=== PATIENT | female | born 1955 | race Caucasian/White ===

== ENCOUNTER → 2016-09-25 | Outpatient (CLI) | payer OTHER ==
[~2016-09-25] MED LIST: ASPI325T39 PO; BISO10TA14 PO; CHOL100010 PO; LPT/40 PO; LRT5 PO; PANT40TA PO
[2016-09-25 16:59] LABS: ALT/SGPT 71 U/L (12-78); AST/SGOT 37 U/L (15-37); BLOOD UREA NITROGEN 9 mg/dl (7-18); BUN/CREATININE RATIO 10.3 (10-20); CALCIUM 8.9 mg/dl (8.5-10.1); CARBON DIOXIDE 32 mmol/L (21-32); CHLORIDE 104 mmol/L (98-107); CHOLESTEROL 202 mg/dl (0-200); CREATININE 0.88 mg/dl (0.60-1.20); GLUCOSE 100 mg/dl (70-99); POTASSIUM 4.2 mmol/L (3.5-5.1); SODIUM 140 mmol/L (136-145); TRIGLYCERIDES 220 mg/dl (0-150); VERY LOW DENSITY LIPOPROT CALC 44 mg/dl
[2016-09-25 17:09] LABS: ALB/GLOB RATIO 1.4 (0.9-2); ALKALINE PHOSPHATASE 99 U/L (45-117); CHOLESTEROL/HDL RATIO 3.7; HDL CHOLESTEROL 55 mg/dl; LDL CHOLESTEROL CALCULATED 103 mg/dl
== END | disposition home or self-care (01) ==
LOC: C.LABPBG 11:44
PROVIDERS: ATTEND Family Medicine
DX: E78.5 Hyperlipidemia, unspecified (principal); J44.9 Chronic obstructive pulmonary disease, unspecified; E55.9 Vitamin D deficiency, unspecified

== ENCOUNTER → 2017-01-04 | Outpatient (CLI) | payer OTHER | END | disposition home or self-care (01) | LOC: C.MAMM 09:14 | PROVIDERS: ATTEND Family Medicine | DX: M85.88 Other specified disorders of bone density and structure, other site (principal); M81.0 Age-related osteoporosis without current pathological fracture ==

== ENCOUNTER → 2017-03-04 | Outpatient (CLI) | payer OTHER | END | disposition home or self-care (01) | LOC: C.LABPBG 11:36 | PROVIDERS: ATTEND Internal Medicine Rheumatology | DX: M80.00XA Age-related osteoporosis with current pathological fracture, unspecified site, initial encounter for fracture (principal); E55.9 Vitamin D deficiency, unspecified; E61.8 Deficiency of other specified nutrient elements; S22.39XA Fracture of one rib, unspecified side, initial encounter for closed fracture; X58.XXXA Exposure to other specified factors, initial encounter; R74.8 Abnormal levels of other serum enzymes ==

== ENCOUNTER → 2017-03-04 | Outpatient (CLI) | payer OTHER | END | disposition home or self-care (01) | LOC: C.LABPBG 10:46 | PROVIDERS: ATTEND Family Medicine | DX: R74.8 Abnormal levels of other serum enzymes (principal) ==

== ENCOUNTER 2017-04-23 09:27 | Inpatient (IN) | payer OTHER ==
[~2017-04-23] VITALS: Ht 160 cm; Wt 58.4 kg
[2017-04-23] MEDS ORDERED: SODIUM CHLORIDE 0.9% 1000ML 1,000 ML IV STA (10:27)
[2017-04-23] MEDS ORDERED: ALBUT/IPRATROP 3MG/0.5MG NEB 3 ML VIAL INH STA ×2 (10:27→13:07)
[2017-04-23] MEDS ORDERED: ONDANSETRON INJ 2 MG/ML 2 ML VIAL IV STA (11:05)
[2017-04-23] MEDS ORDERED: ONDANSETRON INJ 2 MG/ML 2 ML VIAL ONE (11:05)
[2017-04-23] MEDS ORDERED: PANT40TA PO ×2 (11:28)
[2017-04-23] MEDS ORDERED: CALC-393 PO ×2 (11:28)
[2017-04-23] MEDS ORDERED: CETI10TA84 PO ×2 (11:28)
[2017-04-23] MEDS ORDERED: ASPI325T39 PO ×2 (11:28)
[2017-04-23] MEDS ORDERED: CHOL1TAB2 PO ×2 (11:28)
[2017-04-23] MEDS ORDERED: BISO5TAB3 PO ×2 (11:28)
[2017-04-23] MEDS ORDERED: ALPR-412 PO ×2 (11:28)
[2017-04-23] MEDS ORDERED: FLUT1INH INH ×2 (11:28)
[2017-04-23] MEDS ORDERED: MECL1TAB42 PO ×2 (11:28)
[2017-04-23] MEDS ORDERED: ZOLE5INJ3 IV ×2 (11:28)
[2017-04-23] MEDS ORDERED: CYAN10005 PO ×2 (11:28)
[2017-04-23] MEDS ORDERED: HYDR-5688 PO ×2 (11:28)
[2017-04-23 11:31] LABS: CALCIUM 9.1 mg/dl (8.5-10.1); CREATININE 0.59 mg/dl (0.60-1.20); POTASSIUM 3.2 mmol/L (3.5-5.1)
--- NOTE | 2017-04-23 11:36 | DIAGNOSTIC IMAGING REPORT ---
CHEST 2 VIEWS ROUTINE HISTORY: 61 years-old Female hemoptysis fever 103 acute fever COMPARISON: Chest radiographs 11/14/2009 TECHNIQUE: PA and lateral views of the chest FINDINGS: Cardiac silhouette is within normal limits. Atherosclerosis of the aorta. Calcified posterior pleural plaque with associated linear subsegmental scarring/atelectasis redemonstrated causing hazy right perihilar and right midlung opacity which is unchanged. Chronic blunting of the right costophrenic angle. No large pneumothorax, pleural effusion or focal airspace consolidation. Bones of the chest appear grossly intact. Multilevel endplate spurring of the spine. IMPRESSION: 1. No acute process of the chest. 2. Unchanged calcified pleural plaque of the right posterior hemithorax causing a hazy ill-defined right perihilar and right midlung opacity is unchanged with mild adjacent scarring/atelectasis. 3. Chronic right costophrenic angle blunting likely secondary to underlying scarring. The above report was generated using voice recognition software. It may contain grammatical, syntax or spelling errors. Electronically signed by: Nathaniel Pinedo M.D. 04/23/2017 11:34 AM Dictated Date/Time: 04/23/2017 11:31 AM
[2017-04-23 11:44] LABS: INFLUENZA B ANTIGEN Neg for Influ B (NEG)
[2017-04-23 11:48] LABS: BASO % 0.6 %; BASO ABS # 0.03 K/uL (0-0.2); EOS % 2.5 %; EOS ABS # 0.13 K/uL (0-0.5); IG# 0.01 K/uL (0.00-0.02); LYMPH % 26.7 %; MEAN CELL VOLUME 96.4 fL (80-100); MEAN CORPUSCULAR HEMOGLOBIN 33.7 pg (25-34); MEAN PLATELET VOLUME 9.7 fL (7.4-10.4); MONO % 12.2 %; MONO ABS # 0.64 K/uL (0.11-0.59); NEUT % 57.8 %; NEUT ABS # 3.03 K/uL (1.4-6.5); PLATELET COUNT 187 K/uL (130-400); RED CELL DISTRIBUTION WIDTH CV 12.7 % (11.5-14.5); RED CELL DISTRIBUTION WIDTH SD 44.5 fL (36.4-46.3); WHITE BLOOD COUNT 5.24 K/uL (4.8-10.8)
[2017-04-23] MEDS ORDERED: OPTIRAY 320 IV PRN (12:15)
--- NOTE | 2017-04-23 12:43 | DIAGNOSTIC IMAGING REPORT ---
CT ANGIOGRAM OF THE CHEST CLINICAL HISTORY: Fever, hemoptysis, weight loss. COMPARISON STUDY: Chest x-ray dated to 91 TECHNIQUE: Following the IV administration of 90 mL of Optiray-320, CT angiogram of the thorax was performed from the thoracic inlet to the lung bases utilizing the pulmonary embolus protocol. Images are reviewed in the axial, sagittal, and coronal planes. IV contrast was administered without complication. MIP imaging was performed. A dose lowering technique was utilized adhering to the principles of ALARA. CT DOSE: 207.24 mGy.cm FINDINGS: Mediastinal and hilar lymph nodes are the upper limits of normal in size. There is no pathologic axillary lymphadenopathy There was no evidence of thoracic aortic dilatation. There were no pulmonary artery filling defects to indicate acute pulmonary embolism. There are right-sided pleural calcifications. There is moderate respiratory motion artifact. There is bilateral lower lobe bronchial wall thickening and mucous plugging. There is pulmonary emphysema. IMPRESSION: 1. No evidence of acute pulmonary embolism 2. Emphysema 3. Right-sided pleural thickening and pleural calcification 4. Bronchial wall thickening most pronounced within the lower lobes with areas of mucous plugging. This is likely indicative of a bronchitis. Electronically signed by: Corona Rubi M.D. 04/23/2017 12:41 PM Dictated Date/Time: 04/23/2017 12:37 PM
[2017-04-23] MEDS ORDERED: AZITHROMYCIN 250 MG TAB PO ONE (13:15)
[2017-04-23] MEDS ORDERED: POTASSIUM CHLORIDE 10 MEQ TABCR PO STA (13:17)
--- NOTE | 2017-04-23 14:33 | History and Physical ---
History & Physical Date & Time of Service: Apr 23, 2017 at 14:13 Chief Complaint: Coughing Up Blood, Primary Care Physician: Candie Francis DO History of Present Illness Source: patient 61 y/o F Hx PAF, COPD, GERD. Pt states she has had a cough for 5 days and has developed hemoptysis over the past 2 days. This is mostly blood streaking in her sputum. She described a recurrent fever of up to 103'. She denies CP, N/V , diarrhea or dysuria. She does not normally require treatment for her COPD. A CT chest is consistent with COPD and bronchitis. There are no distinct infiltrates. We were considering DC from the ER, however, her oxygen saturation has been variable and as low as 85% on RA. Past Medical/Surgical History 1) Paroxysmal AF 2) COPD 3) GERD Surgical Problems: 1) Hip replacement 2) Hysterectomy Family History Cancer Diabetes mellitus FH: heart disease FHx: gallbladder disease FHx: lung disease Hypertension Social History quit smoking 4 years ago - 40 + pack year history - rare ETOH Smoking Status: Former Smoker Marital Status: in relationship Occupational Status: disabled Immunizations History of Influenza Vaccine: No History of Tetanus Vaccine?: Yes History of Pneumococcal: No History of Hepatitis B Vaccine: No Allergies Coded Allergies: No Known Allergies (Verified , `, 02/17/16) Home Medications Scheduled Aspirin (Aspirin Ec), 325 MG PO DAILY Bisoprolol Fumarate (Zebeta), 2.5 MG PO DAILY Calcium Carbonate (Calcium), 1 TAB PO BID Cetirizine (Zyrtec), 10 MG PO DAILY Cholecalciferol (Vitamin D-3), 1,000 UNITS PO DAILY Cyanocobalamin (Vitamin B-12), 5,000 MCG PO DAILY Fluticasone Furoate-Vilanterol (Breo Ellipta), 1 PUFF INH DAILY Pantoprazole (Protonix), 40 MG PO BID Zoledronic Acid (Zoledronic Acid), 5 MG IV DIRECTED Scheduled PRN Alprazolam (Alprazolam), 0.25 MG PO DAILY PRN for Anxiety Hydrocodone/Acetaminophen 5MG/325MG ([place] 5MG/325MG), 1 TABLET PO Q6H PRN for Pain Meclizine Hcl (Meclizine Hcl), 25 MG PO TID PRN for Dizziness or Vertigo Review of Systems Constitutional: + fever, + chills, No sweats Eyes: No worsening of vision ENT: No hearing loss, No unusual epistaxis, No nasal symptoms Respiratory: + cough, + sputum, + shortness of breath Cardiovascular: No chest pain, No orthopnea, No PND Abdomen: No pain, No nausea, No vomiting Musculoskeletal: + joint pain (chronic ) Genitourinary - Female: No dysuria, No urinary frequency Neurologic: No memory loss, No paralysis, No weakness Psychiatric: No depression symptoms Endocrine: No fatigue Hematologic / Lymphatic: No abnormal bleeding/bruising Integumentary: No rash Allergic / Immunologic: No environmental allergies Physical Exam Vital Signs Date Time Temp Pulse Resp B/P (MAP) Pulse Ox O2 Delivery O2 Flow Rate FiO2 04/23/17 13:21 84 04/23/17 13:00 70 22 137/73 95 Nasal Cannula 3.0 04/23/17 12:14 85 Room Air 04/23/17 12:14 70 20 97 Nasal Cannula 2.0 04/23/17 11:01 63 22 129/70 100 Nebulizer 8.0 04/23/17 10:58 67 04/23/17 09:34 94 Room Air 04/23/17 09:31 36.7 68 17 146/88 94 Room Air General Appearance: WD/WN, no apparent distress Head: normocephalic Eyes: normal inspection ENT: normal ENT inspection, pharynx normal Neck: supple, no JVD Respiratory/Chest: chest non-tender, + pertinent finding (Coarse breath sounds without wheezing) Cardiovascular: regular rate, rhythm, no edema, no gallop Abdomen/GI: normal bowel sounds, non tender, soft Back: normal inspection, no CVA tenderness Extremities/Musculoskelatal: normal inspection, no calf tenderness, normal capillary refill 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, no motor/sensory deficits, alert, oriented x 3 Skin: normal color Diagnostics Laboratory Results Results Past 24 Hours Test 04/23/17 10:35 04/23/17 10:55 04/23/17 13:55 Range/Units Influenza Type A Antigen Neg for Influ A NEG Influenza Type B Antigen Neg for Influ B NEG White Blood Count 5.24 4.8-10.8 K/uL Red Blood Count 4.15 4.2-5.4 M/uL Hemoglobin 14.0 12.0-16.0 g/dL Hematocrit 40.0 37-47 % Mean Corpuscular Volume 96.4 80-100 fL Mean Corpuscular Hemoglobin 33.7 25-34 pg Mean Corpuscular Hemoglobin Concent 35.0 32-36 g/dl Platelet Count 187 130-400 K/uL Mean Platelet Volume 9.7 7.4-10.4 fL Neutrophils (%) (Auto) 57.8 % Lymphocytes (%) (Auto) 26.7 % Monocytes (%) (Auto) 12.2 % Eosinophils (%) (Auto) 2.5 % Basophils (%) (Auto) 0.6 % Neutrophils # (Auto) 3.03 1.4-6.5 K/uL Lymphocytes # (Auto) 1.40 1.2-3.4 K/uL Monocytes # (Auto) 0.64 0.11-0.59 K/uL Eosinophils # (Auto) 0.13 0-0.5 K/uL Basophils # (Auto) 0.03 0-0.2 K/uL RDW Standard Deviation 44.5 36.4-46.3 fL RDW Coefficient of Variation 12.7 11.5-14.5 % Immature Granulocyte % (Auto) 0.2 % Immature Granulocyte # (Auto) 0.01 0.00-0.02 K/uL Sodium Level 138 136-145 mmol/L Potassium Level 3.2 3.5-5.1 mmol/L Chloride Level 100 98-107 mmol/L Carbon Dioxide Level 32 21-32 mmol/L Anion Gap 6.0 3-11 mmol/L Blood Urea Nitrogen 9 7-18 mg/dl Creatinine 0.59 0.60-1.20 mg/dl Est Creatinine Clear Calc Drug Dose 80.7 ml/min Estimated GFR () 113.1 Estimated GFR (Non- 97.5 BUN/Creatinine Ratio 16.0 10-20 Random Glucose 104 70-99 mg/dl Lactic Acid Level 1.2 0.4-2.0 mmol/L Calcium Level 9.1 8.5-10.1 mg/dl Venous Blood pH 7.44 7.36-7.41 Venous Blood Partial Pressure CO2 34 38.0-50.0 mmHg Venous Blood Partial Pressure O2 56 mmHg Venous Blood HCO3 22 mmol/L Venous Blood Oxygen Saturation 88.0 % Venous Blood Base Excess -1.1 mEq/L Diagnostic Radiology IMPRESSION: 1. No evidence of acute pulmonary embolism 2. Emphysema 3. Right-sided pleural thickening and pleural calcification 4. Bronchial wall thickening most pronounced within the lower lobes with areas of mucous plugging. This is likely indicative of a bronchitis. Impression Assessment and Plan 61 y/o F Hx PAF, COPD, GERD. Pt states she has had a cough for 5 days and has developed hemoptysis over the past 2 days. This is mostly blood streaking in her sputum. She described a recurrent fever of up to 103'. She denies CP, N/V , diarrhea or dysuria. She does not normally require treatment for her COPD. A CT chest is consistent with COPD and bronchitis. There are no distinct infiltrates. We were considering DC from the ER, however, her oxygen saturation has been variable and as low as 85% on RA. 1) Cough, fever, hemoptysis - COPD - pt paced on Duonebes, Abx, steroids 02 - If she does not improve over the next 2 days and remains in hospital, would keep her NPO after midnight Wednesday for potential bronch Wednesday 2) PAF - currently Sinus - cont Bisoprolol- low MANJIT score - takes ASA only which is held due to hemoptysis. 3) GERD - cont PPi Full code - SCDs due to hemoptysis Total time for this admit including review of labs, meds, imaging, records - discussion with pt, ER attending, pulmonology - 36 min Level of Care Med/Surg Resuscitation Status FULL RESUSCITATION VTE Prophylaxis Given or contraindicated: SCD's
[2017-04-23] MEDS ORDERED: MAGNESIUM SULFATE 1GM / D5W 1 GM IV STA (14:45)
--- NOTE | 2017-04-23 14:47 | EMERGENCY ROOM VISIT NOTE ---
History Report prepared by Liana: Meche Hart Under the Supervision of: Dr. Nicolas Payan M.D. First contact with patient: 10:20 Chief Complaint: COUGH Stated Complaint: COUGHING UP BLOOD, Nursing Triage Summary: Fever 103 x 3 days. Coughing up blood. Lost 5 lbs this week. History of Present Illness The patient is a 61 year old female who presents to the Emergency Room with complaints of persistent hemoptysis starting 4 days ago. The patient started getting sick with a cough 6 days ago. She first noticed the blood 4 days ago. She brought in a tissue which showed true hemoptysis at home. The patient has had a fever of 103 for the past 3 days. She feels SOB. She denies any chest pain or LOC. She is a former smoker of 47 years. She quit smoking 4 years ago. She has a history of COPD. She does not wear oxygen. She has not needed her inhaler. She denies any hormone use, steroid use, recent travel, or recent surgery. She denies any history of blood clots. Source of History: patient Onset: 4 days ago Position: other (global) Quality: other (hemoptysis) Timing: other (persistent) Associated Symptoms: + cough, + SOB, No LOC, No chest pain Review of Systems See HPI for pertinent positives and negatives. A total of ten systems were reviewed and were otherwise negative. Past Medical & Surgical Medical Problems: (1) Hemoptysis Surgical Problems: (1) History of hip replacement (2) History of hysterectomy Family History Cancer Diabetes mellitus FH: heart disease FHx: gallbladder disease FHx: lung disease Hypertension Social History Smoking Status: Former Smoker Alcohol Use: none Marital Status: in relationship Housing Status: lives with significant other Occupation Status: disabled Current/Historical Medications Scheduled Aspirin (Aspirin Ec), 325 MG PO DAILY Bisoprolol Fumarate (Zebeta), 2.5 MG PO DAILY Calcium Carbonate (Calcium), 1 TAB PO BID Cetirizine (Zyrtec), 10 MG PO DAILY Cholecalciferol (Vitamin D-3), 1,000 UNITS PO DAILY Cyanocobalamin (Vitamin B-12), 5,000 MCG PO DAILY Fluticasone Furoate-Vilanterol (Breo Ellipta), 1 PUFF INH DAILY Pantoprazole (Protonix), 40 MG PO BID Zoledronic Acid (Zoledronic Acid), 5 MG IV DIRECTED Scheduled PRN Alprazolam (Alprazolam), 0.25 MG PO DAILY PRN for Anxiety Hydrocodone/Acetaminophen 5MG/325MG ([place] 5MG/325MG), 1 TABLET PO Q6H PRN for Pain Meclizine Hcl (Meclizine Hcl), 25 MG PO TID PRN for Dizziness or Vertigo Allergies Coded Allergies: No Known Allergies (Verified , `, 02/17/16) Physical Exam Vital Signs Date Time Temp Pulse Resp B/P (MAP) Pulse Ox O2 Delivery O2 Flow Rate FiO2 04/23/17 16:19 78 25 128/67 92 Room Air 04/23/17 15:00 85 18 119/87 95 Nasal Cannula 3.0 04/23/17 13:21 84 04/23/17 13:00 70 22 137/73 95 Nasal Cannula 3.0 04/23/17 12:14 85 Room Air 04/23/17 12:14 70 20 97 Nasal Cannula 2.0 04/23/17 11:01 63 22 129/70 100 Nebulizer 8.0 04/23/17 10:58 67 04/23/17 09:34 94 Room Air 04/23/17 09:31 36.7 68 17 146/88 94 Room Air Physical Exam Physical Exam GENERAL: She is oriented to person, place, and time. She appears well- developed and well-nourished. She does not appear distressed. ____ HENT: Exam performed. Head: Normocephalic and atraumatic. Right Ear: External ear normal. No mastoid tenderness. Left Ear: External ear normal. No mastoid tenderness. Mouth/Throat: The oropharynx is clear and moist. No trismus in the jaw. No dental abscesses or uvula swelling. No oropharyngeal exudate or tonsillar abscesses. ____ EYES: Conjunctivae and EOM are normal. Pupils are equal, round, and reactive to light. Right eye exhibits no discharge. Left eye exhibits no discharge. No scleral icterus. ____ NECK: Normal range of motion. Neck supple. No JVD present. No spinous process tenderness present. No carotid bruit present. No rigidity. No tracheal deviation and normal range of motion present. No Brudzinski's sign and no Kernig 's sign noted. ____ CV: Normal rate, regular rhythm, normal heart sounds and intact distal pulses. There is no peripheral edema. Palpable radial pulses bue. ____ PULM/CHEST: No respiratory distress. No stridor. She has diffuse expiratory wheezes on exam. She has no rales. Chest Wall: She exhibits no tenderness. ____ ABD: The abdomen is soft. Bowel sounds are normal. She has no distension. No mass is present. There is no tenderness. There is no rebound, no guarding, no Quiroz's sign and no tenderness at McBurney's point. Rovsig negative MUSC/SKEL: Normal range of motion. There is no peripheral edema, tenderness or deformity. LYMPH: No cervical adenopathy. ____ NEURO: She is alert and oriented to person, place, and time. She has normal strength. No cranial nerve deficit or sensory deficit. Coordination and gait normal. GCS eye subscore is 4. GCS verbal subscore is 5. GCS motor subscore is 6. cerbellar tests wnl. ____ SKIN: Skin is warm and dry. She is not diaphoretic. ____ PSYCH: She has a normal mood and affect. Her behavior is normal. Judgment and thought content normal. ____ Medical Decision & Procedures ER Provider Diagnostic Interpretation: Xray results as stated below per my and radiologist interpretation. Radiology results as stated below per my review and radiologist interpretation: CHEST 2 VIEWS ROUTINE HISTORY: 61 years-old Female hemoptysis fever 103 acute fever COMPARISON: Chest radiographs 11/14/2009 TECHNIQUE: PA and lateral views of the chest FINDINGS: Cardiac silhouette is within normal limits. Atherosclerosis of the aorta. Calcified posterior pleural plaque with associated linear subsegmental scarring/atelectasis redemonstrated causing hazy right perihilar and right midlung opacity which is unchanged. Chronic blunting of the right costophrenic angle. No large pneumothorax, pleural effusion or focal airspace consolidation. Bones of the chest appear grossly intact. Multilevel endplate spurring of the spine. IMPRESSION: 1. No acute process of the chest. 2. Unchanged calcified pleural plaque of the right posterior hemithorax causing a hazy ill-defined right perihilar and right midlung opacity is unchanged with mild adjacent scarring/atelectasis. 3. Chronic right costophrenic angle blunting likely secondary to underlying scarring. The above report was generated using voice recognition software. It may contain grammatical, syntax or spelling errors. Electronically signed by: Nathaniel Pinedo M.D. 04/23/2017 11:34 AM Dictated Date/Time: 04/23/2017 11:[address] ANGIOGRAM OF THE CHEST CLINICAL HISTORY: Fever, hemoptysis, weight loss. COMPARISON STUDY: Chest x-ray dated to TECHNIQUE: Following the IV administration of 90 mL of Optiray-320, CT angiogram of the thorax was performed from the thoracic inlet to the lung bases utilizing the pulmonary embolus protocol. Images are reviewed in the axial, sagittal, and coronal planes. IV contrast was administered without complication. MIP imaging was performed. A dose lowering technique was utilized adhering to the principles of ALARA. CT DOSE: 207.24 mGy.cm FINDINGS: Mediastinal and hilar lymph nodes are the upper limits of normal in size. There is no pathologic axillary lymphadenopathy There was no evidence of thoracic aortic dilatation. There were no pulmonary artery filling defects to indicate acute pulmonary embolism. There are right-sided pleural calcifications. There is moderate respiratory motion artifact. There is bilateral lower lobe bronchial wall thickening and mucous plugging. There is pulmonary emphysema. IMPRESSION: 1. No evidence of acute pulmonary embolism 2. Emphysema 3. Right-sided pleural thickening and pleural calcification 4. Bronchial wall thickening most pronounced within the lower lobes with areas of mucous plugging. This is likely indicative of a bronchitis. Electronically signed by: Corona Rubi M.D. 04/23/2017 12:41 PM Dictated Date/Time: 04/23/2017 12:37 PM Laboratory Results 04/23/17 10:55 Red Blood Count 4.15, Mean Corpuscular Volume 96.4, Mean Corpuscular Hemoglobin 33.7, Mean Corpuscular Hemoglobin Concent 35.0, Mean Platelet Volume 9.7, Neutrophils (%) (Auto) 57.8, Lymphocytes (%) (Auto) 26.7, Monocytes (%) (Auto) 12.2, Eosinophils (%) (Auto) 2.5, Basophils (%) (Auto) 0.6, Neutrophils # (Auto ) 3.03, Lymphocytes # (Auto) 1.40, Monocytes # (Auto) 0.64, Eosinophils # (Auto ) 0.13, Basophils # (Auto) 0.03 04/23/17 10:55 Test 04/23/17 10:35 04/23/17 10:55 04/23/17 13:55 Influenza Type A Antigen Neg for Influ A (NEG) Influenza Type B Antigen Neg for Influ B (NEG) White Blood Count 5.24 K/uL (4.8-10.8) Red Blood Count 4.15 M/uL (4.2-5.4) Hemoglobin 14.0 g/dL (12.0-16.0) Hematocrit 40.0 % (37-47) Mean Corpuscular Volume 96.4 fL (80-100) Mean Corpuscular Hemoglobin 33.7 pg (25-34) Mean Corpuscular Hemoglobin Concent 35.0 g/dl (32-36) Platelet Count 187 K/uL (130-400) Mean Platelet Volume 9.7 fL (7.4-10.4) Neutrophils (%) (Auto) 57.8 % Lymphocytes (%) (Auto) 26.7 % Monocytes (%) (Auto) 12.2 % Eosinophils (%) (Auto) 2.5 % Basophils (%) (Auto) 0.6 % Neutrophils # (Auto) 3.03 K/uL (1.4-6.5) Lymphocytes # (Auto) 1.40 K/uL (1.2-3.4) Monocytes # (Auto) 0.64 K/uL (0.11-0.59) Eosinophils # (Auto) 0.13 K/uL (0-0.5) Basophils # (Auto) 0.03 K/uL (0-0.2) RDW Standard Deviation 44.5 fL (36.4-46.3) RDW Coefficient of Variation 12.7 % (11.5-14.5) Immature Granulocyte % (Auto) 0.2 % Immature Granulocyte # (Auto) 0.01 K/uL (0.00-0.02) Anion Gap 6.0 mmol/L (3-11) Est Creatinine Clear Calc Drug Dose 80.7 ml/min Estimated GFR () 113.1 Estimated GFR (Non- 97.5 BUN/Creatinine Ratio 16.0 (10-20) Lactic Acid Level 1.2 mmol/L (0.4-2.0) Calcium Level 9.1 mg/dl (8.5-10.1) Venous Blood pH 7.44 (7.36-7.41) Venous Blood Partial Pressure CO2 34 mmHg (38.0-50.0) Venous Blood Partial Pressure O2 56 mmHg Venous Blood HCO3 22 mmol/L Venous Blood Oxygen Saturation 88.0 % Venous Blood Base Excess -1.1 mEq/L Laboratory results reviewed by me Medications Administered Medications (Trade) Dose Ordered Sig/Izabela Route Start Time Stop Time Status Last Admin Dose Admin Albuterol/ Ipratropium (Duoneb) 3 ml NOW STAT INH 04/23/17 10:27 04/23/17 10:31 DC 04/23/17 10:59 3 ML Prednisone (PredniSONE TAB) 60 mg NOW STAT PO 04/23/17 10:27 04/23/17 10:30 DC 04/23/17 10:47 60 MG Sodium Chloride 1,000 ml @ 125 mls/hr Q8H STAT IV 04/23/17 10:27 04/23/17 17:17 DC 04/23/17 10:27 125 MLS/HR Ondansetron HCl (Zofran Inj) 4 mg STK-MED ONCE .ROUTE 04/23/17 11:05 04/23/17 11:06 DC 04/23/17 11:08 4 MG Albuterol/ Ipratropium (Duoneb) 3 ml NOW STAT INH 04/23/17 13:07 04/23/17 13:10 DC 04/23/17 13:13 3 ML Azithromycin (Zithromax Tab) 500 mg NOW ONCE PO 04/23/17 13:15 04/23/17 13:16 DC 04/23/17 13:13 500 MG Potassium Chloride (Klor-Con M10) 40 meq NOW STAT PO 04/23/17 13:17 04/23/17 13:19 DC 04/23/17 13:23 40 MEQ Magnesium Sulfate 100 ml @ 100 mls/hr NOW STAT IV 04/23/17 14:45 04/23/17 15:44 DC 04/23/17 15:27 100 MLS/HR Albuterol/ Ipratropium (Duoneb) 3 ml Q6R INH 04/23/17 15:45 05/23/17 15:44 04/23/17 15:45 3 ML ED Course 1022: The patient was evaluated in room C3. A complete history and physical exam was performed. 1027: NSS 1000 ml @ 125 mls/hr IV, Prednisone 60 mg PO, Duoneb 3 ml INH. 1105: Zofran Inj 4 mg IV. 1305: I reevaluated the patient. Her oxygen saturation dipped down to 85 on room air. She was immediately placed on supplemental oxygen which improved her oxygen saturation. She is continuing to wheeze. She will have a repeat breathing treatment. She will be evaluated for further management. 1307: Duoneb 3 ml INH. 1315: Azithromycin 500 mg PO. 1316: I discussed the patient's case with OPAL Garcia hospitalist. I presented the patient for admission. He states that he would like to evaluate the patient before admission. 1317: Potassium Chloride 40 meq PO. Medical Decision Pt's oxygen saturation decreased on RA requiring supplemental oxygen. Pt received repeat breathing treatments but continues to wheeze. CTA negative for PE. CTA shows bronchitis. Pt was treated with azithromycin and admitted to the hospitalist service. Labs wnl with the exception of a potassium of 3.2 which was replaced orally in the ED. Medication Reconcilliation Current Medication List: was personally reviewed by me Blood Pressure Screening Patient's blood pressure: Elevated blood pressure Referred to hospitalist. Consults Time Called: 1310 Consulting Physician: OPAL Garcia hospitalist Returned Call: 1316 I discussed the patient's case with him. I presented the patient for admission. He states that he would like to evaluate the patient before admission. Impression Primary Impression: Hypoxia Additional Impressions: COPD exacerbation Bronchitis Critical Care I have personally spent greater than 35 minutes of critical care time in the direct management of this patient. This includes bedside care, interpretation of diagnostic studies, and testing, discussion with consultants, patient, and family members, and other required patient management activities. This 35 minutes is in excess of all separately billable procedures. Scribe Attestation The scribe's documentation has been prepared under my direction and personally reviewed by me in its entirety. I confirm that the note above accurately reflects all work, treatment, procedures, and medical decision making performed by me. The chart was completed utilizing [employer] voice recognition software. Grammatical errors, random word insertions, pronoun errors, and incomplete sentences are an occasional consequence of this system due to software limitations, ambient noise, and hardware issues. Any formal questions or concerns about the content, text, or information contained within the body of this dictation should be directly addressed to the physician for clarification. Departure Information Dispostion Being Evaluated By Hospitalist Referrals No Doctor, Assigned (PCP) Patient Instructions My [facility] Problem Qualifiers
[2017-04-23] MEDS ORDERED: LEVOFLOXACIN / D5W 750 MG in PREMIXED IN D5W 150 ML IV SCH (15:45)
[2017-04-23] MEDS ORDERED: ONDANSETRON INJ 2 MG/ML 2 ML VIAL IV PRN (15:45)
[2017-04-23] MEDS: ALBUT/IPRATROP 3MG/0.5MG NEB 3 ML VIAL INH SCH ×2 (15:45→19:03)
[2017-04-23] MEDS ORDERED: ALUMINUM/MAGNESIUM/SIMETH (MAALOX MAX) 30 ML UDC PO PRN (15:45)
[2017-04-23] MEDS ORDERED: POLYETHYLENE (MIRALAX) 17 GM PACK PO PRN (15:45)
[2017-04-23] MEDS ORDERED: ACETAMINOPHEN 325 MG TAB PO PRN (15:45)
[2017-04-23] MEDS ORDERED: MAGNESIUM HYDROXIDE SUSP 30 ML UDC PO PRN (15:45)
[2017-04-23] MEDS ORDERED: ALBUTEROL 0.083% NEBU SOLN 3 ML VIAL INH PRN (15:45)
--- NOTE | 2017-04-23 15:56 | Consultant Recommendations ---
Installer Recommendations Date of Service Apr 23, 2017. Installer Recommendations Follow up with Dr. Salinas from pulmonary Friday, April 28, 2017 at [address] [facility] [place]
[2017-04-23] MEDS ORDERED: GUAIFENESIN/CODEINE 100MG/10MG 5ML UDC PO PRN (16:00)
[2017-04-23 17:47] VITALS: BP 153/88; PULSE 89; TEMP 36.7; O2SAT 93
[2017-04-23 18:28] VITALS: BP 153/88; PULSE 89; TEMP 36.7; O2SAT 93; Ht 160 cm; Wt 58.4 kg
[2017-04-23] MEDS: LEVOFLOXACIN / D5W 750 MG in PREMIXED IN D5W 150 ML IV SCH (18:50)
[2017-04-23] MEDS ORDERED: HYDROCODONE/ACETAMIN 5/325MG TAB PO PRN (19:00)
[2017-04-23] MEDS ORDERED: MECLIZINE HCL 12.5 MG TAB PO PRN (19:00)
[2017-04-23] MEDS ORDERED: ALPRAZOLAM 0.25 MG TAB PO PRN (19:00)
[2017-04-23 19:05] VITALS: PULSE 67; O2SAT 99
--- NOTE | 2017-04-23 20:29 | Pulmonary Consultation ---
History General Date of Service: Apr 23, 2017. Stated Complaint: Hemoptysis, Hypoxia HPI The patient is a 61 year old female with h/o paroxysmal a-fib, COPD, presents to ED with worsening hemoptysis for the past 5 days. Her symptoms started one day earlier, with a productive cough (yellow phlegm) and fever. Initially the sputum became pink, later becoming bloody. She is not bleeding much by amount, mostly in the morning and then it clears. She has generalized rib cage pain, denies nausea or vomiting, denies palpitations, denies loss of consciousness. She is not on anticoagulation, only takes ASA 81 mg. She feels ok now, but it was noted that her O2 sat drops to 86-88% on room air at rest. She stopped smoking 4 years ago, after a severe case of pneumonia. She is not consistent with her Breo regimen Review of Systems Per HPI, all other systems reviewed and negative Past Medical History Past Medical History: A Fib, COPD, other (asbestosis with pleural plaques) Family History Cancer Diabetes mellitus FH: heart disease FHx: gallbladder disease FHx: lung disease Hypertension Social History Hx Tobacco Use In Past Year?: No Smoking Status: Former Smoker Marital status: in relationship Occupational Status: disabled Immunizations History of Influenza Vaccine: No History of Tetanus Vaccine?: Yes History of Pneumococcal: No History of Hepatitis B Vaccine: No Allergies Coded Allergies: No Known Allergies (Verified , `, 02/17/16) Current Medications Reported Home Medications Medications Dose Route/Sig Max Daily Dose Days Date Category Dose Instructions Zoledronic Acid 5 Mg/100 Ml Inj 5 Mg IV DIRECTED 04/23/17 Reported Vitamin D-3 (Cholecalciferol) 1,000 Unit Tab 1,000 Units PO DAILY 04/23/17 Reported Vitamin B-12 (Cyanocobalamin) 1,000 Mcg Tab 5,000 Mcg PO DAILY 04/23/17 Reported Protonix (Pantoprazole Sodium) 40 Mg Tab 40 Mg PO BID 04/23/17 Reported Meclizine Hcl 25 Mg Tab 25 Mg PO TID PRN 04/23/17 Reported [place] 5MG/325MG (Acetaminophen/Hydrocodone Bitart) Tab 1 Tablet PO Q6H PRN 04/23/17 Reported Zyrtec (Cetirizine HCl) 10 Mg Tab 10 Mg PO DAILY 04/23/17 Reported Calcium (Calcium Carbonate) 600 Mg Tab 1 Tab PO BID 04/23/17 Reported Breo Ellipta (Fluticasone Furoate-Vilanterol) 1 Inh Inh 1 Puff INH DAILY 04/23/17 Reported Zebeta (Bisoprolol Fumarate) 5 Mg Tab 2.5 Mg PO DAILY 04/23/17 Reported *1/2 TABLET DOSING* Aspirin Ec (Aspirin) 325 Mg Tab 325 Mg PO DAILY 04/23/17 Reported Alprazolam 0.25 Mg Tab 0.25 Mg PO DAILY PRN 30 04/23/17 Reported Physical Physical Exam Vital Signs: Date Time Temp Pulse Resp B/P (MAP) Pulse Ox O2 Delivery O2 Flow Rate FiO2 04/23/17 19:05 67 18 99 Nasal Cannula 2.0 04/23/17 18:28 36.7 89 18 153/88 93 Nasal Cannula 2.0 04/23/17 17:47 36.7 89 18 153/88 (109) 93 04/23/17 16:19 78 25 128/67 92 Room Air 04/23/17 15:00 85 18 119/87 95 Nasal Cannula 3.0 04/23/17 13:21 84 04/23/17 13:00 70 22 137/73 95 Nasal Cannula 3.0 04/23/17 12:14 85 Room Air 04/23/17 12:14 70 20 97 Nasal Cannula 2.0 04/23/17 11:01 63 22 129/70 100 Nebulizer 8.0 04/23/17 10:58 67 04/23/17 09:34 94 Room Air 04/23/17 09:31 36.7 68 17 146/88 94 Room Air General: No acute distress Heent: NC/AT CVS: S1S2 regular, no murmurs Lungs: No wheezing, bilateral coarse rhonchi Abd: Soft, non-tender Ext: No edema 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, no deficit Diagnostics Labs Results Past 24 Hours Test 04/23/17 10:35 04/23/17 10:55 04/23/17 13:55 Range/Units Influenza Type A Antigen Neg for Influ A NEG Influenza Type B Antigen Neg for Influ B NEG White Blood Count 5.24 4.8-10.8 K/uL Red Blood Count 4.15 4.2-5.4 M/uL Hemoglobin 14.0 12.0-16.0 g/dL Hematocrit 40.0 37-47 % Mean Corpuscular Volume 96.4 80-100 fL Mean Corpuscular Hemoglobin 33.7 25-34 pg Mean Corpuscular Hemoglobin Concent 35.0 32-36 g/dl Platelet Count 187 130-400 K/uL Mean Platelet Volume 9.7 7.4-10.4 fL Neutrophils (%) (Auto) 57.8 % Lymphocytes (%) (Auto) 26.7 % Monocytes (%) (Auto) 12.2 % Eosinophils (%) (Auto) 2.5 % Basophils (%) (Auto) 0.6 % Neutrophils # (Auto) 3.03 1.4-6.5 K/uL Lymphocytes # (Auto) 1.40 1.2-3.4 K/uL Monocytes # (Auto) 0.64 0.11-0.59 K/uL Eosinophils # (Auto) 0.13 0-0.5 K/uL Basophils # (Auto) 0.03 0-0.2 K/uL RDW Standard Deviation 44.5 36.4-46.3 fL RDW Coefficient of Variation 12.7 11.5-14.5 % Immature Granulocyte % (Auto) 0.2 % Immature Granulocyte # (Auto) 0.01 0.00-0.02 K/uL Sodium Level 138 136-145 mmol/L Potassium Level 3.2 3.5-5.1 mmol/L Chloride Level 100 98-107 mmol/L Carbon Dioxide Level 32 21-32 mmol/L Anion Gap 6.0 3-11 mmol/L Blood Urea Nitrogen 9 7-18 mg/dl Creatinine 0.59 0.60-1.20 mg/dl Est Creatinine Clear Calc Drug Dose 80.7 ml/min Estimated GFR () 113.1 Estimated GFR (Non- 97.5 BUN/Creatinine Ratio 16.0 10-20 Random Glucose 104 70-99 mg/dl Lactic Acid Level 1.2 0.4-2.0 mmol/L Calcium Level 9.1 8.5-10.1 mg/dl Venous Blood pH 7.44 7.36-7.41 Venous Blood Partial Pressure CO2 34 38.0-50.0 mmHg Venous Blood Partial Pressure O2 56 mmHg Venous Blood HCO3 22 mmol/L Venous Blood Oxygen Saturation 88.0 % Venous Blood Base Excess -1.1 mEq/L Diagnostic Radiology IMPRESSION: 1. No evidence of acute pulmonary embolism 2. Emphysema 3. Right-sided pleural thickening and pleural calcification 4. Bronchial wall thickening most pronounced within the lower lobes with areas of mucous plugging. This is likely indicative of a bronchitis. Impression Assessment and Plan 61 year old female with COPD, asbestos related pleural plaques, presents with hemoptysis likely secondary to bronchopneumonia Plan: No need for immediate bronchoscopy Start course of antibiotics, Levaquin. Repeat EKG tomorrow to monitor QTc interval May need follow up imaging as outpatient to document clearance of the pneumonia. Hold ASA for few days. Supplement oxygen. Will need PFTs as outpatient Start low dose iv steroids for now, bronchodilators Will follow the patient over the weekend Note Total Time (mins): 30
[2017-04-23] MEDS: PANTOprazole SOD 40 MG TAB PO SCH (21:02)
[2017-04-23] MEDS: METHYLPREDNISOLONE IV 20 MG in SYRINGE 0 ML IV SCH (21:05)
[2017-04-23 23:42] VITALS: BP 172/83; PULSE 59; TEMP 36.5; O2SAT 99
[2017-04-24 01:00] VITALS: BP 158/90; PULSE 74
[2017-04-24] MEDS: ALBUT/IPRATROP 3MG/0.5MG NEB 3 ML VIAL INH SCH ×4 (01:45→20:10)
[2017-04-24 05:52] LABS: HEMATOCRIT 36.8 % (37-47); HEMOGLOBIN 12.6 g/dL (12.0-16.0); MEAN CELL VOLUME 96.1 fL (80-100); MEAN CORPUSCULAR HEMOGLOBIN 32.9 pg (25-34); MEAN CORPUSCULAR HGB CONC 34.2 g/dl (32-36); MEAN PLATELET VOLUME 9.3 fL (7.4-10.4); PLATELET COUNT 190 K/uL (130-400); RED CELL DISTRIBUTION WIDTH CV 12.9 % (11.5-14.5); RED CELL DISTRIBUTION WIDTH SD 44.8 fL (36.4-46.3); WHITE BLOOD COUNT 2.95 K/uL (4.8-10.8)
[2017-04-24 06:32] LABS: CALCIUM 8.2 mg/dl (8.5-10.1); CREATININE 0.52 mg/dl (0.60-1.20); POTASSIUM 3.8 mmol/L (3.5-5.1)
[2017-04-24] MEDS: METHYLPREDNISOLONE IV 20 MG in SYRINGE 0 ML IV SCH ×3 (06:36→21:28)
[2017-04-24 07:40] VITALS: BP 128/74; PULSE 58; TEMP 36.7; O2SAT 97
[2017-04-24 08:30] VITALS: O2SAT 97
[2017-04-24] MEDS: CYANOCOBALAMIN 2,500 MCG SUBL TAB PO SCH (08:30)
[2017-04-24] MEDS: CETIRIZINE HCL 10 MG TAB PO SCH (08:30)
[2017-04-24] MEDS: BISOPROLOL FUMARATE 5 MG TAB PO SCH (08:31)
[2017-04-24] MEDS: ASPIRIN 325 MG ECTAB PO SCH (08:31)
[2017-04-24] MEDS: PANTOprazole SOD 40 MG TAB PO SCH ×2 (08:31→19:50)
[2017-04-24] MEDS: GUAIFENESIN 600 MG TABCR PO SCH ×2 (12:03→21:27)
[2017-04-24 15:14] VITALS: BP 128/73; PULSE 59; TEMP 36.5; O2SAT 91
--- NOTE | 2017-04-24 15:44 | Progress Note ---
Subjective Date of Service: Apr 24, 2017. Problem List Medical Problems: (1) Bronchitis Status: Acute (2) COPD exacerbation Status: Acute (3) Hypoxia Status: Acute Objective Vital Signs Date Time Temp Pulse Resp B/P (MAP) Pulse Ox O2 Delivery O2 Flow Rate FiO2 04/24/17 15:14 36.5 59 17 128/73 (91) 91 Room Air 04/24/17 08:30 97 Room Air 04/24/17 07:40 36.7 58 19 128/74 (92) 97 Room Air 04/24/17 01:12 Room Air 04/24/17 01:00 74 158/90 (112) 04/23/17 23:42 36.5 59 20 172/83 (112) 99 Room Air 04/23/17 19:05 67 18 99 Nasal Cannula 2.0 04/23/17 18:28 36.7 89 18 153/88 93 Nasal Cannula 2.0 04/23/17 17:47 36.7 89 18 153/88 (109) 93 04/23/17 16:19 78 25 128/67 92 Room Air Laboratory Results Last 24 Hours Test 04/24/17 05:35 White Blood Count 2.95 K/uL Red Blood Count 3.83 M/uL Hemoglobin 12.6 g/dL Hematocrit 36.8 % Mean Corpuscular Volume 96.1 fL Mean Corpuscular Hemoglobin 32.9 pg Mean Corpuscular Hemoglobin Concent 34.2 g/dl RDW Standard Deviation 44.8 fL RDW Coefficient of Variation 12.9 % Platelet Count 190 K/uL Mean Platelet Volume 9.3 fL Sodium Level 139 mmol/L Potassium Level 3.8 mmol/L Chloride Level 106 mmol/L Carbon Dioxide Level 29 mmol/L Anion Gap 4.0 mmol/L Blood Urea Nitrogen 8 mg/dl Creatinine 0.52 mg/dl Est Creatinine Clear Calc Drug Dose 91.6 ml/min Estimated GFR () 117.9 Estimated GFR (Non- 101.7 BUN/Creatinine Ratio 16.5 Random Glucose 141 mg/dl Calcium Level 8.2 mg/dl Assessment and Plan 61 y/o F presents with bronchitis, hemoptysis and has significant mucus plugging on CTA, history of Chronic respiratory farilure, did have some hypoxia in the ER Bronchitis, Cough, fever, hemoptysis - hypoxia has resolved, COPD - Duo nebs, Levaquin, steroids 02 - slight improvement added flutter valve and mucinex to mobilize secretions PAF - currently Sinus - cont Bisoprolol- low MANJIT score - takes ASA only which is held due to hemoptysis. GERD - cont PPi Full code - SCDs due to hemoptysis, encourage ambulation
--- NOTE | 2017-04-24 15:56 | PULMONARY PROGRESS NOTE ---
DATE: 04/24/2017 COMPLAINT: Hemoptysis/hypoxia. HISTORY OF PRESENT ILLNESS: A 61-year-old white female with history of paroxysmal atrial fibrillation, COPD, longstanding smoking history, having quit in the remote past and worsening hemoptysis over the past 5 days. The patient was seen by Dr. Gaye Mcdowell in consultation yesterday when her sats were between 86% and 88% on room air. She has had a small amount of hemoptysis since the evaluation. The patient has been placed on IV Levaquin, aerosolized bronchodilator and her aspirin has been held. The CAT scan was reviewed and showed no evidence of pulmonary thromboembolic disease but emphysematous changes was seen and pleural thickening with pleural calcification were noted and bronchial wall thickening with areas of mucoid impaction and infiltrate involving the right lower lobe as well. White count on admission was 5200, H&H 14 and 40; H&H now 12 and 36.8, but she is receiving IV hydration. ABGs on room air - pH 7.44, pCO2 of 34, pO2 of 56. PHYSICAL EXAMINATION: VITAL SIGNS: 36.7 temperature, pulse 58 and regular, respiratory rate 19, blood pressure 128/74, O2 sat 97% on room air. SKIN: Warm and dry. HEENT: Atraumatic, normocephalic. PERRLA. LUNGS: Coarse rhonchi; wheezing, right base. CARDIAC: Regular rhythm. No murmurs or gallops. PMI nondisplaced. ABDOMEN: Soft, protuberant. EXTREMITIES: No significant pedal edema, clubbing or cyanosis. NEUROLOGIC: Intact. No lateralizing signs. OVERALL ASSESSMENT AND PLAN: A 61-year-old with a longstanding smoking history/chronic obstructive pulmonary disease with a significant hemoptysis, most probably secondary to a lower respiratory tract infection involving the right lower lobe, but certainly a neoplastic process cannot be ruled out. We will schedule patient for bronchoscopy on Wednesday and will continue current treatment pending endoscopic review and evaluation.
[2017-04-24] MEDS: LEVOFLOXACIN / D5W 750 MG in PREMIXED IN D5W 150 ML IV SCH (18:14)
[2017-04-24 22:10] VITALS: BP 154/77; PULSE 56; TEMP 36.5; O2SAT 96
[2017-04-25] MEDS: ALBUT/IPRATROP 3MG/0.5MG NEB 3 ML VIAL INH SCH ×4 (02:27→19:04)
[2017-04-25] MEDS: METHYLPREDNISOLONE IV 20 MG in SYRINGE 0 ML IV SCH ×3 (05:52→21:16)
[2017-04-25 07:33] VITALS: BP 161/79; PULSE 54; TEMP 36.6; O2SAT 96
[2017-04-25] MEDS: GUAIFENESIN 600 MG TABCR PO SCH ×2 (08:11→20:33)
[2017-04-25] MEDS: ASPIRIN 325 MG ECTAB PO SCH (08:12)
[2017-04-25] MEDS: PANTOprazole SOD 40 MG TAB PO SCH ×2 (08:12→20:33)
[2017-04-25] MEDS: BISOPROLOL FUMARATE 5 MG TAB PO SCH (08:12)
[2017-04-25] MEDS: CETIRIZINE HCL 10 MG TAB PO SCH (08:13)
[2017-04-25] MEDS: CYANOCOBALAMIN 2,500 MCG SUBL TAB PO SCH (08:13)
[2017-04-25 08:30] VITALS: O2SAT 96
--- NOTE | 2017-04-25 08:50 | PULMONARY PROGRESS NOTE ---
DATE: 04/25/2017 CHIEF COMPLAINT: Hemoptysis/hypoxia. SUBJECTIVE: The patient has had persistent hemoptysis to a small degree over the past several days, but I believe it merits further examination including a bronchoscopy. She is scheduled tomorrow at 10:00 a.m. for her to undergo a fiberoptic bronchoscopy with BAL with or without biopsy. We would continue current therapy and will make additional suggestions post-procedure.
[2017-04-25 15:14] VITALS: BP 124/79; PULSE 51; TEMP 36.8; O2SAT 95
[2017-04-25 16:00] VITALS: O2SAT 95
--- NOTE | 2017-04-25 16:29 | Progress Note ---
Subjective Date of Service: Apr 25, 2017. Subjective this pt is about the same, little sputum production overnight, scheduled for bronchoscopy 04/26 am Problem List Medical Problems: (1) Bronchitis Status: Acute (2) COPD exacerbation Status: Acute (3) Hypoxia Status: Acute Review of Systems Constitutional: + weakness, No fever, No chills, No fatigue Respiratory: + cough, + shortness of breath, + dyspnea on exertion, + dyspnea at rest, No sputum Cardiac: No chest pain, No edema Abdomen: No pain, No nausea, No vomiting, No diarrhea Musculoskeletal: No joint pain, No muscle pain Female : No dysuria, No urinary frequency, No hematuria Neurologic: No memory loss, No weakness Psychiatric: No depression symptoms, No anxiety Objective Vital Signs Date Time Temp Pulse Resp B/P (MAP) Pulse Ox O2 Delivery O2 Flow Rate FiO2 04/25/17 15:14 36.8 51 18 124/79 (94) 95 Room Air 04/25/17 08:30 96 Room Air 04/25/17 07:33 36.6 54 18 161/79 (106) 96 04/25/17 00:10 Room Air 04/24/17 22:10 36.5 56 18 154/77 (102) 96 Physical Exam General Appearance: WD/WN, + mild distress Eyes: normal inspection, sclerae normal Neck: supple, no JVD Respiratory/Chest: + respiratory distress, + decreased breath sounds, + rhonchi Cardiovascular: regular rate, rhythm, no murmur Abdomen: normal bowel sounds, non tender, soft Extremities: no pedal edema, no calf tenderness Neurologic/Psychiatric: alert, oriented x 3 Skin: normal color, warm/dry, no rash Assessment and Plan 61 y/o F presents with bronchitis, hemoptysis and has significant mucus plugging on CTA, history of Chronic respiratory farilure, did have some hypoxia in the ER, has a history of tobacco exposure Bronchitis, Cough, fever, hemoptysis - hypoxia has resolved, COPD - Duo nebs, Levaquin, steroids 02 - slight improvement added flutter valve and mucinex to mobilize secretions without significant improvement for bronchoscopy in am 04/[address] Olivares PAF - currently Sinus - cont Bisoprolol- low MANJIT score - takes ASA only which is held due to hemoptysis. GERD - cont PPi Full code - SCDs due to hemoptysis, encourage ambulation
[2017-04-25] MEDS: LEVOFLOXACIN / D5W 750 MG in PREMIXED IN D5W 150 ML IV SCH (17:46)
[2017-04-25 22:39] VITALS: BP 128/78; PULSE 56; TEMP 36.6; O2SAT 91
[2017-04-26] VITALS (10 sets, daily range): BP systolic 124–193; BP diastolic 78–109; PULSE 48–54; TEMP 36.2–36.7; O2SAT 93–98
[2017-04-26] MEDS: ALBUT/IPRATROP 3MG/0.5MG NEB 3 ML VIAL INH SCH ×4 (01:26→20:06)
[2017-04-26] MEDS: METHYLPREDNISOLONE IV 20 MG in SYRINGE 0 ML IV SCH ×3 (05:40→21:57)
[2017-04-26 06:11] LABS: HEMATOCRIT 39.1 % (37-47); HEMOGLOBIN 13.3 g/dL (12.0-16.0); MEAN PLATELET VOLUME 9.4 fL (7.4-10.4); PLATELET COUNT 297 K/uL (130-400); RED CELL DISTRIBUTION WIDTH CV 12.8 % (11.5-14.5); RED CELL DISTRIBUTION WIDTH SD 45.4 fL (36.4-46.3)
[2017-04-26 06:48] LABS: CALCIUM 8.4 mg/dl (8.5-10.1); CREATININE 0.63 mg/dl (0.60-1.20); POTASSIUM 4.4 mmol/L (3.5-5.1)
--- NOTE | 2017-04-26 08:59 | Medical Student: [facility] ---
Med Student Progress Note Date of Service Apr 26, 2017. Subjective Pt evaluation today including: conversation w/ patient PO Intake: NPO for bronchoscopy this AM Voiding: no voiding problems This is a 61-year-old female with a history of COPD, afib, 40-pack year smoking hx, and GERD who presented to the ED four days ago with hemoptysis and recurrent fever. She states she had a cough and fever reaching 103F for five days before coming to the ED, and on day 3 she started coughing up blood - first a few pinkish streaks and then several clots at a time. This prompted her to come to the ED. She was hypoxic there with an O2 sat of 85% on room air, which is why she was admitted. She is not on any O2 at baseline but was started on 2L nasal cannula. Has been weaned from O2 during her stay and today is breathing comfortably on room air and maintaining sats. Sates she is still coughing but it is not productive anymore. Has felt fevered intermittently with some sweats but no chills. Denies chest pain, headache, nausea, vomiting, abd pain. Will proceed with bronchoscopy this morning. Review of Systems Constitutional: + fever (subjective), No chills, No sweats Eyes: No worsening of vision, No eye pain ENT: No hearing loss, No unusual epistaxis Respiratory: + cough, + sputum (minimal at present), No wheezing, No shortness of breath Cardiac: No chest pain, No orthopnea Abdomen: No pain, No nausea Musculoskeletal: No joint pain, No swelling Female : No dysuria Neurologic: No weakness, No numbness/tingling Heme: No abnormal bleeding/bruising Skin: No rash All Other Systems: Reviewed and Negative Objective Vital Signs Date Time Temp Pulse Resp B/P (MAP) Pulse Ox O2 Delivery O2 Flow Rate FiO2 04/26/17 08:08 96 Room Air 04/26/17 07:55 36.5 54 15 124/78 (93) 96 Room Air 04/26/17 00:08 Room Air 04/25/17 22:39 36.6 56 18 128/78 (95) 91 Room Air 04/25/17 16:00 95 Room Air 04/25/17 15:14 36.8 51 18 124/79 (94) 95 Room Air Physical Exam General Appearance: WD/WN, no apparent distress Eyes: bilateral eyes normal inspection Neck: supple, no adenopathy Respiratory/Chest: chest non-tender, + decreased breath sounds, + crackles, + wheezing Cardiovascular: regular rate, rhythm, no edema, no murmur Abdomen: normal bowel sounds, non tender, soft Extremities: normal range of motion, non-tender, no pedal edema Neurologic/Psychiatric: alert, normal mood/affect, oriented x 3 Skin: normal color, warm/dry Laboratory Results Last 24 Hours Test 04/26/17 05:35 White Blood Count 6.10 K/uL Red Blood Count 4.03 M/uL Hemoglobin 13.3 g/dL Hematocrit 39.1 % Mean Corpuscular Volume 97.0 fL Mean Corpuscular Hemoglobin 33.0 pg Mean Corpuscular Hemoglobin Concent 34.0 g/dl RDW Standard Deviation 45.4 fL RDW Coefficient of Variation 12.8 % Platelet Count 297 K/uL Mean Platelet Volume 9.4 fL Sodium Level 138 mmol/L Potassium Level 4.4 mmol/L Chloride Level 104 mmol/L Carbon Dioxide Level 28 mmol/L Anion Gap 6.0 mmol/L Blood Urea Nitrogen 15 mg/dl Creatinine 0.63 mg/dl Est Creatinine Clear Calc Drug Dose 75.6 ml/min Estimated GFR () 110.6 Estimated GFR (Non- 95.5 BUN/Creatinine Ratio 23.8 Random Glucose 130 mg/dl Calcium Level 8.4 mg/dl Magnesium Level 2.8 mg/dl Assessment and Plan Assessment and Plan: Assessment: This is a 61-year-old female with a history of COPD, GERD, afib, and 40-pack year smoking who presented to the ED 04/22 with hemoptysis and fever. DD includes pneumonia, malignancy, bronchitis, influenza-like illness, COPD exacerbation, RAD. Plan: Hemoptysis/cough/fever - Continue Levaquin IV - DuoNeb q4 PRN - Mucous plugging on CT - will proceed with bronchoscopy this AM Per bronchoscopy report - mucoid impaction lavaged and aspirated; no obvious endobronchial lesion; no active bleeding; will send lavage cultures for AFB, fungal cultures and Gram stain - Will need PFTs as outpatient - O2 - currently on room air and maintaining sats PAF - EKG showed sinus rhythm; repeat if HR increases or with symptoms - Continue bisoprolol - ASA held - hemoptysis; restart once resolved GERD - Continue PPI VTE prophylaxis - SCDs - Encourage ambulation FULL CODE
--- NOTE | 2017-04-26 10:53 | History & Physical Bridge Note ---
H&P Re-Evaluation Bridge Note: I have examined the patient, reviewed the History & Physical and in the interval since the performance of the History & Physical I have noted the following changes of clinical significance: No changes noted
--- NOTE | 2017-04-26 10:54 | Pre Sedation Assessment ---
Pre Sedation Assessment General Date of Sedation: Apr 26, 2017. Vital Signs Past 12 Hours Date Time Temp Pulse Resp B/P (MAP) Pulse Ox O2 Delivery O2 Flow Rate FiO2 04/26/17 10:22 Room Air 04/26/17 08:08 96 Room Air 04/26/17 07:55 36.5 54 15 124/78 (93) 96 Room Air 04/26/17 00:08 Room Air Pre-Sedation Airway Assessment Smoking Status: Former Smoker Hx of Sleep Apnea: No Short Thick Neck: No Oral Cavity: Dentures Mallampati Classification: Class II ASA Classification: Class II NPO Status Date of Last Intake of Fluids: Apr 25, 2017 Time of Last Intake of Fluids: 2358 Date of Last Intake of Solids: Apr 25, 2017 Procedure Planning Contraindications for Sedation: None Current Medications Reviewed: Yes Notes The planned sedation has been discussed with the patient. Informed Consent was obtained. I have identified the patient, determined the appropriateness of sedation and have assessed the patient immediately prior to the procedure. All medicine(s) and interventions are by my order.
--- NOTE | 2017-04-26 13:33 | Post Sedation Assessment ---
Post Sedation Assessment General Date of Sedation Apr 26, 2017. Vital Signs: Vital Signs Past 12 Hours Date Time Temp Pulse Resp B/P (MAP) Pulse Ox O2 Delivery O2 Flow Rate FiO2 04/26/17 13:15 52 17 159/85 98 8 04/26/17 13:10 52 17 157/77 98 8 04/26/17 13:00 52 17 152/105 98 8 04/26/17 10:22 Room Air 04/26/17 08:08 96 Room Air 04/26/17 07:55 36.5 54 15 124/78 (93) 96 Room Air Post Procedure Recovery Score Activity: (2) Moves 4 extremities * Respiration: (2) Deep breath/cough Circulation: (2) +/-20% PreAnes Value Consciousness: (1) Arouseable (by name) Oxygen Saturation: (1) O2 needed for >90% Discharge Sedation Level of Care: Fast Track Phase II Post Sedation Plan On clinical assessment, the patient appears to have tolerated the sedation without complications. Patient is recovering as anticipated. Patient will continue to be monitored by nursing and may be discharged when sedation discharge criteria are met per below protocol. Upon Completions of procedure and additional 15 minutes continue every 5 minute vital signs and the P.A.R. score; then discharge to a Phase I or Fast Track to Phase II per the following guidelines: * Discharge Patient to appropriate Phase II area if PAR is 8 or greater or return to pre- procedure baseline. The post - procedure orders will be as directed. * If PAR score is less than 8 or not return to pre-procedure baseline then patient will follow Phase I monitoring till PAR is reached for Phase II. The Phase I may be done in procedure room or may call to secure a Phase I area. * If naloxone or flumazenil are used for reversal, hold in Phase I for an additional 60 -120 minutes before discharge to Phase II. Please call the Sedation Physician to re-evaluate and complete post-note for discharge to Phase II area. Do NOT discharge from procedure sedation or Phase 1 until post- sedation evaluation note is complete by procedure /sedation MD Sedation Discharge Instructions to be given to the patient at discharge to home.
[2017-04-26] MEDS: GUAIFENESIN 600 MG TABCR PO SCH ×2 (13:42→21:57)
[2017-04-26] MEDS: PANTOprazole SOD 40 MG TAB PO SCH ×2 (13:42→21:57)
[2017-04-26] MEDS ORDERED: OXYMETAZOLINE HCL 0.05% NA SPR 15 ML BTL ONE (13:50)
[2017-04-26] MEDS ORDERED: LIDOCAINE VISCOUS 2% 100ML TOP ONE (13:50)
[2017-04-26] MEDS ORDERED: LIDOCAINE 4% INH SOLN 4 ML BTL TOP ONE (13:50)
[2017-04-26] MEDS ORDERED: LIDOCAINE HCL 2% LOCAL 50ML VIAL INSTIL ONE (13:50)
[2017-04-26] MEDS ORDERED: MIDAZOLAM HCL 5 MG/ML 1 ML VIAL IV ONE (13:50)
[2017-04-26] MEDS ORDERED: LEVALBUTEROL 1.25MG/3ML NEB INH ONE (13:50)
[2017-04-26] MEDS ORDERED: FENTANYL CITRATE INJ 50 MCG/1 ML 2 ML VIAL IV ONE (13:50)
--- NOTE | 2017-04-26 14:15 | OPERATIVE REPORT ---
DATE OF OPERATION: 04/26/2017 PROCEDURE: Fiberoptic bronchoscopy. INDICATIONS: Right lower lobe infiltrate/pneumonia/hemoptysis. ANESTHESIA PREOPERATIVELY: None. ANESTHESIA DURING PROCEDURE: 7 mg IV Versed, 50 mcg IV fentanyl, 20 mL 2% Xylocaine spray above and below the cords, 4% viscous Xylocaine intranasally. DESCRIPTION OF PROCEDURE: Fiberoptic bronchoscope was inserted into the left naris with minimal difficulty and passed to the level of the true vocal cords. The cords appeared to approximate normally with phonation without evidence of lesions or paralysis. The scope was then introduced in the trachea and right and left tracheobronchial tree. The lexie was sharp. The right mainstem bronchus showed evidence of tracheomalacia and EDAC from the level of the lexie to the end of the bronchus intermedius. The scope was inserted into the right mainstem bronchus and no obvious endobronchial lesions were seen, no obvious or visible bleeding encountered. The right upper lobe, the apical posterior, anterior segments were free of endobronchial lesions. The bronchus intermedius, right middle lobe and the medial and lateral segments were free of endobronchial lesions. The right lower lobe showed evidence for volume loss and fish mouthing and was totally occluded with thick mucoviscous and mucopurulent secretion. This area was copiously lavaged with normosol and the aspirate sent for appropriate studies. All basilar segments were identified and no bleeding or endobronchial lesions were seen, but severe degree of inflammatory mucosal change was seen with mucus pitting and bronchial crypts/clefts seen throughout the right tracheobronchial tree. Left mainstem bronchus was then explored and no obvious bleeding or endobronchial lesions were seen. Left upper lobe, the apical-posterior and anterior segments, lingular subdivision with the superior and inferior segments and all basilar segments of left lower lobe were free of endobronchial lesions. A copious amount of mucopurulent secretion was lavaged from left lower lobe until clear once again with mucoid impaction of mucus plugging. Eventually, I was able to lavage and aspirate significant amount of contents of left lower lobe bronchial orifice and all basilar segments were then found to be free of endobronchial lesions with same degree of inflammatory mucosal change. The procedure was terminated and no brushings or biopsies were deemed necessary. The right lower lobe aspirate was sent for appropriate studies. The patient was then given a nebulizer treatment with Xopenex 1.25 mg and transferred to the medical floor, hemodynamically stable with no signs of respiratory compromise. OVERALL ASSESSMENT: 1. No evidence for active bleeding. 2. No obvious endobronchial lesions. 3. Mucoid impaction, right lower lobe greater than left lower lobe, lavaged and aspirated until clear. Will await microbiological and cytologic examination of the bronchial washings. I attest to the content of the Intraoperative Record and any orders documented therein. Any exception s are noted below.
[2017-04-26] MEDS: BISOPROLOL FUMARATE 5 MG TAB PO SCH (17:57)
[2017-04-26] MEDS: CYANOCOBALAMIN 2,500 MCG SUBL TAB PO SCH (17:58)
[2017-04-26] MEDS: ASPIRIN 325 MG ECTAB PO SCH (17:58)
[2017-04-26] MEDS: CETIRIZINE HCL 10 MG TAB PO SCH (17:58)
[2017-04-26] MEDS: LEVOFLOXACIN / D5W 750 MG in PREMIXED IN D5W 150 ML IV SCH (17:59)
--- NOTE | 2017-04-26 20:31 | Progress Note ---
Subjective Date of Service: Apr 26, 2017. Subjective pt had a good bronchoscopy today without suspicious areas, if recovers well may consider discharge in one day or so Problem List Medical Problems: (1) Bronchitis Status: Acute (2) COPD exacerbation Status: Acute (3) Hypoxia Status: Acute Review of Systems Constitutional: + weakness, No fever, No chills Respiratory: + cough, + sputum, + shortness of breath, + dyspnea on exertion Cardiac: No chest pain, No edema Abdomen: No pain, No nausea, No vomiting, No diarrhea Neurologic: No memory loss, No weakness Psychiatric: No depression symptoms, No anhedonism Objective Vital Signs Date Time Temp Pulse Resp B/P (MAP) Pulse Ox O2 Delivery O2 Flow Rate FiO2 04/26/17 17:29 49 159/89 (112) 04/26/17 15:50 177/98 (124) 04/26/17 15:47 Nasal Cannula 04/26/17 15:45 36.7 51 20 193/109 (137) 98 Nasal Cannula 3.0 04/26/17 15:39 48 177/81 (113) 98 Nasal Cannula 3.0 04/26/17 14:43 36.3 48 16 176/87 (116) 96 Nasal Cannula 3.0 04/26/17 14:15 36.2 50 16 170/92 (118) 93 Nasal Cannula 4.0 04/26/17 13:50 36.2 54 152/84 (106) 93 Nasal Cannula 4.0 04/26/17 13:40 54 20 151/81 100 8 04/26/17 13:35 57 18 149/94 100 8 04/26/17 13:30 57 13 169/91 100 8 04/26/17 13:25 63 13 164/78 100 8 04/26/17 13:20 49 21 140/78 100 8 04/26/17 13:15 52 17 159/85 98 8 04/26/17 13:10 52 17 157/77 98 8 04/26/17 13:00 52 17 152/105 98 8 04/26/17 10:22 Room Air 04/26/17 08:08 96 Room Air 04/26/17 07:55 36.5 54 15 124/78 (93) 96 Room Air 04/26/17 00:08 Room Air 04/25/17 22:39 36.6 56 18 128/78 (95) 91 Room Air Physical Exam General Appearance: WD/WN, + mild distress, + thin Respiratory/Chest: chest non-tender, + decreased breath sounds (bases) Cardiovascular: regular rate, rhythm, no murmur Abdomen: normal bowel sounds, non tender, soft Extremities: no pedal edema, no calf tenderness Neurologic/Psychiatric: alert, normal mood/affect, oriented x 3 Laboratory Results Last 24 Hours Test 04/26/17 05:35 04/26/17 13:30 White Blood Count 6.10 K/uL Red Blood Count 4.03 M/uL Hemoglobin 13.3 g/dL Hematocrit 39.1 % Mean Corpuscular Volume 97.0 fL Mean Corpuscular Hemoglobin 33.0 pg Mean Corpuscular Hemoglobin Concent 34.0 g/dl RDW Standard Deviation 45.4 fL RDW Coefficient of Variation 12.8 % Platelet Count 297 K/uL Mean Platelet Volume 9.4 fL Sodium Level 138 mmol/L Potassium Level 4.4 mmol/L Chloride Level 104 mmol/L Carbon Dioxide Level 28 mmol/L Anion Gap 6.0 mmol/L Blood Urea Nitrogen 15 mg/dl Creatinine 0.63 mg/dl Est Creatinine Clear Calc Drug Dose 75.6 ml/min Estimated GFR () 110.6 Estimated GFR (Non- 95.5 BUN/Creatinine Ratio 23.8 Random Glucose 130 mg/dl Calcium Level 8.4 mg/dl Magnesium Level 2.8 mg/dl Assessment and Plan 61 y/o F presents with bronchitis, hemoptysis and has significant mucus plugging on CTA, history of Chronic respiratory farilure, did have some hypoxia in the ER, has a history of tobacco exposure Bronchitis, Cough, fever, hemoptysis - hypoxia has resolved, COPD - Duo nebs, Levaquin, steroids 02 - slight improvement added flutter valve and mucinex to mobilize secretions bronchoscopy in am [address] Olivares without suspicion of endobronchial lesions PAF - continues with Sinus - cont Bisoprolol- low MANJIT score - takes ASA only which is held due to hemoptysis. GERD - cont PPi continues with smoking cessation counselling Full code - SCDs due to hemoptysis, encourage ambulation
[2017-04-27 01:23] VITALS: BP 155/80; PULSE 55; TEMP 36.6; O2SAT 95
[2017-04-27] MEDS: METHYLPREDNISOLONE IV 20 MG in SYRINGE 0 ML IV SCH (06:20)
[2017-04-27] MEDS: ALBUT/IPRATROP 3MG/0.5MG NEB 3 ML VIAL INH SCH ×2 (07:11→07:16)
[2017-04-27] MEDS ORDERED: GUAISYP4 PO ×2 (08:30)
[2017-04-27] MEDS ORDERED: LEVO-459 PO ×2 (08:30)
[2017-04-27] MEDS ORDERED: PRED10TA PO ×2 (08:30)
[2017-04-27] MEDS ORDERED: GFNSR600 PO ×2 (08:30)
[2017-04-27] MEDS: GUAIFENESIN 600 MG TABCR PO SCH (08:33)
[2017-04-27] MEDS: PANTOprazole SOD 40 MG TAB PO SCH (08:33)
--- NOTE | 2017-04-27 08:34 | Discharge Instructions ---
Discharge Instructions Date of Service Apr 27, 2017. Admission Reason for Admission: Hemoptysis, Hypoxia Discharge Discharge Diagnosis / Problem: hemoptysis and bronchitis Discharge Goals Goal(s): Diagnostic testing, Therapeutic intervention Activity Recommendations Activity Limitations: as noted below Lifting Limitations: gradually increase as tolerated Bronchitis, please finish your Levaquin, steroid taper and mucinex as needed, keep hydrated bronchoscopy in am 2/[address] Olivares without suspicion of endobronchial lesions Atrial fibrillation, Sinus Rhythm on Bisoprolol-also resume ASA continues to stop smoking Current Hospital Diet Patient's current hospital diet: Regular Diet Discharge Diet Recommended Diet: Regular Diet Procedures Procedures Performed: BRONCHOSCOPY Pending Studies Studies pending at discharge: no Medical Emergencies . Who to Call and When: Medical Emergencies: If at any time you feel your situation is an emergency, please call 911 immediately. . Non-Emergent Contact Non-Emergency issues call your: Primary Care Provider, Delivery Supervisor . . "Provider Documentation" section prepared by Dionicio Patel. . Porter Baggage Recommendations Porter [facility]gage Recommendations: Follow up with Dr. Salinas from pulmonary Friday, April 28, 2017 at [address] [facility], [place] VTE Core Measure Inpt VTE Proph given/why not?: SCD's
[2017-04-27] MEDS ORDERED: IPRA1AER2 INH ×2 (08:36)
[2017-04-27] MEDS: ASPIRIN 325 MG ECTAB PO SCH (08:58)
[2017-04-27] MEDS: CYANOCOBALAMIN 2,500 MCG SUBL TAB PO SCH (08:58)
[2017-04-27] MEDS: CETIRIZINE HCL 10 MG TAB PO SCH (08:58)
[2017-04-27] MEDS: BISOPROLOL FUMARATE 5 MG TAB PO SCH (08:59)
[2017-04-27] MEDS ORDERED: IPRATROPIUM BROMIDE/ALBUTEROL respimat INH INH SCH (09:30)
[2017-04-27 10:16] VITALS: BP 155/80; PULSE 55; TEMP 36.6; O2SAT 95
--- NOTE | 2017-04-27 19:20 | Discharge Summary ---
Discharge Summary Date of Service Apr 27, 2017. Discharge Summary Admission Date: Apr 23, 2017 at 17:12 Discharge Date: Apr 27, 2017 Discharge Disposition: Home Principal Diagnosis: bronchitis, chronic respiratory failure Immunizations: Have You Had Influenza Vaccine: No History of Tetanus Vaccine?: Yes History of Pneumococcal: No History of Hepatitis B Vaccine: No Medication Reconciliation New Medications: Levofloxacin (Levaquin) 500 Mg Tab 500 MG PO DAILY, #6 DOSE Prednisone Tab (Prednisone) 10 Mg Tab 10 MG PO UD, #42 TAB 4 a day for 4 days then 3 a day for 4 days then 2 a day for 4 days then 1 a day Guaifenesin Ext Rel (Mucinex Ext Rel) 600 Mg Tabcr 1200 MG PO Q12, #20 DOSE Guaifenesin/Codeine (Robitussin-Ac Syrup) Syrp 5 ML PO Q6H PRN for Cough, #100 ML Ipratropium-Albuterol (Combivent Respimat) 1 Aer Aer 1 PUFFS INH QID, #1 INHALER Continued Medications: Alprazolam (Alprazolam) 0.25 Mg Tab 0.25 MG PO DAILY PRN for Anxiety for 30 Days, #30 TAB Aspirin (Aspirin Ec) 325 Mg Tab 325 MG PO DAILY Bisoprolol Fumarate (Zebeta) 5 Mg Tab 2.5 MG PO DAILY, TAB *1/2 TABLET DOSING* Calcium Carbonate (Calcium) 600 Mg Tab 1 TAB PO BID Cetirizine (Zyrtec) 10 Mg Tab 10 MG PO DAILY, TAB Cholecalciferol (Vitamin D-3) 1,000 Unit Tab 1000 UNITS PO DAILY Cyanocobalamin (Vitamin B-12) 1,000 Mcg Tab 5000 MCG PO DAILY, TAB Fluticasone Furoate-Vilanterol (Breo Ellipta) 1 Inh Inh 1 PUFF INH DAILY Hydrocodone/Acetaminophen 5MG/325MG ([place] 5MG/325MG) Tab 1 TABLET PO Q6H PRN for Pain, TAB Meclizine Hcl (Meclizine Hcl) 25 Mg Tab 25 MG PO TID PRN for Dizziness or Vertigo, TAB Pantoprazole (Protonix) 40 Mg Tab 40 MG PO BID, #30 TAB Zoledronic Acid (Zoledronic Acid) 5 Mg/100 Ml Inj 5 MG IV DIRECTED Discharge Exam Review of Systems: Constitutional: No fever, No chills, No weakness Respiratory: + cough, + dyspnea on exertion, No shortness of breath, No dyspnea at rest Cardiovascular: No chest pain, No orthopnea, No edema Physical Exam: General Appearance: WD/WN, + mild distress Eyes: normal inspection, sclerae normal ENT: normal ENT inspection, hearing grossly normal Neck: supple, no JVD Respiratory/Chest: chest non-tender, + decreased breath sounds Cardiovascular: regular rate, rhythm, no murmur Extremities: no pedal edema, normal range of motion Hospital Course 61 y/o F presents with bronchitis, hemoptysis and has significant mucus plugging on CTA, history of Chronic respiratory failure, did have some hypoxia in the ER, has a history of tobacco exposure, her hypoxia resolved Bronchitis, Cough, fever, hemoptysis - hypoxia has resolved, COPD - Duo nebs, Levaquin, tapering steroids home with flutter valve and mucinex bronchoscopy in am 2/[address] Simon without suspicion of endobronchial lesions , will follow up with Dr simon PAF - continues with Sinus - cont Bisoprolol- low MANJIT score - takes ASA only which is held due to hemoptysis. GERD - PPi continues with smoking cessation counselling Total Time Spent: Greater than 30 minutes This includes examination of the patient, discharge planning, medication reconciliation, and communication with other providers. Discharge Instructions Please refer to the electronic Patient Visit Report (Discharge Instructions) for additional information.
[2017-04-29 12:57] LABS: HERPES SIMPLEX VIRUS CULT NOT ISOLATED (NOT ISOLATED)
== END 2017-04-27 11:24 | disposition home or self-care (01) | DRG 167 ==
LOC: C.EDB 09:30 → ENRESERV 16:08 → C.4E 17:12
PROVIDERS: ADMIT Internal Medicine; ATTEND Internal Medicine
PROC: 0B9F8ZX Drainage of Right Lower Lung Lobe, Via Natural or Artificial Opening Endoscopic, Diagnostic (ICD-10-PCS; principal; 2017-04-26 11:00)
PROC: 0B9J8ZX Drainage of Left Lower Lung Lobe, Via Natural or Artificial Opening Endoscopic, Diagnostic (ICD-10-PCS; principal; 2017-04-26 11:00)
DX: J44.0 Chronic obstructive pulmonary disease with (acute) lower respiratory infection (principal); R04.2 Hemoptysis; J96.10 Chronic respiratory failure, unspecified whether with hypoxia or hypercapnia; T17.800A Unspecified foreign body in other parts of respiratory tract causing asphyxiation, initial encounter; J44.1 Chronic obstructive pulmonary disease with (acute) exacerbation; J20.9 Acute bronchitis, unspecified; Z87.891 Personal history of nicotine dependence; J92.0 Pleural plaque with presence of asbestos; Z96.649 Presence of unspecified artificial hip joint; Z79.82 Long term (current) use of aspirin; Z88.8 Allergy status to other drugs, medicaments and biological substances; I48.0 Paroxysmal atrial fibrillation; Z82.49 Family history of ischemic heart disease and other diseases of the circulatory system; K21.9 Gastro-esophageal reflux disease without esophagitis; Y92.019 Unspecified place in single-family (private) house as the place of occurrence of the external cause

== ENCOUNTER → 2017-05-10 | Outpatient (CLI) | payer OTHER ==
[~2017-05-10] MED LIST changes: +ALPR-412 PO; -BISO10TA14 PO; +BISO5TAB3 PO; +CALC-393 PO; +CETI10TA84 PO; -CHOL100010 PO; +CHOL1TAB2 PO; +CYAN10005 PO; +FLUT1INH INH; +GFNSR600 PO; +GUAISYP4 PO; +HYDR-5688 PO; +IPRA1AER2 INH; +LEVO-459 PO; -LPT/40 PO; -LRT5 PO; +MECL1TAB42 PO; +PRED10TA PO; +ZOLE5INJ3 IV
[2017-05-10 17:33] LABS: BASO % 0.2 %; BASO ABS # 0.02 K/uL (0-0.2); EOS ABS # 0.18 K/uL (0-0.5); HEMATOCRIT 37.4 % (37-47); HEMOGLOBIN 12.7 g/dL (12.0-16.0); IG# 0.03 K/uL (0.00-0.02); LYMPH % 19.2 %; LYMPH ABS # 1.71 K/uL (1.2-3.4); MEAN CELL VOLUME 97.9 fL (80-100); MEAN CORPUSCULAR HEMOGLOBIN 33.2 pg (25-34); MEAN PLATELET VOLUME 9.5 fL (7.4-10.4); MONO ABS # 0.71 K/uL (0.11-0.59); NEUT % 70.3 %; NEUT ABS # 6.27 K/uL (1.4-6.5); PLATELET COUNT 243 K/uL (130-400); RED CELL DISTRIBUTION WIDTH CV 13.6 % (11.5-14.5); RED CELL DISTRIBUTION WIDTH SD 48.4 fL (36.4-46.3); WHITE BLOOD COUNT 8.92 K/uL (4.8-10.8)
[2017-05-10 17:41] LABS: INR 0.9 (0.9-1.1); PTT PATIENT 23.8 SECONDS (21.0-31.0)
[2017-05-10 18:45] LABS: ALBUMIN 3.9 gm/dl (3.4-5.0); ALT/SGPT 26 U/L (12-78); BLOOD UREA NITROGEN 12 mg/dl (7-18); CALCIUM 8.5 mg/dl (8.5-10.1); CARBON DIOXIDE 32 mmol/L (21-32); CREATININE 0.65 mg/dl (0.60-1.20); GLUCOSE 95 mg/dl (70-99); POTASSIUM 3.7 mmol/L (3.5-5.1); SODIUM 137 mmol/L (136-145)
[2017-05-10 18:48] LABS: ALKALINE PHOSPHATASE 50 U/L (45-117); AST/SGOT 13 U/L (15-37); TOTAL PROTEIN 6.6 gm/dl (6.4-8.2)
== END | disposition home or self-care (01) ==
LOC: C.LABPBG 14:14
PROVIDERS: ATTEND Family Medicine
DX: R23.3 Spontaneous ecchymoses (principal)

== ENCOUNTER → 2017-05-20 | Outpatient (CLI) | payer OTHER ==
[~2017-05-20] MED LIST changes: +BISO10TA14 PO; +CHOL100010 PO; +LPT/40 PO; +LRT5 PO; +OPTIRAY 320 IV PRN
--- NOTE | 2017-05-20 10:38 | DIAGNOSTIC IMAGING REPORT ---
CT ANGIOGRAM OF THE CHEST CLINICAL HISTORY: Atypical chest pain. Elevated d-dimer. COMPARISON STUDY: April 23, 2017 TECHNIQUE: Following the IV administration of 82 mL of Optiray-320, CT angiogram of the thorax was performed from the thoracic inlet to the lung bases utilizing the pulmonary embolus protocol. Images are reviewed in the axial, sagittal, and coronal planes. IV contrast was administered without complication. MIP imaging was performed. A dose lowering technique was utilized adhering to the principles of ALARA. CT DOSE: 194.58 mGy.cm FINDINGS: Mediastinal lymph nodes remain at the upper limits of normal in size. There was no evidence of thoracic aortic dilatation. There were no pulmonary artery filling defects to indicate acute pulmonary embolism. Right sided pleural thickening and calcifications remain stable. There is pulmonary emphysema. There are dependent atelectatic changes. There are no areas of focal pulmonary consolidation suspicious for pneumonia. IMPRESSION: 1. No evidence of acute pulmonary embolism 2. Emphysema 3. Stable right-sided pleural thickening and pleural calcification 4. Dependent atelectatic changes Electronically signed by: Corona Rubi M.D. 05/20/2017 10:37 AM Dictated Date/Time: 05/20/2017 10:32 AM
== END | disposition home or self-care (01) ==
LOC: C.CTS 10:01
PROVIDERS: ATTEND Family Medicine
DX: R07.89 Other chest pain (principal); R79.89 Other specified abnormal findings of blood chemistry; J43.9 Emphysema, unspecified; J94.8 Other specified pleural conditions

== ENCOUNTER → 2017-07-15 | Day surgery (SDC) | payer OTHER ==
[~2017-07-15] VITALS: Ht 162.6 cm; Wt 61.7 kg
[~2017-07-15] MED LIST changes: -BISO10TA14 PO; -CHOL100010 PO; +LIDOCAINE HCL 1% 20 ML VIAL ONE; -LPT/40 PO; -LRT5 PO; -OPTIRAY 320 IV PRN
[2017-07-15 07:50] VITALS: BP 128/70; PULSE 76; TEMP 37; O2SAT 96; Ht 162.6 cm; Wt 61.7 kg
--- NOTE | 2017-07-15 09:11 | Discharge Instructions ---
Discharge Instructions Procedure Procedure Date: July 15, 2017. Reason for Visit: Syncope. Discharge Discharge Date: July 15, 2017. Discharge Diagnosis: atrial fibrillation Last Recorded Wt (Kilograms): 61.69 Anesthesia Post Anesthesia Instructions: If you have had General Anesthesia or IV Sedation: * Do not drive today. * Resume driving when surgeon permits. * Do not make important decisions or sign legal documents today. * Call surgeon for: 1. Temperature elevations greater than 101 degrees F. 2. Uncontrollable pain. 3. Excessive bleeding. 4. Persistent nausea and vomiting. 5. Medication intolerance (nausea, vomiting or rash). * For nausea and vomiting use only clear liquids such as: tea, soda, bouillon until nausea subsides, then gradually increase diet as tolerated. * If you have any concerns or questions, call your surgeon's office. If physician is unavailable and it is an emergency, call 911 or go to the nearest emergency room. Instructions Activity Recommendations: limitations as noted below Return to School/Work: with the following limitations Recommended Home Diet: resume previous diet Allergies: Coded Allergies: No Known Allergies (Verified , `, 07/15/17) Provider Instructions Keep wound dry and steri-strip intact until f/u next week. May remove outer bulky dressing in AM Follow Up Follow-up with: Nurse visit for wound check at [facility] 07/21/2017 at [address] [facility] Recommendations: Call your doctor if: * Temperature above 101 degrees * Pain not relieved by pain medicine ordered * There is increased drainage or redness from any incision * You have any unanswered questions or concerns. Your Doctors Instructions noted above were prepared by provider Hunter Valencia. Patient Signature Section: Patient Instructions Signature Page Gypsy An Patient (or Guardian) Signature/Date: I have read and understand the instructions given to me by my caregivers. Caregiver/RN/Doctor Signature/Date: The above-named patient and/or guardian has received patient instructions on this date. + Original Patient Signature Page (only) stays with chart. Please make copy for patient.
[2017-07-15 09:15] VITALS: BP 130/66; PULSE 73; TEMP 37; O2SAT 97
--- NOTE | 2017-07-15 09:23 | [facility] Operative Report ---
Operative Report Date of Service July 15, 2017. Operative Report The procedure performed: Implantation of patient activated loop recorder Staff auto design checker: Live Valencia MD Indication: The patient is a 61-year-old woman with a history of paroxysmal atrial fibrillation. In order to aid in termination of her need for anticoagulation the patient was felt to be a good candidate for loop recorder to record episodes in duration of atrial fibrillation. Procedure in detail: The patient was informed of the risks benefits and alternatives to the intended procedure. They understood such and wished to proceed. The patient was taken to the electrophysiology suite where the upper chest area was prepped and draped in the usual sterile fashion. An area left lateral to the sternum in the 4th intercostal space was subsequently anesthetized using subcutaneous administration of lidocaine solution. A small incision was made at this site and implantation of the loop recorder was accomplished using a proprietary implantation tool. The small incision was subsequently closed using a single 4 0 Vicryl suture. Steri-Strips and a sterile dressing were then applied. The patient tolerated the procedure well. There were no immediate complications. The device was tested noninvasively prior to conclusion of the procedure. Equipment used: Patient activated loop recorder: Web Content [employer]. Model number [id number]. Serial number [id number] Impression: Successful implantation of patient activated loop recorder I attest to the content of the Intraoperative Record and any orders documented therein. Any exceptions are noted below.
== END | disposition home or self-care (01) ==
LOC: C.ACU 07:07
PROVIDERS: ATTEND Internal Medicine Clinical Cardiac Electrophysiology
DX: R55 Syncope and collapse (principal); I48.0 Paroxysmal atrial fibrillation; E78.5 Hyperlipidemia, unspecified; I10 Essential (primary) hypertension; E78.00 Pure hypercholesterolemia, unspecified; J44.9 Chronic obstructive pulmonary disease, unspecified; F32.9 Major depressive disorder, single episode, unspecified; M19.90 Unspecified osteoarthritis, unspecified site; M81.0 Age-related osteoporosis without current pathological fracture; J30.9 Allergic rhinitis, unspecified; H04.129 Dry eye syndrome of unspecified lacrimal gland; M48.061 Spinal stenosis, lumbar region without neurogenic claudication; G62.9 Polyneuropathy, unspecified; G56.20 Lesion of ulnar nerve, unspecified upper limb; E55.9 Vitamin D deficiency, unspecified; Z87.440 Personal history of urinary (tract) infections; Z87.01 Personal history of pneumonia (recurrent); Z90.710 Acquired absence of both cervix and uterus; Z90.722 Acquired absence of ovaries, bilateral; Z96.649 Presence of unspecified artificial hip joint; Z87.891 Personal history of nicotine dependence; Z83.3 Family history of diabetes mellitus; Z82.49 Family history of ischemic heart disease and other diseases of the circulatory system; Z82.5 Family history of asthma and other chronic lower respiratory diseases

== ENCOUNTER → 2017-07-20 | Outpatient (CLI) | payer OTHER ==
[~2017-07-20] MED LIST changes: -ASPI325T39 PO; -BISO5TAB3 PO; -GFNSR600 PO; -GUAISYP4 PO; -LEVO-459 PO; -LIDOCAINE HCL 1% 20 ML VIAL ONE; +OPTIRAY 320 IV PRN; -PANT40TA PO; -PRED10TA PO
--- NOTE | 2017-07-20 11:02 | DIAGNOSTIC IMAGING REPORT ---
CHEST CT WITH CONTRAST CT DOSE: 179.67 mGy.cm HISTORY: Follow-up study in a patient with emphysema and chronic shortness of breath . Right-sided pleural thickening and pleural calcification noted on comparison. COPD TECHNIQUE: Multiaxial CT images of the chest were performed following the intravenous administration of contrast. A dose lowering technique was utilized adhering to the principles of ALARA. COMPARISON: CTA of the chest 05/20/2017 FINDINGS: Thyroid is homogeneous. Scattered nonenlarged lymph nodes about the mediastinum are likely physiologic. No pathologically enlarged lymph nodes by CT size criteria. The heart appears to be within the upper limits of normal in size. No pericardial effusion. Coronary arterial calcifications are noted. The thoracic aorta is normal in both course and caliber without aneurysm or dissection. The imaged great vessels appear to be patent. Mild to moderate mixed plaquing of the aorta. The opacified pulmonary arterial tree is unremarkable. The IVC also appears to be within normal limits. Pleural calcifications of the right hemithorax adjacent to the posterior basal right lower lobe are again noted with associated pleural thickening and adjacent linear subsegmental pleural-parenchymal scarring, unchanged from comparison. Punctate radiodensities are seen within the adjacent soft tissues adjacent to the pleural calcifications. Moderate upper lobe predominant centrilobular emphysema. Mild biapical pleural-parenchymal scarring. There are no suspicious pulmonary nodules or masses. Minimal dependent subsegmental atelectasis of the left lung base. Mild bilateral bronchial wall thickening suggests bronchitis. No pneumothorax, pleural effusion or lobar airspace consolidation. Calcifications of the tracheobronchial tree. No acute processes of the imaged upper abdomen. Implantable recorder device about the medial left chest. Calcifications of the left breast parenchyma. The bones appear mildly demineralized with multilevel degenerative changes about the spine. Bones appear grossly intact. IMPRESSION: 1. No acute intrathoracic abnormality identified. 2. Moderate upper lobe predominant centrilobular emphysema with mild bronchitis. 3. Pleural calcifications with associated pleural thickening is again noted involving the posterior basal right hemithorax with adjacent subsegmental pleural parenchymal scarring, unchanged. 4. Coronary arterial disease. 5. Additional findings as above. Electronically signed by: Nathaniel Pinedo M.D. 07/20/2017 11:01 AM Dictated Date/Time: 07/20/2017 10:54 AM
== END | disposition home or self-care (01) ==
LOC: C.CTS 10:36
PROVIDERS: ATTEND Internal Medicine Pulmonary Disease
DX: J44.9 Chronic obstructive pulmonary disease, unspecified (principal); R91.8 Other nonspecific abnormal finding of lung field; I25.10 Atherosclerotic heart disease of native coronary artery without angina pectoris

== ENCOUNTER → 2017-07-26 | Outpatient (CLI) | payer OTHER ==
[~2017-07-26] MED LIST changes: -OPTIRAY 320 IV PRN
[2017-07-26 13:50] LABS: ALBUMIN 3.6 gm/dl (3.4-5.0); ALT/SGPT 28 U/L (12-78); AST/SGOT 31 U/L (15-37); BLOOD UREA NITROGEN 9 mg/dl (7-18); CALCIUM 8.8 mg/dl (8.5-10.1); CARBON DIOXIDE 30 mmol/L (21-32); CHOLESTEROL 178 mg/dl (0-200); CREATININE 0.56 mg/dl (0.60-1.20); GLUCOSE 98 mg/dl (70-99); SODIUM 139 mmol/L (136-145)
[2017-07-26 13:55] LABS: ALKALINE PHOSPHATASE 81 U/L (45-117); LDL CHOLESTEROL CALCULATED 82 mg/dl
== END | disposition home or self-care (01) ==
LOC: C.LABPBG 10:02
PROVIDERS: ATTEND Family Medicine
DX: E78.5 Hyperlipidemia, unspecified (principal); J44.9 Chronic obstructive pulmonary disease, unspecified; M80.00XA Age-related osteoporosis with current pathological fracture, unspecified site, initial encounter for fracture; M48.061 Spinal stenosis, lumbar region without neurogenic claudication; I48.0 Paroxysmal atrial fibrillation; R74.8 Abnormal levels of other serum enzymes

== ENCOUNTER → 2017-11-03 | Day surgery (SDC) | payer OTHER ==
[2017-11-01 09:26] VITALS: Ht 162.6 cm; Wt 56.8 kg
[~2017-11-03] VITALS: Ht 162.6 cm; Wt 56.8 kg
[~2017-11-03] MED LIST changes: +ALBUAER INH; -ALPR-412 PO; +ASPI81TA28 PO; +DOCU-94 PO; +LEVA1.258 INH; +LIDOCAINE HCL 2% 2 ML VIAL (20MG/ML) ONE; +MAGN400T6 PO; -MECL1TAB42 PO; +MIDAZOLAM HCL 1 MG/ML 2ML VIAL ONE; +MULT-506 PO; +ONDANSETRON INJ 2 MG/ML 2 ML VIAL ONE; +PANT40TA PO; +POLY335019 PO; +POTA99TA PO; +PROPOFOL IV EMULSION 10 MG/ML 20 ML VIAL ONE; +SODIUM CHLORIDE 0.9% 500ML 500 ML IV ONE; +ZOLE5INJ IV; -ZOLE5INJ3 IV
--- NOTE | 2017-11-03 11:02 | Endo History and Physical ---
History & Physical Date of Service: Nov 03, 2017. Chief Complaint: Change in bowel habits Referring Physician: Dr. Francis History of Present Illness 62 yo CF who presents for colonoscopy secondary to change in bowel habits. Past Medical History Reflux Past Surgical History Hx Cardiac Surgery: Yes (07/2017 LOOP RECORDER IMPLANTED) Hx Internal Defibrillator: No Hx Pacemaker: No Hx Abdominal Surgery: Yes (HERNIA, KARMA BSO) Hx of Implantable Prosthesis: No Hx Post-Op Nausea and Vomiting: No Hx Cancer Surgery: No Hx Thoracic Surgery: No Hx Orthopedic: Yes (R THR) Hx Urinary Tract Surgery: No Family History IBD Social History Smoking Status: Former Smoker Hx Substance Use: No Hx Alcohol Use: Yes (occasionally) Allergies Coded Allergies: No Known Allergies (Verified , `, 11/01/17) Current Medications Reported Home Medications Medications Dose Route/Sig Max Daily Dose Days Date Category Dose Instructions [place] 5MG/325MG (Acetaminophen/Hydrocodone Bitart) Tab 1 Tablet PO Q6 PRN 11/01/17 Reported PRN PAIN Reclast (Zoledronic Acid) 5 Mg/100 Ml Inj 100 Ml IV YEARLY 11/01/17 Reported Proventil Hfa (Albuterol Sulfate) 108 Mcg/Act Aer 2 Puffs INH Q4 PRN 11/01/17 Reported Potassium 99 Mg Tab 1 Tab PO Q2D 11/01/17 Reported Protonix (Pantoprazole Sodium) 40 Mg Tab 40 Mg PO DAILY PRN 11/01/17 Reported Multivitamin (Multivitamins) Tab 1 Tab PO DAILY 11/01/17 Reported Miralax (Polyethylene Glycol 3350) 1 Pow Pow 17 Gm PO DAILY 11/01/17 Reported Mag-Ox (Magnesium Oxide) 400 Mg Tab 400 Mg PO Q2D 11/01/17 Reported Levalbuterol Hcl 1.25 Mg/3 Ml Neb 1 Dose INH Q4 PRN 11/01/17 Reported Combivent Respimat (Ipratropium-Albuterol) 1 Aer Aer 1 Puffs INH QID PRN 11/01/17 Reported Colace (Docusate Sodium) 100 Mg Cap 1 Cap PO BID 11/01/17 Reported Aspirin Ec (Aspirin) 81 Mg Tab 81 Mg PO 3XWK 11/01/17 Reported Vitamin D-3 (Cholecalciferol) 1,000 Unit Tab 1,000 Units PO DAILY 04/23/17 Reported Vitamin B-12 (Cyanocobalamin) 1,000 Mcg Tab 5,000 Mcg PO DAILY 04/23/17 Reported Zyrtec (Cetirizine HCl) 10 Mg Tab 10 Mg PO DAILY 04/23/17 Reported Calcium (Calcium Carbonate) 600 Mg Tab 600 Mg PO BID 04/23/17 Reported Breo Ellipta (Fluticasone Furoate-Vilanterol) 1 Inh Inh 1 Puff INH DAILY PRN 04/23/17 Reported Vital Signs Weight (Kilograms): 56.82 Height (Feet): 5 Height (Inches): 4 Date Time Temp Pulse Resp B/P (MAP) Pulse Ox O2 Delivery O2 Flow Rate FiO2 11/03/17 10:54 36.5 61 16 119/78 (92) 97 Room Air Physical Exam General Appearance: WD/WN, no apparent distress Respiratory/Chest: Auscultation: breath sounds normal Cardiovascular: Heart Auscultation: RRR Abdomen: Bowel Sounds: normal Inspection & Palpation: soft, non-distended, no tenderness, guarding & rebound Assessment and Plan Assessment: 62 yo CF who presents for colonoscopy secondary to change in bowel habits. Plan: Proceed with colonoscopy.
--- NOTE | 2017-11-03 11:56 | Discharge Instructions ---
Endoscopy Patient Instructions Date / Procedure(s) Performed Nov 03, 2017. Colonoscopy Allergy Information Coded Allergies: No Known Allergies (Verified , `, 11/01/17) Discharge Date / Findings Nov 03, 2017. Diverticulosis Internal hemorrhoids Medication Instructions Stopped Medication(s): Patient held everything. Reported Home Medications Medications Dose Route/Sig Max Daily Dose Days Date Category Dose Instructions [place] 5MG/325MG (Acetaminophen/Hydrocodone Bitart) Tab 1 Tablet PO Q6 PRN 11/01/17 Reported PRN PAIN Reclast (Zoledronic Acid) 5 Mg/100 Ml Inj 100 Ml IV YEARLY 11/01/17 Reported Proventil Hfa (Albuterol Sulfate) 108 Mcg/Act Aer 2 Puffs INH Q4 PRN 11/01/17 Reported Potassium 99 Mg Tab 1 Tab PO Q2D 11/01/17 Reported Protonix (Pantoprazole Sodium) 40 Mg Tab 40 Mg PO DAILY PRN 11/01/17 Reported Multivitamin (Multivitamins) Tab 1 Tab PO DAILY 11/01/17 Reported Miralax (Polyethylene Glycol 3350) 1 Pow Pow 17 Gm PO DAILY 11/01/17 Reported Mag-Ox (Magnesium Oxide) 400 Mg Tab 400 Mg PO Q2D 11/01/17 Reported Levalbuterol Hcl 1.25 Mg/3 Ml Neb 1 Dose INH Q4 PRN 11/01/17 Reported Combivent Respimat (Ipratropium-Albuterol) 1 Aer Aer 1 Puffs INH QID PRN 11/01/17 Reported Colace (Docusate Sodium) 100 Mg Cap 1 Cap PO BID 11/01/17 Reported Aspirin Ec (Aspirin) 81 Mg Tab 81 Mg PO 3XWK 11/01/17 Reported Vitamin D-3 (Cholecalciferol) 1,000 Unit Tab 1,000 Units PO DAILY 04/23/17 Reported Vitamin B-12 (Cyanocobalamin) 1,000 Mcg Tab 5,000 Mcg PO DAILY 04/23/17 Reported Zyrtec (Cetirizine HCl) 10 Mg Tab 10 Mg PO DAILY 04/23/17 Reported Calcium (Calcium Carbonate) 600 Mg Tab 600 Mg PO BID 04/23/17 Reported Breo Ellipta (Fluticasone Furoate-Vilanterol) 1 Inh Inh 1 Puff INH DAILY PRN 04/23/17 Reported OK to resume all medications today as prescribed Provider Instructions Activity Restrictions - No exercising or heavy lifting for 24 hours. - Do not drink alcohol the day of the procedure. - Do not drive a car or operate machinery until the day after the procedure. - Do not make any important decisions or sign important papers in 24 hours after the procedure. Following Day: - Return to full activity which may include returning to work/school. Diet Start your diet with liquids and light foods (jello, soup, juice, toast). Then eat your usual diet if not nauseated. Treatment For Common After Affects For mild abdominal pain, bloating, or excessive gas: - Rest - Eat lightly - Lie on right side Follow-Up Information Follow-up with Dr. Candie Francis as scheduled Anesthesia Information What You Should Know You have had a procedure that required some medicine to reduce anxiety and discomfort. This treatment is called moderate sedation. After receiving the treatment, you may be sleepy, but you will be able to breathe on your own. The effects of the treatment may last for several hours. Follow these instructions along with Activity/Diet recommendations noted above: * Do NOT do anything where dizziness or clumsiness would be dangerous. * Rest quietly at home today, then you can be up and about tomorrow. * Have a responsible person stay with you the rest of today. * You may have had an I.V. today. If so, you may take the dressing off later today. Recommendations Call your doctor if: * Trouble breathing * Continuous vomiting for more than 24 hours * Temperature above 101 degrees * Severe abdominal pain or bloating * Pain not relieved by pain medicine ordered * There is increased drainage or redness from any incision * A large amount of rectal bleeding greater than 2-3 tablespoons. (If you had a polyp/s removed or have hemorrhoids, a small amount of blood - from the rectum is to be expected.) * You have any unanswered questions or concerns. IN THE EVENT OF A SERIOUS EMERGENCY, GO TO THE NEAREST EMERGENCY ROOM Your discharge instructions were prepared by provider Eulogio Odom. Patient Instructions Signature Page Gypsy An Patient (or Guardian) Signature/Date: I have read and understand the instructions given to me by my caregivers. Caregiver/RN/Doctor Signature/Date: The above-named patient and/or guardian has received patient instructions on this date. + Original Patient Signature Page (only) stays with chart. Please make copy for patient.
--- NOTE | 2017-11-03 11:58 | GI REPORT ---
Patient Name: Gypsy An Procedure Date: 11/03/2017 11:06 AM Date of : 1955 Admit Type: Outpatient Age: 62 Gender: Female Attending MD: Eulogio Odom DO Procedure: Colonoscopy Providers: Eulogio Odom DO Referring MD: Candie Hawkins Indications: Change in bowel habits Medicines: Monitored Anesthesia Care Complications: No immediate complications. Estimated Blood Loss: Estimated blood loss: none. Procedure: Pre-Anesthesia Assessment: - Prior to the procedure, a History and Physical was performed, and patient medications and allergies were reviewed. The patient's tolerance of previous anesthesia was also reviewed. The risks and benefits of the procedure and the sedation options and risks were discussed with the patient. All questions were answered, and informed consent was obtained. Prior Anticoagulants: The patient has taken aspirin, last dose was 2 days prior to procedure. ASA Grade Assessment: II - A patient with mild systemic disease. After reviewing the risks and benefits, the patient was deemed in satisfactory condition to undergo the procedure. After I obtained informed consent, the scope was passed under direct vision. Throughout the procedure, the patient's blood pressure, pulse, and oxygen saturations were monitored continuously. The Scope was introduced through the anus and advanced to the terminal ileum. The colonoscopy was performed without difficulty. The patient tolerated the procedure well. The quality of the bowel preparation was good. The terminal ileum, ileocecal valve, appendiceal orifice, and rectum were photographed. Findings: The perianal and digital rectal examinations were normal. Multiple small-mouthed diverticula were found in the sigmoid colon. Non-bleeding internal hemorrhoids were found during retroflexion. The hemorrhoids were small. Impression: - Diverticulosis in the sigmoid colon. - Non-bleeding internal hemorrhoids. - No specimens collected. Recommendation: - Resume previous diet. - Continue present medications. - Repeat colonoscopy in 10 years for surveillance. - Return to primary care physician as previously scheduled. Eulogio Odom DO 11/03/2017 11:58:25 AM This report has been signed electronically. Note Initiated On: 11/03/2017 11:06 AM Number of Addenda: 0 I attest to the content of the Intraoperative Record and orders documented therein, exceptions below {[id number]}
--- NOTE | 2017-11-03 12:20 | Anesthesiology Progress Note ---
Anesthesia Post Op Note Date & Time Nov 03, 2017 at 12:19 Vital Signs Pain Intensity: 0 Vital Signs Past 12 Hours Date Time Temp Pulse Resp B/P (MAP) Pulse Ox O2 Delivery O2 Flow Rate FiO2 11/03/17 12:07 69 18 138/71 (93) 97 Room Air 11/03/17 11:56 36.5 68 16 131/71 (91) 97 Room Air 11/03/17 10:54 36.5 61 16 119/78 (92) 97 Room Air Notes Mental Status: alert / awake / arousable, participated in evaluation Pt Amnestic to Procedure: Yes Nausea / Vomiting: adequately controlled Pain: adequately controlled Airway Patency, RR, SpO2: stable & adequate BP & HR: stable & adequate Hydration State: stable & adequate Anesthetic Complications: no major complications apparent
[2017-11-03 12:22] VITALS: BP 106/87; PULSE 64; O2SAT 95
== END | disposition home or self-care (01) ==
LOC: C.GI 10:19
PROVIDERS: ATTEND Internal Medicine
DX: R19.4 Change in bowel habit (principal); K57.30 Diverticulosis of large intestine without perforation or abscess without bleeding; K64.8 Other hemorrhoids; J44.9 Chronic obstructive pulmonary disease, unspecified; Z87.891 Personal history of nicotine dependence; Z79.82 Long term (current) use of aspirin; Z79.899 Other long term (current) drug therapy; K21.9 Gastro-esophageal reflux disease without esophagitis; M19.90 Unspecified osteoarthritis, unspecified site

== ENCOUNTER 2022-04-21 02:04 | Inpatient (IN) ==
[2022-04-21] MEDS ORDERED: MoRPHine SULFATE 4 MG/ML 1 ML CARP\\VIAL ONE (02:45)
[2022-04-21] MEDS ORDERED: ACETAMINOPHEN 1000 MG/100 ML IV IV ONE (02:45)
[2022-04-21] MEDS: SODIUM CHLORIDE 0.9% 1000ML 1,000 ML IV SCH ×3 (02:58→18:32)
[2022-04-21 03:34] LABS: Calcium 9.2 mg/dl (8.5-10.1); Carbon Dioxide 26 mmol/L (21-32); Chloride 97 mmol/L (98-107); Glucose 84 mg/dl (70-99(Fasting)); Potassium 3.6 mmol/L (3.5-5.1); Sodium 134 mmol/L (136-145)
[2022-04-21 03:35] LABS: Alanine Aminotransferase 21 U/L (7-52); Albumin Globulin Ratio 1.6 (0.9-2); Albumin Level 4.7 gm/dl (3.4-5.0); Alkaline Phosphatase 65 U/L (34-104); Anion Gap 11 (3-11); Aspartate Aminotransferase 24 U/L (13-39); BUN Creatinine Ratio 12.7 (10-20); Bilirubin,Total 0.6 mg/dl (0.2-1.0); Blood Urea Nitrogen 7 mg/dl (6-23); Est GFR (African American) 111.7 ml/min; Est GFR (Non-African American) 96.4 ml/min; Globulin 2.9 gm/dl (2.5-4.0); Total Protein 7.6 gm/dl (6.0-8.3)
[2022-04-21 03:48] LABS: Basophils # (auto) 0.06 K/uL (0-0.2); Basophils % (auto) 1.5 %; Eosinophils # (auto) 0.16 K/uL (0-0.50); Hematocrit (blood only) 43.6 % (37.0-47.0); Hemoglobin 15.9 g/dl (12.0-16.0); Immature Granulocytes # (auto) 0.01 K/uL (0.01-0.20); Immature Granulocytes % (auto) 0.2 %; Lymphocytes # (auto) 1.09 K/uL (1.2-3.4); Mean Corpuscular Hemoglobin 35.4 pg (25.0-34.0); Mean Corpuscular Hgb Conc 36.5 g/dL (32.0-36.0); Mean Corpuscular Volume 97.1 fL (80.0-100.0); Mean Platelet Volume 9.2 fL (9.4-12.4); Monocytes # (auto) 0.44 K/uL (0.11-0.59); Monocytes % (auto) 10.9 %; Neutrophils # (auto) 2.27 K/uL (1.40-6.50); Neutrophils % (auto) 56.4 %; Platelet Count 155 K/uL (130-400); RDW Standard Deviation 46.8 fL (36.4-46.3); Red Blood Count 4.49 M/uL (4.20-5.40); White Blood Count 4.03 K/ul (4.8-10.8)
--- NOTE | 2022-04-21 03:48 | Emergency Department Note ---
Impression & Plan Acute pain of right lower extremity ED Provider Note ED Provider Note NAME: SALOMÓN ARIAS AGE:66 SEX: Female : 1955 ARRIVES VIA: Private vehicle INFORMANT: Patient ED PROVIDER(s): Catherine Zhu DO CHIEF COMPLAINT: Right leg pain HPI: This is a 66-year-old male who presents emergency department complaining of right lower extremity pain. Patient states she began having pain 5 days ago, it has been constant, no change with position or exertion. She states she was taking pain medication at home including her usual Vicodin which she has due to history of severe osteoporosis and multiple fractures. Patient denies any trauma or change in activity. Patient states she has had a prior right hip replacement. She states pain is in her right thigh and radiates down through her right lower leg. She denies swelling, denies numbness and tingling, denies redness, discoloration, rash or sores. She denies any prior similar episodes. She denies any low back pain, change in urine or stools. She denies fevers or chills. PAST MEDICAL HISTORY:See Below PAST SURGICAL HISTORY:See Below FAMILY HISTORY:See Below SOCIAL HISTORY:See Below HOME MEDICATIONS:See Below ALLERGIES:See Below VITALS:See Below PHYSICAL EXAMINATION: GENERAL: alert, well uncomfortable appearing, well nourished, no distress, non- toxic EYE EXAM: normal conjunctiva, PERRL and EOM's grossly intact OROPHARYNX: no exudate, no erythema, lips, buccal mucosa, and tongue normal and mucous membranes are moist NECK: supple, no nuchal rigidity, no adenopathy, non-tender LUNGS: Clear to auscultation. Normal chest wall mechanics, no w/r/r HEART: no murmurs, S1 normal and S2 normal ABDOMEN: abdomen soft, non-tender, normo-active bowel sounds, no masses, no rebound or guarding. BACK: Back is symmetrical on inspection and there is no deformity, no midline tenderness, no CVA tenderness. SKIN: no rashes, petechiae, orbruising UPPER EXTREMITIES: upper extremities are grossly normal. FROM, nml pulses b/l. LOWER EXTREMITIES: No pitting edema. FROM, nml pulses b/l. Normal DP and PT pulses bilaterally. Warm to touch. Nml cap refill. Sensation intact bilaterally. Compartments soft, no joint effusions, no obvious deformities, no areas of ecchymosis. NEURO EXAM: Normal sensorium, cranial nerves II-XII grossly intact, normal speech, no facial droop,nogross weakness of arms, no gross weakness of legs. Gross sensation intact. No ataxia. Vital Signs: reviewed and remarkable Differential Diagnosis: Occult fracture, dislocation, DVT, peripheral artery disease, Bender's cyst, musculoskeletal strain, as well as others were considered MEDICAL DECISION MAKING: Cristian is a 66 yo female with worsening RLE pain in the last 5 days. No trauma, no recent surgery or procedure. Xray and dopplers reassuring. Labs reassuring. CT lumbar spine with degenerative changes and mild disc bulge. No paresthesias or signs of arterial occlusion on exam. Patient received multiple doses of pain medication including morphine, tylenol, toradol, gabapentin, and valium with some transient pain relief. Case signed out pending repeat evaluation after additional medication. Consultation(s): [] ER Treatment Provided: See below 0540: Patient updated on results thus far. Patient was placed on 1 L via nasal cannula after her second dose of morphine as she was more somnolent and satura tions began to drop. Patient states she does have a history of COPD and her oxygen saturations are typically in the upper 80s. 0815: Patient updated on additional results. States pain is starting to return. 0900: Case signed out to Dr. Chacko pending re-evaluation after additional medication. If pain improved and patient comfortable, she could be discharged home to close outpt follow-up. If pain persistent or unable to ambulate, may need inpatient evaluation. Diagnostics Interpreted By Me: -ECG: [] -Cardiac Monitoring: An order was placed for continuous cardiac monitoring. The monitor shows a rate of 70 with normal sinus rhythm. -Laboratory studies: As stated above and show below. -Imaging studies: xray right hip/pelvis: Hardware intact, no obvious fracture dislocation Triage Nursing Note Reviewed Prior/Outside Records Reviewed - The [place] Prescription Drug Monitoring Program was reviewed regarding this patient. Procedures: [] Critical Care: [] Past Med/Surg History Medical History Acid reflux Allergic rhinitis Anxiety and depression Asbestos exposure COPD (chronic obstructive pulmonary disease) DJD (degenerative joint disease) HTN (hypertension) Per records- pt denies - "diet controlled" per PCP Invasive lobular carcinoma of breast in female (12/21/19) Left- dx'ed Jan 2020. S/p bilateral mastectomy with reconstruction - XRT completed 07/2020 Lumbar spinal stenosis MRSA (methicillin resistant staph aureus) culture positive 09/18/20 Left Breast Osteoporosis with fracture Paroxysmal atrial fibrillation Solitary event in May 2012- loop recorder placed in 2018- no recurrence of a fib noted. Pt currently on ASA . Loop recorder has since been removed in Feb 2020 Polyneuropathy Sleep apnea occasionally wears CPAP Surgical History H/O hernia repair (2002) umbilical History of breast surgery (~03/25/20) excision/closure of bilateral masectomy scar revision History of breast surgery (09/25/20) Left Breast Tissue Delivery Rn Removal with Capsulectomy (Dr. Cronin) History of cataract surgery (~01/2020) bilateral History of colonoscopy (2019) History of esophagogastroduodenoscopy (EGD) (~2004) History of total hip replacement (2009) Right S/P breast reconstruction, bilateral (02/26/20) tissue expanders S/P decompression of ulnar nerve (2005) RUE s/p surgery x2 S/P epidural steroid injection (1997) lumbar S/P mastectomy, bilateral (02/26/20) Bilateral Breast Mastectomy with Left [place] Lymph Node Biopsies(Bilateral) - Иван Herzog DO s Removal of Loop Recorder(Left) - DO Dr. Иван Grant 02/26/2020 S/P total hysterectomy and bilateral salpingo-oophorectomy (1994) Status post placement of implantable loop recorder (2017) Removed during bilat mastectomies 02/26/2020 Family History Mother , Passed age 77 of kidney failure/liver cancer Liver cancer Diabetes Heart disease Hypertension Stroke Father , Passed in 50's of COPD / Black Lung Emphysema lung Uncle Prostate cancer Aunt , Passed in 50's of brain cancer No problems noted. Aunt Lung cancer Sister No problems noted. Sister No problems noted. Sister No problems noted. Son No problems noted. Son No problems noted. Other No family history of adverse response to anesthesia Denies family history of Ovarian cancer Myocardial infarction Breast cancer Colorectal cancer Social History Smoking Status: Current some day smoker Tobacco Type: Cigarettes packs per day: 2; Second Hand Exposure: Yes; Hx Alcohol Use: Yes Alcohol type: beer and hard liquor Alcohol Intake Frequency: Monthly or Less Hx Substance Use: No Preferred Language: [place] Communication Ability: Effective Visual Impairment: Limited Hearing Ability: Normal Forensic Sergeant Required: No Beliefs That Will Affect Care: None marital status: Life Partner Current Living Situation: Significant Other Current Living Situation Comment: Boyfriend lives with patient 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 Feels Safe at Home: Yes Safety Concerns: Feels Safe At This Time Childhood Exposure to Second-Hand Smoke: Yes Diet Comment: regular caffeine: Yes (2 cups of coffee/day ) during the past year weight has: remained stable Dental Care, Regularly: Yes Physical Activity Frequency: Daily Physical Activity Frequency Comment: walking Seatbelt Use: always Sunscreen Use: No Assistive Devices: CPAP, Denture - Upper, Denture - Lower and Glasses Allergies Allergies Allergy/AdvReac Type Severity Reaction Status Date / Time ether Allergy Severe Anaphylaxis Verified 12/15/21 08:39 Home Meds Home Medications Medication Instructions Recorded Confirmed calcium carbonate 600 mg calcium 600 mg PO BID 11/01/18 04/21/22 (1,500 mg) tablet tamoxifen 20 mg tablet 20 mg PO QAM 10/31/20 04/21/22 zoledronic acid 5 mg/100 mL in 1 ea IV YEARLY 11/14/20 04/21/22 mannitol 5 %-water intravenous piggybck (Reclast) buspirone 5 mg tablet 5 mg PO QAM PRN Anxiety 02/24/21 04/21/22 Previous Rx's Medication Instructions Recorded albuterol sulfate 90 mcg/actuation 2 puffs inhalation Q4H PRN COPD #1 12/05/18 aerosol inhaler g benzonatate 100 mg capsule 100 mg PO TID PRN cough #30 caps 05/16/21 escitalopram oxalate 10 mg tablet 10 mg PO DAILY #30 tabs 06/25/21 (Lexapro) hydrocodone 5 mg-acetaminophen 325 1 tab PO Q6H PRN pain #120 tabs 12/15/21 mg tablet valacyclovir 1 gram tablet 1,000 mg PO TID 7 days #21 tabs 12/15/21 (Valtrex) atorvastatin 20 mg tablet 20 mg PO QAM #90 tabs 04/14/22 diazepam 2 mg tablet (Valium) 2 mg PO TID PRN muscle spasm #10 04/21/22 tabs gabapentin 100 mg capsule 100 mg PO Q8H PRN pain #20 caps 04/21/22 Results & Data (ED) Vital Signs Vital Signs - 24 hr 04/21/22 09:30 04/21/22 09:31 04/21/22 09:31 Pulse Rate 77 71 Respiratory Rate 20 15 Blood Pressure 157/77 H Blood Pressure Mean 103 04/21/22 10:00 Pulse Rate 87 Respiratory Rate 24 Blood Pressure Blood Pressure Mean Laboratory Data 04/21/22 02:40 04/21/22 02:40 Lab Results 04/21/22 04/21/22 04/21/22 Range/Units 02:40 02:40 10:21 WBC 4.03 L (4.8-10.8) K/ul RBC 4.49 (4.20-5.40) M/uL Hgb 15.9 (12.0-16.0) g/dl Hct 43.6 (37.0-47.0) % MCV 97.1 (80.0-100.0) fL MCH 35.4 H (25.0-34.0) pg MCHC 36.5 H (32.0-36.0) g/dL RDW Std Deviation 46.8 H (36.4-46.3) fL RDW Coeff of Gita 13.0 (11.5-14.5) % Plt Count 155 (130-400) K/uL MPV 9.2 L (9.4-12.4) fL Immature Gran % (Auto) 0.2 % Neut % (Auto) 56.4 % Lymph % (Auto) 27.0 % [place] % (Auto) 10.9 % Eos % (Auto) 4.0 % Baso % (Auto) 1.5 % Neut # (Auto) 2.27 (1.40-6.50) K/uL Lymph # (Auto) 1.09 L (1.2-3.4) K/uL [place] # (Auto) 0.44 (0.11-0.59) K/uL Eos # (Auto) 0.16 (0-0.50) K/uL Baso # (Auto) 0.06 (0-0.2) K/uL Immature Gran # (Auto) 0.01 (0.01-0.20) K/uL Sodium 134 L (136-145) mmol/L Potassium 3.6 (3.5-5.1) mmol/L Chloride 97 L (98-107) mmol/L Carbon Dioxide 26 (21-32) mmol/L Anion Gap 11 (3-11) BUN 7 (6-23) mg/dl Creatinine 0.55 L (0.6-1.2) mg/dl Est Cr Clr Drug Dosing Not Reportable Est GFR ( Amer) 111.7 ml/min Est GFR (Non-Af Amer) 96.4 ml/min BUN/Creatinine Ratio 12.7 (10-20) Glucose 84 (70-99(Fasting)) mg/dl Calcium 9.2 (8.5-10.1) mg/dl Magnesium 2.0 (1.7-2.4) mg/dl Total Bilirubin 0.6 (0.2-1.0) mg/dl AST 24 (13-39) U/L ALT 21 (7-52) U/L Alkaline Phosphatase 65 (34-104) U/L Total Protein 7.6 (6.0-8.3) gm/dl Albumin 4.7 (3.4-5.0) gm/dl Globulin 2.9 (2.5-4.0) gm/dl Albumin/Globulin Ratio 1.6 (0.9-2) SARS-CoV-2, RNA, NAAT NEGATIVE (NEGATIVE) Administered Medications Enoxaparin Sodium (Enoxaparin Inj 40 Mg/0.4 Ml Syr) 40 mg SQ DAILY [facility] Stop: 05/21/22 13:59 Last Admin: 04/21/22 14:30 Dose: 40 mg Documented By: LISA Gabapentin (Gabapentin 100 Mg Cap) 100 mg PO TID JOSIAS Stop: 05/21/22 10:54 Last Admin: 04/21/22 20:26 Dose: 100 mg Documented By: Admin: 04/21/22 14:30 Dose: 100 mg Documented By: Admin: 04/21/22 11:41 Dose: 100 mg Documented By: LISA Sodium Chloride (Nss 1000ml) 1,000 mls @ 125 mls/hr IV .Q8H JOSIAS Stop: 05/21/22 04:29 Last Admin: 04/22/22 02:45 Dose: 125 mls/hr Documented By: Infusion: 04/22/22 02:32 Dose: 125 mls/hr Documented By: Admin: 04/21/22 18:32 Dose: 125 mls/hr Documented By: Infusion: 04/21/22 18:32 Dose: 125 mls/hr Documented By: Admin: 04/21/22 13:41 Dose: 125 mls/hr Documented By: Infusion: 04/21/22 12:59 Dose: 0 mls/hr Documented By: Admin: 04/21/22 02:58 Dose: 125 mls/hr Documented By: MARGARITO Acetaminophen (Ofirmev) 1,000 mg in 100 mls @ 400 mls/hr IV Q8H JOSIAS Stop: 04/24/22 10:59 Last Infusion: 04/22/22 04:16 Dose: 0 mls/hr Documented By: Admin: 04/22/22 03:55 Dose: 400 mls/hr Documented By: Infusion: 04/21/22 18:50 Dose: 0 mls/hr Documented By: Admin: 04/21/22 18:37 Dose: 400 mls/hr Documented By: Infusion: 04/21/22 13:39 Dose: 0 mls/hr Documented By: Admin: 04/21/22 12:59 Dose: 400 mls/hr Documented By: LISA Lidocaine (Lidocaine 5% 1 Patch) 1 patch TD QAM JOSIAS Stop: 05/21/22 10:59 Last Admin: 04/21/22 11:41 Dose: Not Given Documented By: LISA Miscellaneous (Remove Lidoderm Patch) 1 each N/A DAILY@2100 [facility] Stop: 05/21/22 20:59 Last Admin: 04/21/22 20:25 Dose: 1 each Documented By: UYEN Morphine Sulfate (Morphine Sulfate 2 Mg/Ml Carp) 2 mg IV Q4H PRN PRN Reason: Pain (Breakthrough pain) Stop: 05/05/22 10:54 Last Admin: 04/22/22 06:39 Dose: 2 mg Documented By: Admin: 04/22/22 01:57 Dose: 2 mg Documented By: Admin: 04/21/22 18:29 Dose: 2 mg Documented By: SUNITHA Nicotine (Nicotine 7 Mg/24 Hr Tdsy) 7 mg TD QAM [facility] Stop: 05/21/22 10:59 Last Admin: 04/21/22 11:48 Dose: Not Given Documented By: LISA Oxycodone HCl (Oxycodone Hcl Ir 5 Mg Tab (Immediate Release)) 5 mg PO Q4H PRN PRN Reason: Pain (4,5,6) Stop: 05/05/22 10:54 Last Admin: 04/22/22 02:51 Dose: 5 mg Documented By: Admin: 04/21/22 20:25 Dose: 5 mg Documented By: UYEN Discontinued Medications Acetaminophen (Acetaminophen 1000 Mg/100 Ml Iv) Confirm Administered Dose 1,000 mg IV .STK-MED ONE Stop: 04/21/22 02:46 Last Admin: 04/21/22 18:01 Dose: Not Given Documented By: SUNITHA Hydrocodone Bitart/Acetaminophen (Hydrocodone/Acetamophen 5/325mg Tab) 1 tab PO NOW STA Stop: 04/21/22 08:12 Last Admin: 04/21/22 08:34 Dose: 1 tab Documented By: PATTIE Diazepam (Diazepam 5 Mg/Ml Inj 10ml Vial) 1 mg IV NOW STA Stop: 04/21/22 08:11 Last Admin: 04/21/22 08:35 Dose: 1 mg Documented By: PATTIE Fentanyl Citrate (Fentanyl Citrate 100 Mcg/2 Ml Vial) 50 mcg IV NOW STA Stop: 04/21/22 10:23 Last Admin: 04/21/22 10:28 Dose: 50 mcg Documented By: PATTIE Gabapentin (Gabapentin 100 Mg Cap) 100 mg PO NOW STA Stop: 04/21/22 05:42 Last Admin: 04/21/22 05:54 Dose: 100 mg Documented By: MARGARITO Acetaminophen (Ofirmev) 1,000 mg in 100 mls @ 400 mls/hr IV NOW STA Stop: 04/21/22 04:41 Last Infusion: 04/21/22 03:18 Dose: 0 mls/hr Documented By: Admin: 04/21/22 03:03 Dose: 400 mls/hr Documented By: MARGARITO Magnesium Sulfate/Dextrose (Magnesium Sulfate / D5w) 1 gm in 100 mls @ 100 mls/hr IV NOW STA Stop: 04/21/22 06:40 Last Infusion: 04/21/22 07:00 Dose: 0 mls/hr Documented By: Admin: 04/21/22 05:54 Dose: 100 mls/hr Documented By: MARGARITO Ketorolac Tromethamine (Ketorolac Tromethamine 15 Mg/Ml Vial) 10 mg IV NOW ONE Stop: 04/21/22 04:01 Last Admin: 04/21/22 04:11 Dose: 10 mg Documented By: MARGARITO Miscellaneous (Patient's Height &/Or Weight Needed) 1 each N/A Q2H JOSIAS Stop: 05/21/22 10:59 Last Admin: 04/21/22 11:41 Dose: 1 each Documented By: LISA Morphine Sulfate (Morphine Sulfate 4 Mg/Ml 1 Ml Carp\\Vial) 4 mg IV NOW STA Stop: 04/21/22 04:01 Last Admin: 04/21/22 04:12 Dose: 4 mg Documented By: MARGARITO Morphine Sulfate (Morphine Sulfate 4 Mg/Ml 1 Ml Carp\\Vial) 4 mg IV NOW STA Stop: 04/21/22 04:26 Last Admin: 04/21/22 02:58 Dose: 4 mg Documented By: MARGARITO Morphine Sulfate (Morphine Sulfate 4 Mg/Ml 1 Ml Carp\\Vial) Confirm Administered Dose 4 mg .ROUTE .STK-MED ONE Stop: 04/21/22 02:46 Last Admin: 04/21/22 18:01 Dose: Not Given Documented By: SUNITHA Imaging Data Radiologist's Impression: Hip/Pelvis X-Ray 04/21/22 00:00 SINGLE VIEW PELVIS; 2 VIEWS RIGHT HIP CLINICAL HISTORY: Right leg pain. FINDINGS: AP view of the pelvis with AP and frog leg views of the right hip are compared to study dated 08/15/2014. The skeletal structures are osteopenic. There is no radiographic evidence of acute fracture involving the hips or bony pelvis. A right hip arthroplasty is in near anatomic alignment. No periprosthetic lucency is seen. Mild arthritic change and joint space narrowing is seen in the left hip. The sacroiliac joints are normal. Lumbosacral spondylosis is partially imaged. The overlying soft tissues are within normal limits. No bowel obstruction is seen. IMPRESSION: 1. No acute bony abnormality is identified. 2. A right hip arthroplasty is in near anatomic alignment. Electronically signed by: Yaw David M.D. 04/21/2022 7:39 AM Venous Doppler Study 04/21/22 03:48 ULTRASOUND RIGHT LOWER EXTREMITY VENOUS CLINICAL HISTORY: Right leg pain. COMPARISON STUDY: No priors. TECHNIQUE: Real-time, grayscale, and color Doppler sonography of the deep veins of the right lower extremity was performed from the inguinal crease to the calf. Compression and augmentation were utilized. FINDINGS: There is no sonographic evidence of deep venous thrombosis identified in the right lower extremity. The common femoral, superficial femoral, and popliteal veins are patent and normally compressible. The greater saphenous vein and the profunda femoris vein at the junction with the common femoral vein are clear. The visualized calf veins are patent. IMPRESSION: There is no sonographic evidence of deep venous thrombosis identified in the right lower extremity. ACT 112: Negative or not required by law. Electronically signed by: Yaw David M.D. 04/21/2022 7:[address] 04/21/22 05:[address] DOSE: 474.55 mGy.cm HISTORY: lumbar radiculopathy TECHNIQUE: Multiaxial CT images of the lumbar spine were performed and reformatted in the sagittal and coronal plane without the use of contrast. A dose lowering technique was utilized adhering to the principles of ALARA. COMPARISON: None. FINDINGS: No fracture or subluxation within the lumbar spine. The visualized sacrum appears intact. There is severe disc space narrowing at L4-5 and mild disc space narrowing at L5-S1. There are mild facet degenerative changes throughout the lumbar spine. Mild bilateral neural foraminal narrowing at L3-L4, L4-5, and L5-S1. There are small broad-based posterior disc bulges throughout the lumbar spine without significant central canal narrowing. Paravertebral soft tissues are unremarkable. Calcified but normal caliber abdominal aorta. IMPRESSION: 1. No fracture or subluxation within the lumbar spine. 2. Degenerative changes as described above ACT 112: Negative or not required by law. Electronically signed by: Caden Robertson M.D. 04/21/2022 7:52 AM Ultrasound venous right lower extremity: No evidence of deep venous thrombosis in the right lower extremity. Radiologist: Erik Mera MD Discharge Plan Visit Data Chief Complaint: Leg Injury/Pain Stated Complaint: R LEG PAIN ED Provider: Catherine Zhu Discharge Problem: Acute pain of right lower extremity Patient Disposition: Still a Patient Condition: Good Discharge Instructions Interventions: ED Discharge Assessment Last Done: 04/21/22 13:48
[2022-04-21] MEDS ORDERED: MoRPHine SULFATE 4 MG/ML 1 ML CARP\\VIAL IV STA ×2 (04:00→04:25)
[2022-04-21] MEDS ORDERED: KETOROLAC TROMETHAMINE 15 MG/ML VIAL IV ONE (04:00)
[2022-04-21] MEDS ORDERED: ACETAMINOPHEN 1,000 MG/100 ML VIAL IV STA (04:27)
[2022-04-21] MEDS ORDERED: MAGNESIUM SULFATE / D5W 1 GM/100 ML BAG IV STA (05:41)
[2022-04-21] MEDS ORDERED: GABAPENTIN 100 MG CAP PO STA (05:41)
--- NOTE | 2022-04-21 07:04 | Ultrasound Report ---
ULTRASOUND RIGHT LOWER EXTREMITY VENOUS CLINICAL HISTORY: Right leg pain. COMPARISON STUDY: No priors. TECHNIQUE: Real-time, grayscale, and color Doppler sonography of the deep veins of the right lower ex tremity was performed from the inguinal crease to the calf. Compression and augmentation were utilize d. FINDINGS: There is no sonographic evidence of deep venous thrombosis identified in the right lower ex tremity. The common femoral, superficial femoral, and popliteal veins are patent and normally gideon sible. The greater saphenous vein and the profunda femoris vein at the junction with the common femor al vein are clear. The visualized calf veins are patent. IMPRESSION: There is no sonographic evidence of deep venous thrombosis identified in the right lower extremity. ACT 112: Negative or not required by law. Electronically signed by: Yaw David M.D. 04/21/2022 7:02 AM
--- NOTE | 2022-04-21 07:40 | XRay Report ---
SINGLE VIEW PELVIS; 2 VIEWS RIGHT HIP CLINICAL HISTORY: Right leg pain. FINDINGS: AP view of the pelvis with AP and frog leg views of the right hip are compared to study thanh ed 08/15/2014. The skeletal structures are osteopenic. There is no radiographic evidence of acute fract ure involving the hips or bony pelvis. A right hip arthroplasty is in near anatomic alignment. No per iprosthetic lucency is seen. Mild arthritic change and joint space narrowing is seen in the left hip. The sacroiliac joints are normal. Lumbosacral spondylosis is partially imaged. The overlying soft ti ssues are within normal limits. No bowel obstruction is seen. IMPRESSION: 1. No acute bony abnormality is identified. 2. A right hip arthroplasty is in near anatomic alignment. Electronically signed by: Yaw David M.D. 04/21/2022 7:39 AM
--- NOTE | 2022-04-21 07:53 | CT Scan Report ---
LUMBAR SPINE CT CT DOSE: 474.55 mGy.cm HISTORY: lumbar radiculopathy TECHNIQUE: Multiaxial CT images of the lumbar spine were performed and reformatted in the sagittal an d coronal plane without the use of contrast. A dose lowering technique was utilized adhering to the principles of ALARA. COMPARISON: None. FINDINGS: No fracture or subluxation within the lumbar spine. The visualized sacrum appears intact. T here is severe disc space narrowing at L4-5 and mild disc space narrowing at L5-S1. There are mild fa cet degenerative changes throughout the lumbar spine. Mild bilateral neural foraminal narrowing at L3 -L4, L4-5, and L5-S1. There are small broad-based posterior disc bulges throughout the lumbar spine w ithout significant central canal narrowing. Paravertebral soft tissues are unremarkable. Calcified bu t normal caliber abdominal aorta. IMPRESSION: 1. No fracture or subluxation within the lumbar spine. 2. Degenerative changes as described above ACT 112: Negative or not required by law. Electronically signed by: Caden Robertson M.D. 04/21/2022 7:52 AM
[2022-04-21] MEDS ORDERED: HYDROCODONE/ACETAMOPHEN 5/325MG TAB PO STA (08:11)
[2022-04-21] MEDS ORDERED: fentaNYL citrate 100 MCG/2 ML VIAL IV STA (10:22)
--- NOTE | 2022-04-21 10:26 | Emergency Department Note ---
ED Visit Note Diagnosis: Intractable right lower extremity pain Disposition: Admission Patient was signed out to me by Dr. Zhu pending reevaluation disposition. The patient had presented with some right leg pain that seem to be intractable and did have unremarkable blood work degenerative changes seen on CT lumbar spine negative venous Doppler and negative hip and pelvis x-rays. I did evaluate the patient the patient has good pedal pulse the right lower extremity no obvious deformities and the patient has no weakness. The patient reportedly had been up and ambulatory but had significant pain and discomfort where she did not think that she can tolerate going home. Per review of the patient's medications received while in the emergency departm ent, the patient has received [place] Valium gabapentin 2 doses of morphine and Toradol but without significant improvement in symptoms. Given this concern I did speak with the on-call hospitalist Dharmesh Bañuelos PA-C and the patient was admitted by Dr. Daron Williamson. Physical Exam: GENERAL: Well appearing, well nourished, NAD, non-toxic. EYE EXAM: Normal conjunctiva. PERRL, no anisocoria and EOM's grossly intact w/o pain. [OROPHARYNX: Dry mucous membranes. NECK: Supple, no nuchal rigidity, no adenopathy, non-tender. No signs of meningismus. FROM of the neck with good chin to chest and neck extension. No stridor. LUNGS: Scant inspiratory and expiratory wheezes normal chest wall mechanics. HEART: NSR, no MRG. ABDOMEN: Abdomen soft, non-tender, normo-active bowel sounds, no masses, no rebound or guarding. BACK: No CVA TTP. SKIN: No rashes and no bruising. UPPER EXTREMITIES: Upper extremities are grossly normal. LOWER EXTREMITIES: Grossly normal, no edema. No obvious deformity, good range of motion, pain in the distal lower extremity, well-perfused good pedal pulse NEURO EXAM: A&O x3, cranial nerves II-XII grossly intact, normal speech, moves all 4 extremities on command w/o issue. No sensory deficits. OBS NOTE The patient was placed in observation status at 0345 for right lower extremity pain. During the time in observation, the patient was frequently reassessed and received blood work CT lumbar spine, venous Doppler and hip and pelvis x-ray. On Final reassessment the patient did receive numerous rounds of pain medications but was unable to tolerate the pain with ambulation and the patient will be admitted at this time. A total observation time of 6 Hours 40 Minutes. .
--- NOTE | 2022-04-21 10:32 | History & Physical Report ---
Date of Service April 21, 2022 Assessment & Plan (1) Acute pain of right lower extremity: Plan: -Admit to med/surge -The pain is currently afebrile, hemodynamically stable, and stable on RA -The patient has been experiencing progressive right leg pain which started in the right lateral hip and has progressed down her right leg -Xray of the right hip and venous doppler of the RLE were negative -CT of the lumbar spine shows "severe disc space narrowing at L4-5 and mild disc space narrowing at L5-S1". -Patient is without red flag symptoms at this time -Will start IV tylenol 1000 mg q8h, lidocaine patches for her right hip and right knee, gabapentin 100 mg PO TID for her neuropathic pain, will also start Oxy IR 5 mg PO q4h prn pain (4,5,6), and IV morphine 2mg IV q4h prn breakthrough pain -Will consult pain management as she has hd previous injections in her back which has improved her symptoms -Will consult PT/OT -BL SCDs and Sub-Q lovenox for DVT PPX -AM CBC and BMP (2) Lumbar spinal stenosis: Plan: -See acute pain of the RLE (3) HTN (hypertension): Plan: -Stable -Not coherently on medication -Continue to monitor (4) COPD (chronic obstructive pulmonary disease): Plan: -Stable on RA -Patient is currently off outpatient medications -For now will start with prn DuoNebs -Nicotine patch ordered, continue to encourage smoking cessation (5) Anxiety and depression: Plan: -Not currently on medication Plan The patient was discussed with Dr. Williamson at the time of the admission History of Present Illness Chief Complaint: Right leg pain Primary Care Provider: DO Soledad Epsteinette is a 66 year old female with a PMH significant for COPD, HTN, Anxiety/depression, hyperlipidemia, paroxysmal afib (not on anticoagulation), GERD, breast cancer S/P BL mastectomy, radiation, on Tamoxifen, and Lumbar spinal stenosis who presented to the [facility] ED on 04/21/22 with a chief complaint of right leg pain. In the ED the patient was found to be afebrile, hemodynamically stable, and stable on RA. Labs were remarkable for a CBC with WBC WNL, stable Hgb and platelets, stable cr of 0.55 with a sodium of 134 otherwise stable electrolytes, and LFT's WNL. Xrays of the right hip were read as "1. No acute bony abnormality is identified. 2. A right hip arthroplasty is in near anatomic alignment.". Venous doppler of the RLE was read as "There is no sonographic evidence of deep venous thrombosis identified in the right lower extremity.". CT of the lumbar spine was read as "1. No fracture or subluxation within the lumbar spine. 2. Degenerative changes as described above.". In the ED the patient was given 1gm IV Tylenol, 100 mg PO Gabapentin, 10 mg IV toradol, 8 mg IV morphine, 50 mcg of fentanyl, a dose of Hydrocodon/Acetaminophen, and 1 mg IV valium. At the time of the exam the patient was standing at the side of the bed with the help of her , after coming back from the bathroom. The patient appeared to be in pain and states that she has been experiencing progressive right leg pain. She states that she had a previous right hip replacement approximately 10 years ago, she denies previous complications from that procedure. Approximately 5 days ago she began to experience a dull/achy pain which started on the lateral right hip. As the days progressed the pain has progressed with radiation to the knee and right de la garza. She states that it is currently a 10/10 and has been a 10/10 for the past 49 hours. Because of her pain she has been unable to complete her ADLs and has been unable to sleep. She was taking Valium at home without relief. Denies back pain at this time and also denies saddle anesthesia, loss of bowel/bladder function, severe weakness in the RLE, and recent falls. When asked about her previously known lumbar spinal stenosis she states that she previously had injections for her bulging discs which did improve her symptoms. I explained that her current pain appears to be radicular and explained that we will start her on Gabapentin for these symptoms. I explained that we want to try and avoid narcotics as they are not beneficial for this type of pain. She would be interested in trying PT/OT while admitted, I also explained that we will have the pain management group evaluate her while she is here. When asked, she is only taking Vitamin A/E/D, atorvastatin, and Valium at this time. She is not currently seeing a Operating Systems Programmer for her COPD and is not taking medications for her COPD at this time. She is still smoking "a few" cigarettes daily. I strongly encouraged her to fully quit smoking and follow up with a Operating Systems Programmer to avoid worsening COPD and exacerbations. We discussed code status, she is a Full code and would want her to make medical decisions for her if she could not make them herself. Please refer to Dr. Williamson's attestation for any changes to the treatment plan Allergies Allergy/AdvReac Type Severity Reaction Status Date / Time ether Allergy Severe Anaphylaxis Verified 12/15/21 08:39 Home Medications Medication Instructions Recorded Confirmed Type calcium carbonate 600 mg calcium 600 mg PO BID 11/01/18 04/21/22 History (1,500 mg) tablet albuterol sulfate 90 mcg/actuation 2 puffs inhalation Q4H PRN COPD #1 12/05/18 04/21/22 Rx aerosol inhaler g tamoxifen 20 mg tablet 20 mg PO QAM 10/31/20 04/21/22 History zoledronic acid 5 mg/100 mL in 1 ea IV YEARLY 11/14/20 04/21/22 History mannitol 5 %-water intravenous piggybck (Reclast) buspirone 5 mg tablet 5 mg PO QAM PRN Anxiety 02/24/21 04/21/22 History benzonatate 100 mg capsule 100 mg PO TID PRN cough #30 caps 05/16/21 04/21/22 Rx escitalopram oxalate 10 mg tablet 10 mg PO DAILY #30 tabs 06/25/21 04/21/22 Rx (Lexapro) hydrocodone 5 mg-acetaminophen 325 1 tab PO Q6H PRN pain #120 tabs 12/15/21 04/21/22 Rx mg tablet valacyclovir 1 gram tablet 1,000 mg PO TID 7 days #21 tabs 12/15/21 04/21/22 Rx (Valtrex) atorvastatin 20 mg tablet 20 mg PO QAM #90 tabs 04/14/22 04/21/22 Rx diazepam 2 mg tablet (Valium) 2 mg PO TID PRN muscle spasm #10 04/21/22 04/21/22 Rx tabs gabapentin 100 mg capsule 100 mg PO Q8H PRN pain #20 caps 04/21/22 04/21/22 Rx Past Med/Surg History Medical History Acid reflux Allergic rhinitis Anxiety and depression Asbestos exposure COPD (chronic obstructive pulmonary disease) DJD (degenerative joint disease) HTN (hypertension) Per records- pt denies - "diet controlled" per PCP Invasive lobular carcinoma of breast in female (12/21/19) Left- dx'ed Jan 2020. S/p bilateral mastectomy with reconstruction - XRT completed 07/2020 Lumbar spinal stenosis MRSA (methicillin resistant staph aureus) culture positive 09/18/20 Left Breast Osteoporosis with fracture Paroxysmal atrial fibrillation Solitary event in May 2012- loop recorder placed in 2017- no recurrence of a fib noted. Pt currently on ASA . Loop recorder has since been removed in 2019 Polyneuropathy Sleep apnea occasionally wears CPAP Surgical History H/O hernia repair (2002) umbilical History of breast surgery (~03/25/20) excision/closure of bilateral masectomy scar revision History of breast surgery (09/25/20) Left Breast Tissue Administrative Support Coordinator Removal with Capsulectomy (Dr. Cronin) History of cataract surgery (~01/2020) bilateral History of colonoscopy (2019) History of esophagogastroduodenoscopy (EGD) (~2004) History of total hip replacement (2009) Right S/P breast reconstruction, bilateral (02/26/20) tissue expanders S/P decompression of ulnar nerve (2005) RUE s/p surgery x2 S/P epidural steroid injection (1997) lumbar S/P mastectomy, bilateral (02/26/20) Bilateral Breast Mastectomy with Left [place] Lymph Node Biopsies(Bilateral) - Иван Herzog DO s Removal of Loop Recorder(Left) - DO Dr. Иван Grant 02/26/2020 S/P total hysterectomy and bilateral salpingo-oophorectomy (1994) Status post placement of implantable loop recorder (2017) Removed during bilat mastectomies 02/26/2020 Family History Mother , Passed age 77 of kidney failure/liver cancer Liver cancer Diabetes Heart disease Hypertension Stroke Father , Passed in 50's of COPD / Black Lung Emphysema lung Uncle Prostate cancer Aunt , Passed in 50's of brain cancer No problems noted. Aunt Lung cancer Sister No problems noted. Sister No problems noted. Sister No problems noted. Son No problems noted. Son No problems noted. Other No family history of adverse response to anesthesia Denies family history of Ovarian cancer Myocardial infarction Breast cancer Colorectal cancer Social History Smoking Status: Former smoker Tobacco Type: Cigarettes packs per day: 2; Second Hand Exposure: Yes; Hx Alcohol Use: Yes Alcohol type: beer and hard liquor Alcohol Intake Frequency: Monthly or Less Hx Substance Use: No Preferred Language: Yakut Communication Ability: Effective Visual Impairment: Limited Hearing Ability: Normal Chicken Tender Required: No Beliefs That Will Affect Care: None marital status: Life Partner Current Living Situation: Significant Other Current Living Situation Comment: Boyfriend lives with patient 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 Feels Safe at Home: Yes Childhood Exposure to Second-Hand Smoke: Yes Diet Comment: regular caffeine: Yes (2 cups of coffee/day ) during the past year weight has: remained stable Dental Care, Regularly: Yes Physical Activity Frequency: Daily Physical Activity Frequency Comment: walking Seatbelt Use: always Sunscreen Use: No Assistive Devices: CPAP, Denture - Upper, Denture - Lower and Glasses Review of Systems Review of Systems: Denies current fever, chills, headache, changes in vision, hearing, taste, and smell, chest pain, SOB, cough, abdominal pain, nausea, vomiting, diarrhea, hematemesis, melena, dysuria, hematuria, and recent falls. All systems have been reviewed and are otherwise negative. Physical Exam Physical Exam: Physical Exam: General: In moderate distress due to pain, older stated age, chronically ill appearing, non-toxic appearing HEENT: Normocephalic, atraumatic, no scleral icterus, pupils around round, symmetrical, and reactive to light, moist mucus membranes, trachea midline, no thyromegaly Chest/Pulm: No respiratory distress, symmetrical chest expansion, expiratory wheezing noted throughout Cardiac: RRR, no murmurs noted Abdomen: Negative for ascites and bruising, normoactive bowel sounds, soft, non-tender to palpation throughout Musculoskeletal: patient is without tenderness to palpation and without acute trauma on palpation of the entire spine, patient as full ROM of the right hip, knee, and foot, no acute trauma, swelling, or erythema noted on the BL LEs Extremities: Radial, dorsalis pedis, and posterior tibial pulses are intact and symmetrical, no edema noted in the BL LE's Skin: Warm, dry, no rashes , lesions, or scars noted Neuro: Alert and oriented to person, place, month, year, and president, no focal defects, CN II-XII tested and intact, patient with slightly reduced strength in the RLE compared to the LLE, patient with 2+ distal reflexes in the BL LE's Psych: In mod distress due to pain, cooperative during the exam Results & Data Results & Data ([facility]) Vital Signs (Past 12 Hours) Vital Signs Pulse Pulse Resp BP BP Pulse Ox O2 Del Method 04/21/22 10:00 87 24 04/21/22 09:31 71 15 04/21/22 09:31 157/77 H 04/21/22 09:30 77 20 04/21/22 09:01 76 16 04/21/22 09:01 169/73 H 04/21/22 09:00 69 15 04/21/22 08:30 67 25 H 04/21/22 08:30 112/91 04/21/22 08:01 71 15 04/21/22 08:01 145/120 H 04/21/22 08:00 72 20 04/21/22 07:31 76 24 04/21/22 07:31 151/71 H 04/21/22 07:30 74 13 04/21/22 07:00 70 15 96 04/21/22 07:00 180/86 H 04/21/22 08:51 69 18 112/91 97 Room Air 04/21/22 07:22 67 18 180/86 H 96 04/21/22 06:30 65 13 159/83 H 93 Nasal Cannula 04/21/22 06:08 95 H 20 92 Nasal Cannula 04/21/22 05:30 69 13 140/77 97 Nasal Cannula 04/21/22 05:00 73 17 149/86 H 96 Nasal Cannula 04/21/22 04:31 169/75 H 04/21/22 04:31 78 21 92 Nasal Cannula 04/21/22 04:30 91 H 20 93 Nasal Cannula 04/21/22 04:00 90 19 161/86 H 87 L Room Air 04/21/22 03:48 83 16 136/90 88 L Room Air O2 Flow Rate 04/21/22 10:00 04/21/22 09:31 04/21/22 09:31 04/21/22 09:30 04/21/22 09:01 04/21/22 09:01 04/21/22 09:00 04/21/22 08:30 04/21/22 08:30 04/21/22 08:01 04/21/22 08:01 04/21/22 08:00 04/21/22 07:31 04/21/22 07:31 04/21/22 07:30 04/21/22 07:00 04/21/22 07:00 04/21/22 08:51 04/21/22 07:22 04/21/22 06:30 1 04/21/22 06:08 1 04/21/22 05:30 1 04/21/22 05:00 2 04/21/22 04:31 04/21/22 04:31 2 04/21/22 04:30 2 04/21/22 04:00 04/21/22 03:48 Laboratory Results Abnormal lab results 04/21/22 04/21/22 Range/Units 02:40 02:40 WBC 4.03 L (4.8-10.8) K/ul MCH 35.4 H (25.0-34.0) pg MCHC 36.5 H (32.0-36.0) g/dL RDW Std Deviation 46.8 H (36.4-46.3) fL MPV 9.2 L (9.4-12.4) fL Lymph # (Auto) 1.09 L (1.2-3.4) K/uL Sodium 134 L (136-145) mmol/L Chloride 97 L (98-107) mmol/L Creatinine 0.55 L (0.6-1.2) mg/dl Diagnostic Findings Hip/Pelvis X-Ray 04/21/22 00:00 SINGLE VIEW PELVIS; 2 VIEWS RIGHT HIP CLINICAL HISTORY: Right leg pain. FINDINGS: AP view of the pelvis with AP and frog leg views of the right hip are compared to study dated 08/15/2014. The skeletal structures are osteopenic. There is no radiographic evidence of acute fracture involving the hips or bony pelvis. A right hip arthroplasty is in near anatomic alignment. No periprosthetic lucency is seen. Mild arthritic change and joint space narrowing is seen in the left hip. The sacroiliac joints are normal. Lumbosacral spondylosis is partially imaged. The overlying soft tissues are within normal limits. No bowel obstruction is seen. IMPRESSION: 1. No acute bony abnormality is identified. 2. A right hip arthroplasty is in near anatomic alignment. Electronically signed by: Yaw David M.D. 04/21/2022 7:39 AM Venous Doppler Study 04/21/22 03:48 ULTRASOUND RIGHT LOWER EXTREMITY VENOUS CLINICAL HISTORY: Right leg pain. COMPARISON STUDY: No priors. TECHNIQUE: Real-time, grayscale, and color Doppler sonography of the deep veins of the right lower extremity was performed from the inguinal crease to the calf. Compression and augmentation were utilized. FINDINGS: There is no sonographic evidence of deep venous thrombosis identified in the right lower extremity. The common femoral, superficial femoral, and popliteal veins are patent and normally compressible. The greater saphenous vein and the profunda femoris vein at the junction with the common femoral vein are clear. The visualized calf veins are patent. IMPRESSION: There is no sonographic evidence of deep venous thrombosis identified in the right lower extremity. ACT 112: Negative or not required by law. Electronically signed by: Yaw David M.D. 04/21/2022 7:[address] 04/21/22 05:[address] DOSE: 474.55 mGy.cm HISTORY: lumbar radiculopathy TECHNIQUE: Multiaxial CT images of the lumbar spine were performed and reformatted in the sagittal and coronal plane without the use of contrast. A dose lowering technique was utilized adhering to the principles of ALARA. COMPARISON: None. FINDINGS: No fracture or subluxation within the lumbar spine. The visualized sacrum appears intact. There is severe disc space narrowing at L4-5 and mild disc space narrowing at L5-S1. There are mild facet degenerative changes throughout the lumbar spine. Mild bilateral neural foraminal narrowing at L3-L4, L4-5, and L5-S1. There are small broad-based posterior disc bulges throughout the lumbar spine without significant central canal narrowing. Paravertebral soft tissues are unremarkable. Calcified but normal caliber abdominal aorta. IMPRESSION: 1. No fracture or subluxation within the lumbar spine. 2. Degenerative changes as described above ACT 112: Negative or not required by law. Electronically signed by: Caden Robertson M.D. 04/21/2022 7:52 AM ECG Additional Comments: No ECG available at the time of the admission, will obtain one now Code Status & VTE Plan Code Status Full code Supervising Physician Co-Signing Physician Notes . Patient seen and examined, chart reviewed, case discussed with Dharmesh Bañuelos PA-C and I agree with the assessment and plan as above except as otherwise noted Labs and images reviewed 66-year-old female with history of lumbar spinal stenosis who presents with intractable right lower leg pain. Was treated with conservative management in ER without adequate pain control, following morning signout and patient remaining with inadequate pain control was recommended for inpatient admission and pain management consultation. Patient received Tylenol, gabapentin, Toradol, morphine, fentanyl, oral hydrocodone/acetaminophen, and Valium while in the ER in attempt to control pain. Patient has had progressive right leg pain without back pain 10/10 in the last 2 days, Has gradually progressed over the last 4 to 5 days. She is unable to ambulate sleep at home. Reports the pain is in her hip skips her thigh and jumps to her knee and then her ankle on the right side. has not had any distal extremity weakness or loss of sensation. No saddle anesthesia. No bowel or bladder dysfunction. Sensation to soft touch is intact in feet bilaterally, ankle dorsiflexion/plantarflexion 5/5, chest rise symmetrical, no hypoxia. Is able to flex at the R hip laying in bed but this exacerbates her pain. Agree with assessment and recommendations above. Lumbar CT with no fracture or subluxation, degenerative changes, severe to space narrowing L4-L5 and L5-S1 with degenerative changes. Small broad-based posterior disc bulges without significant central canal narrowing. Continue symptomatic management as noted above. PG Care Time/CCT Total # of Minutes Spent Total Time Spent with Patient: Total time spent is greater than 50% in coordination of care (as documented) at patient's floor/unit and/or counseling patient: [place] [address] INT INP/OBS CARE 3/75MIN Patient Type Established Medical Decision Making High Complexity Diagnoses Acute pain of right lower extremity M79.604 Lumbar spinal stenosis M48.061 HTN (hypertension) I10 COPD (chronic obstructive pulmonary disease) J44.9 Anxiety and depression F41.9; F32.9
[2022-04-21] MEDS ORDERED: Patient's HEIGHT &/or WEIGHT Needed SCH (11:00)
[2022-04-21] MEDS: GABAPENTIN 100 MG CAP PO SCH ×3 (11:41→20:26)
[2022-04-21] MEDS: LIDOCAINE 5% 1 PATCH TD SCH (11:41)
[2022-04-21] MEDS: NICOTINE 7 MG/24 HR TDSY TD SCH (11:48)
[2022-04-21] MEDS: ACETAMINOPHEN 1,000 MG/100 ML VIAL IV SCH ×2 (12:59→18:37)
[2022-04-21] MEDS ORDERED: ALBUTEROL HFA 8 GM INHALER INH PRN (13:46)
[2022-04-21] MEDS: ENOXAPARIN INJ 40 MG/0.4 ML SYR SQ SCH (14:30)
[2022-04-21] MEDS: MoRPHine SULFATE 2 MG/ML CARP IV PRN (18:29)
[2022-04-21] MEDS: oxyCODONE HCL IR 5 MG TAB (IMMEDIATE RELEASE) PO PRN (20:25)
[2022-04-22] MEDS: MoRPHine SULFATE 2 MG/ML CARP IV PRN ×3 (01:57→11:57)
[2022-04-22] MEDS: SODIUM CHLORIDE 0.9% 1000ML 1,000 ML IV SCH ×3 (02:45→20:42)
[2022-04-22] MEDS: oxyCODONE HCL IR 5 MG TAB (IMMEDIATE RELEASE) PO PRN ×2 (02:51→09:21)
[2022-04-22] MEDS: ACETAMINOPHEN 1,000 MG/100 ML VIAL IV SCH ×3 (03:55→18:28)
[2022-04-22 07:03] LABS: Hematocrit (blood only) 40.2 % (37.0-47.0); Hemoglobin 14.2 g/dl (12.0-16.0); Mean Corpuscular Hemoglobin 34.3 pg (25.0-34.0); Mean Corpuscular Hgb Conc 35.3 g/dL (32.0-36.0); Mean Corpuscular Volume 97.1 fL (80.0-100.0); Mean Platelet Volume 8.9 fL (9.4-12.4); Platelet Count 123 K/uL (130-400); RDW Coefficient of Variation 12.9 % (11.5-14.5); Red Blood Count 4.14 M/uL (4.20-5.40); White Blood Count 3.18 K/ul (4.8-10.8)
[2022-04-22 07:19] LABS: BUN Creatinine Ratio 12.3 (10-20); Calcium 8.9 mg/dl (8.5-10.1); Creatinine Clr Calc Pharmacy 81.3 ml/min; Est GFR (African American) 110.4 ml/min; Est GFR (Non-African American) 95.3 ml/min; Potassium 3.8 mmol/L (3.5-5.1)
[2022-04-22] MEDS: GABAPENTIN 100 MG CAP PO SCH (09:20)
[2022-04-22] MEDS: ENOXAPARIN INJ 40 MG/0.4 ML SYR SQ SCH (09:21)
[2022-04-22] MEDS: ATORVASTATIN 20 MG TAB PO SCH (09:21)
[2022-04-22] MEDS: NICOTINE 7 MG/24 HR TDSY TD SCH (09:21)
--- NOTE | 2022-04-22 09:26 | Pain Management Consultation ---
Date of Consultation April 22, 2022 Assessment & Plan (1) Acute pain of right lower extremity: Plan 1. I have ordered a lumbar MRI for further evaluation. 2. I have increased the Gabapentin from 100mg TID to 300mg TID. She has been on this medication prior without any side effects or relief of symptoms. 3. I have initiated her on Prednisone 60mg daily x 5 days for antiinflammatory purposes. 4. Continue Oxycodone 5mg PO PRN pain and Morphine IV if needed for breakthrough pain. 5. She can follow up with our office on an outpatient basis for a lumbar epidural injection. Thank you for the consultation History of Present Illness Reason for Consultation: Right leg pain Attending Physician: Magnolia Niño MD History of Present Illness This is a 66-year-old female that has been admitted to the [facility] for right leg pain that began 5 days ago without any known injury. She states that she woke up with pain radiating down the right leg in an L5 distribution to the ankle. She describes a deep tooth ache sensation. She was trying ice, heat, ibuprofen, Tylenol at home without any relief. There was significant difficulty sleeping due to the pain so she came into the emergency department for evaluation. She does have known degenerative disc disease at L4- L5 and in the 90s she did receive back injections. She denies any current back pain. Inpatient she has been receiving oxycodone 5 mg every 4 hours, gabapentin 100 mg 3 times daily, and as needed morphine 2 mg IV. She states that the current pain regimen is providing about 25% pain relief. She does continue to experience difficulty sleeping due to the pain. She denies any bowel/bladder incontinence, saddle anesthesia, foot drop, leg weakness, falls. Case discussed with Dr. Kanwal Salazar Allergies Allergy/AdvReac Type Severity Reaction Status Date / Time ether Allergy Severe Anaphylaxis Verified 12/15/21 08:39 Home Medications Medication Instructions Recorded Confirmed Type calcium carbonate 600 mg calcium 600 mg PO BID 11/01/18 04/21/22 History (1,500 mg) tablet albuterol sulfate 90 mcg/actuation 2 puffs inhalation Q4H PRN COPD #1 12/05/18 04/21/22 Rx aerosol inhaler g tamoxifen 20 mg tablet 20 mg PO QAM 10/31/20 04/21/22 History zoledronic acid 5 mg/100 mL in 1 ea IV YEARLY 11/14/20 04/21/22 History mannitol 5 %-water intravenous piggybck (Reclast) buspirone 5 mg tablet 5 mg PO QAM PRN Anxiety 02/24/21 04/21/22 History benzonatate 100 mg capsule 100 mg PO TID PRN cough #30 caps 05/16/21 04/21/22 Rx escitalopram oxalate 10 mg tablet 10 mg PO DAILY #30 tabs 06/25/21 04/21/22 Rx (Lexapro) hydrocodone 5 mg-acetaminophen 325 1 tab PO Q6H PRN pain #120 tabs 12/15/21 04/21/22 Rx mg tablet valacyclovir 1 gram tablet 1,000 mg PO TID 7 days #21 tabs 12/15/21 04/21/22 Rx (Valtrex) atorvastatin 20 mg tablet 20 mg PO QAM #90 tabs 04/14/22 04/21/22 Rx diazepam 2 mg tablet (Valium) 2 mg PO TID PRN muscle spasm #10 04/21/22 04/21/22 Rx tabs gabapentin 100 mg capsule 100 mg PO Q8H PRN pain #20 caps 04/21/22 04/21/22 Rx Patient History Medical History Acid reflux Allergic rhinitis Anxiety and depression Asbestos exposure COPD (chronic obstructive pulmonary disease) DJD (degenerative joint disease) HTN (hypertension) Per records- pt denies - "diet controlled" per PCP Invasive lobular carcinoma of breast in female (12/21/19) Left- dx'ed Jan 2020. S/p bilateral mastectomy with reconstruction - XRT completed 07/2020 Lumbar spinal stenosis MRSA (methicillin resistant staph aureus) culture positive 09/18/20 Left Breast Osteoporosis with fracture Paroxysmal atrial fibrillation Solitary event in May 2012- loop recorder placed in 2017- no recurrence of a fib noted. Pt currently on ASA . Loop recorder has since been removed in Feb 2020 Polyneuropathy Sleep apnea occasionally wears CPAP Surgical History H/O hernia repair (2002) umbilical History of breast surgery (~03/25/20) excision/closure of bilateral masectomy scar revision History of breast surgery (09/25/20) Left Breast Tissue Cableman Removal with Capsulectomy (Dr. Cronin) History of cataract surgery (~01/2020) bilateral History of colonoscopy (2019) History of esophagogastroduodenoscopy (EGD) (~2004) History of total hip replacement (2009) Right S/P breast reconstruction, bilateral (02/26/20) tissue expanders S/P decompression of ulnar nerve (2005) RUE s/p surgery x2 S/P epidural steroid injection (1997) lumbar S/P mastectomy, bilateral (02/26/20) Bilateral Breast Mastectomy with Left [place] Lymph Node Biopsies(Bilateral) - Иван Herzog DO s Removal of Loop Recorder(Left) - DO Dr. Иван Grant 02/26/2020 S/P total hysterectomy and bilateral salpingo-oophorectomy (1994) Status post placement of implantable loop recorder (2017) Removed during bilat mastectomies 02/26/2020 Family History Mother , Passed age 77 of kidney failure/liver cancer Liver cancer Diabetes Heart disease Hypertension Stroke Father , Passed in 50's of COPD / Black Lung Emphysema lung Uncle Prostate cancer Aunt , Passed in 50's of brain cancer No problems noted. Aunt Lung cancer Sister No problems noted. Sister No problems noted. Sister No problems noted. Son No problems noted. Son No problems noted. Other No family history of adverse response to anesthesia Denies family history of Ovarian cancer Myocardial infarction Breast cancer Colorectal cancer Social History Smoking Status: Current some day smoker Tobacco Type: Cigarettes packs per day: 2; Second Hand Exposure: Yes; Hx Alcohol Use: Yes Alcohol type: beer and hard liquor Alcohol Intake Frequ ency: Monthly or Less Hx Substance Use: No Preferred Language: Azeri Communication Ability: Effective Visual Impairment: Limited Hearing Ability: Normal Car Coupler Required: No Beliefs That Will Affect Care: None marital status: Life Partner Current Living Situation: Significant Other Current Living Situation Comment: Boyfriend lives with patient 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 She is walking around the room without difficulty. HEAD/FACE: Normocephalic and atraumatic. EYES: No drainage or conjunctival injection. ENT: Nose without bleeding or discharge. Oral mucosa moist. RESPIRATORY: Patient with unlabored breathing. No signs of respiratory distress. CHEST/AXILLA: Chest movement symmetrical. No deformities noted. BACK: Moves without difficulty. Full ROM. No tenderness of the lumbar midline, facet joint, or SI joints. No myofascial spasm or trigger points noted. SKIN: [place], warm and dry. No rash noted. MS/EXTREMITY: No swelling, no deformities. Negative straight leg raise. 5/5 strength of the lower extremities. No tenderness of the greater trochanteric bursa. No tenderness of the right lower extremity. Negative Homans' sign. NEURO: Alert and appears oriented. Speech is fluent. Cranial Nerves are grossly intact. PSYCH: Alert, pleasant, affect is calm Results (Pain Clinic) Diagnostic Review CT Findings: LUMBAR SPINE CT CT DOSE: 474.55 mGy.cm HISTORY: lumbar radiculopathy TECHNIQUE: Multiaxial CT images of the lumbar spine were performed and reformatted in the sagittal and coronal plane without the use of contrast. A dose lowering technique was utilized adhering to the principles of ALARA. COMPARISON: None. FINDINGS: No fracture or subluxation within the lumbar spine. The visualized sacrum appears intact. There is severe disc space narrowing at L4-5 and mild disc space narrowing at L5-S1. There are mild facet degenerative changes throughout the lumbar spine. Mild bilateral neural foraminal narrowing at L3-L4, L4-5, and L5-S1. There are small broad-based posterior disc bulges throughout the lumbar spine without significant central canal narrowing. Paravertebral soft tissues are unremarkable. Calcified but normal caliber abdominal aorta. IMPRESSION: 1. No fracture or subluxation within the lumbar spine. 2. Degenerative changes as described above ACT 112: Negative or not required by law. Electronically signed by: Caden Robertson M.D. 04/21/2022 7:52 AM Radiology Findings: SINGLE VIEW PELVIS; 2 VIEWS RIGHT HIP CLINICAL HISTORY: Right leg pain. FINDINGS: AP view of the pelvis with AP and frog leg views of the right hip are compared to study dated 08/15/2014. The skeletal structures are osteopenic. There is no radiographic evidence of acute fracture involving the hips or bony pelvis. A right hip arthroplasty is in near anatomic alignment. No periprosthetic lucency is seen. Mild arthritic change and joint space narrowing is seen in the left hip. The sacroiliac joints are normal. Lumbosacral spondylosis is partially imaged. The overlying soft tissues are within normal limits. No bowel obstruction is seen. IMPRESSION: 1. No acute bony abnormality is identified. 2. A right hip arthroplasty is in near anatomic alignment. Electronically signed by: Yaw David M.D. 04/21/2022 7:39 AM
[2022-04-22] MEDS: GABAPENTIN 300 MG CAP PO SCH ×3 (09:54→20:56)
[2022-04-22] MEDS: LIDOCAINE 5% 1 PATCH TD SCH (09:54)
[2022-04-22] MEDS: predniSONE 20 MG TAB PO SCH (11:57)
--- NOTE | 2022-04-22 13:42 | Hospitalist Progress Note ---
Date of Service April 22, 2022 Assessment & Plan (1) Acute pain of right lower extremity: Plan: -The patient has been experiencing progressive right leg pain which started in the right lateral hip and has progressed down her right leg -Etiology is uncertain, she denies numbness -Xray of the right hip and venous doppler of the RLE were negative -CT of the lumbar spine shows "severe disc space narrowing at L4-5 and mild disc space narrowing at L5-S1". -Patient is without red flag symptoms at this time -MRI lumbar has been done , official read pending -Pain management on consult, patient now on gabapentin 300mg TID, Oxycodone, Morphine, Prednisone, Lidocaine patch -Will consult PT/OT (2) Lumbar spinal stenosis: Plan: -See acute pain of the RLE -Was getting outpatieent injections from pain mgt (3) HTN (hypertension): Plan: -Stable -Not coherently on medication -Continue to monitor (4) COPD (chronic obstructive pulmonary disease): Plan: -Stable on RA -Patient is currently off outpatient medications -For now will start with prn DuoNebs -Nicotine patch ordered, continue to encourage smoking cessation (5) Anxiety and depression: Plan: -Not currently on medication Plan monitor Admission and Anticipated Discharge Date Admission Date: April 21, 2022 Subjective patient seen and examined, still complains of right lower extremity pain, no numbness Review of Systems Review of Systems: All systems reviewed are negative, apart from the ones contained in the history. Physical Exam Physical Exam: The patient is awake, alert and oriented 3, well developed and well nourished, normocephalic and atraumatic, lying in bed and in no acute distress. HEENT--PERRL, EOMI, mucous membranes and oropharynx mildly dry Neck--supple. No JVD. No bruits. Thyroid normal, trachea midline, no adenopathy. Heart--normal S1 and S2. No murmurs, rubs or gallops. Lungs--clear bilaterally, no respiratory distress, no accessory muscle use. Abdomen--normal bowel sounds and soft. Mild epigastric and left sided abdominal pain Extremities--no cyanosis or clubbing. No edema. Dermatologic--normal skin turgor, normal color, no abnormal lymph nodes, no rash. Neurologic--cranial nerves II through XII grossly intact. Rheumatologic--normal range of motion. Psychiatric--normal affect. Results & Data Results & Data ([facility]) Vital Signs (Past 12 Hours) Vital Signs Temp Pulse Pulse Resp BP Pulse Ox O2 Del Method 04/22/22 07:14 97.7 F 69 18 173/87 H 92 Nasal Cannula 04/22/22 04:23 69 176/71 H O2 Flow Rate 04/22/22 07:14 1.5 04/22/22 04:23 PG Care Time/CCT Total # of Minutes Spent Total Time Spent with Patient: Total time spent is greater than 50% in coordination of care (as documented) at patient's floor/unit and/or counseling patient: Coding Level of Care Code 05555 SUB INP/OBS CARE 2/35MIN Diagnoses Acute pain of right lower extremity M79.604 Lumbar spinal stenosis M48.061 HTN (hypertension) I10 COPD (chronic obstructive pulmonary disease) J44.9 Anxiety and depression F41.9; F32.9 Time Spent (min) 35
--- NOTE | 2022-04-22 13:55 | Magnetic Resonance Report ---
MRI OF THE LUMBAR SPINE WITHOUT CONTRAST CLINICAL HISTORY: Right-sided radiculopathy. COMPARISON STUDY: Lumbar spine CT April 21, 2022. TECHNIQUE: Utilizing a 1.5 Tasha magnet and dedicated coil, multiplanar, multiecho imaging of the [facility] spine was performed without IV contrast. FINDINGS: For purposes of numbering on this exam, the L5-S1 disc space is assigned to axial image 29 of 32. The re is minimal rightward curvature of the lumbar spine. Vertebral body heights are maintained. No susp icious marrow replacement is present. The conus terminates at the L1-L2 level. Paravertebral soft tis sues are unremarkable. There is no lumbar spine fracture. L1-2: The central canal and neural foramen are patent. L2-3: The central canal and neural foramen are patent. L3-4: There is mild facet arthrosis. The central canal and neural foramen are patent. There is minima l disc bulge. L4-5: Moderate disc space narrowing is noted with mild disc bulge. There is facet arthrosis. There is mild during of the central canal and lateral recesses. The neural foramen are patent. L5-S1: There is mild disc space narrowing with disc bulge and facet arthrosis. The central canal is p atent. There is mild narrowing of the lateral recesses and the right neural foramen. The left neural foramen is patent. IMPRESSION: 1. Mild multilevel degenerative changes within the lumbar spine. No significant central canal stenosi s. Mild multilevel neural foraminal narrowing. 2. No large disc herniations. ACT 112: Negative or not required by law. Electronically signed by: Ramirez Jang M.D. 04/22/2022 1:53 PM
[2022-04-23] MEDS: ACETAMINOPHEN 1,000 MG/100 ML VIAL IV SCH ×3 (03:37→19:39)
[2022-04-23] MEDS: SODIUM CHLORIDE 0.9% 1000ML 1,000 ML IV SCH ×2 (03:46→14:15)
[2022-04-23] MEDS: ATORVASTATIN 20 MG TAB PO SCH (07:47)
[2022-04-23] MEDS: ENOXAPARIN INJ 40 MG/0.4 ML SYR SQ SCH (07:47)
[2022-04-23] MEDS: LIDOCAINE 5% 1 PATCH TD SCH (07:48)
[2022-04-23] MEDS: GABAPENTIN 300 MG CAP PO SCH ×3 (07:48→21:00)
[2022-04-23] MEDS: NICOTINE 7 MG/24 HR TDSY TD SCH (07:48)
[2022-04-23] MEDS: predniSONE 20 MG TAB PO SCH (07:49)
--- NOTE | 2022-04-23 12:41 | Hospitalist Progress Note ---
Date of Service April 23, 2022 Assessment & Plan (1) Acute pain of right lower extremity: Plan: -The patient has been experiencing progressive right leg pain which started in the right lateral hip and has progressed down her right leg -Etiology is uncertain, she denies numbness -Xray of the right hip and venous doppler of the RLE were negative -CT of the lumbar spine shows "severe disc space narrowing at L4-5 and mild disc space narrowing at L5-S1". -Patient is without red flag symptoms at this time -MRI lumbar shows Mild multilevel degenerative changes within the lumbar spine. No significant central canal stenosis. Mild multilevel neural foraminal narrowing -Pain management on consult, patient now on gabapentin 300mg TID, Oxycodone, Morphine, Prednisone, Lidocaine patch -Participating in PT/OT -Pain is under better control (2) Lumbar spinal stenosis: Plan: -See acute pain of the RLE -Was getting outpatieent injections from pain mgt (3) HTN (hypertension): Plan: -Stable -Not coherently on medication -Continue to monitor (4) COPD (chronic obstructive pulmonary disease): Plan: -Stable on RA -Patient is currently off outpatient medications -For now will start with prn DuoNebs -Nicotine patch ordered, continue to encourage smoking cessation (5) Anxiety and depression: Plan: -Not currently on medication Plan monitor Admission and Anticipated Discharge Date Admission Date: April 21, 2022 Subjective patient seen and examined, says pain is under better control Review of Systems Review of Systems: All systems reviewed are negative, apart from the ones contained in the history. Physical Exam Physical Exam: The patient is awake, alert and oriented 3, well developed and well nourished, normocephalic and atraumatic, lying in bed and in no acute distress. HEENT--PERRL, EOMI, mucous membranes and oropharynx mildly dry Neck--supple. No JVD. No bruits. Thyroid normal, trachea midline, no adenopathy. Heart--normal S1 and S2. No murmurs, rubs or gallops. Lungs--clear bilaterally, no respiratory distress, no accessory muscle use. Abdomen--normal bowel sounds and soft. Mild epigastric and left sided abdominal pain Extremities--no cyanosis or clubbing. No edema. Dermatologic--normal skin turgor, normal color, no abnormal lymph nodes, no rash. Neurologic--cranial nerves II through XII grossly intact. Rheumatologic--normal range of motion. Psychiatric--normal affect. Results & Data Results & Data ([facility]) Vital Signs (Past 12 Hours) Vital Signs Temp Pulse Resp BP Pulse Ox O2 Del Method 04/23/22 08:16 97.9 F 76 18 170/92 H 92 Room Air PG Care Time/CCT Total # of Minutes Spent Total Time Spent with Patient: Total time spent is greater than 50% in coordination of care (as documented) at patient's floor/unit and/or counseling patient: Coding Level of Care Code 41480 SUB INP/OBS CARE 2/35MIN Diagnoses Acute pain of right lower extremity M79.604 Lumbar spinal stenosis M48.061 HTN (hypertension) I10 COPD (chronic obstructive pulmonary disease) J44.9 Anxiety and depression F41.9; F32.9 Time Spent (min) 35
[2022-04-24] MEDS ORDERED: hydrALAZINE HCL 20 MG/ML VIAL IV STA (01:26)
[2022-04-24] MEDS ORDERED: COUGH DROP (SUGAR FREE) LOZ 24 LOZ/1 BOX BUCCAL PRN (02:27)
[2022-04-24] MEDS ORDERED: COUGH DROP (SUGAR FREE) LOZ 24 LOZ/1 BOX BUCCAL ONE (02:31)
[2022-04-24] MEDS: predniSONE 20 MG TAB PO SCH (06:40)
[2022-04-24] MEDS: oxyCODONE HCL IR 5 MG TAB (IMMEDIATE RELEASE) PO PRN ×3 (07:56→23:13)
[2022-04-24] MEDS: LIDOCAINE 5% 1 PATCH TD SCH (07:59)
[2022-04-24] MEDS: NICOTINE 7 MG/24 HR TDSY TD SCH (08:00)
[2022-04-24] MEDS: ENOXAPARIN INJ 40 MG/0.4 ML SYR SQ SCH (08:02)
[2022-04-24] MEDS: GABAPENTIN 300 MG CAP PO SCH ×3 (08:55→20:43)
[2022-04-24] MEDS: ATORVASTATIN 20 MG TAB PO SCH (08:55)
[2022-04-24] MEDS: MoRPHine SULFATE 2 MG/ML CARP IV PRN (09:39)
--- NOTE | 2022-04-24 12:41 | Hospitalist Progress Note ---
Date of Service April 24, 2022 Assessment & Plan (1) Acute pain of right lower extremity: Plan: -The patient has been experiencing progressive right leg pain which started in the right lateral hip and has progressed down her right leg -Etiology is uncertain, she denies numbness -Xray of the right hip and venous doppler of the RLE were negative -CT of the lumbar spine shows "severe disc space narrowing at L4-5 and mild disc space narrowing at L5-S1". -Patient is without red flag symptoms at this time -MRI lumbar shows Mild multilevel degenerative changes within the lumbar spine. No significant central canal stenosis. Mild multilevel neural foraminal narrowing -Pain management on consult, patient now on gabapentin 300mg TID, Oxycodone, Morphine, Prednisone, Lidocaine patch -Participating in PT/OT -Pain is under better control overall, but she experienced a slight worsening this morning -Pain mgt on board, appreciate recs (2) Lumbar spinal stenosis: Plan: -See acute pain of the RLE -Was getting outpatieent injections from pain mgt (3) HTN (hypertension): Plan: -Stable -Not coherently on medication -Continue to monitor (4) COPD (chronic obstructive pulmonary disease): Plan: -Stable on RA -Patient is currently off outpatient medications -For now will start with prn DuoNebs -Nicotine patch ordered, continue to encourage smoking cessation (5) Anxiety and depression: Plan: -Not currently on medication Plan monitor Admission and Anticipated Discharge Date Admission Date: April 21, 2022 Subjective patient seen and examined, says pain was under better control, until this morn ing, when she experienced a worsening Review of Systems Review of Systems: All systems reviewed are negative, apart from the ones contained in the history. Physical Exam Physical Exam: The patient is awake, alert and oriented 3, well developed and well nourished, normocephalic and atraumatic, lying in bed and in no acute distress. HEENT--PERRL, EOMI, mucous membranes and oropharynx mildly dry Neck--supple. No JVD. No bruits. Thyroid normal, trachea midline, no adenopathy. Heart--normal S1 and S2. No murmurs, rubs or gallops. Lungs--clear bilaterally, no respiratory distress, no accessory muscle use. Abdomen--normal bowel sounds and soft. Mild epigastric and left sided abdominal pain Extremities--no cyanosis or clubbing. No edema. Dermatologic--normal skin turgor, normal color, no abnormal lymph nodes, no rash. Neurologic--cranial nerves II through XII grossly intact. Rheumatologic--normal range of motion. Psychiatric--normal affect. Results & Data Results & Data ([facility]) Vital Signs (Past 12 Hours) Vital Signs Temp Pulse Pulse Resp BP Pulse Ox O2 Del Method 04/24/22 08:57 85 158/77 H 04/24/22 07:49 97.5 F L 80 18 182/90 H 95 Room Air 04/24/22 03:39 178/85 H 04/24/22 02:26 190/91 H 04/24/22 01:22 202/94 H PG Care Time/CCT Total # of Minutes Spent Total Time Spent with Patient: Total time spent is greater than 50% in coordination of care (as documented) at patient's floor/unit and/or counseling patient: Coding Level of Care Code 00813 SUB INP/OBS CARE 2/35MIN Diagnoses Acute pain of right lower extremity M79.604 Lumbar spinal stenosis M48.061 HTN (hypertension) I10 COPD (chronic obstructive pulmonary disease) J44.9 Anxiety and depression F41.9; F32.9 Time Spent (min) 35
[2022-04-25] MEDS: MoRPHine SULFATE 2 MG/ML CARP IV PRN ×2 (03:01→07:32)
[2022-04-25] MEDS ORDERED: KETOROLAC TROMETHAMINE 15 MG/ML VIAL IV ONE (03:51)
[2022-04-25] MEDS ORDERED: HYDROmorphone INJ 1 MG/ML SYRINGE IV STA (07:47)
[2022-04-25] MEDS: predniSONE 20 MG TAB PO SCH (08:01)
[2022-04-25] MEDS: LIDOCAINE 5% 1 PATCH TD SCH (08:03)
[2022-04-25] MEDS: NICOTINE 7 MG/24 HR TDSY TD SCH (08:03)
[2022-04-25] MEDS: ENOXAPARIN INJ 40 MG/0.4 ML SYR SQ SCH (08:05)
[2022-04-25] MEDS: GABAPENTIN 300 MG CAP PO SCH ×3 (10:03→21:34)
[2022-04-25] MEDS: ATORVASTATIN 20 MG TAB PO SCH (10:03)
[2022-04-25] MEDS: oxyCODONE HCL IR 5 MG TAB (IMMEDIATE RELEASE) PO PRN ×3 (12:34→21:38)
--- NOTE | 2022-04-25 13:03 | Hospitalist Progress Note ---
Date of Service April 25, 2022 Assessment & Plan (1) Acute pain of right lower extremity: Plan: -The patient has been experiencing progressive right leg pain which started in the right lateral hip and has progressed down her right leg -Etiology is uncertain, she denies numbness -Xray of the right hip and venous doppler of the RLE were negative -CT of the lumbar spine shows "severe disc space narrowing at L4-5 and mild disc space narrowing at L5-S1". -Patient is without red flag symptoms at this time -MRI lumbar shows Mild multilevel degenerative changes within the lumbar spine. No significant central canal stenosis. Mild multilevel neural foraminal narrowing -Pain management on consult, patient now on gabapentin 300mg TID, Oxycodone, Morphine, Prednisone, Lidocaine patch -Participating in PT/OT -Pain is under better control overall, but she experienced a slight worsening this morning, same as yesterday morning -Pain mgt on board, appreciate recs (2) Lumbar spinal stenosis: Plan: -See acute pain of the RLE -Was getting outpatieent injections from pain mgt (3) HTN (hypertension): Plan: -Stable -Not coherently on medication -Continue to monitor (4) COPD (chronic obstructive pulmonary disease): Plan: -Stable on RA -Patient is currently off outpatient medications -For now will start with prn DuoNebs -Nicotine patch ordered, continue to encourage smoking cessation (5) Anxiety and depression: Plan: -Not currently on medication Plan monitor, hopefully d/c in the next 24 hrs Admission and Anticipated Discharge Date Admission Date: April 24, 2022 Subjective patient seen and examined, says pain was under better control, until this morning, when she experienced a worsening Review of Systems Review of Systems: All systems reviewed are negative, apart from the ones contained in the history. Physical Exam Physical Exam: The patient is awake, alert and oriented 3, well developed and well nourished, normocephalic and atraumatic, lying in bed and in no acute distress. HEENT--PERRL, EOMI, mucous membranes and oropharynx mildly dry Neck--supple. No JVD. No bruits. Thyroid normal, trachea midline, no adenopathy. Heart--normal S1 and S2. No murmurs, rubs or gallops. Lungs--clear bilaterally, no respiratory distress, no accessory muscle use. Abdomen--normal bowel sounds and soft. Mild epigastric and left sided abdominal pain Extremities--no cyanosis or clubbing. No edema. Dermatologic--normal skin turgor, normal color, no abnormal lymph nodes, no rash. Neurologic--cranial nerves II through XII grossly intact. Rheumatologic--normal range of motion. Psychiatric--normal affect. Results & Data Results & Data ([facility]) Vital Signs (Past 12 Hours) Vital Signs Temp Pulse Resp BP Pulse Ox O2 Del Method 04/25/22 10:50 161/79 H 04/25/22 07:48 97.7 F 71 16 190/83 H 94 Room Air PG Care Time/CCT Total # of Minutes Spent Total Time Spent with Patient: Total time spent is greater than 50% in coordination of care (as documented) at patient's floor/unit and/or counseling patient: Coding Level of Care Code 72187 SUB INP/OBS CARE 2/35MIN Diagnoses Acute pain of right lower extremity M79.604 Lumbar spinal stenosis M48.061 HTN (hypertension) I10 COPD (chronic obstructive pulmonary disease) J44.9 Anxiety and depression F41.9; F32.9 Time Spent (min) 35
[2022-04-26] MEDS: oxyCODONE HCL IR 5 MG TAB (IMMEDIATE RELEASE) PO PRN ×5 (03:44→23:15)
[2022-04-26] MEDS: ATORVASTATIN 20 MG TAB PO SCH (07:37)
[2022-04-26] MEDS: predniSONE 20 MG TAB PO SCH (07:37)
[2022-04-26] MEDS: GABAPENTIN 300 MG CAP PO SCH ×3 (07:37→21:23)
[2022-04-26] MEDS: LIDOCAINE 5% 1 PATCH TD SCH (07:38)
[2022-04-26] MEDS: NICOTINE 7 MG/24 HR TDSY TD SCH (07:38)
[2022-04-26] MEDS: MoRPHine SULFATE 2 MG/ML CARP IV PRN ×3 (08:19→19:38)
--- NOTE | 2022-04-26 12:13 | Hospitalist Progress Note ---
Date of Service April 26, 2022 Assessment & Plan (1) Acute pain of right lower extremity: Plan: -The patient has been experiencing progressive right leg pain which started in the right lateral hip and has progressed down her right leg -Etiology is uncertain, she denies numbness -Xray of the right hip and venous doppler of the RLE were negative -CT of the lumbar spine shows "severe disc space narrowing at L4-5 and mild disc space narrowing at L5-S1". -Patient is without red flag symptoms at this time -MRI lumbar shows Mild multilevel degenerative changes within the lumbar spine. No significant central canal stenosis. Mild multilevel neural foraminal narrowing -Pain management on consult, patient now on gabapentin 300mg TID, Oxycodone, Morphine, Prednisone, Lidocaine patch -Participating in PT/OT -Pain is under better control overall, but she experienced a slight worsening this morning, same as yesterday morning -Pain mgt on board, appreciate recs (2) Lumbar spinal stenosis: Plan: -See acute pain of the RLE -Was getting outpatieent injections from pain mgt (3) HTN (hypertension): Plan: -Stable -Not coherently on medication -Continue to monitor (4) COPD (chronic obstructive pulmonary disease): Plan: -Stable on RA -Patient is currently off outpatient medications -For now will start with prn DuoNebs -Nicotine patch ordered, continue to encourage smoking cessation (5) Anxiety and depression: Plan: -Not currently on medication (6) Shingles: Plan: patient noticed an eruption on her lower back, has had previous eruptions will start her on Valcyclovir 1gm TID for 7 days Plan monitor, hopefully d/c in the next 24 hrs Admission and Anticipated Discharge Date Admission Date: April 24, 2022 Subjective patient seen and examined, says pain is under good control, but complains of some shingles erruption Review of Systems Review of Systems: All systems reviewed are negative, apart from the ones contained in the history. Physical Exam Physical Exam: The patient is awake, alert and oriented 3, well developed and well nourished, normocephalic and atraumatic, lying in bed and in no acute distress. HEENT--PERRL, EOMI, mucous membranes and oropharynx mildly dry Neck--supple. No JVD. No bruits. Thyroid normal, trachea midline, no adenopathy. Heart--normal S1 and S2. No murmurs, rubs or gallops. Lungs--clear bilaterally, no respiratory distress, no accessory muscle use. Abdomen--normal bowel sounds and soft. Mild epigastric and left sided abdominal pain Extremities--no cyanosis or clubbing. No edema. Dermatologic--normal skin turgor, normal color, no abnormal lymph nodes, no rash. Neurologic--cranial nerves II through XII grossly intact. Rheumatologic--normal range of motion. Psychiatric--normal affect. Results & Data Results & Data ([facility]) Vital Signs (Past 12 Hours) Vital Signs Temp Pulse Resp BP Pulse Ox O2 Del Method O2 Flow Rate 04/26/22 11:04 92 Nasal Cannula 1.5 04/26/22 11:04 97.7 F 72 16 170/76 H 88 L Room Air 04/26/22 08:30 Room Air 04/26/22 07:43 97.3 F L 73 18 155/84 H 91 Room Air PG Care Time/CCT Total # of Minutes Spent Total Time Spent with Patient: Total time spent is greater than 50% in coordination of care (as documented) at patient's floor/unit and/or counseling patient: Coding Level of Care Code 84593 SUB INP/OBS CARE 2/35MIN Diagnoses Acute pain of right lower extremity M79.604 Lumbar spinal stenosis M48.061 HTN (hypertension) I10 COPD (chronic obstructive pulmonary disease) J44.9 Anxiety and depression F41.9; F32.9 Shingles B02.9 Time Spent (min) 35
[2022-04-26] MEDS: valACYclovir HCL 500 MG TABLET PO SCH ×2 (13:22→21:24)
[2022-04-27] MEDS: MoRPHine SULFATE 2 MG/ML CARP IV PRN ×3 (02:04→12:04)
[2022-04-27] MEDS: oxyCODONE HCL IR 5 MG TAB (IMMEDIATE RELEASE) PO PRN ×2 (04:57→11:12)
[2022-04-27 06:04] LABS: Hematocrit (blood only) 41.5 % (37.0-47.0); Hemoglobin 14.6 g/dl (12.0-16.0); Mean Corpuscular Hemoglobin 34.4 pg (25.0-34.0); Mean Corpuscular Hgb Conc 35.2 g/dL (32.0-36.0); Mean Corpuscular Volume 97.6 fL (80.0-100.0); Mean Platelet Volume 9.5 fL (9.4-12.4); Platelet Count 155 K/uL (130-400); RDW Coefficient of Variation 12.7 % (11.5-14.5); RDW Standard Deviation 45.3 fL (36.4-46.3); Red Blood Count 4.25 M/uL (4.20-5.40); White Blood Count 5.08 K/ul (4.8-10.8)
[2022-04-27 06:18] LABS: Calcium 9.1 mg/dl (8.5-10.1); Creatinine Clr Calc Pharmacy 72.4 ml/min; Est GFR (African American) 106.3 ml/min; Est GFR (Non-African American) 91.7 ml/min; Potassium 3.8 mmol/L (3.5-5.1)
[2022-04-27] MEDS ORDERED: HYDROmorphone INJ 0.5 MG/0.5 ML SYR IV STA (06:39)
[2022-04-27] MEDS: GABAPENTIN 300 MG CAP PO SCH (08:15)
[2022-04-27] MEDS: ATORVASTATIN 20 MG TAB PO SCH (08:15)
[2022-04-27] MEDS: valACYclovir HCL 500 MG TABLET PO SCH ×3 (08:15→21:37)
[2022-04-27] MEDS: NICOTINE 7 MG/24 HR TDSY TD SCH (08:15)
[2022-04-27] MEDS: LIDOCAINE 5% 1 PATCH TD SCH (08:16)
[2022-04-27] MEDS: predniSONE 20 MG TAB PO SCH (08:16)
--- NOTE | 2022-04-27 13:32 | Hospitalist Progress Note ---
Date of Service April 27, 2022 Assessment & Plan (1) Acute pain of right lower extremity: Plan: -The patient has been experiencing progressive right leg pain which started in the right lateral hip and has progressed down her right leg -Etiology is uncertain, she denies numbness -Xray of the right hip and venous doppler of the RLE were negative -CT of the lumbar spine shows "severe disc space narrowing at L4-5 and mild disc space narrowing at L5-S1". -Patient is without red flag symptoms at this time -MRI lumbar shows Mild multilevel degenerative changes within the lumbar spine. No significant central canal stenosis. Mild multilevel neural foraminal narrowing -Pain management on consult, patient now on gabapentin 300mg TID, Oxycodone, Morphine, Prednisone, Lidocaine patch -Participating in PT/OT -Patient said she initially experienced improved pain control, but it has gotten worse -Pain mgt on board, appreciate recs (2) Lumbar spinal stenosis: Plan: -See acute pain of the RLE -Was getting outpatieent injections from pain mgt (3) HTN (hypertension): Plan: -Stable -Not coherently on medication -Continue to monitor (4) COPD (chronic obstructive pulmonary disease): Plan: -Stable on RA -Patient is currently off outpatient medications -For now will start with prn DuoNebs -Nicotine patch ordered, continue to encourage smoking cessation (5) Anxiety and depression: Plan: -Not currently on medication (6) Shingles: Plan: patient noticed an eruption on her lower back, has had previous eruptions will start her on Valcyclovir 1gm TID for 7 days Plan monitor, hopefully d/c in the next 24 hrs Admission and Anticipated Discharge Date Admission Date: April 24, 2022 Subjective patient seen and examined, says pain is not under good control, and now complains of some shingles eruption Review of Systems Review of Systems: All systems reviewed are negative, apart from the ones contained in the history. Physical Exam Physical Exam: The patient is awake, alert and oriented 3, well developed and well nourished, normocephalic and atraumatic, lying in bed and in no acute distress. HEENT--PERRL, EOMI, mucous membranes and oropharynx mildly dry Neck--supple. No JVD. No bruits. Thyroid normal, trachea midline, no adenopathy. Heart--normal S1 and S2. No murmurs, rubs or gallops. Lungs--clear bilaterally, no respiratory distress, no accessory muscle use. Abdomen--normal bowel sounds and soft. Mild epigastric and left sided abdominal pain Extremities--no cyanosis or clubbing. No edema. Dermatologic--normal skin turgor, normal color, no abnormal lymph nodes, no rash. Neurologic--cranial nerves II through XII grossly intact. Rheumatologic--normal range of motion. Psychiatric--normal affect. Results & Data Results & Data ([facility]) Vital Signs (Past 12 Hours) Vital Signs Temp Pulse Resp BP Pulse Ox O2 Del Method O2 Flow Rate 04/27/22 08:41 Nasal Cannula 3 04/27/22 08:10 72 93 Nasal Cannula 3 04/27/22 07:10 97.7 F 74 18 162/73 H 91 Nasal Cannula 2 PG Care Time/CCT Total # of Minutes Spent Total Time Spent with Patient: Total time spent is greater than 50% in coordination of care (as documented) at patient's floor/unit and/or counseling patient: Coding Level of Care Code 42957 SUB INP/OBS CARE 2/35MIN Diagnoses Acute pain of right lower extremity M79.604 Lumbar spinal stenosis M48.061 HTN (hypertension) I10 COPD (chronic obstructive pulmonary disease) J44.9 Anxiety and depression F41.9; F32.9 Shingles B02.9 Time Spent (min) 35
--- NOTE | 2022-04-27 13:57 | Pain Management Progress Note ---
Date of Service April 27, 2022 Assessment & Plan (1) Shingles: (2) Acute pain of right lower extremity: Plan 1. Suspect pain currently is due to herpes zoster. Recommend continuation of Valtrex and increasing gabapentin to 600 mg p.o. 3 times daily. 2. No role for interventional pain management at the current time. 3. Recommend changing oral pain medication regimen to Percocet 7.5/325 mg 1 p.o. every 4 as needed. Discussed less reliance on IV agents for pain control in preparation for discharge. 4. If pain persists after zoster lesions have healed, can potentially be a candidate for epidural steroid injection at that time but not until lesions have completely healed. 5. Thank you for this consultation. Please call with additional questions. Admission and Anticipated Discharge Date Admission Date: April 24, 2022 Subjective 66yoF with admitted 04/21/22 with RLE pain in the L4 dermatome to the level of the ankle without any known injury. She describes a deep tooth ache sensation ranging between 2-10/10 currently 8/10. Previous h/o zoster multiple times. Yesterday, zoster lesions R L4-5 region erupted. Pain has continued despite valtrex, oxycodone 5mg PO q4h, IV morphine, and gabapentin 300mg po TID. Ice provides some relief. She reports sleep quantity/quality interference secondary to pain. No ambulation difficulty. She denies any bowel/bladder incontinence, saddle anesthesia, foot drop, leg weakness, falls. H/o previous lumbar disc herniation with [employer]SCAR and good relief many years ago. Pain Assessment Pain Assessment Full Body Front + Back: 1. R L4 dermatome 2. [facility] Combined Pain Scale: 8-Debilitating - Impairs activity. Can't maintain a conversation. Pain scale - at its best (0-10): 2 Pain scale - at its worst (0-10): 10 Physical Exam Physical Exam: Constitutional: Well-developed, well-nourished, healthy- appearing, normal weight Psych: Awake, alert, and oriented 3 with normal affect and mood. Recent memory appears grossly intact Eyes: Pupils are equally round and reactive to light with normal size pupils, eyelids appear normal Ear, nose, mouth, and throat: Moist nasal and oral membranes, lips and tongues appear normal, no external ear abnormalities are noted Neck: The trachea is midline without deviation and no thyromegaly is noted Respiratory: Normal respiratory effort without distress, no audible wheezes or rhonchi CV: Normal S1 and S2 warm distal extremities Musculoskeletal: Head is normocephalic and atraumatic, gait is within normal limits Thoracic: Kyphotic curve: Normal No zoster lesions noted Lumbar: Lordotic curve: Normal Range of motion is normal with extension, flexion, side-bending, rotation Tenderness: Moderately tender over the axial midline right L4-S1 Facet provocation: Negative bilaterally Straight leg raise: Negative bilaterally Step-off injuries: None Strength: Strength is equal bilaterally with 5 out of 5 strength in all planes Sensation of lower extremities: Intact bilaterally Deep tendon reflexes: Rated at 2+ in bilateral L4 and S1 Myofascial spasm: No appreciable spasm. No discrete trigger points noted Greater trochanters: Nontender bilaterally Sacroiliac joints: Nontender bilaterally Pathologic reflexes noted: None Skin: Zoster lesions noted over right L4-5 axial lumbar spine with radiation towards the hip Neuro: No nystagmus noted, the tongue is midline, the patient is able to rotate their head bilaterally : Deferred Results ([facility]) Diagnostic Review MRI: non enhanced, reports reviewed, images reviewed and findings discussed with patient MRI Findings: 04/22/22 MRI OF THE LUMBAR SPINE WITHOUT CONTRAST CLINICAL HISTORY: Right-sided radiculopathy. COMPARISON STUDY: Lumbar spine CT April 21, 2022. TECHNIQUE: Utilizing a 1.5 Tasha magnet and dedicated coil, multiplanar, multiecho imaging of the lumbar spine was performed without IV contrast. FINDINGS: For purposes of numbering on this exam, the L5-S1 disc space is assigned to axial image 29 of 32. There is minimal rightward curvature of the lumbar spine. Vertebral body heights are maintained. No suspicious marrow replacement is present. The conus terminates at the L1-L2 level. Paravertebral soft tissues are unremarkable. There is no lumbar spine fracture. L1-2: The central canal and neural foramen are patent. L2-3: The central canal and neural foramen are patent. L3-4: There is mild facet arthrosis. The central canal and neural foramen are patent. There is minimal disc bulge. L4-5: Moderate disc space narrowing is noted with mild disc bulge. There is facet arthrosis. There is mild during of the central canal and lateral recesses. The neural foramen are patent. L5-S1: There is mild disc space narrowing with disc bulge and facet arthrosis. The central canal is patent. There is mild narrowing of the lateral recesses and the right neural foramen. The left neural foramen is patent. IMPRESSION: 1. Mild multilevel degenerative changes within the lumbar spine. No significant central canal stenosis. Mild multilevel neural foraminal narrowing. 2. No large disc herniations.
[2022-04-27] MEDS: GABAPENTIN 600 MG TAB PO SCH ×2 (14:40→21:38)
[2022-04-27] MEDS: oxyCODONE/APAP 7.5/325MG TAB PO PRN ×2 (18:22→22:50)
[2022-04-28] MEDS: oxyCODONE/APAP 7.5/325MG TAB PO PRN ×4 (07:54→22:24)
[2022-04-28] MEDS: NICOTINE 7 MG/24 HR TDSY TD SCH (07:57)
[2022-04-28] MEDS: LIDOCAINE 5% 1 PATCH TD SCH ×2 (07:57→15:33)
[2022-04-28] MEDS: GABAPENTIN 600 MG TAB PO SCH ×3 (07:58→20:01)
[2022-04-28] MEDS: valACYclovir HCL 500 MG TABLET PO SCH ×3 (07:58→20:01)
[2022-04-28] MEDS: ATORVASTATIN 20 MG TAB PO SCH (07:59)
[2022-04-28] MEDS: MoRPHine SULFATE 2 MG/ML CARP IV PRN ×3 (10:07→22:18)
--- NOTE | 2022-04-28 13:55 | Hospitalist Progress Note ---
Date of Service April 28, 2022 Assessment & Plan (1) Acute pain of right lower extremity: Plan: -The patient has been experiencing progressive right leg pain which started in the right lateral hip and has progressed down her right leg -Etiology is Herpes Zoster -Xray of the right hip and venous doppler of the RLE were negative -CT of the lumbar spine shows "severe disc space narrowing at L4-5 and mild disc space narrowing at L5-S1". -Patient is without red flag symptoms at this time -MRI lumbar shows Mild multilevel degenerative changes within the lumbar spine. No significant central canal stenosis. Mild multilevel neural foraminal narrowing -Pain management on consult, patient now on gabapentin 300mg TID, Oxycodone, Morphine, Prednisone, Lidocaine patch -Added another Lidoderm patch to lower leg (patient was getting relief from this on upper leg) -Continue PT/OT (2) Lumbar spinal stenosis: Plan: -See acute pain of the RLE -Was getting outpatient injections from pain mgt (3) HTN (hypertension): Plan: -Stable -BP today 118/67 -Not coherently on medication -Continue to monitor (4) COPD (chronic obstructive pulmonary disease): Plan: -On 1L nasal cannula -Patient is currently off outpatient medications -For now will start with prn DuoNebs -Nicotine patch ordered, continue to encourage smoking cessation (5) Anxiety and depression: Plan: -Not currently on medication (6) Shingles: Plan: - Continue Valcyclovir 1gm TID for 7 days - Patient has clustered herpetic zoster rash right buttocks Plan monitor and hope to discharge in next 24 hours Encourage up and OOB SCDs Admission and Anticipated Discharge Date Admission Date: April 24, 2022 Subjective Pateint is awake sitting up in bed in mild distress due to right leg pain. She denies any chest pain, SOB or dyspnea. She states she actually had some rest last evening. She states the Lidoderm patch seems to be helping her upper leg. Review of Systems Review of Systems: All systems reviewed are negative, apart from the ones contained in the history. Physical Exam Constitutional: WD/WN, vitals as above appears uncomfortable secondary t right leg pain Neck: trachea midline, no thyromegaly Respiratory: normal respiratory effort, lungs clear to auscultation Cardiovascular: RRR, no murmur, no edema Gastrointestinal (Abdomen): normal bowel sounds, soft, nontender, no hepatosplenomegaly Musculoskeletal: DP and PT pulses + 2 symmetric Skin: clustered vesicular herpes zoster rash right buttocks Neurologic: PERRL, EOMI, accommodation nl, no face palsy, no dysarthria Psychiatric: A+Ox3, euthymic affect Results & Data Results & Data ([facility]) Vital Signs (Past 12 Hours) Vital Signs Temp Pulse Resp BP Pulse Ox O2 Del Method 04/28/22 07:55 Room Air 04/28/22 08:04 36.5 C 65 18 171/76 H 92 Room Air PG Care Time/CCT Total # of Minutes Spent Total Time Spent with Patient: Total time spent is greater than 50% in coordination of care (as documented) at patient's floor/unit and/or counseling patient: Coding Level of Care Code 25282 SUB INP/OBS CARE 2/35MIN Diagnoses Acute pain of right lower extremity M79.604 Lumbar spinal stenosis M48.061 HTN (hypertension) I10 COPD (chronic obstructive pulmonary disease) J44.9 Anxiety and depression F41.9; F32.9 Shingles B02.9
[2022-04-28] MEDS: ACETAMINOPHEN 325 MG TAB PO PRN (20:01)
[2022-04-28] MEDS: diphenhydrAMINE Capsule 25 MG CAP PO PRN (20:28)
[2022-04-28] MEDS ORDERED: KETOROLAC TROMETHAMINE 15 MG/ML VIAL IV ONE (20:30)
[2022-04-29] MEDS: MoRPHine SULFATE 2 MG/ML CARP IV PRN ×3 (04:08→18:07)
[2022-04-29 06:56] LABS: Hematocrit (blood only) 39.6 % (37.0-47.0); Hemoglobin 13.6 g/dl (12.0-16.0); Mean Corpuscular Hemoglobin 34.2 pg (25.0-34.0); Mean Corpuscular Hgb Conc 34.3 g/dL (32.0-36.0); Mean Corpuscular Volume 99.5 fL (80.0-100.0); Mean Platelet Volume 9.8 fL (9.4-12.4); Platelet Count 173 K/uL (130-400); RDW Coefficient of Variation 12.6 % (11.5-14.5); RDW Standard Deviation 46.5 fL (36.4-46.3); Red Blood Count 3.98 M/uL (4.20-5.40)
[2022-04-29] MEDS: ACETAMINOPHEN 325 MG TAB PO PRN (07:54)
[2022-04-29] MEDS: ATORVASTATIN 20 MG TAB PO SCH (07:55)
[2022-04-29] MEDS: valACYclovir HCL 500 MG TABLET PO SCH ×3 (07:55→20:24)
[2022-04-29] MEDS: GABAPENTIN 600 MG TAB PO SCH ×4 (07:55→20:23)
[2022-04-29] MEDS: NICOTINE 7 MG/24 HR TDSY TD SCH (07:56)
[2022-04-29] MEDS: LIDOCAINE 5% 1 PATCH TD SCH ×2 (07:58)
[2022-04-29] MEDS: oxyCODONE/APAP 7.5/325MG TAB PO PRN ×3 (08:23→22:26)
[2022-04-29 08:37] LABS: Albumin Globulin Ratio 1.9 (0.9-2); Albumin Level 3.9 gm/dl (3.4-5.0); BUN Creatinine Ratio 23.7 (10-20); Bilirubin,Total 0.4 mg/dl (0.2-1.0); Calcium 8.4 mg/dl (8.5-10.1); Creatinine Clr Calc Pharmacy 78.5 ml/min; Est GFR (African American) 109.2 ml/min; Est GFR (Non-African American) 94.2 ml/min; Globulin 2.1 gm/dl (2.5-4.0)
--- NOTE | 2022-04-29 09:12 | Communication Note ---
Date of Service: April 29, 2022 Patient continues to complain of pain in the right thigh. Will increase Gabapentin dosage to 900mg TID. Oxycodone will remain at 7.5/325mg Q4H. Morph ine if necessary for breakthrough pain.
[2022-04-29] MEDS: diphenhydrAMINE Capsule 25 MG CAP PO PRN ×2 (09:47→22:26)
--- NOTE | 2022-04-29 13:33 | Hospitalist Progress Note ---
Date of Service April 29, 2022 Assessment & Plan (1) Acute pain of right lower extremity: Plan: -The patient has been experiencing progressive right leg pain which started in the right lateral hip and has progressed down her right leg -Etiology is Herpes Zoster -Xray of the right hip and venous doppler of the RLE were negative -CT of the lumbar spine shows "severe disc space narrowing at L4-5 and mild disc space narrowing at L5-S1". -Patient is without red flag symptoms at this time -MRI lumbar shows Mild multilevel degenerative changes within the lumbar spine. No significant central canal stenosis. Mild multilevel neural foraminal narrowing -Pain management on consult, patient now on gabapentin 600mg TID, Oxycodone, Morphine, Prednisone, Lidocaine patch x2 Pain management just increased the Gabapentin today to 900 mg TID -Continue PT/OT (2) Lumbar spinal stenosis: Plan: -See acute pain of the RLE -Was getting outpatient injections from pain mgt (3) HTN (hypertension): Plan: -Stable -BP today 118/67 -Not coherently on medication -Continue to monitor (4) COPD (chronic obstructive pulmonary disease): Plan: -Stable on RA saturating in mid 90s -Patient is currently off outpatient medications -For now will start with prn DuoNebs -Nicotine patch ordered, continue to encourage smoking cessation (5) Anxiety and depression: Plan: -Not currently on medication (6) Shingles: Plan: - Continue Valcyclovir 1gm TID for 7 days - Patient has clustered herpetic zoster rash right buttocks - Pain management following and increased Gabapentin today to 900mg TID - Continue contact precautions - Keep dressing over cluster on left buttock to keep from oozing. Plan monitor and hope to discharge in next 24 hours Encourage up and OOB SCDs Admission and Anticipated Discharge Date Admission Date: April 24, 2022 Subjective Pateint is awake sitting up in bed in mild distress due to right leg pain. She denies any chest pain, SOB or dyspnea. She tells me that she did not sleep well again last evening due to the discomfort in her right leg. Review of Systems Review of Systems: All systems reviewed are negative, apart from the ones contained in the history. Physical Exam Constitutional: WD/WN, vitals as above Neck: trachea midline, no thyromegaly Respiratory: normal respiratory effort, lungs clear to auscultation Cardiovascular: RRR, no murmur, no edema Gastrointestinal (Abdomen): normal bowel sounds, soft, nontender, no hepatosplenomegaly Musculoskeletal: DP and PT pulses +2 symmetric Skin: clustered herpes zoster rash right buttock dry and crusted, one cluster is still vesicular on the left buttock, but no drainage or oozing Neurologic: PERRL, EOMI, accommodation nl, no face palsy, no dysarthria Psychiatric: A+Ox3, euthymic affect Results & Data Results & Data ([facility]) Vital Signs (Past 12 Hours) Vital Signs Temp Pulse Resp BP Pulse Ox O2 Del Method 04/29/22 08:00 Room Air 04/29/22 07:49 36.6 C 74 16 151/72 H 94 Room Air Laboratory Results Abnormal lab results 04/29/22 04/29/22 Range/Units 06:10 06:10 RBC 3.98 L (4.20-5.40) M/uL MCH 34.2 H (25.0-34.0) pg RDW Std Deviation 46.5 H (36.4-46.3) fL Carbon Dioxide 33 H (21-32) mmol/L Creatinine 0.59 L (0.6-1.2) mg/dl BUN/Creatinine Ratio 23.7 H (10-20) Calcium 8.4 L (8.5-10.1) mg/dl Globulin 2.1 L (2.5-4.0) gm/dl PG Care Time/CCT Total # of Minutes Spent Total Time Spent with Patient: Total time spent is greater than 50% in coordination of care (as documented) at patient's floor/unit and/or counseling patient: Coding Level of Care Code 17974 SUB INP/OBS CARE 2/35MIN Diagnoses Acute pain of right lower extremity M79.604 Lumbar spinal stenosis M48.061 HTN (hypertension) I10 COPD (chronic obstructive pulmonary disease) J44.9 Anxiety and depression F41.9; F32.9 Shingles B02.9
[2022-04-30] MEDS: oxyCODONE/APAP 7.5/325MG TAB PO PRN (07:06)
[2022-04-30] MEDS: diphenhydrAMINE Capsule 25 MG CAP PO PRN (07:06)
[2022-04-30 07:16] VITALS: TEMP 97.9
[2022-04-30] MEDS: NICOTINE 7 MG/24 HR TDSY TD SCH (08:22)
[2022-04-30] MEDS: GABAPENTIN 600 MG TAB PO SCH ×2 (08:23→12:58)
[2022-04-30] MEDS: valACYclovir HCL 500 MG TABLET PO SCH ×2 (08:24→12:59)
[2022-04-30] MEDS: ATORVASTATIN 20 MG TAB PO SCH (08:24)
--- NOTE | 2022-04-30 08:55 | Pain Management Progress Note ---
Date of Service April 30, 2022 Assessment & Plan (1) Shingles: (2) Acute pain of right lower extremity: Plan 1. Continue Gabapentin at 900mg three times daily. 2. No role for interventional pain management currently. 3. Continue Percocet 7.5/325 mg every 4 hours as needed. 4. Limit use of IV Morphine in preparation for discharge to home. Admission and Anticipated Discharge Date Admission Date: April 24, 2022 Subjective 66 year old female with herpes zoster on the right low back causing burning along the lateral thigh. Gabapentin was increased yesterday to 900mg three times daily without any side effects. The increased dose has provided additional pain relief. She is taking Percocet 7.5/325mg x 4 hours with adequate pain relief. Has used IV Morphine intermittently for breakthrough pain. Quality of sleep has improved. No constipation, drowsiness, dizziness. Case discussed with Dr. Kanwal Salazar Physical Exam Physical Exam: GENERAL: This is a 66 year old female in no acute distress. HEAD/FACE: Normocephalic and atraumatic. EYES: Pinpoint pupils. RESPIRATORY: Patient with unlabored breathing. No signs of respiratory distress. BACK: Moves without difficulty SKIN: + shingles rash along the right low back, scabbing. MS/EXTREMITY: No swelling, no deformities. Moving extremities appropriately. NEURO: Alert and appears oriented. Speech is fluent. Cranial Nerves are grossly intact. PSYCH: Alert, pleasant, affect is calm
[2022-04-30] MEDS: LIDOCAINE 5% 1 PATCH TD SCH ×2 (09:17)
--- NOTE | 2022-04-30 12:43 | Discharge Summary ---
Date of Service April 30, 2022 Admission HPI Per Admitting Provider Gypsy is a 66 year old female with a PMH significant for COPD, HTN, Anxiety/depression, hyperlipidemia, paroxysmal afib (not on anticoagulation), GERD, breast cancer S/P BL mastectomy, radiation, on Tamoxifen, and Lumbar spinal stenosis who presented to the [facility] ED on 04/21/22 with a chief complaint of right leg pain. In the ED the patient was found to be afebrile, hemodynamically stable, and stable on RA. Labs were remarkable for a CBC with WBC WNL, stable Hgb and platelets, stable cr of 0.55 with a sodium of 134 otherwise stable electrolytes, and LFT's WNL. Xrays of the right hip were read as "1. No acute bony abnormality is identified. 2. A right hip arthroplasty is in near anatomic alignment.". Venous doppler of the RLE was read as "There is no sonographic evidence of deep venous thrombosis identified in the right lower extremity.". CT of the lumbar spine was read as "1. No fracture or subluxation within the lumbar spine. 2. Degenerative changes as described above.". In the ED the patient was given 1gm IV Tylenol, 100 mg PO Gabapentin, 10 mg IV toradol, 8 mg IV morphine, 50 mcg of fentanyl, a dose of Hydrocodon/Acetaminophen, and 1 mg IV valium. At the time of the exam the patient was standing at the side of the bed with the help of her , after coming back from the bathroom. The patient appeared to be in pain and states that she has been experiencing progressive right leg pain. She states that she had a previous right hip replacement approximately 10 years ago, she denies previous complications from that procedure. Approximately 5 days ago she began to experience a dull/achy pain which started on the lateral right hip. As the days progressed the pain has progressed with radiation to the knee and right de la garza. She states that it is currently a 10/10 and has been a 10/10 for the past 49 hours. Because of her pain she has been unable to complete her ADLs and has been unable to sleep. She was taking Valium at home without relief. Denies back pain at this time and also denies saddle anesthesia, loss of bowel/bladder function, severe weakness in the RLE, and recent falls. When asked about her previously known lumbar spinal stenosis she states that she previously had injections for her bulging discs which did improve her symptoms. I explained that her current pain appears to be radicular and explained that we will start her on Gabapentin for these symptoms. I explained that we want to try and avoid narcotics as they are not beneficial for this type of pain. She would be interested in trying PT/OT while admitted, I also explained that we will have the pain management group evaluate her while she is here. When asked, she is only taking Vitamin A/E/D, atorvastatin, and Valium at this time. She is not currently seeing a Camera Repairman for her COPD and is not taking medications for her COPD at this time. She is still smoking "a few" cigarettes daily. I strongly encouraged her to fully quit smoking and follow up with a Camera Repairman to avoid worsening COPD and exacerbations. We discussed code status, she is a Full code and would want her to make medical decisions for her if she could not make them herself. Principal Diagnosis 1. Right leg pain 2. Herpes Zoster Discharge Exam GENERAL: 66 yo Well-developed, well-nourished [place]. NAD. LUNGS: Clear to auscultation bilaterally. CARDIOVASCULAR: Regular rate and rhythm. SKIN: vesicular rash noted on right buttocks with surrounding erythema Discharge Data Allergies Allergy/AdvReac Type Severity Reaction Status Date / Time ether Allergy Severe Anaphylaxis Verified 12/15/21 08:39 Consultations 04/21/22 10:22 ED Decision to Admit Stat 04/21/22 10:56 Consult Pain Management Routine Ordered Studies Hip/Pelvis X-Ray 04/21/22 00:00 SINGLE VIEW PELVIS; 2 VIEWS RIGHT HIP CLINICAL HISTORY: Right leg pain. FINDINGS: AP view of the pelvis with AP and frog leg views of the right hip are compared to study dated 08/15/2014. The skeletal structures are osteopenic. There is no radiographic evidence of acute fracture involving the hips or bony pelvis. A right hip arthroplasty is in near anatomic alignment. No periprosthetic lucency is seen. Mild arthritic change and joint space narrowing is seen in the left hip. The sacroiliac joints are normal. Lumbosacral spondylosis is partially imaged. The overlying soft tissues are within normal limits. No bowel obstruction is seen. IMPRESSION: 1. No acute bony abnormality is identified. 2. A right hip arthroplasty is in near anatomic alignment. Electronically signed by: Yaw David M.D. 04/21/2022 7:39 AM Venous Doppler Study 04/21/22 03:48 ULTRASOUND RIGHT LOWER EXTREMITY VENOUS CLINICAL HISTORY: Right leg pain. COMPARISON STUDY: No priors. TECHNIQUE: Real-time, grayscale, and color Doppler sonography of the deep veins of the right lower extremity was performed from the inguinal crease to the calf. Compression and augmentation were utilized. FINDINGS: There is no sonographic evidence of deep venous thrombosis identified in the right lower extremity. The common femoral, superficial femoral, and popliteal veins are patent and normally compressible. The greater saphenous vein and the profunda femoris vein at the junction with the common femoral vein are clear. The visualized calf veins are patent. IMPRESSION: There is no sonographic evidence of deep venous thrombosis identified in the right lower extremity. ACT 112: Negative or not required by law. Electronically signed by: Yaw David M.D. 04/21/2022 7:[address] 04/21/22 05:[address] DOSE: 474.55 mGy.cm HISTORY: lumbar radiculopathy TECHNIQUE: Multiaxial CT images of the lumbar spine were performed and reformatted in the sagittal and coronal plane without the use of contrast. A dose lowering technique was utilized adhering to the principles of ALARA. COMPARISON: None. FINDINGS: No fracture or subluxation within the lumbar spine. The visualized sacrum appears intact. There is severe disc space narrowing at L4-5 and mild disc space narrowing at L5-S1. There are mild facet degenerative changes throughout the lumbar spine. Mild bilateral neural foraminal narrowing at L3-L4, L4-5, and L5-S1. There are small broad-based posterior disc bulges throughout the lumbar spine without significant central canal narrowing. Paravertebral soft tissues are unremarkable. Calcified but normal caliber abdominal aorta. IMPRESSION: 1. No fracture or subluxation within the lumbar spine. 2. Degenerative changes as described above ACT 112: Negative or not required by law. Electronically signed by: Caden Robertson M.D. 04/21/2022 7:52 AM Lumbar Spine MRI 04/22/22 09:29 MRI OF THE LUMBAR SPINE WITHOUT CONTRAST CLINICAL HISTORY: Right-sided radiculopathy. COMPARISON STUDY: Lumbar spine CT April 21, 2022. TECHNIQUE: Utilizing a 1.5 Tasha magnet and dedicated coil, multiplanar, multiecho imaging of the lumbar spine was performed without IV contrast. FINDINGS: For purposes of numbering on this exam, the L5-S1 disc space is assigned to axial image 29 of 32. There is minimal rightward curvature of the lumbar spine. Vertebral body heights are maintained. No suspicious marrow replacement is present. The conus terminates at the L1-L2 level. Paravertebral soft tissues are unremarkable. There is no lumbar spine fracture. L1-2: The central canal and neural foramen are patent. L2-3: The central canal and neural foramen are patent. L3-4: There is mild facet arthrosis. The central canal and neural foramen are patent. There is minimal disc bulge. L4-5: Moderate disc space narrowing is noted with mild disc bulge. There is facet arthrosis. There is mild during of the central canal and lateral recesses. The neural foramen are patent. L5-S1: There is mild disc space narrowing with disc bulge and facet arthrosis. The central canal is patent. There is mild narrowing of the lateral recesses and the right neural foramen. The left neural foramen is patent. IMPRESSION: 1. Mild multilevel degenerative changes within the lumbar spine. No significant central canal stenosis. Mild multilevel neural foraminal narrowing. 2. No large disc herniations. ACT 112: Negative or not required by law. Electronically signed by: Ramirez Jang M.D. 04/22/2022 1:53 PM Hospital Course (1) Acute pain of right lower extremity: -The patient has been experiencing progressive right leg pain which started in the right lateral hip and has progressed down her right leg -Etiology is Herpes Zoster -Xray of the right hip and venous doppler of the RLE were negative -CT of the lumbar spine shows "severe disc space narrowing at L4-5 and mild disc space narrowing at L5-S1". -Patient is without red flag symptoms at this time -MRI lumbar shows Mild multilevel degenerative changes within the lumbar spine. No significant central canal stenosis. Mild multilevel neural foraminal narrowing -Pain management on consult, patient now on gabapentin 600mg TID, Oxycodone, Morphine, Lidocaine patch x2 Pain management just increased the Gabapentin today to 900 mg TID -Continue PT/OT -No therapy needs at home, will plan for dc home today on 3 more days of Valtrex + 2 weeks of Gabapentin (2) Lumbar spinal stenosis: -See acute pain of the RLE -Was getting outpatient injections from pain mgt (3) HTN (hypertension): -Stable -BP today 118/67 -Not coherently on medication -Continue to monitor (4) COPD (chronic obstructive pulmonary disease): -Stable on RA saturating in mid 90s -Patient is currently off outpatient medications -For now will start with prn DuoNebs -Nicotine patch ordered, continue to encourage smoking cessation (5) Anxiety and depression: -Not currently on medication (6) Shingles: - Continue Valcyclovir 1gm TID for 7 days - Patient has clustered herpetic zoster rash right buttocks - Pain management following and increased Gabapentin today to 900mg TID - Continue contact precautions until rash is dried up and scabbed over - Avoid contact with kids <12 months and women Plan Patient is medically and hemodynamically stable for discharge home today with outpatient follow up with her PCP. Plan as outlined above. Plan has been d/w Dr. Singer who has also seen and evaluated this patient prior to discharge and agrees with aforementioned. Total Time Total Time Spent Total Time Spent (In Minutes): >30 minutes Discharge Plan Discharge Items Patient Disposition: Home - Self-Care Reason For Visit: R LEG PAIN Discharge Diagnosis: shingles leg pain Condition on Discharge: Good Activity: Resume your previous activity Non-emergency contact: Primary Care Provider Call non-emergency contact if: you have any medication questions Follow-up/Referrals: Candie Francis DO [Primary Care Provider] - 05/05/22 9:40 am Diet: Regular Addtl Attending Provider Instructions: You were hospitalized due to leg pain. You were noted to have shingles on your right buttocks which is likely causing the pain down your right leg. You have been treated with Valcyclovir (an antiviral) to help shorten the duration of the blistering rash from the shingles. You are also being sent home with Gabapentin to assist in controlling the nerve pain. You may take 900mg three times a day. A prescription has been sent to your pharmacy for the Valcyclovir and Gabapentin. Please take as directed. You may also use over the counter Lidocaine patches that you can apply to your leg as directed. Usually these can be placed in the morning and changed the next morning. During the phase while your rash is still draining or moist, keep loosely covered and avoid contact with children under 1 year of age and women. The liquid inside the rash is contagious and will cause chicken pox in an individual who has not otherwise had it or is who is not vaccinated against it. You will need to follow up with your family doctor within 1 week of discharge. If you have any questions or concerns after you leave the hospital, you may contact the nonemergency number listed on your discharge paperwork. In the event of a medical emergency, please call 911. Pending Studies at Discharge: No Stand-Alone Forms: My [facility], Smoking Cessation Medications and DC Order Prescriptions: New diazepam [Valium] 2 mg tablet 2 mg PO TID PRN (Reason: muscle spasm) Qty: 10 0RF gabapentin 600 mg tablet 900 mg PO DAILY Qty: 77 0RF Rx Instructions: Take 900mg TID x 14 days, after that taper to 900mg BID x 3 days then 900mg daily x 3 days then stop Continued tamoxifen 20 mg tablet 20 mg PO QAM benzonatate 100 mg capsule 100 mg PO TID PRN (Reason: cough) Qty: 30 0RF atorvastatin 20 mg tablet 20 mg PO QAM Qty: 90 1RF calcium carbonate 600 mg calcium (1,500 mg) tablet 600 mg PO BID zoledronic [id number] [Reclast] 5 mg/100 mL piggyback 1 ea IV YEARLY hydrocodone-acetaminophen 5-325 mg tablet 1 tab PO Q6H PRN (Reason: pain) Qty: 120 0RF Rx Instructions: Continued therapy. escitalopram oxalate [Lexapro] 10 mg tablet 10 mg PO DAILY Qty: 30 2RF albuterol sulfate 90 mcg/actuation HFA aerosol inhaler 2 puffs inhalation Q4H PRN (Reason: COPD) Qty: 1 0RF buspirone 5 mg tablet 5 mg PO QAM PRN (Reason: Anxiety) valacyclovir [Valtrex] 1 gram tablet 1,000 mg PO TID 7 Days Qty: 7 0RF Discharge Orders: Discharge Order (Routine); Ordered 04/30/22 Ordered By: Mary Kate Amaral Admission Data Admit Date/Time: 04/24/22 13:31 Attending Provider: Josh Singer Admit Provider: Devon Williamson Primary Care Provider: Ricotta,Candie M. Other Providers: Devon Williamson ; Robert Eaton ; Kanwal Salazar ; Srinivas Terrell ; Cecily Chu ; Sherwin Torre. Coding Level of Care Code HOSP INP/OBS DISCH >30 MIN Diagnoses Acute pain of right lower extremity M79.604 Lumbar spinal stenosis M48.061 HTN (hypertension) I10 COPD (chronic obstructive pulmonary disease) J44.9 Anxiety and depression F41.9; F32.9 Shingles B02.9
[2022-04-30 14:02] VITALS: BP 112/62; O2SAT 94
[2022-04-30 14:27] VITALS: PULSE 80
== END 2022-04-30 15:19 | disposition home or self-care (01) | DRG 596 ==
LOC: ED 02:04 → EDINP 02:04 → SUATTDRO 10:50 → 3E 13:48 → SUATTDRO 04-24 13:31

== ENCOUNTER 2022-06-18 10:23 | Inpatient (IN) ==
[2022-06-18] MEDS ORDERED: ONDANSETRON INJ 2 MG/ML 2 ML VIAL IV STA (10:46)
[2022-06-18] MEDS ORDERED: SODIUM CHLORIDE 0.9% 1000ML 1,000 ML IV STA (10:46)
[2022-06-18] MEDS ORDERED: MoRPHine SULFATE 4 MG/ML 1 ML CARP\\VIAL IV STA (10:46)
--- NOTE | 2022-06-18 10:51 | Emergency Department Note ---
Impression & Plan Ambulatory dysfunction ADMIT ED Provider Note HPI: The patient is a 66-year-old female who presents the emergency department with a chief complaint of patient states the pain has been ongoing for slightly over 2 months now. She did previously require inpatient admission for this in April, etiology of the pain was thought to be multifactorial including lumbar spinal stenosis with radiculopathy in addition to herpes zoster infection. Patient states that over the past several days she had some right lower extremity weakness. Patient was seen today by her PCP, Dr. Francis, ultimately sent to the emergency department for further evaluation given right lower ex tremity weakness which is new, pain has been chronic for the past 2 months. On arrival here to the ED the patient is hemodynamically stable, she is in no acute distress on my initial assessment. Patient states at times she feels the pain is coming from her right hip, at other times she feels it is located more in the knee and radiating downward. ROS: - Per HPI *Outpatient medications and allergy history reviewed. *Pertinent external medical records reviewed. PE: General: Alert HEENT: Normocephalic, trachea midline Eyes: Extraocular eye movement is intact, no scleral erythema Pulmonary: Clear to auscultation bilaterally, no wheezing Cardio: Regular rate and rhythm GI: Abdomen is soft to palpation : No suprapubic tenderness MSK: No evidence of trauma or malformation of the extremities, no edema, slight weakness in dorsiflexion and plantarflexion of the right lower extremity in comparison to the left, range of motion is intact with flexion of the right hip and left Skin: No evidence of rash Neuro: Alert, no focal deficits Psychiatric: Cooperative residential monitor: (As interpreted by myself): - An order was placed for continuous cardiac monitoring - Patient was noted to be in sinus rhythm with a rate of 95 Interventions provided in ED: -IV morphine, IV Zofran, IV Solu-Medrol Differential Diagnosis: Lumbar radiculopathy with lower extremity weakness, spinal stenosis, hip fracture/dislocation, knee fracture/dislocation, osteoarthritis, ischemic stroke, amongst other potential pathologies. Medical Decision Making: Patient presented to the emergency department with a chief complaint of chronic right lower extremity pain for the past several months. Patient states over the past 3 days she is also developed some weakness in the right lower extremity. Patient states that she has seen pain management for this already, states they have done "nothing" to help her with her pain and she is very frustrated. On arrival here to the ED the patient is hemodynamically stable, she is in no acute distress on my initial assessment. X-ray imaging of the right hip and right knee were performed, no acute changes from previous, there is note of osteoarthritis. Upon review of patient's previous imaging she just had an MRI done of the lumbar spine in April, this did not show any emergent pathology, does show some degenerative changes in the lumbar spine. CT imaging of the head was obtained that does not show any evidence of ischemic stroke. Given the chronicity of the patient's symptoms in addition to their association with pain, I have low suspicion for stroke as a source of her right lower extremity weakness. I did speak with the patient's PCP, Dr. Francis, she states that she does not feel that she can manage the patient's symptoms on an outpatient basis given her complaints this morning, her main concern was the new right lower extremity weakness which was appreciated on exam, patient shares this concern. She states that she is having some difficulty ambulating and would like to be admitted to the hospital for pain control and further management. I did discuss PT/OT options with the patient, she is in agreement for PT/OT on an inpatient basis and would be in agreement to possible placement in a rehabilitation facility if determined appropriate. Case was then discussed with the on-call hospitalist service for [facility], case was discussed with midlevel provider Dharmesh, patient was placed for admission to the [facility] hospitalist service in stable condition for further care. Consultants: -Hospitalist Service, Dr. Lake -PCP, Dr. Francis Disposition discussion held by myself with: Patient Diagnosis: 1. Right lower extremity pain, acute on chronic, intractable 2. Right lower extremity weakness, acute 3. Ambulatory dysfunction Disposition: Admission Gregorio Navarro DO Emergency Medicine Past Med/Surg History Medical History Acid reflux Allergic rhinitis Anxiety and depression Asbestos exposure COPD (chronic obstructive pulmonary disease) DJD (degenerative joint disease) HTN (hypertension) Invasive lobular carcinoma of breast in female (12/21/19) Lumbar spinal stenosis MRSA (methicillin resistant staph aureus) culture positive Osteoporosis with fracture Paroxysmal atrial fibrillation Polyneuropathy Sleep apnea Surgical History H/O hernia repair (2002) History of breast surgery (~03/25/20) History of breast surgery (09/25/20) History of cataract surgery (~01/2020) History of colonoscopy (2019) History of esophagogastroduodenoscopy (EGD) (~2004) History of total hip replacement (2009) S/P breast reconstruction, bilateral (02/26/20) S/P decompression of ulnar nerve (2005) S/P epidural steroid injection (1997) S/P mastectomy, bilateral (02/26/20) S/P total hysterectomy and bilateral salpingo-oophorectomy (1994) Status post placement of implantable loop recorder (2017) Family History Mother Liver cancer Diabetes Heart disease Hypertension Stroke Father Emphysema lung Uncle Prostate cancer Aunt No problems noted. Aunt Lung cancer Sister No problems noted. Sister No problems noted. Sister No problems noted. Son No problems noted. Son No problems noted. 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 Required: No Beliefs That Will Affect Care: None marital status: Life Partner Current Living Situation: Significant Other Current Living Situation Comment: Boyfriend lives with patient 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 Feels Safe at Home: Yes Childhood Exposure to Second-Hand Smoke: Yes Diet Comment: regular caffeine: Yes (2 cups of coffee/day ) during the past year weight has: remained stable Dental Care, Regularly: Yes Physical Activity Frequency: Daily Physical Activity Frequency Comment: walking Seatbelt Use: always Sunscreen Use: No Assistive Devices: None Allergies Allergies Allergy/AdvReac Type Severity Reaction Status Date / Time ether Allergy Severe Anaphylaxis Verified 06/02/22 15:28 Home Meds Home Medications Medication Instructions Recorded Confirmed calcium carbonate 600 mg calcium 600 mg PO BID 11/01/18 06/18/22 (1,500 mg) tablet zoledronic acid 5 mg/100 mL in 1 ea IV YEARLY 11/14/20 06/18/22 mannitol 5 %-water intravenous piggybck (Reclast) buspirone 5 mg tablet 5 mg PO QAM PRN Anxiety 02/24/21 06/18/22 Previous Rx's Medication Instructions Recorded albuterol sulfate 90 mcg/actuation 2 puffs inhalation Q4H PRN COPD #1 12/05/18 aerosol inhaler g atorvastatin 20 mg tablet 20 mg PO QAM #90 tabs 04/14/22 lidocaine 5 % topical patch 2 patch topical DAILY PRN pain 05/19/22 (scale score 7-10) #30 ea amitriptyline 25 mg tablet 25 mg PO HS #30 tabs 06/03/22 gabapentin 800 mg tablet 800 mg PO TID #90 tabs 06/18/22 hydrocodone 10 mg-acetaminophen 1 tab PO Q6H PRN pain #90 tabs 06/18/22 325 mg tablet valacyclovir 500 mg tablet 500 mg PO DAILY #30 tabs 06/18/22 Results & Data (ED) Vital Signs Vital Signs - 24 hr 06/18/22 10:31 06/18/22 12:25 06/18/22 13:58 Temperature 36.8 C Temperature Source Temporal Artery Scan Pulse Rate 98 H 98 H Pulse Rate [Apical] 100 H Pulse Strength [Apical] Normal Respiratory Rate 18 16 Respiratory Effort / Characteristics Non-Labored Spontaneous Non-Labored Spontaneous Respiratory Depth Normal Respiratory Pattern Regular Blood Pressure 137/71 Blood Pressure [Right Arm] 144/87 H Blood Pressure Mean 93 Blood Pressure Mean [Right Arm] 106 Blood Pressure Position [Right Arm] Semi-fowlers Pulse Oximetry 93 88 L Oxygen Delivery Method Room Air Room Air Sepsis Recent Fever Within 48 Hours No Sepsis New/Unexplained Change in Mental Status No Sepsis Action Taken by Nursing No Action Required Laboratory Data 06/18/22 10:49 06/18/22 10:49 Lab Results 06/18/22 06/18/22 06/18/22 Range/Units 10:49 10:49 13:52 WBC 6.86 (4.8-10.8) K/ul RBC 4.51 (4.20-5.40) M/uL Hgb 15.9 (12.0-16.0) g/dl Hct 44.1 (37.0-47.0) % MCV 97.8 (80.0-100.0) fL MCH 35.3 H (25.0-34.0) pg MCHC 36.1 H (32.0-36.0) g/dL RDW Std Deviation 51.3 H (36.4-46.3) fL RDW Coeff of Gita 14.1 (11.5-14.5) % Plt Count 220 (130-400) K/uL MPV 9.1 L (9.4-12.4) fL Immature Gran % (Auto) 0.4 % Neut % (Auto) 90.8 % Lymph % (Auto) 5.7 % [place] % (Auto) 2.5 % Eos % (Auto) 0.3 % Baso % (Auto) 0.3 % Neut # (Auto) 6.23 (1.40-6.50) K/uL Lymph # (Auto) 0.39 L (1.2-3.4) K/uL [place] # (Auto) 0.17 (0.11-0.59) K/uL Eos # (Auto) 0.02 (0-0.50) K/uL Baso # (Auto) 0.02 (0-0.2) K/uL Immature Gran # (Auto) 0.03 (0.01-0.20) K/uL Sodium 134 L (136-145) mmol/L Potassium 4.1 (3.5-5.1) mmol/L Chloride 99 (98-107) mmol/L Carbon Dioxide 26 (21-32) mmol/L Anion Gap 9 (3-11) BUN 8 (6-23) mg/dl Creatinine 0.51 L (0.6-1.2) mg/dl Est Cr Clr Drug Dosing 87.3 ml/min Est GFR ( Amer) 114.5 ml/min Est GFR (Non-Af Amer) 98.8 ml/min BUN/Creatinine Ratio 15.7 (10-20) Glucose 113 H (70-99(Fasting)) mg/dl Calcium 9.2 (8.6-10.3) mg/dl Total Bilirubin 0.6 (0.2-1.0) mg/dl AST 16 (13-39) U/L ALT 8 (7-52) U/L Alkaline Phosphatase 73 (34-104) U/L Total Protein 7.0 (6.0-8.3) gm/dl Albumin 4.4 (3.4-5.0) gm/dl Globulin 2.6 (2.5-4.0) gm/dl Albumin/Globulin Ratio 1.7 (0.9-2) SARS-CoV-2, RNA, NAAT NEGATIVE (NEGATIVE) Administered Medications Discontinued Medications Sodium Chloride (Nss 1000ml) 1,000 mls @ 999 mls/hr IV .Q1H1M STA Stop: 06/18/22 11:46 Last Infusion: 06/18/22 12:33 Dose: 0 mls/hr Documented By: Admin: 06/18/22 11:02 Dose: 999 mls/hr Documented By: BRAYDEN Methylprednisolone (Methylprednisolone 125 Mg/2 Ml Vial) 125 mg IV NOW STA Stop: 06/18/22 13:31 Last Admin: 06/18/22 13:55 Dose: 125 mg Documented By: Morphine Sulfate (Morphine Sulfate 4 Mg/Ml 1 Ml Carp\\Vial) 4 mg IV NOW STA Stop: 06/18/22 10:47 Last Admin: 06/18/22 11:02 Dose: 4 mg Documented By: BRAYDEN Ondansetron HCl (Ondansetron Inj 2 Mg/Ml 2 Ml Vial) 4 mg IV NOW STA Stop: 06/18/22 10:47 Last Admin: 06/18/22 11:02 Dose: 4 mg Documented By: BRAYDEN Imaging Data Radiologist's Impression: Hip/Pelvis X-Ray 06/18/22 10:46 XR hip RT 2V w pelvis CLINICAL HISTORY: Atraumatic pain. COMPARISON: Head CT January 17, 2020. Pelvis and right radiographs May 01, 2022. FINDINGS: Sacroiliac joints and symphysis pubis are intact. No acute fracture within the pelvis or hips. Right hip arthroplasty is intact with no periprosthetic fracture or lucency. IMPRESSION: 1. No acute fracture within the pelvis or hips. 2. Intact total right hip arthroplasty. No periprosthetic fracture or lucency. ACT 112: Negative or not required by law. Electronically signed by: Ramirez Jang M.D. 06/18/2022 12:12 PM Knee X-Ray 06/18/22 10:46 XR knee RT 1 or 2V routine CLINICAL HISTORY: acute on chronic right knee pain COMPARISON STUDY: Right knee 05/01/2022. FINDINGS: Mild tricompartmental osteoarthritis again noted within the right knee. The bones are slightly osteopenic. No significant knee effusion. No soft tissue swelling. No acute fracture or dislocation. No radiopaque foreign bodies. IMPRESSION: Mild osteoarthritis within the right knee again noted. No acute fractures. ACT 112: Negative or not required by law. Electronically signed by: Caden Robertson M.D. 06/18/2022 12:01 PM Venous Doppler Study 06/18/22 10:47 US venous doppler LE RT CLINICAL HISTORY: pain eval for dvt TECHNIQUE: Right lower extremity real-time compression venous ultrasound with Color Doppler imaging. Utilizing real-time ultrasonic imaging multiple real time high-resolution ultrasonic images with compression and noncompression maneuvers of the deep venous system in addition to color doppler imaging were performed from the common femoral vein through the proximal calf veins. COMPARISON: None available at the time of this dictation. FINDINGS/IMPRESSION: Currently there is normal compressibility of the deep venous system from the common femoral vein through the proximal calf veins. No superficial venous thrombosis is identified. ACT 112: Negative or not required by law. Electronically signed by: Kb Krueger M.D. 06/18/2022 11:[address] 06/18/22 13:29 CT head/brain wo con CLINICAL HISTORY: R LE weakness x 3 days Technique: Contiguous axial CT images of the head were acquired from the base of the skull to the vertex without intravenous contrast administration. Images were viewed in brain, subdural and bone windows. Automated dose lowering techniques and/or adjustment according to patient size were utilized for this exam. Comparison: Comparison is made to CT head 08/21/2017 Findings: Areas of decreased attenuation are present in the periventricular and subcortical white matter bilaterally consistent with small vessel ischemic disease. Generalized cerebral atrophy with commensurate enlargement of the ventricles, sulci, and cisterns is also present. There is no acute intracranial hemorrhage or evidence of acute territorial infarction. No shift of the midline structures, mass effect, or extra-axial abnormalities are shown. Atheroscler otic calcifications are present in the intracranial segments of the internal carotid arteries. Imaged portions of the paranasal sinuses and mastoid air cells are clear. The orbits appear normal. There are no acute fractures of the calvaria or scalp swelling. Impression: No acute intracranial hemorrhage, no evidence of acute territorial infarction or other acute intracranial disease process. ACT 112: Negative or not required by law. Electronically signed by: Kb Krueger M.D. 06/18/2022 1:55 PM Discharge Plan Visit Data Chief Complaint: Leg Injury/Pain Stated Complaint: RIGHT SIDE LEG PAIN ED Provider: Gregorio Navarro Discharge Problem: Ambulatory dysfunction Forms Stand Alone Forms: My [facility] [employer] Prescriptions Prescriptions: No Action atorvastatin 20 mg tablet 20 mg PO QAM Qty: 90 1RF calcium carbonate 600 mg calcium (1,500 mg) tablet 600 mg PO BID zoledronic [id number] [Reclast] 5 mg/100 mL piggyback 1 ea IV YEARLY methylprednisolone acetate 40 mg/mL suspension 40 mg IM ONCE Qty: 1 0RF valacyclovir 500 mg tablet 500 mg PO DAILY Qty: 30 2RF gabapentin 800 mg tablet 800 mg PO TID Qty: 90 1RF hydrocodone-acetaminophen 10-325 mg tablet 1 tab PO Q6H PRN (Reason: pain) Qty: 90 0RF lidocaine 5 % adhesive patch,medicated 2 patch topical DAILY PRN (Reason: pain (scale score 7-10)) Qty: 30 5RF Rx Instructions: leave on most painful area for up to 12 hrs albuterol sulfate 90 mcg/actuation HFA aerosol inhaler 2 puffs inhalation Q4H PRN (Reason: COPD) Qty: 1 0RF amitriptyline 25 mg tablet 25 mg PO HS Qty: 30 2RF buspirone 5 mg tablet 5 mg PO QAM PRN (Reason: Anxiety) Referrals Referrals: Candie Francis DO [Primary Care Provider] -
[2022-06-18 11:07] LABS: Hematocrit (blood only) 44.1 % (37.0-47.0); Hemoglobin 15.9 g/dl (12.0-16.0); Mean Corpuscular Hemoglobin 35.3 pg (25.0-34.0); Mean Corpuscular Hgb Conc 36.1 g/dL (32.0-36.0); Mean Corpuscular Volume 97.8 fL (80.0-100.0); Mean Platelet Volume 9.1 fL (9.4-12.4); Platelet Count 220 K/uL (130-400); RDW Coefficient of Variation 14.1 % (11.5-14.5); RDW Standard Deviation 51.3 fL (36.4-46.3); Red Blood Count 4.51 M/uL (4.20-5.40); White Blood Count 6.86 K/ul (4.8-10.8)
[2022-06-18 11:23] LABS: Albumin Globulin Ratio 1.7 (0.9-2); Albumin Level 4.4 gm/dl (3.4-5.0); BUN Creatinine Ratio 15.7 (10-20); Bilirubin,Total 0.6 mg/dl (0.2-1.0); Calcium 9.2 mg/dl (8.6-10.3); Creatinine Clr Calc Pharmacy 87.3 ml/min; Est GFR (African American) 114.5 ml/min; Est GFR (Non-African American) 98.8 ml/min; Globulin 2.6 gm/dl (2.5-4.0); Potassium 4.1 mmol/L (3.5-5.1)
[2022-06-18 11:24] LABS: Basophils # (auto) 0.02 K/uL (0-0.2); Basophils % (auto) 0.3 %; Eosinophils # (auto) 0.02 K/uL (0-0.50); Eosinophils % (auto) 0.3 %; Immature Granulocytes # (auto) 0.03 K/uL (0.01-0.20); Immature Granulocytes % (auto) 0.4 %; Lymphocytes # (auto) 0.39 K/uL (1.2-3.4); Lymphocytes % (auto) 5.7 %; Monocytes # (auto) 0.17 K/uL (0.11-0.59); Monocytes % (auto) 2.5 %; Neutrophils # (auto) 6.23 K/uL (1.40-6.50); Neutrophils % (auto) 90.8 %
--- NOTE | 2022-06-18 11:53 | Ultrasound Report ---
US venous doppler LE RT CLINICAL HISTORY: pain eval for dvt TECHNIQUE: Right lower extremity real-time compression venous ultrasound with Color Doppler imaging. Utilizing real-time ultrasonic imaging multiple real time high-resolution ultrasonic images with comp ression and noncompression maneuvers of the deep venous system in addition to color doppler imaging w ere performed from the common femoral vein through the proximal calf veins. COMPARISON: None available at the time of this dictation. FINDINGS/IMPRESSION: Currently there is normal compressibility of the deep venous system from the common femoral vein thro ugh the proximal calf veins. No superficial venous thrombosis is identified. ACT 112: Negative or not required by law. Electronically signed by: Kb Krueger M.D. 06/18/2022 11:51 AM
--- NOTE | 2022-06-18 12:03 | XRay Report ---
XR knee RT 1 or 2V routine CLINICAL HISTORY: acute on chronic right knee pain COMPARISON STUDY: Right knee 05/01/2022. FINDINGS: Mild tricompartmental osteoarthritis again noted within the right knee. The bones are sligh tly osteopenic. No significant knee effusion. No soft tissue swelling. No acute fracture or dislocati on. No radiopaque foreign bodies. IMPRESSION: Mild osteoarthritis within the right knee again noted. No acute fractures. ACT 112: Negative or not required by law. Electronically signed by: Caden Robertson M.D. 06/18/2022 12:01 PM
--- NOTE | 2022-06-18 12:13 | XRay Report ---
XR hip RT 2V w pelvis CLINICAL HISTORY: Atraumatic pain. COMPARISON: Head CT January 17, 2020. Pelvis and right radiographs May 01, 2022. FINDINGS: Sacroiliac joints and symphysis pubis are intact. No acute fracture within the pelvis or h ips. Right hip arthroplasty is intact with no periprosthetic fracture or lucency. IMPRESSION: 1. No acute fracture within the pelvis or hips. 2. Intact total right hip arthroplasty. No periprosthetic fracture or lucency. ACT 112: Negative or not required by law. Electronically signed by: Ramirez Jang M.D. 06/18/2022 12:12 PM
[2022-06-18] MEDS ORDERED: methylPREDNISolone 125 MG/2 ML VIAL IV STA (13:30)
--- NOTE | 2022-06-18 13:58 | CT Scan Report ---
CT head/brain wo con CLINICAL HISTORY: R LE weakness x 3 days Technique: Contiguous axial CT images of the head were acquired from the base of the skull to the elmer cade without intravenous contrast administration. Images were viewed in brain, subdural and [facility]. Automated dose lowering techniques and/or adjustment according to patient size were utilized for this exam. Comparison: Comparison is made to CT head 08/21/2017 Findings: Areas of decreased attenuation are present in the periventricular and subcortical white matter bilate rally consistent with small vessel ischemic disease. Generalized cerebral atrophy with commensurate e nlargement of the ventricles, sulci, and cisterns is also present. There is no acute intracranial hem orrhage or evidence of acute territorial infarction. No shift of the midline structures, mass effect, or extra-axial abnormalities are shown. Atherosclerotic calcifications are present in the intracran ial segments of the internal carotid arteries. Imaged portions of the paranasal sinuses and mastoid air cells are clear. The orbits appear normal. There are no acute fractures of the calvaria or scalp swelling. Impression: No acute intracranial hemorrhage, no evidence of acute territorial infarction or other acute intracra nial disease process. ACT 112: Negative or not required by law. Electronically signed by: Kb Krueger M.D. 06/18/2022 1:55 PM
--- NOTE | 2022-06-18 14:20 | History & Physical Report ---
Date of Service June 18, 2022 Assessment & Plan (1) Ambulatory dysfunction: Plan: -Admit to med/surge -The patient is currently afebrile, hemodynamically stable, and stable on RA -She has experienced progressive weakness of the RLE with continued burning/sharp pain of the RLE in the same distribution as her last admission in April when she was diagnosed with shingles -Completed her course of Valtrex and has completed multiple courses of oral steroids. -At this time her ongoing pain and weakness appear to be neurologic in nature as she is without acute trauma and previous MRI of the lumbar spine in April was without significant stenosis, she is also without back pain -Could be related to her recent shingles infection in combination with deconditioning -Will continue her Gabapentin and Amitriptyline doses, hold Hydrocodone/tylenol for now and will add 1 mg IV morphine q4h prn severe pain, q6h tylenol -Will consult pain management, PT/OT -Fall precautions ordered -BL SCD's and Sub-Lovenox for DVT PPX -AM CBC and BMP (2) Malignant neoplasm of upper-outer quadrant of left breast in female, estrogen receptor positive: Plan: -Follows with Oncology -Currently on Tamoxifen therapy (3) Sleep apnea: Plan: -HS CPAP ordered (4) HTN (hypertension): Plan: -Stable -Not currently on medical therapy, continue to monitor (5) COPD (chronic obstructive pulmonary disease): Plan: -Stable on RA -Incentive spirometry, flutter therapy, prn DuoNebs (6) Anxiety and depression: Plan: -Continue Duloxetine and Prn Buspirone (7) Acid reflux: Plan: -Will add daily famotidine while admitted Plan The patient was discussed with Dr. Lake at the time of the admission History of Present Illness Chief Complaint: Right leg pain/weakness with ambulatory dysfunction Primary Care Provider: DO Gypsy Epstein is a 66 year old female with a PMH significant for COPD, HTN, Anxiety/depression, hyperlipidemia, paroxysmal afib (not on anticoagulation), GERD, breast cancer S/P BL mastectomy, radiation, on Tamoxifen, and Lumbar spinal stenosiswho presented to the [facility] ED at the recommendation of her PCP for ongoing right leg pain/weakness. In the ED today the patient was found to be afebrile, hemodynamically stable and stable on RA. Labs were remarkable for a CBC WNL, stable cr at 0.51, sodium of 134, and covid 19 negative. Xray of the right hip was read as "1. No acute fracture within the pelvis or hips. 2. Intact total right hip arthroplasty. No periprosthetic fracture or lucency.". Xray of the right knee was read as "Mild osteoarthritis within the right knee again noted. No acute fractures.". Venous doppler of the RLE was read as "Currently there is normal compressibility of the deep venous system from the common femoral vein through the proximal calf veins. No superficial venous thrombosis is identified.". CT of the head WO con was read as "No acute intracranial hemorrhage, no evidence of acute territorial infarction or other acute intracranial disease process.". Prior to admission the patient was given 125 mg IV methylprednisolone, 4 mg IV morphine, 1L NSS, and 4 mg IV zofran. We were asked to admit the patient for further pain control and evaluation by PT/OT for likely rehab placement. Per chart review, the patient was recently admitted to [facility] from 04/21/22- 04/30/22 for the same symptoms including RLE pain and ambulatory dysfunction. During that admission she underwent a large workup including CT of the lumbar spine which was read as "No fracture or subluxation within the lumbar spine. The visualized sacrum appears intact. There is severe disc space narrowing at L4-5 and mild disc space narrowing at L5-S1. There are mild facet degenerative changes throughout the lumbar spine. Mild bilateral neural foraminal narrowing at L3-L4, L4-5, and L5-S1. There are small broad-based posterior disc bulges t hroughout the lumbar spine without significant central canal narrowing. Paravertebral soft tissues are unremarkable. Calcified but normal caliber abdominal aorta.". She was evaluated by pain management who obtained an MRI of the lumbar spine which was read as "1. Mild multilevel degenerative changes within the lumbar spine. No significant central canal stenosis. Mild multilevel neural foraminal narrowing. 2. No large disc herniations.". She was initially treated with Oral and IV pain medications and Gabapentin. During her admission the patient developed herpetic lesions along the site of her right leg pain and was diagnosed with shingles. She was started on Valtrex and was discharged with Percocet and gabapentin. At that time pain management did not recommend any interventions for her pain due to her active infection but stated she could be a candidate for epidural steroid injections when her lesions completely healed. At the time of the exam the patient was lying in bed in no acute distress. She states that she has continued to have progressive RLE pain in the same distribution since her last admission. She states that she is still taking 800 mg Gabapentin TID, 25 mg HS amitriptyline, and prn hydrocodone-acetaminophen without relief. She feels as though her RLE has been getting weaker as well. She has been having to use a cane for ambulation but denies recent falls. She denies back pain, saddle anesthesia, and loss of bowel or bladder function. We discussed options such as being seen again by pain management, PT/OT, and likely rehab stay, she is in agreement with all. Please refer to Dr. Lake's attestation for any changes to the treatment plan Allergies Allergy/AdvReac Type Severity Reaction Status Date / Time ether Allergy Severe Anaphylaxis Verified 06/18/22 15:09 Home Medications Medication Instructions Recorded Confirmed Type calcium carbonate 600 mg calcium 600 mg PO BID 11/01/18 06/18/22 History (1,500 mg) tablet albuterol sulfate 90 mcg/actuation 2 puffs inhalation Q4H PRN COPD #1 12/05/18 06/18/22 Rx aerosol inhaler g zoledronic acid 5 mg/100 mL in 1 ea IV YEARLY 11/14/20 06/18/22 History mannitol 5 %-water intravenous piggybck (Reclast) buspirone 5 mg tablet 5 mg PO QAM PRN Anxiety 02/24/21 06/18/22 History atorvastatin 20 mg tablet 20 mg PO QAM #90 tabs 04/14/22 06/18/22 Rx lidocaine 5 % topical patch 2 patch topical DAILY PRN pain 05/19/22 06/18/22 Rx (scale score 7-10) #30 ea amitriptyline 25 mg tablet 25 mg PO HS #30 tabs 06/03/22 06/18/22 Rx duloxetine 30 mg capsule,delayed 30 mg PO DAILY 06/18/22 06/18/22 History release gabapentin 800 mg tablet 800 mg PO TID #90 tabs 06/18/22 06/18/22 Rx hydrocodone 10 mg-acetaminophen 1 tab PO Q6H PRN pain #90 tabs 06/18/22 06/18/22 Rx 325 mg tablet valacyclovir 500 mg tablet 500 mg PO DAILY #30 tabs 06/18/22 06/18/22 Rx Past Med/Surg History Medical History Acid reflux Allergic rhinitis Anxiety and depression Asbestos exposure COPD (chronic obstructive pulmonary disease) DJD (degenerative joint disease) HTN (hypertension) Per records- pt denies - "diet controlled" per PCP Invasive lobular carcinoma of breast in female (12/21/19) Left- dx'ed Jan 2020. S/p bilateral mastectomy with reconstruction - XRT completed 07/2020 Lumbar spinal stenosis MRSA (methicillin resistant staph aureus) culture positive 09/18/20 Left Breast Osteoporosis with fracture Paroxysmal atrial fibrillation Solitary event in May 2012- loop recorder placed in 2017- no recurrence of a fib noted. Pt currently on ASA . 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 Cronin) History of cataract surgery (~01/2020) bilateral History of colonoscopy (2019) History of esophagogastroduodenoscopy (EGD) (~2004) History of total hip replacement (2009) Right S/P breast reconstruction, bilateral (02/26/20) tissue expanders S/P decompression of ulnar nerve (2005) RUE s/p surgery x2 S/P epidural steroid injection (1997) lumbar S/P mastectomy, bilateral (02/26/20) Bilateral Breast Mastectomy with Left [place] Lymph Node Biopsies(Bilateral) - Иван Herzog DO s Removal of Loop Recorder(Left) - DO Dr. Иван Grant 02/26/2020 S/P total hysterectomy and bilateral salpingo-oophorectomy (1994) Status post placement of implantable loop recorder (2017) Removed during bilat mastectomies 02/26/2020 Family History Mother , Passed age 77 of kidney failure/liver cancer Liver cancer Diabetes Heart disease Hypertension Stroke Father , Passed in 50's of COPD / Black Lung Emphysema lung Uncle Prostate cancer Aunt , Passed in 50's of brain cancer No problems noted. Aunt Lung cancer Sister No problems noted. Sister No problems noted. Sister No problems noted. Son No problems noted. Son No problems noted. 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 Required: No Beliefs That Will Affect Care: None marital status: Life Partner Current Living Situation: Significant Other Current Living Situation Comment: Boyfriend lives with patient 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 Other Information That Helps Us Care for You: No Feels Safe at Home: Yes Safety Concerns: Feels Safe At This Time Childhood Exposure to Second-Hand Smoke: Yes Diet Comment: regular caffeine: Yes (2 cups of coffee/day ) during the past year weight has: remained stable Dental Care, Regularly: Yes Physical Activity Frequency: Daily Physical Activity Frequency Comment: walking Seatbelt Use: always Sunscreen Use: No Assistive Devices: Cane, CPAP and Walker Physical Exam Physical Exam: Physical Exam: General: In no acute distress, stated age, chronically ill appearing HEENT: Normocephalic, atraumatic, no scleral icterus, pupils around round, symmetrical, and reactive to light, moist mucus membranes, trachea midline, no thyromegaly Chest/Pulm: No respiratory distress, symmetrical chest expansion, expiratory wheezing throughout Cardiac: RRR, no murmurs noted Abdomen: Negative for ascites and bruising, normoactive bowel sounds, soft, non-tender to palpation throughout Musculoskeletal: Symmetrical and without signs of acute trauma, upper extremities with symmetrical and intact ROM, LLE with intact ROM, RLE without acute trauma, no pain with passive ROM of the Right hip, knee, and ankle Extremities: Radial, dorsalis pedis, and posterior tibial pulses are intact and symmetrical, no edema noted in the BL LE's Skin: Warm, dry, no rashes , lesions, or scars noted, previous herpetic rash has resoled, bandage noted on the right buttocks from injection received at PCP's office this am Neuro: Alert and oriented to person, place, month, year, and president, no focal defects, CN II-XII tested and intact, finger to nose test negative, no tremors noted, decreased strength througout the RLE compared to left with active ROM, 1+ patellar and Achilles reflexes Psych: No acute distress, calm and cooperative during the exam Results & Data Results & Data Vital Signs (Past 12 Hours) Vital Signs Temp Pulse Pulse Resp BP BP Pulse Ox 06/18/22 13:58 100 H 16 144/87 H 88 L 06/18/22 12:25 98 H 06/18/22 10:31 36.8 C 98 H 18 137/71 93 O2 Del Method 06/18/22 13:58 Room Air 06/18/22 12:25 06/18/22 10:31 Room Air Laboratory Results Abnormal lab results 06/18/22 06/18/22 Range/Units 10:49 10:49 MCH 35.3 H (25.0-34.0) pg MCHC 36.1 H (32.0-36.0) g/dL RDW Std Deviation 51.3 H (36.4-46.3) fL MPV 9.1 L (9.4-12.4) fL Lymph # (Auto) 0.39 L (1.2-3.4) K/uL Sodium 134 L (136-145) mmol/L Creatinine 0.51 L (0.6-1.2) mg/dl Glucose 113 H (70-99(Fasting)) mg/dl Diagnostic Findings Hip/Pelvis X-Ray 06/18/22 10:46 XR hip RT 2V w pelvis CLINICAL HISTORY: Atraumatic pain. COMPARISON: Head CT January 17, 2020. Pelvis and right radiographs May 01, 2022. FINDINGS: Sacroiliac joints and symphysis pubis are intact. No acute fracture within the pelvis or hips. Right hip arthroplasty is intact with no periprosthetic fracture or lucency. IMPRESSION: 1. No acute fracture within the pelvis or hips. 2. Intact total right hip arthroplasty. No periprosthetic fracture or lucency. ACT 112: Negative or not required by law. Electronically signed by: Ramirez Jang M.D. 06/18/2022 12:12 PM Knee X-Ray 06/18/22 10:46 XR knee RT 1 or 2V routine CLINICAL HISTORY: acute on chronic right knee pain COMPARISON STUDY: Right knee 05/01/2022. FINDINGS: Mild tricompartmental osteoarthritis again noted within the right knee. The bones are slightly osteopenic. No significant knee effusion. No soft tissue swelling. No acute fracture or dislocation. No radiopaque foreign bodies. IMPRESSION: Mild osteoarthritis within the right knee again noted. No acute fractures. ACT 112: Negative or not required by law. Electronically signed by: Caden Robertson M.D. 06/18/2022 12:01 PM Venous Doppler Study 06/18/22 10:47 US venous doppler LE RT CLINICAL HISTORY: pain eval for dvt TECHNIQUE: Right lower extremity real-time compression venous ultrasound with Color Doppler imaging. Utilizing real-time ultrasonic imaging multiple real time high-resolution ultrasonic images with compression and noncompression maneuvers of the deep venous system in addition to color doppler imaging were performed from the common femoral vein through the proximal calf veins. COMPARISON: None available at the time of this dictation. FINDINGS/IMPRESSION: Currently there is normal compressibility of the deep venous system from the common femoral vein through the proximal calf veins. No superficial venous thrombosis is identified. ACT 112: Negative or not required by law. Electronically signed by: Kb Krueger M.D. 06/18/2022 11:[address] 06/18/22 13:29 CT head/brain wo con CLINICAL HISTORY: R LE weakness x 3 days Technique: Contiguous axial CT images of the head were acquired from the base of the skull to the vertex without intravenous contrast administration. Images were viewed in brain, subdural and bone windows. Automated dose lowering techniques and/or adjustment according to patient size were utilized for this exam. Comparison: Comparison is made to CT head 08/21/2017 Findings: Areas of decreased attenuation are present in the periventricular and subcortical white matter bilaterally consistent with small vessel ischemic disease. Generalized cerebral atrophy with commensurate enlargement of the ventricles, sulci, and cisterns is also present. There is no acute intracranial hemorrhage or evidence of acute territorial infarction. No shift of the midline structures, mass effect, or extra-axial abnormalities are shown. Atherosclerotic calcifications are present in the intracranial segments of the internal carotid arteries. Imaged portions of the paranasal sinuses and mastoid air cells are clear. The orbits appear normal. There are no acute fractures of the calvaria or scalp swelling. Impression: No acute intracranial hemorrhage, no evidence of acute territorial infarction or other acute intracranial disease process. ACT 112: Negative or not required by law. Electronically signed by: Kb Krueger M.D. 06/18/2022 1:55 PM Code Status & VTE Plan Code Status Full code VTE Prophylaxis Plan VTE Prophylaxis will be ordered: Yes Supervising Physician Co-Signing Physician Notes I personally saw and examined the patient. I verified all hernandez points and agree with Dharmesh Bañuelos PA-C with the following exceptions and/or additions: 66 year old female who presents to the ER with right lower extremity pain since prior diagnosis of shingles. O/E HS RRR, no murmurs, Chest CTAB, Abdo SNT, power, RLE 5/5 throughout, left hip flex 3/5 knee flex/ext 4+/5, ankle dorsiflex/plantarflex 4+/5, L5 dermatomal distribution pain A/P Post herpetic neuralgia - gabapentin, acetaminophen, consult pain management. Do not suspect radiculopathy based on prior MRI lumbar spine. Right leg weakness - mainly with hip flexion, ?due to disuse, this would be unusually late onset for a weakness due to shingles, recommend PT/OT assessments PG Care Time/CCT Total # of Minutes Spent Total Time Spent with Patient: Total time spent is greater than 50% in coordination of care (as documented) at patient's floor/unit and/or counseling patient: Coding [place] [address] INT INP/OBS CARE 2/55MIN Patient Type Established Medical Decision Making Moderate Complexity Diagnoses Ambulatory dysfunction R26.2 Malignant neoplasm of upper-outer quadrant of left breast in female, estrogen receptor positive C50.412; Z17.0 Sleep apnea G47.30 HTN (hypertension) I10 COPD (chronic obstructive pulmonary disease) J44.9 Anxiety and depression F41.9; F32.9 Acid reflux K21.9
[2022-06-18] MEDS ORDERED: LIDOCAINE 5% 1 PATCH TD ONE (15:30)
[2022-06-18] MEDS ORDERED: FAMOTIDINE 20 MG TAB PO ONE (15:45)
[2022-06-18] MEDS ORDERED: busPIRone 5 MG TAB PO PRN (16:02)
[2022-06-18] MEDS: ACETAMINOPHEN 325 MG TAB PO SCH ×2 (16:37→20:21)
[2022-06-18] MEDS: ENOXAPARIN INJ 40 MG/0.4 ML SYR SQ SCH (16:38)
[2022-06-18] MEDS ORDERED: ALBUT/IPRATROP 3MG/0.5MG NEB 3 ML VIAL NEB SCH (19:00)
[2022-06-18] MEDS: MoRPHine SULFATE 2 MG/ML CARP IV PRN (19:26)
[2022-06-18] MEDS ORDERED: ALBUT/IPRATROP 3MG/0.5MG NEB 3 ML VIAL NEB PRN (20:12)
[2022-06-18] MEDS: AMITRIPTYLINE HCL 25 MG TAB PO SCH (20:21)
[2022-06-18] MEDS: GABAPENTIN 800 MG TAB PO SCH (20:21)
[2022-06-19] MEDS: MoRPHine SULFATE 2 MG/ML CARP IV PRN ×5 (00:18→22:39)
[2022-06-19] MEDS: ACETAMINOPHEN 325 MG TAB PO SCH ×4 (03:42→20:25)
[2022-06-19 06:48] LABS: Hematocrit (blood only) 40.3 % (37.0-47.0); Hemoglobin 14.3 g/dl (12.0-16.0); Mean Corpuscular Hemoglobin 34.6 pg (25.0-34.0); Mean Corpuscular Hgb Conc 35.5 g/dL (32.0-36.0); Mean Corpuscular Volume 97.6 fL (80.0-100.0); Mean Platelet Volume 9.4 fL (9.4-12.4); Platelet Count 218 K/uL (130-400); RDW Coefficient of Variation 13.9 % (11.5-14.5); RDW Standard Deviation 49.7 fL (36.4-46.3); Red Blood Count 4.13 M/uL (4.20-5.40); White Blood Count 3.87 K/ul (4.8-10.8)
[2022-06-19 07:15] LABS: Calcium 8.5 mg/dl (8.6-10.3); Creatinine Clr Calc Pharmacy 89.1 ml/min; Est GFR (African American) 115.3 ml/min; Est GFR (Non-African American) 99.4 ml/min; Potassium 3.9 mmol/L (3.5-5.1)
--- NOTE | 2022-06-19 08:00 | Hospitalist Progress Note ---
Date of Service June 19, 2022 Assessment & Plan (1) Ambulatory dysfunction: Plan: Venous Doppler negative for DVT Xray Right Knee w/ mild OA, no acute fractures CT head negative ?related to recent shingles/deconditioning Prior lumbar spine w/o significant stenosis, no back pain reported Continued gabapentin, amitripyline IV morphine/tylenol available PT/OT Pain management consulted -- appreciate recs Check B12/folate given MCV borderline, check Lyme testing Has pain reported with internal/external rotation hip, prior repair Dr Spears ~2009 Ortho consulted, rec CT hip -- pending DVT proph: Lovenox SQ while inpatient (2) COPD (chronic obstructive pulmonary disease): Plan: Was stable on room air but did require some supplemental O2 -- on RA this morning CXR w/ increased size R pleural effusion, R basilar densities, R density unchanged ?related to calcified pleural plaques Continue incentive spirometer, flutter valve, duonebs Monitor for any sputum production/COPD exacerbation -- of note, was given IV solumedrol in the ER Supplemental O2 as needed (3) Malignant neoplasm of upper-outer quadrant of left breast in female, estrogen receptor positive: Plan: Follows with Oncology Currently on Tamoxifen therapy No clonus on exam, CT head negative. Could consider MRI but seems isolated -- see above (4) Sleep apnea: Plan: HS CPAP (5) HTN (hypertension): Plan: Stable and not on any meds at home (6) Anxiety and depression: Plan: Continue Duloxetine and Prn Buspirone (7) Acid reflux: Plan: Daily pepcid added while inpatient Plan PT/OT consults pending, pain management/ortho consults and CT of hip for further eval Admission and Anticipated Discharge Date Admission Date: June 18, 2022 Supervising Physician Co-Signing Physician Notes The patient was not seen by me. The chart was reviewed. Case discussed with DIGNA Thurston. Agree with assessment and plan Subjective Eval this morning, pain controlled at present. Reports having some pain for about 62 days, herpes lesions have healed, no obvious lesions on exam. No calf tenderness. States before she came she was barely able to get up/walk around, not sure if meds or not. Discussed checking B12/folate/Lyme testing, but also consideration for imaging of her right hip. She notes this side is the side of her prior replacement, done by Dr Spears, around 2009. She has RIGHT weakness with plantar flexion compared to the right. MRI lumbar spine prior w/o acute abnormality. Had oxygen on initially but not short of breath/hypoxic at present. Discussed checking imaging, but will touch base w/ ortho prior to ordering to see if they would prefer CT vs MRI. Physical Exam Physical Exam: General: WD/WN female sitting in bed, no acute distress HEENT; head normocephalic, atraumatic, mmm, trachea midline Resp: diminished in the bases, fine bibasilar crackles, faint expiratory wheezing, on room air CV: RRR, no significant m/r, no pitting edema/calf tenderness GI: +BS, soft/NT : no perdomo MSK/Neuro: prior herpetic rash resolved, pain with external/internal rotation at the hip, decreased RLEplantar flexion compared to the left, NVI Psych: AOx3, cooperative with exam Results & Data Results & Data Vital Signs (Past 12 Hours) Vital Signs Temp Pulse Resp BP Pulse Ox O2 Del Method O2 Flow Rate 06/19/22 07:11 36.6 C 96 H 18 145/72 H 95 Room Air 06/18/22 20:55 37.3 C 104 H 16 93 Nasal Cannula 2 Laboratory Results 06/19/22 06/19/22 06/18/22 Range/Units 05:22 05:22 13:52 WBC 3.87 L (4.8-10.8) K/ul RBC 4.13 L (4.20-5.40) M/uL Hgb 14.3 (12.0-16.0) g/dl Hct 40.3 (37.0-47.0) % MCV 97.6 (80.0-100.0) fL MCH 34.6 H (25.0-34.0) pg MCHC 35.5 (32.0-36.0) g/dL RDW Std Deviation 49.7 H (36.4-46.3) fL RDW Coeff of Gita 13.9 (11.5-14.5) % Plt Count 218 (130-400) K/uL MPV 9.4 (9.4-12.4) fL Immature Gran % (Auto) % Neut % (Auto) % Lymph % (Auto) % [place] % (Auto) % Eos % (Auto) % Baso % (Auto) % Neut # (Auto) (1.40-6.50) K/uL Lymph # (Auto) (1.2-3.4) K/uL [place] # (Auto) (0.11-0.59) K/uL Eos # (Auto) (0-0.50) K/uL Baso # (Auto) (0-0.2) K/uL Immature Gran # (Auto) (0.01-0.20) K/uL Sodium 136 (136-145) mmol/L Potassium 3.9 (3.5-5.1) mmol/L Chloride 103 (98-107) mmol/L Carbon Dioxide 27 (21-32) mmol/L Anion Gap 6 (3-11) BUN 12 (6-23) mg/dl Creatinine 0.50 L (0.6-1.2) mg/dl Est Cr Clr Drug Dosing 89.1 ml/min Est GFR ( Amer) 115.3 ml/min Est GFR (Non-Af Amer) 99.4 ml/min BUN/Creatinine Ratio 24.0 H (10-20) Glucose 144 H (70-99(Fasting)) mg/dl Calcium 8.5 L (8.6-10.3) mg/dl Total Bilirubin (0.2-1.0) mg/dl AST (13-39) U/L ALT (7-52) U/L Alkaline Phosphatase (34-104) U/L Total Protein (6.0-8.3) gm/dl Albumin (3.4-5.0) gm/dl Globulin (2.5-4.0) gm/dl Albumin/Globulin Ratio (0.9-2) SARS-CoV-2, RNA, NAAT NEGATIVE (NEGATIVE) 06/18/22 06/18/22 Range/Units 10:49 10:49 WBC 6.86 (4.8-10.8) K/ul RBC 4.51 (4.20-5.40) M/uL Hgb 15.9 (12.0-16.0) g/dl Hct 44.1 (37.0-47.0) % MCV 97.8 (80.0-100.0) fL MCH 35.3 H (25.0-34.0) pg MCHC 36.1 H (32.0-36.0) g/dL RDW Std Deviation 51.3 H (36.4-46.3) fL RDW Coeff of Gita 14.1 (11.5-14.5) % Plt Count 220 (130-400) K/uL MPV 9.1 L (9.4-12.4) fL Immature Gran % (Auto) 0.4 % Neut % (Auto) 90.8 % Lymph % (Auto) 5.7 % [place] % (Auto) 2.5 % Eos % (Auto) 0.3 % Baso % (Auto) 0.3 % Neut # (Auto) 6.23 (1.40-6.50) K/uL Lymph # (Auto) 0.39 L (1.2-3.4) K/uL [place] # (Auto) 0.17 (0.11-0.59) K/uL Eos # (Auto) 0.02 (0-0.50) K/uL Baso # (Auto) 0.02 (0-0.2) K/uL Immature Gran # (Auto) 0.03 (0.01-0.20) K/uL Sodium 134 L (136-145) mmol/L Potassium 4.1 (3.5-5.1) mmol/L Chloride 99 (98-107) mmol/L Carbon Dioxide 26 (21-32) mmol/L Anion Gap 9 (3-11) BUN 8 (6-23) mg/dl Creatinine 0.51 L (0.6-1.2) mg/dl Est Cr Clr Drug Dosing 87.3 ml/min Est GFR ( Amer) 114.5 ml/min Est GFR (Non-Af Amer) 98.8 ml/min BUN/Creatinine Ratio 15.7 (10-20) Glucose 113 H (70-99(Fasting)) mg/dl Calcium 9.2 (8.6-10.3) mg/dl Total Bilirubin 0.6 (0.2-1.0) mg/dl AST 16 (13-39) U/L ALT 8 (7-52) U/L Alkaline Phosphatase 73 (34-104) U/L Total Protein 7.0 (6.0-8.3) gm/dl Albumin 4.4 (3.4-5.0) gm/dl Globulin 2.6 (2.5-4.0) gm/dl Albumin/Globulin Ratio 1.7 (0.9-2) SARS-CoV-2, RNA, NAAT (NEGATIVE) Diagnostic Findings Head CT 06/18/22 13:29 CT head/brain wo con CLINICAL HISTORY: R LE weakness x 3 days Technique: Contiguous axial CT images of the head were acquired from the base of the skull to the vertex without intravenous contrast administration. Images were viewed in brain, subdural and bone windows. Automated dose lowering techniques and/or adjustment according to patient size were utilized for this exam. Comparison: Comparison is made to CT head 08/21/2017 Findings: Areas of decreased attenuation are present in the periventricular and subcortic al white matter bilaterally consistent with small vessel ischemic disease. Generalized cerebral atrophy with commensurate enlargement of the ventricles, sulci, and cisterns is also present. There is no acute intracranial hemorrhage or evidence of acute territorial infarction. No shift of the midline structures, mass effect, or extra-axial abnormalities are shown. Atherosclerotic calcifications are present in the intracranial segments of the internal carotid arteries. Imaged portions of the paranasal sinuses and mastoid air cells are clear. The orbits appear normal. There are no acute fractures of the calvaria or scalp swelling. Impression: No acute intracranial hemorrhage, no evidence of acute territorial infarction or other acute intracranial disease process. ACT 112: Negative or not required by law. Electronically signed by: Kb Krueger M.D. 06/18/2022 1:55 PM Chest X-Ray 06/19/22 09:23 XR chest 1V portable HISTORY: hypoxia COMPARISON: Chest 11/14/2009. FINDINGS: No pneumothorax. A small right pleural effusion and right basilar densities have progressed. The left lung is clear. The cardiac silhouette is top normal in size. Right perihilar density remains unchanged and likely corresponds to the calcified pleural plaques. No evidence for pulmonary edema. IMPRESSION: 1. Increase in size in the small right pleural effusion and right basilar densities. 2. Right perihilar density remains unchanged and corresponds to the patient's calcified pleural plaques. ACT 112: Negative or not required by law. Electronically signed by: Caden Robertson M.D. 06/19/2022 11:04 AM PG Care Time/CCT Total # of Minutes Spent Total Time Spent with Patient: Total time spent is greater than 50% in coordination of care (as documented) at patient's floor/unit and/or counseling patient: Coding Level of Care Code 83780 SUB INP/OBS CARE 50MIN Diagnoses Ambulatory dysfunction R26.2 COPD (chronic obstructive pulmonary disease) J44.9 Malignant neoplasm of upper-outer quadrant of left breast in female, estrogen receptor positive C50.412; Z17.0 Sleep apnea G47.30 HTN (hypertension) I10 Anxiety and depression F41.9; F32.9 Acid reflux K21.9
[2022-06-19] MEDS: GABAPENTIN 800 MG TAB PO SCH ×3 (08:40→20:25)
[2022-06-19] MEDS: ATORVASTATIN 20 MG TAB PO SCH (08:41)
[2022-06-19] MEDS: DULoxetine HCL 30 MG CAP PO SCH (08:41)
[2022-06-19] MEDS: FAMOTIDINE 20 MG TAB PO SCH (08:51)
[2022-06-19 10:05] LABS: Lyme Ab IgG w/WB Rflx Negative (Negative); Lyme Ab IgM w/WB Rflx Negative (Negative)
[2022-06-19 10:27] LABS: Appearance Urine Clear (Clear); Bilirubin Urine Negative (Negative); Blood Urine Negative (Negative); Color Urine Yellow; Glucose Urine UA Negative (Negative); Ketones Urine Trace (Negative); Leukocyte Esterase Urine Negative (Negative); Nitrite Urine Negative (Negative); Protein Urine Negative (Negative); Specific Gravity Urine 1.025 (1.000-1.030); Urobilinogen Urine Negative (Negative); pH Urine 6.5 (4.5-7.5)
--- NOTE | 2022-06-19 11:05 | XRay Report ---
XR chest 1V portable HISTORY: hypoxia COMPARISON: Chest 11/14/2009. FINDINGS: No pneumothorax. A small right pleural effusion and right basilar densities have progressed . The left lung is clear. The cardiac silhouette is top normal in size. Right perihilar density remai ns unchanged and likely corresponds to the calcified pleural plaques. No evidence for pulmonary edema . IMPRESSION: 1. Increase in size in the small right pleural effusion and right basilar densities. 2. Right perihilar density remains unchanged and corresponds to the patient's calcified pleural plaqu es. ACT 112: Negative or not required by law. Electronically signed by: Caden Robertson M.D. 06/19/2022 11:04 AM
--- NOTE | 2022-06-19 12:21 | Pain Management Consultation ---
Date of Consultation June 19, 2022 Assessment & Plan (1) Ambulatory dysfunction: (2) Post herpetic neuralgia: Plan 1. Continue Gabapentin 800mg TID and Amitriptyline 25mg HS. 2. Could consider switching from Gabapentin onto Lyrica. 3. Oxycodone 5-10 mg x 6 hours PO ordered for pain. 4. Minimize use of IV Morphine for breakthrough pain only. 5. There is increased pain with right hip ROM and a prior history of hip replacement. Orthopedics to evaluate. Patient does not have any back pain and lumbar MRI has mild changes to where her symptoms would be out of proportion to etiology. 6. PT/OT for right leg strengthening. 7. Could consider lumbar epidural injection for post herpetic neuralgia pain but symptoms do also appear out of proportion to etiology as well. Thank you for the consultation. History of Present Illness Attending Physician: Rudy Arita MD History of Present Illness Mrs. Vinson is a 66 year old female that has been admitted to the [facility] for right leg pain and weakness. She was previously admitted on 04/20-05/01/22 for right leg pain due to shingles eruption. The rash has since resolved but she continues to describe a constant shooting and burning pain along the right buttock into the medial thigh and anterior lower leg. The pain will wax and wane. Worst with hip ROM. There is no back pain. Patient states that with the pain she has not been as mobile as she typically is. Outpatient she has been on Gabapentin 800mg TID, Amitriptyline 25mg HS, and Hydrocodone 10/325mg x 6 hours without relief. Since discharge on 05/01/22 she has been seen again in the ED 05/01/22 and received IV Dexamethasone, IV Morphine, Tylenol, and discharged on Prednisone and Hydrocodone. PCP office 05/05/22 oral steroids, continue Gabapentin, lidocaine, and Hydrocodone. PCP Office 05/19/22 IM Methylprednisolone, IM Toradol, Prednisone taper, Amitriptyline. PCP office 05/25/22 Toradol IM. PCP office 06/18/22 increased leg weakness and pain in leg - using nonmotorized wheelchair. Case discussed with Dr. Kanwal Salazar Allergies Allergy/AdvReac Type Severity Reaction Status Date / Time ether Allergy Severe Anaphylaxis Verified 06/18/22 15:09 Home Medications Medication Instructions Recorded Confirmed Type calcium carbonate 600 mg calcium 600 mg PO BID 11/01/18 06/18/22 History (1,500 mg) tablet albuterol sulfate 90 mcg/actuation 2 puffs inhalation Q4H PRN COPD #1 12/05/18 06/18/22 Rx aerosol inhaler g zoledronic acid 5 mg/100 mL in 1 ea IV YEARLY 11/14/20 06/18/22 History mannitol 5 %-water intravenous piggybck (Reclast) buspirone 5 mg tablet 5 mg PO QAM PRN Anxiety 02/24/21 06/18/22 History atorvastatin 20 mg tablet 20 mg PO QAM #90 tabs 04/14/22 06/18/22 Rx lidocaine 5 % topical patch 2 patch topical DAILY PRN pain 05/19/22 06/18/22 Rx (scale score 7-10) #30 ea amitriptyline 25 mg tablet 25 mg PO HS #30 tabs 06/03/22 06/18/22 Rx duloxetine 30 mg capsule,delayed 30 mg PO DAILY 06/18/22 06/18/22 History release gabapentin 800 mg tablet 800 mg PO TID #90 tabs 06/18/22 06/18/22 Rx hydrocodone 10 mg-acetaminophen 1 tab PO Q6H PRN pain #90 tabs 06/18/22 06/18/22 Rx 325 mg tablet valacyclovir 500 mg tablet 500 mg PO DAILY #30 tabs 06/18/22 06/18/22 Rx Patient History Medical History Acid reflux Allergic rhinitis Anxiety and depression Asbestos exposure COPD (chronic obstructive pulmonary disease) DJD (degenerative joint disease) HTN (hypertension) Per records- pt denies - "diet controlled" per PCP Invasive lobular carcinoma of breast in female (12/21/19) Left- dx'ed Jan 2020. S/p bilateral mastectomy with reconstruction - XRT completed 07/2020 Lumbar spinal stenosis MRSA (methicillin resistant staph aureus) culture positive 09/18/20 Left Breast Osteoporosis with fracture Paroxysmal atrial fibrillation Solitary event in May 2012- loop recorder placed in 2017- no recurrence of a fib noted. Pt currently on ASA . Loop recorder has since been removed in Feb 2020 Polyneuropathy Sleep apnea occasionally wears CPAP Surgical History H/O hernia repair (2002) umbilical History of breast surgery (~03/25/20) excision/closure of bilateral masectomy scar revision History of breast surgery (09/25/20) Left Breast Tissue Gauge And Weigh Machine Adjuster Removal with Capsulectomy (Dr. Cronin) History of cataract surgery (~01/2020) bilateral History of colonoscopy (2019) History of esophagogastroduodenoscopy (EGD) (~2004) History of total hip replacement (2009) Right S/P breast reconstruction, bilateral (02/26/20) tissue expanders S/P decompression of ulnar nerve (2005) RUE s/p surgery x2 S/P epidural steroid injection (1997) lumbar S/P mastectomy, bilateral (02/26/20) Bilateral Breast Mastectomy with Left [place] Lymph Node Biopsies(Bilateral) - Иван Herzog DO s Removal of Loop Recorder(Left) - DO Dr. Иван Grant 02/26/2020 S/P total hysterectomy and bilateral salpingo-oophorectomy (1994) Status post placement of implantable loop recorder (2017) Removed during bilat mastectomies 02/26/2020 Family History Mother , Passed age 77 of kidney failure/liver cancer Liver cancer Diabetes Heart disease Hypertension Stroke Father , Passed in 50's of COPD / Black Lung Emphysema lung Uncle Prostate cancer Aunt , Passed in 50's of brain cancer No problems noted. Aunt Lung cancer Sister No problems noted. Sister No problems noted. Sister No problems noted. Son No problems noted. Son No problems noted. Other No family history of adverse response to anesthesia Denies family history of Ovarian cancer Myocardial infarction Breast cancer Colorectal cancer Social History Smoking Status: Current every day smoker Tobacco Type: Cigarettes packs per day: 2; Second Hand Exposure: Yes; Do You Dip or Chew Tobacco: No; Hx Alcohol Use: Yes Alcohol type: hard liquor Alcohol Intake Frequency: Monthly or Less Hx Substance Use: No Preferred Language: Iranian Communication Ability: Effective Visual Impairment: Limited Hearing Ability: Normal Drum Drier Required: No Beliefs That Will Affect Care: None marital status: Life Partner Current Living Situation: Significant Other Current Living Situation Comment: Boyfriend lives with patient 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 Difficult to awaken. When awoken she does not appear in any acute distress. HEAD/FACE: Normocephalic and atraumatic. EYES: No drainage or conjunctival injection. ENT: Nose without bleeding or discharge. Oral mucosa moist. NECK: Full ROM without apparent pain. No swelling or masses noted. RESPIRATORY: Patient with unlabored breathing. No signs of respiratory distress. CHEST/AXILLA: Chest movement symmetrical. No deformities noted. BACK: Moves without difficulty. No midline, facet joint, SI joint tenderness. No myofascial spasm or trigger points noted. SKIN: [place], warm and dry. No rash noted. MS/EXTREMITY: 4/5 strength of the right lower extremity, 5/5 strength of the left. Increased pain with right hip ROM. Negative striaght leg raise. NEURO: Alert and appears oriented. Speech is fluent. Cranial Nerves are grossly intact. PSYCH: Alert, pleasant, affect is calm Results (Pain Clinic) Diagnostic Review MRI Findings: MRI OF THE LUMBAR SPINE WITHOUT CONTRAST CLINICAL HISTORY: Right-sided radiculopathy. COMPARISON STUDY: Lumbar spine CT April 21, 2022. TECHNIQUE: Utilizing a 1.5 Tasha magnet and dedicated coil, multiplanar, multiecho imaging of the lumbar spine was performed without IV contrast. FINDINGS: For purposes of numbering on this exam, the L5-S1 disc space is assigned to ax ial image 29 of 32. There is minimal rightward curvature of the lumbar spine. Vertebral body heights are maintained. No suspicious marrow replacement is present. The conus terminates at the L1-L2 level. Paravertebral soft tissues are unremarkable. There is no lumbar spine fracture. L1-2: The central canal and neural foramen are patent. L2-3: The central canal and neural foramen are patent. L3-4: There is mild facet arthrosis. The central canal and neural foramen are patent. There is minimal disc bulge. L4-5: Moderate disc space narrowing is noted with mild disc bulge. There is facet arthrosis. There is mild during of the central canal and lateral recesses. The neural foramen are patent. L5-S1: There is mild disc space narrowing with disc bulge and facet arthrosis. The central canal is patent. There is mild narrowing of the lateral recesses and the right neural foramen. The left neural foramen is patent. IMPRESSION: 1. Mild multilevel degenerative changes within the lumbar spine. No significant central canal stenosis. Mild multilevel neural foraminal narrowing. 2. No large disc herniations. ACT 112: Negative or not required by law. Electronically signed by: Ramirez Jang M.D. 04/22/2022 1:53 PM
--- NOTE | 2022-06-19 13:41 | CT Scan Report ---
CT hip RT wo con CLINICAL HISTORY: ambulatory dysfunction, prior replace, ?imping TECHNIQUE: Multidetector row helical CT of the right hip was performed without intravenous contrast. Coronal and sagittal reformations were obtained. Automated dose lowering techniques and/or adjustment according to patient size were utilized for this examination. Comparison: Comparison is made to hip radiographs 06/18/2022 FINDINGS: The osseous structures are without fracture or dislocation. Patient is status post total hip arthropl asty. It is accordingly difficult to ascertain acetabular version angle to exclude pincer-type imping ement however no david abnormality is seen. No joint effusion is seen. Fat-containing right inguinal hernia noted. IMPRESSION: Patient is status post total hip arthroplasty without evidence of hardware failure or david evidence of femoroacetabular impingement. ACT 112: Negative or not required by law. Electronically signed by: Kb Krueger M.D. 06/19/2022 1:39 PM
[2022-06-19] MEDS: oxyCODONE HCL IR 5 MG TAB (IMMEDIATE RELEASE) PO PRN ×2 (16:44→23:57)
[2022-06-19] MEDS: ENOXAPARIN INJ 40 MG/0.4 ML SYR SQ SCH (16:45)
[2022-06-19] MEDS: AMITRIPTYLINE HCL 25 MG TAB PO SCH (20:25)
[2022-06-19] MEDS: LIDOCAINE 5% 1 PATCH TD SCH (20:25)
[2022-06-20] MEDS: ACETAMINOPHEN 325 MG TAB PO SCH ×4 (02:41→20:44)
[2022-06-20] MEDS: MoRPHine SULFATE 2 MG/ML CARP IV PRN ×2 (04:42→08:17)
[2022-06-20] MEDS: oxyCODONE HCL IR 5 MG TAB (IMMEDIATE RELEASE) PO PRN (05:57)
[2022-06-20 06:03] LABS: Hematocrit (blood only) 40.1 % (37.0-47.0); Hemoglobin 14.1 g/dl (12.0-16.0); Mean Corpuscular Hemoglobin 34.8 pg (25.0-34.0); Mean Corpuscular Hgb Conc 35.2 g/dL (32.0-36.0); Mean Platelet Volume 9.3 fL (9.4-12.4); Platelet Count 187 K/uL (130-400); RDW Coefficient of Variation 14.2 % (11.5-14.5); RDW Standard Deviation 51.5 fL (36.4-46.3); Red Blood Count 4.05 M/uL (4.20-5.40); White Blood Count 4.16 K/ul (4.8-10.8)
[2022-06-20 06:16] LABS: Calcium 8.5 mg/dl (8.6-10.3); Creatinine Clr Calc Pharmacy 101.2 ml/min; Est GFR (African American) 120.2 ml/min; Est GFR (Non-African American) 103.7 ml/min; Potassium 3.8 mmol/L (3.5-5.1)
[2022-06-20] MEDS ORDERED: KETOROLAC TROMETHAMINE 15 MG/ML VIAL IV ONE (07:50)
--- NOTE | 2022-06-20 07:54 | Hospitalist Progress Note ---
Date of Service June 20, 2022 Assessment & Plan (1) Post herpetic neuralgia: Plan: presented for ongoing pain control/issues with ambulation since Shingles outbreak in April--> suspect related to recent shingles/post herpetic neuralgia Continued gabapentin, amitriptyline Pain management consulted -- placed on PO oxycodone I did add toradol 15mg IV x 1 this morning, messaged pain management for discussion --> discussed w/ Dr Terrell this AM 06/20 given ongoing 12/22 pain reported (she states was better after steroids in ER, however these not continued) Recs to dc gabapentin and start lyrica 50mg BID, d/c all other opiates and start hydromorphone 0.5mg IV q3h pain, added 2mg PO q4h (can have 4mg q4h per MD, but will start w/ ) Can also consider increasing cymbalta, on 30mg daily Will f/u pain management depending patient symptom control in am for further recommendations (2) Ambulatory dysfunction: Plan: 2nd to above, inadequate pain control Venous Doppler negative for DVT Xray Right Knee w/ mild OA, no acute fractures CT head negative Prior lumbar spine w/o significant stenosis, no back pain reported B12 wnl, Lyme negative CT hip obtained given pain reported w/ internal/external rotation, ortho consulted -- negative, signed off PT/OT, CM following DVT proph: Lovenox SQ while inpatient (3) COPD (chronic obstructive pulmonary disease): Plan: Was stable on room air but did require some supplemental O2 -- on RA this morning -- states uses from time to time at home CXR w/ increased size R pleural effusion, R basilar densities, R density unchanged ?related to calcified pleural plaques Continue incentive spirometer, flutter valve, duonebs Monitor for any sputum production/COPD exacerbation -- of note, was given IV solu-medrol in the ER Supplemental O2 as needed Repeat CXR in AM (4) Malignant neoplasm of upper-outer quadrant of left breast in female, estrogen receptor positive: Plan: Follows with Oncology Currently on Tamoxifen therapy No clonus on exam, CT head negative. (5) Sleep apnea: Plan: HS CPAP (6) HTN (hypertension): Plan: Stable and not on any meds at home (7) Anxiety and depression: Plan: Continue Duloxetine and PRN Buspirone (8) Acid reflux: Plan: Daily pepcid added while inpatient Plan continued inpatient stay Admission and Anticipated Discharge Date Admission Date: June 18, 2022 Supervising Physician Co-Signing Physician Notes The patient was not seen by me. The chart was reviewed. Case discussed with DIGNA Thurston. Agree with assessment and plan Subjective eval this morning, didn't sleep well (has o2 at home, intermittent use/to use CPAP at night but hasn't sent back/doesn't use) continues to have pain, now worse today, 12/22. got steroids in ER, not on presently. ortho saw this morning, no issues w/ hips per their eval/discussion with patient. discussed I reached out to pain management given ongoing/throbbing/burning sensation/likely from her recent shingles and med adjustments made/switching from gabapentin to lyrica and can consider increasing her cymbalta for more control if above not effective. Physical Exam Physical Exam: General: WD/WN female sitting in bed, unable to get comfortable due to reported pain and reporting not slept last night HEENT; head normocephalic, atraumatic, mmm, trachea midline Resp: diminished in the bases, fine bibasilar crackles, , on room air CV: RRR, no significant m/r, no pitting edema/calf tenderness GI: +BS, soft/NT : no perdomo MSK/Neuro: lidoderm patch to R thigh, prior herpetic rash resolved, pain with external/internal rotation at the hip not today but having, constant pain reported independent of hip position, Psych: AOx3 Results & Data Results & Data Vital Signs (Past 12 Hours) Vital Signs Temp Pulse Resp BP Pulse Ox O2 Del Method O2 Flow Rate 06/19/22 20:30 Nasal Cannula 2 06/19/22 20:00 36.3 C L 85 18 149/76 H 97 Nasal Cannula 2 Laboratory Results 06/20/22 06/20/22 06/19/22 Range/Units 05:26 05:26 Unknown WBC 4.16 L (4.8-10.8) K/ul RBC 4.05 L (4.20-5.40) M/uL Hgb 14.1 (12.0-16.0) g/dl Hct 40.1 (37.0-47.0) % MCV 99.0 (80.0-100.0) fL MCH 34.8 H (25.0-34.0) pg MCHC 35.2 (32.0-36.0) g/dL RDW Std Deviation 51.5 H (36.4-46.3) fL RDW Coeff of Gita 14.2 (11.5-14.5) % Plt Count 187 (130-400) K/uL MPV 9.3 L (9.4-12.4) fL Sodium 137 (136-145) mmol/L Potassium 3.8 (3.5-5.1) mmol/L Chloride 102 (98-107) mmol/L Carbon Dioxide 30 (21-32) mmol/L Anion Gap 5 (3-11) BUN 11 (6-23) mg/dl Creatinine 0.44 L (0.6-1.2) mg/dl Est Cr Clr Drug Dosing 101.2 ml/min Est GFR ( Amer) 120.2 ml/min Est GFR (Non-Af Amer) 103.7 ml/min BUN/Creatinine Ratio 25.0 H (10-20) Glucose 94 (70-99(Fasting)) mg/dl Calcium 8.5 L (8.6-10.3) mg/dl Magnesium 2.0 (1.7-2.4) mg/dl Vitamin B12 (180-914) pg/ml Folate (>5.38) ng/ml Urine Color Yellow Urine Appearance Clear (Clear) Urine pH 6.5 (4.5-7.5) Ur Specific [place] 1.025 (1.000-1.030) Urine Protein Negative (Negative) Urine Glucose (UA) Negative (Negative) Urine Ketones Trace H (Negative) Urine Blood Negative (Negative) Urine Nitrite Negative (Negative) Urine Bilirubin Negative (Negative) Urine Urobilinogen Negative (Negative) Ur Leukocyte Esterase Negative (Negative) Lyme Disease IgG Ab (Negative) Lyme Disease IgM Ab (Negative) 06/19/22 06/19/22 Range/Units 08:06 08:06 WBC (4.8-10.8) K/ul RBC (4.20-5.40) M/uL Hgb (12.0-16.0) g/dl Hct (37.0-47.0) % MCV (80.0-100.0) fL MCH (25.0-34.0) pg MCHC (32.0-36.0) g/dL RDW Std Deviation (36.4-46.3) fL RDW Coeff of Gita (11.5-14.5) % Plt Count (130-400) K/uL MPV (9.4-12.4) fL Sodium (136-145) mmol/L Potassium (3.5-5.1) mmol/L Chloride (98-107) mmol/L Carbon Dioxide (21-32) mmol/L Anion Gap (3-11) BUN (6-23) mg/dl Creatinine (0.6-1.2) mg/dl Est Cr Clr Drug Dosing ml/min Est GFR ( Amer) ml/min Est GFR (Non-Af Amer) ml/min BUN/Creatinine Ratio (10-20) Glucose (70-99(Fasting)) mg/dl Calcium (8.6-10.3) mg/dl Magnesium (1.7-2.4) mg/dl Vitamin B12 691 (180-914) pg/ml Folate 10.17 (>5.38) ng/ml Urine Color Urine Appearance (Clear) Urine pH (4.5-7.5) Ur Specific [place] (1.000-1.030) Urine Protein (Negative) Urine Glucose (UA) (Negative) Urine Ketones (Negative) Urine Blood (Negative) Urine Nitrite (Negative) Urine Bilirubin (Negative) Urine Urobilinogen (Negative) Ur Leukocyte Esterase (Negative) Lyme Disease IgG Ab Negative (Negative) Lyme Disease IgM Ab Negative (Negative) Diagnostic Findings Chest X-Ray 06/19/22 09:23 XR chest 1V portable HISTORY: hypoxia COMPARISON: Chest 11/14/2009. FINDINGS: No pneumothorax. A small right pleural effusion and right basilar densities have progressed. The left lung is clear. The cardiac silhouette is top normal in size. Right perihilar density remains unchanged and likely corresponds to the calcified pleural plaques. No evidence for pulmonary edema. IMPRESSION: 1. Increase in size in the small right pleural effusion and right basilar densities. 2. Right perihilar density remains unchanged and corresponds to the patient's calcified pleural plaques. ACT 112: Negative or not required by law. Electronically signed by: Caden Robertson M.D. 06/19/2022 11:[address] 06/19/22 09:33 CT hip RT wo con CLINICAL HISTORY: ambulatory dysfunction, prior replace, ?imping TECHNIQUE: Multidetector row helical CT of the right hip was performed without intravenous contrast. Coronal and sagittal reformations were obtained. Automated dose lowering techniques and/or adjustment according to patient size were utilized for this examination. Comparison: Comparison is made to hip radiographs 06/18/2022 FINDINGS: The osseous structures are without fracture or dislocation. Patient is status post total hip arthroplasty. It is accordingly difficult to ascertain acetabular version angle to exclude pincer-type impingement however no david abnormality is seen. No joint effusion is seen. Fat-containing right inguinal hernia noted. IMPRESSION: Patient is status post total hip arthroplasty without evidence of hardware failure or david evidence of femoroacetabular impingement. ACT 112: Negative or not required by law. Electronically signed by: Kb Krueger M.D. 06/19/2022 1:39 PM PG Care Time/CCT Total # of Minutes Spent Total Time Spent with Patient: Total time spent is greater than 50% in coordination of care (as documented) at patient's floor/unit and/or counseling patient: Coding Level of Care Code 93197 SUB INP/OBS CARE 3/50MIN Diagnoses Post herpetic neuralgia B02.29 Ambulatory dysfunction R26.2 COPD (chronic obstructive pulmonary disease) J44.9 Malignant neoplasm of upper-outer quadrant of left breast in female, estrogen receptor positive C50.412; Z17.0 Sleep apnea G47.30 HTN (hypertension) I10 Anxiety and depression F41.9; F32.9 Acid reflux K21.9
[2022-06-20] MEDS: GABAPENTIN 800 MG TAB PO SCH (08:28)
[2022-06-20] MEDS: ATORVASTATIN 20 MG TAB PO SCH (08:28)
[2022-06-20] MEDS: FAMOTIDINE 20 MG TAB PO SCH (08:28)
[2022-06-20] MEDS: DULoxetine HCL 30 MG CAP PO SCH (08:28)
--- NOTE | 2022-06-20 08:49 | Orthopedic Consultation ---
Date of Consultation June 20, 2022 Assessment & Plan (1) Lower extremity pain, right: She has right thigh pain after shingles rash, with no change in the pain since onset of the rash. Her description of the pain is not consistent with hip joint pathology. Her total hip arthroplasty looks good on x-ray, and has good motion on exam. No change on the x-rays in the past 12 years. No orthopedic intervention required. Recommend pain management for her postherpetic neuralgia. Orthopedics will sign off at this point. Follow-up on an as-needed basis in clinic. History of Present Illness Reason for Consultation: Right hip pain, prior total hip replacement Attending Physician: Rudy Arita MD History of Present Illness Ms. An is a 66-year-old female with right thigh and leg pain for the past "64 days" since early April when she developed shingles. She has a history of a previous hip replacement, and we were consulted to evaluate whether her previous hip replacement could be contributing to her pain. Previous records were reviewed. She underwent a right total hip arthroplasty by Dr. Spears on 12/16/09, and was last seen in our office for follow-up of that surgery on 08/27/10. She reports that she was doing very well with that hip, with no pain and no problems until 64 days ago when she developed a painful rash consistent with shingles. She states that her pain has been exactly the same since onset of that shingles rash. The rash has resolved, but the pain has remained. She reports the pain down the anterior aspect of her thigh. It is constant, and not depending on her hip position or motion. Allergies Allergy/AdvReac Type Severity Reaction Status Date / Time ether Allergy Severe Anaphylaxis Verified 06/18/22 15:09 Home Medications Medication Instructions Recorded Confirmed Type calcium carbonate 600 mg calcium 600 mg PO BID 11/01/18 06/18/22 History (1,500 mg) tablet albuterol sulfate 90 mcg/actuation 2 puffs inhalation Q4H PRN COPD #1 12/05/18 0 06/18/22 Rx aerosol inhaler g zoledronic acid 5 mg/100 mL in 1 ea IV YEARLY 11/14/20 06/18/22 History mannitol 5 %-water intravenous piggybck (Reclast) buspirone 5 mg tablet 5 mg PO QAM PRN Anxiety 02/24/21 06/18/22 History atorvastatin 20 mg tablet 20 mg PO QAM #90 tabs 04/14/22 06/18/22 Rx lidocaine 5 % topical patch 2 patch topical DAILY PRN pain 05/19/22 06/18/22 Rx (scale score 7-10) #30 ea amitriptyline 25 mg tablet 25 mg PO HS #30 tabs 06/03/22 06/18/22 Rx duloxetine 30 mg capsule,delayed 30 mg PO DAILY 06/18/22 06/18/22 History release gabapentin 800 mg tablet 800 mg PO TID #90 tabs 06/18/22 06/18/22 Rx hydrocodone 10 mg-acetaminophen 1 tab PO Q6H PRN pain #90 tabs 06/18/22 06/18/22 Rx 325 mg tablet valacyclovir 500 mg tablet 500 mg PO DAILY #30 tabs 06/18/22 06/18/22 Rx Patient History Medical History Acid reflux Allergic rhinitis Anxiety and depression Asbestos exposure COPD (chronic obstructive pulmonary disease) DJD (degenerative joint disease) HTN (hypertension) Per records- pt denies - "diet controlled" per PCP Invasive lobular carcinoma of breast in female (12/21/19) Left- dx'ed Jan 2020. S/p bilateral mastectomy with reconstruction - XRT completed 07/2020 Lumbar spinal stenosis MRSA (methicillin resistant staph aureus) culture positive 09/18/20 Left Breast Osteoporosis with fracture Paroxysmal atrial fibrillation Solitary event in May 2012- loop recorder placed in 2017- no recurrence of a fib noted. Pt currently on ASA . Loop recorder has since been removed in Feb 2020 Polyneuropathy Sleep apnea occasionally wears CPAP Surgical History H/O hernia repair (2002) umbilical History of breast surgery (~03/25/20) excision/closure of bilateral masectomy scar revision History of breast surgery (09/25/20) Left Breast Tissue Grader Meat Removal with Capsulectomy (Dr. Cronin) History of cataract surgery (~01/2020) bilateral History of colonoscopy (2019) History of esophagogastroduodenoscopy (EGD) (~2004) History of total hip replacement (2009) Right S/P breast reconstruction, bilateral (02/26/20) tissue expanders S/P decompression of ulnar nerve (2005) RUE s/p surgery x2 S/P epidural steroid injection (1997) lumbar S/P mastectomy, bilateral (02/26/20) Bilateral Breast Mastectomy with Left [place] Lymph Node Biopsies(Bilateral) - DO elisabet Grant Removal of Loop Recorder(Left) - DO Dr. Иван Grant 02/26/2020 S/P total hysterectomy and bilateral salpingo-oophorectomy (1994) Status post placement of implantable loop recorder (2018) Removed during bilat mastectomies 02/26/2020 Family History Mother , Passed age 77 of kidney failure/liver cancer Liver cancer Diabetes Heart disease Hypertension Stroke Father , Passed in 50's of COPD / Black Lung Emphysema lung Uncle Prostate cancer Aunt , Passed in 50's of brain cancer No problems noted. Aunt Lung cancer Sister No problems noted. Sister No problems noted. Sister No problems noted. Son No problems noted. Son No problems noted. Other No family history of adverse response to anesthesia Denies family history of Ovarian cancer Myocardial infarction Breast cancer Colorectal cancer Social History Smoking Status: Current every day smoker Tobacco Type: Cigarettes packs per day: 2; Second Hand Exposure: Yes; Do You Dip or Chew Tobacco: No; Hx Alcohol Use: Yes Alcohol type: hard liquor Alcohol Intake Frequency: Monthly or Less Hx Substance Use: No Preferred Language: Irish Communication Ability: Effective Visual Impairment: Limited Hearing Ability: Normal Assistant Film Editor Required: No Beliefs That Will Affect Care: None marital status: Life Partner Current Living Situation: Significant Other Current Living Situation Comment: Boyfriend lives with patient 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 No obvious rash. She does have a Lidoderm patch in place on the anterior thigh. Her previous right hip incision looks well-healed without any evidence of infection. She has good range of motion of her hip. No reproduction of her pain with gentle range of motion of her hip. She again states the pain is constant, and not dependent on her hip position. Results & Data Vital Signs (Past 12 Hours) Vital Signs Temp Pulse Resp BP Pulse Ox O2 Del Method 06/20/22 07:53 36.9 C 76 22 175/90 H 92 Room Air Laboratory Results WBC 4.16 Diagnostic Findings Right hip x-rays obtained on 06/18/22 were reviewed and compared with the last set of right hip x-rays obtained in the [facility] PACS system on 08/21/10. It shows a press-fit total hip arthroplasty in good position. No evidence of hardware failure or loosening. No osteolysis at the boneimplant interface to indicate infection, metallosis, or aseptic loosening. No change in alignment in the components. No evidence of eccentric wear of the polyethylene liner. Essentially no change in the previous [address] scan of the right hip from 06/19/22 was reviewed. It is unremarkable. Again, total hip arthroplasty components in place without evidence of surrounding osteolysis. No periprosthetic fracture.
[2022-06-20] MEDS ORDERED: HYDROmorphone INJ 0.5 MG/0.5 ML SYR IV PRN (08:55)
[2022-06-20] MEDS ORDERED: HYDROmorphone HCL 2 MG TAB PO PRN ×2 (13:43→13:51)
[2022-06-20] MEDS: valACYclovir HCL 500 MG TABLET PO SCH (17:48)
[2022-06-20] MEDS: KETOROLAC TROMETHAMINE 15 MG/ML VIAL IV PRN (17:49)
[2022-06-20] MEDS: ENOXAPARIN INJ 40 MG/0.4 ML SYR SQ SCH (17:49)
[2022-06-20] MEDS: LIDOCAINE 5% 1 PATCH TD SCH (20:39)
[2022-06-20] MEDS: HYDROmorphone HCL 2 MG TAB PO PRN (20:39)
[2022-06-20] MEDS: AMITRIPTYLINE HCL 25 MG TAB PO SCH (20:40)
[2022-06-20] MEDS: PREGABALIN 50 MG CAP PO SCH (20:44)
[2022-06-20] MEDS: HYDROmorphone INJ 0.5 MG/0.5 ML SYR IV PRN (23:10)
[2022-06-21] MEDS: HYDROmorphone HCL 2 MG TAB PO PRN ×5 (01:46→20:38)
[2022-06-21] MEDS: ACETAMINOPHEN 325 MG TAB PO SCH ×4 (03:51→20:39)
[2022-06-21 05:55] LABS: Hematocrit (blood only) 43.4 % (37.0-47.0); Hemoglobin 15.3 g/dl (12.0-16.0); Mean Corpuscular Hemoglobin 34.9 pg (25.0-34.0); Mean Corpuscular Hgb Conc 35.3 g/dL (32.0-36.0); Mean Corpuscular Volume 99.1 fL (80.0-100.0); Platelet Count 183 K/uL (130-400); RDW Coefficient of Variation 13.9 % (11.5-14.5); RDW Standard Deviation 51.4 fL (36.4-46.3); Red Blood Count 4.38 M/uL (4.20-5.40); White Blood Count 4.52 K/ul (4.8-10.8)
[2022-06-21 06:10] LABS: BUN Creatinine Ratio 24.3 (10-20); Calcium 8.8 mg/dl (8.6-10.3); Creatinine Clr Calc Pharmacy 120.4 ml/min; Est GFR (African American) 127.3 ml/min; Est GFR (Non-African American) 109.8 ml/min; Potassium 3.9 mmol/L (3.5-5.1)
--- NOTE | 2022-06-21 07:42 | Hospitalist Progress Note ---
Date of Service June 21, 2022 Assessment & Plan (1) Post herpetic neuralgia: Plan: presented for ongoing pain control/issues with ambulation since Shingles outbreak in April--> suspect related to recent shingles/post herpetic neuralgia Added toradol 15mg IV as needed x 3 doses Pain management consulted, discussed w/ Dr Terrell over past 2 days --> Changed Gabapentin to Lyrica 50mg BID, will increase to 75mg BID --> D/c PO oxycodone, added Dilaudid 2mg PO (increased to 4mg per pain management) and IV 0.5mg Q3H prn --> Additional lidocaine patch Continue amitryptyline, cymbalta 30mg (could also increase this) Added back daily proph valtrex 500mg as taking at home Discussed w/ pain management and will touch base in AM about epidural steroid injection in this upcoming week Monitor pain control overnight, possible d/c tomorrow w/ outpt pain management follow up (2) Ambulatory dysfunction: Plan: 2nd to above, inadequate pain control Venous Doppler negative for DVT Xray Right Knee w/ mild OA, no acute fractures CT head negative Prior lumbar spine w/o significant stenosis, no back pain reported B12 wnl, Lyme negative CT hip obtained given pain reported w/ internal/external rotation, ortho consulted -- negative, signed off PT/OT, CM following DVT proph: Lovenox SQ while inpatient (3) Malignant neoplasm of upper-outer quadrant of left breast in female, estrogen receptor positive: Plan: Follows with Oncology Currently on Tamoxifen therapy No clonus on exam, CT head negative. resumed tamoxifen 20mg daily not ordered on admit, has appt w/ Dr Marquez tomorrow (will need rescheduled) (4) Sleep apnea: Plan: HS CPAP -- doesn't sound like she uses much and rather 2L as needed (5) HTN (hypertension): Plan: Stable and not on any meds at home (6) COPD (chronic obstructive pulmonary disease): Plan: Was stable on room air but did require some supplemental O2 at times (states she does this at home) CXR w/ effusion noted and prior wheezing on exam resolved Continue incentive spirometer, flutter valve, duonebs prn No increased sputum production/COPD exac, of note was given IV solumedrol in ER on admit Consider repeat CXR in AM if needed (7) Anxiety and depression: Plan: Continue Duloxetine and PRN Buspirone (8) Acid reflux: Plan: Daily pepcid added while inpatient (9) Shingles: Plan: as cause for current pain, remain on proph valtrex Plan continued inpatient stay monitoring pain control -- if controlled, possible dc tomorrow and outpatient follow up with pain management (touch base w/ provider in AM to arrange, Dr Terrell stated he was also alerting covering provider for tomorrow) Admission and Anticipated Discharge Date Admission Date: June 20, 2022 Supervising Physician Co-Signing Physician Notes The patient was not seen by me. The chart was reviewed. Case discussed with DIGNA Thurston. Agree with assessment and plan Subjective eval this morning, actually got some sleep last night. No lightheadedness/fatigue/headache w/ the Lyrica and will increase to 75mg BID. Discussed possible steroid injection by pain management outpatient, additional lidocaine patch for this evening. She does note being on lyrica in past for nerve pain in her right arm. Increased PO Dilaudid improvement in control, did get dose overnight. No CP/SOB, on room air. Slightly diminished in the bases but on room air, no wheezing. Good appetite and reports moving her bowels. No fever/chills. Has been on daily proph valtrex, resumed last evening. Also on tamoxifen, followed by Dr Lord in past but has appt for Wednesday w/ Dr Marquez, will need rescheduled. Physical Exam Physical Exam: General: WD/WN female sitting in bed, appears more comfortable today, reported did get some sleep HEENT; head normocephalic, atraumatic, mmm, trachea midline Resp: diminished in the bases, improvement in air entry, no further wheezing, fine bibasilar crackles, on room air CV: RRR, no significant m/r, no pitting edema/calf tenderness GI: +BS, soft/NT : no perdomo MSK/Neuro: lidoderm patch to R lower leg, prior herpetic rash resolved, pain with external/internal rotation not reported today, no pain on palpation Psych: AOx3, cooperative with care Results & Data Results & Data Vital Signs (Past 12 Hours) Vital Signs Temp Pulse Resp BP Pulse Ox O2 Del Method O2 Flow Rate 06/20/22 20:30 Nasal Cannula 2 06/20/22 21:38 36.7 C 80 20 168/87 H 93 Nasal Cannula Laboratory Results 06/21/22 06/21/22 Range/Units 05:26 05:26 WBC 4.52 L (4.8-10.8) K/ul RBC 4.38 (4.20-5.40) M/uL Hgb 15.3 (12.0-16.0) g/dl Hct 43.4 (37.0-47.0) % MCV 99.1 (80.0-100.0) fL MCH 34.9 H (25.0-34.0) pg MCHC 35.3 (32.0-36.0) g/dL RDW Std Deviation 51.4 H (36.4-46.3) fL RDW Coeff of Gita 13.9 (11.5-14.5) % Plt Count 183 (130-400) K/uL MPV 9.0 L (9.4-12.4) fL Sodium 138 (136-145) mmol/L Potassium 3.9 (3.5-5.1) mmol/L Chloride 102 (98-107) mmol/L Carbon Dioxide 33 H (21-32) mmol/L Anion Gap 3 (3-11) BUN 9 (6-23) mg/dl Creatinine 0.37 L (0.6-1.2) mg/dl Est Cr Clr Drug Dosing 120.4 ml/min Est GFR ( Amer) 127.3 ml/min Est GFR (Non-Af Amer) 109.8 ml/min BUN/Creatinine Ratio 24.3 H (10-20) Glucose 95 (70-99(Fasting)) mg/dl Calcium 8.8 (8.6-10.3) mg/dl PG Care Time/CCT Total # of Minutes Spent Total Time Spent with Patient: Total time spent is greater than 50% in coordination of care (as documented) at patient's floor/unit and/or counseling patient: Coding Level of Care Code 29536 SUB INP/OBS CARE 3/50MIN Diagnoses Post herpetic neuralgia B02.29 Ambulatory dysfunction R26.2 Malignant neoplasm of upper-outer quadrant of left breast in female, estrogen receptor positive C50.412; Z17.0 Sleep apnea G47.30 HTN (hypertension) I10 COPD (chronic obstructive pulmonary disease) J44.9 Anxiety and depression F41.9; F32.9 Acid reflux K21.9 Shingles B02.9
[2022-06-21] MEDS: FAMOTIDINE 20 MG TAB PO SCH (08:27)
[2022-06-21] MEDS: valACYclovir HCL 500 MG TABLET PO SCH (08:27)
[2022-06-21] MEDS: ATORVASTATIN 20 MG TAB PO SCH (08:27)
[2022-06-21] MEDS: DULoxetine HCL 30 MG CAP PO SCH (08:27)
[2022-06-21] MEDS: PREGABALIN 50 MG CAP PO SCH (08:31)
[2022-06-21] MEDS ORDERED: PREGABALIN 25 MG CAP PO ONE (09:00)
[2022-06-21] MEDS: TAMOXIFEN CITRATE 10 MG TABLET PO SCH (09:11)
[2022-06-21] MEDS: ENOXAPARIN INJ 40 MG/0.4 ML SYR SQ SCH (16:40)
[2022-06-21] MEDS: KETOROLAC TROMETHAMINE 15 MG/ML VIAL IV PRN (19:12)
[2022-06-21] MEDS: AMITRIPTYLINE HCL 25 MG TAB PO SCH (20:38)
[2022-06-21] MEDS: LIDOCAINE 5% 1 PATCH TD SCH (20:38)
[2022-06-21] MEDS: PREGABALIN 75 MG CAP PO SCH (20:38)
[2022-06-21] MEDS ORDERED: LIDOCAINE 5% TD SCH (21:00)
[2022-06-21] MEDS: HYDROmorphone INJ 0.5 MG/0.5 ML SYR IV PRN (22:52)
[2022-06-22] MEDS: HYDROmorphone HCL 2 MG TAB PO PRN ×2 (01:30→05:06)
[2022-06-22] MEDS: KETOROLAC TROMETHAMINE 15 MG/ML VIAL IV PRN (03:08)
[2022-06-22] MEDS: ACETAMINOPHEN 325 MG TAB PO SCH ×3 (03:08→15:38)
[2022-06-22 07:24] VITALS: TEMP 98.1
[2022-06-22 07:24] LABS: Hematocrit (blood only) 41.9 % (37.0-47.0); Mean Corpuscular Hemoglobin 34.7 pg (25.0-34.0); Mean Corpuscular Hgb Conc 35.8 g/dL (32.0-36.0); Mean Platelet Volume 9.3 fL (9.4-12.4); Platelet Count 173 K/uL (130-400); RDW Coefficient of Variation 13.5 % (11.5-14.5); RDW Standard Deviation 48.6 fL (36.4-46.3); Red Blood Count 4.32 M/uL (4.20-5.40); White Blood Count 3.37 K/ul (4.8-10.8)
[2022-06-22 07:30] LABS: Albumin Globulin Ratio 2.2 (0.9-2); Bilirubin,Total 0.7 mg/dl (0.2-1.0); Calcium 8.8 mg/dl (8.6-10.3); Creatinine Clr Calc Pharmacy 92.8 ml/min; Est GFR (African American) 116.8 ml/min; Est GFR (Non-African American) 100.8 ml/min; Globulin 1.8 gm/dl (2.5-4.0); Magnesium 2.1 mg/dl (1.7-2.4); Potassium 3.9 mmol/L (3.5-5.1); Total Protein 5.8 gm/dl (6.0-8.3)
[2022-06-22] MEDS: HYDROmorphone INJ 0.5 MG/0.5 ML SYR IV PRN ×2 (07:56→12:33)
[2022-06-22] MEDS: PREGABALIN 75 MG CAP PO SCH (08:02)
[2022-06-22] MEDS: valACYclovir HCL 500 MG TABLET PO SCH (08:02)
[2022-06-22] MEDS: TAMOXIFEN CITRATE 10 MG TABLET PO SCH (08:02)
[2022-06-22] MEDS: ATORVASTATIN 20 MG TAB PO SCH (08:03)
[2022-06-22] MEDS: FAMOTIDINE 20 MG TAB PO SCH (08:03)
[2022-06-22] MEDS: DULoxetine HCL 30 MG CAP PO SCH (08:03)
[2022-06-22] MEDS ORDERED: AMITRIPTYLINE HCL 25 MG TAB PO SCH (08:30)
--- NOTE | 2022-06-22 08:56 | Pain Management Progress Note ---
Date of Service June 22, 2022 Assessment & Plan (1) Post herpetic neuralgia: (2) Ambulatory dysfunction: Plan 1. Patient has failed a multitude of conservative treatments and has had persistent burning neuropathic pain since April 2022. At this point recommend right L4-5 transforaminal epidural steroid injection to minimize post zoster pain. She was counseled on the risk, benefits, expectations and agrees to proceed. To be scheduled tomorrow morning at 8 AM in my office so that she may be discharged from the hospital today. 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 Preoperative instructions were reviewed. 2. Case discussed with the hospitalist for impending discharge today. 3. Recommend discharge on Lyrica 100 mg p.o. twice daily, Lidoderm patches, amitriptyline 50 mg p.o. every morning, oxycodone 5 to 10 mg p.o. every 4 to 6 as needed pain. Discontinuation of Cymbalta recommended. Orders placed. 4. Thank you for this consultation we will follow-up with the patient in our office. Admission and Anticipated Discharge Date Admission Date: June 20, 2022 Subjective 66 year old female with RLE L4 dermatome post herpetic neuralgia with ongoing pain. Zoster lesions are well healed. No scarring noted. She was previously admitted on 04/20-05/01/22 and re-admitted on 06/18/22. She is reporting constant shooting and burning pain along the right L4 ranging between 8-10/10. She reports inability to work secondary to pain. Pain is worse with hip ROM, was evaluated by orthopedics and no etiology found. She has been utilizing Lyrica 75 mg p.o. twice daily, Cymbalta 30 mg p.o. every morning, Amitriptyline 25mg HS, and hydromorphone 4 mg p.o. every 4 as needed with IV backup with fair coverage of pain. In addition she has failed gabapentin, IV steroids, IV morphine, Tylenol, all prednisone, hydrocodone, Lidoderm patches, Toradol. She reports difficulty sleeping secondary to pain. She denies bowel or bladder incontinence, motor weakness, foot drop, fever, chills, night sweats, saddle anesthesia. Physical Exam Physical Exam: Constitutional: Well-developed, well-nourished, healthy-appearing, normal weight Psych: Awake, alert, and oriented 3 with normal affect and mood. Recent memory appears grossly intact Eyes: Pupils are equally round and reactive to light with normal size pupils, eyelids appear normal Ear, nose, mouth, and throat: Moist nasal and oral membranes, lips and tongues appear normal, no external ear abnormalities are noted Neck: The trachea is midline without deviation and no thyromegaly is noted Respiratory: Normal respiratory effort without distress, no audible wheezes or rhonchi Musculoskeletal: Head is normocephalic and atraumatic, gait not observed patient sitting in bedside chair. Cervical: Lordotic curve: Normal Range of motion is normal with extension, flexion, side-bending, rotation Strength: Strength is slowly equal bilaterally with 5 out of 5 strength in all planes Lumbar: Lordotic curve: Slightly decreased Range of motion is normal with extension, flexion, side-bending, rotation Tenderness: Nontender over the axial midline Strength: Strength is grossly equal bilaterally with 5 out of 5 strength in all planes Sensation of lower extremities: Intact bilaterally Myofascial spasm: No appreciable spasm. No discrete trigger points noted Skin: No rashes, lesions, ulcers, or induration noted. Zoster lesions are well- healed Neuro: No nystagmus noted, the tongue is midline, the patient is able to rotate their head bilaterally : Deferred Results (Pain Clinic) Laboratory Review Laboratory results: personally reviewed by me and no pertinent findings Diagnostic Review MRI: non enhanced, reports reviewed and findings discussed with patient MRI Findings: 04/22/22 MRI OF THE LUMBAR SPINE WITHOUT CONTRAST CLINICAL HISTORY: Right-sided radiculopathy. COMPARISON STUDY: Lumbar spine CT April 21, 2022. TECHNIQUE: Utilizing a 1.5 Tasha magnet and dedicated coil, multiplanar, multiecho imaging of the lumbar spine was performed without IV contrast. FINDINGS: For purposes of numbering on this exam, the L5-S1 disc space is assigned to axial image 29 of 32. There is minimal rightward curvature of the lumbar spine. Vertebral body heights are maintained. No suspicious marrow replacement is present. The conus terminates at the L1-L2 level. Paravertebral soft tissues are unremarkable. There is no lumbar spine fracture. L1-2: The central canal and neural foramen are patent. L2-3: The central canal and neural foramen are patent. L3-4: There is mild facet arthrosis. The central canal and neural foramen are patent. There is minimal disc bulge. L4-5: Moderate disc space narrowing is noted with mild disc bulge. There is facet arthrosis. There is mild during of the central canal and lateral recesses. The neural foramen are patent. L5-S1: There is mild disc space narrowing with disc bulge and facet arthrosis. The central canal is patent. There is mild narrowing of the lateral recesses and the right neural foramen. The left neural foramen is patent. IMPRESSION: 1. Mild multilevel degenerative changes within the lumbar spine. No significant central canal stenosis. Mild multilevel neural foraminal narrowing. 2. No large disc herniations. Previous Records Review Previous Records: personally reviewed by me Opioid Risk Assessment Opioid Risk Assessment: risk assessment performed and no issues identified
[2022-06-22] MEDS ORDERED: REMOVE LIDODERM SCH (09:00)
[2022-06-22] MEDS ORDERED: PREGABALIN 100 MG CAP PO SCH (09:00)
[2022-06-22] MEDS ORDERED: PREGABALIN 25 MG CAP PO ONE (09:30)
[2022-06-22] MEDS ORDERED: oxyCODONE HCL IR 5 MG TAB (IMMEDIATE RELEASE) PO PRN (09:54)
--- NOTE | 2022-06-22 13:48 | Discharge Summary ---
Date of Service June 22, 2022 Admission HPI Per Admitting Provider Gypsy is a 66 year old female with a PMH significant for COPD, HTN, Anxiety/depression, hyperlipidemia, paroxysmal afib (not on anticoagulation), GERD, breast cancer S/P BL mastectomy, radiation, on Tamoxifen, and Lumbar spinal stenosiswho presented to the [facility] ED at the recommendation of her PCP for ongoing right leg pain/weakness. In the ED today the patient was found to be afebrile, hemodynamically stable and stable on RA. Labs were remarkable for a CBC WNL, stable cr at 0.51, sodium of 134, and covid 19 negative. Xray of the right hip was read as "1. No acute fracture within the pelvis or hips. 2. Intact total right hip arthroplasty. No periprosthetic fracture or lucency.". Xray of the right knee was read as "Mild osteoarthritis within the right knee again noted. No acute fractures.". Venous doppler of the RLE was read as "Currently there is normal compressibility of the deep venous system from the common femoral vein through the proximal calf veins. No superficial venous thrombosis is identified.". CT of the head WO con was read as "No acute intracranial hemorrhage, no evidence of acute territorial infarction or other acute intracranial disease process.". Prior to admission the patient was given 125 mg IV methylprednisolone, 4 mg IV morphine, 1L NSS, and 4 mg IV zofran. We were asked to admit the patient for further pain control and evaluation by PT/OT for likely rehab placement. Per chart review, the patient was recently admitted to [facility] from 04/21/22- 04/30/22 for the same symptoms including RLE pain and ambulatory dysfunction. During that admission she underwent a large workup including CT of the lumbar spine which was read as "No fracture or subluxation within the lumbar spine. The visualized sacrum appears intact. There is severe disc space narrowing at L4-5 and mild disc space narrowing at L5-S1. There are mild facet degenerative changes throughout the lumbar spine. Mild bilateral neural foraminal narrowing at L3-L4, L4-5, and L5-S1. There are small broad-based posterior disc bulges throughout the lumbar spine without significant central canal narrowing. Paravertebral soft tissues are unremarkable. Calcified but normal caliber abdominal aorta.". She was evaluated by pain management who obtained an MRI of the lumbar spine which was read as "1. Mild multilevel degenerative changes within the lumbar spine. No significant central canal stenosis. Mild multilevel neural foraminal narrowing. 2. No large disc herniations.". She was initially treated with Oral and IV pain medications and Gabapentin. During her admission the patient developed herpetic lesions along the site of her right leg pain and was diagnosed with shingles. She was started on Valtrex and was discharged with Percocet and gabapentin. At that time pain management did not recommend any interventions for her pain due to her active infection but stated she could be a candidate for epidural steroid injections when her lesions completely healed. At the time of the exam the patient was lying in bed in no acute distress. She states that she has continued to have progressive RLE pain in the same distribution since her last admission. She states that she is still taking 800 mg Gabapentin TID, 25 mg HS amitriptyline, and prn hydrocodone-acetaminophen without relief. She feels as though her RLE has been getting weaker as well. She has been having to use a cane for ambulation but denies recent falls. She denies back pain, saddle anesthesia, and loss of bowel or bladder function. We discussed options such as being seen again by pain management, PT/OT, and likely rehab stay, she is in agreement with all. Please refer to Dr. Lake's attestation for any changes to the treatment plan Admission Exam Per Admitting Provider Physical Exam: General:In no acute distress, stated age, chronically ill appearing HEENT:Normocephalic, atraumatic, no scleral icterus, pupils around round, symmetrical, and reactive to light, moist mucus membranes, trachea midline, no thyromegaly Chest/Pulm:No respiratory distress, symmetrical chest expansion, expiratory wheezing throughout Cardiac:RRR, no murmurs noted Abdomen:Negative for ascites and bruising, normoactive bowel sounds, soft, non-tender to palpation throughout Musculoskeletal:Symmetrical and without signs of acute trauma, upper extremities with symmetrical and intact ROM, LLE with intact ROM, RLE without acute trauma, no pain with passive ROM of the Right hip, knee, and ankle Extremities:Radial, dorsalis pedis, and posterior tibial pulses are intact and symmetrical, no edema noted in the BL LE's Skin:Warm, dry, no rashes , lesions, or scars noted,previous herpetic rash has resoled, bandage noted on the right buttocks from injection received at PCP's office this am Neuro:Alert and oriented to person, place, month, year, and president, no focal defects, CN II-XII tested and intact, finger to nose test negative, no tremors noted, decreased strength througout the RLE compared to left with active ROM, 1+ patellar and Achilles reflexes Psych:No acute distress, calm and cooperative during the exam Principal Diagnosis post herpetic neuralgia Discharge Exam Constitutional WD/WN, vitals as above Neck trachea midline, no thyromegaly Respiratory normal respiratory effort, lungs clear to auscultation Cardiovascular RRR, no murmur, no edema Gastrointestinal (Abdomen) normal bowel sounds, soft, nontender, no hepatosplenomegaly Skin prior herpetic rash resolved no active or open lesions Psychiatric A+Ox3, euthymic affect Discharge Data Allergies Allergy/AdvReac Type Severity Reaction Status Date / Time ether Allergy Severe Anaphylaxis Verified 06/18/22 15:09 Consultations 06/18/22 14:12 ED Decision to Admit Stat 06/18/22 15:02 Consult Pain Management Routine 06/19/22 09:24 Consult Orthopedic Surgery Routine Ordered Studies 06/18/22 10:47 US venous doppler LE RT Stat 06/18/22 13:29 CT head/brain wo con Stat 06/19/22 09:33 CT hip RT wo con Routine Hospital Course (1) Post herpetic neuralgia: presented for ongoing pain control/issues with ambulation since Shingles outbreak in April--> suspect related to recent shingles/post herpetic neuralgia Pain management consulted, discussed with Dr Salazar today - Changed Gabapentin to Lyrica 100mg BID - Continue Lidoderm patches - Oxycodone 5-10mg as needed q 6H for pain - Cymbalta discontinued - Increased Amitryptylline 50mg Pain Management scheduled patient for right L4-5 transforaminal epidural steroid injection to minimize post zoster pain tomorrow 06/23/22 at 8:00 AM Per patient this is her 4th flare up of Shingles and now with PHN Patient has hx of breast CA and is on Tamoxifen Per pain management, suggested for PCP to rule out any other causes of immunosuppression due to the recurrent flares (2) Ambulatory dysfunction: 2nd to above, inadequate pain control Venous Doppler negative for DVT Xray Right Knee w/ mild OA, no acute fractures CT head negative Prior lumbar spine w/o significant stenosis, no back pain reported B12 wnl, Lyme negative CT hip obtained given pain reported w/ internal/external rotation, ortho consulted -- negative, signed off PT/OT, CM followed while in hospital (3) Malignant neoplasm of upper-outer quadrant of left breast in female, estrogen receptor positive: Follows with Oncology Currently on Tamoxifen therapy No clonus on exam, CT head negative. resumed tamoxifen 20mg daily not ordered on admit, had appt w/ Dr Marquez while in the hospital (will need rescheduled) (4) Sleep apnea: HS CPAP -- doesn't sound like she uses much and rather 2L as needed (5) HTN (hypertension): Stable and not on any meds at home (6) COPD (chronic obstructive pulmonary disease): Stable on RA 95% CXR w/ effusion noted and prior wheezing on exam resolved Continue incentive spirometer, flutter valve, duonebs prn No increased sputum production/COPD exac, of note was given IV solumedrol in ER on admit When nurse was goiing to do discharge with patient did another set of vitals, PO2 was 80 and placed patient on 2L O2. Her was here to pick her up and did not have her portable O2. 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 Both the and the patient refused. She is aware of the risk of leaving without Oxygen. She was saturating in mid 90s on 2 L and was 81-85 off the Oxygen. Advised patient we are not advising she be discharged without Oxygen and she is aware and refuses to stay or make accommodations to get a portable tank from [employer]. She states she is going right home and will put her Oxygen on when she arrives there. (7) Anxiety and depression: Continue Amitriptyline (8) Acid reflux: Daily pepcid added while inpatient (9) Shingles: as cause for current pain, remain on proph valtrex Has appt with pain management tomorrow AM for epidural steroid injection Total Time Total Time Spent Total Time Spent (In Minutes): 40 Discharge Plan Discharge Items Patient Disposition: Home - Self-Care Reason For Visit: RIGHT LEG PAIN/WEAKNESS Discharge Diagnosis: post herpetic neuralgia Condition on Discharge: Fair Activity: Resume your previous activity Lifting: Gradually increase as tolerated Non-emergency contact: Primary Care Provider Call non-emergency contact if: you have any medication questions, your symptoms worsen and your pain is not controlled Follow-up/Referrals: Candie Francis DO [Primary Care Provider] - 06/24/22 9:40 am Diet: Heart Healthy Addtl Attending Provider Instructions: You were admitted with post herpetic neuralgia which is pain due to a previous shingles (zoster virus) outbreak. You were treated with antivral medication and should continue this until you follow up with your family doctor. Pain management evaluated you and recommended you be discharged home today and they are planning an epidural steroid injection tomorrow AM at 8:00 in their office to help alleviate your neuralgia. They also recommended that you follow up with your PCP and possibly have work up for anything else that may be contributing to a compromised immune system besides your previous breast CA and Tamoxifen use. You Cymbalta was stopped and added Amitriptyline at 50mg every morning, the gabapentin was changed to Lyrica 100 mg BID. You were also sent home with a rx for oxycontinu 5 -10 mg to use as needed for severe pain. You also were to continue the lidoderm patches. Pending Studies at Discharge: No Stand-Alone Forms: My [facility] [employer], Smoking Cessation Medications and DC Order Prescriptions: New amitriptyline 25 mg Tablet 50 mg PO HS Qty: 60 0RF pregabalin [Lyrica] 100 mg Capsule 100 mg PO BID Qty: 60 0RF tamoxifen 10 mg Tablet 20 mg PO QAM Qty: 1 0RF oxycodone 5 mg Tablet 5 - 10 mg PO Q6H MDD 40mg PRN (Reason: pain) Qty: 14 0RF Rx Instructions: one for pain 3-6 on pain scale and 2 po for pain 7-10 on pain scale Continued atorvastatin 20 mg tablet 20 mg PO QAM Qty: 90 1RF calcium carbonate 600 mg calcium (1,500 mg) tablet 600 mg PO BID zoledronic [id number] [Reclast] 5 mg/100 mL piggyback 1 ea IV YEARLY valacyclovir 500 mg tablet 500 mg PO DAILY Qty: 30 2RF lidocaine 5 % adhesive patch,medicated 2 patch topical DAILY PRN (Reason: pain (scale score 7-10)) Qty: 30 5RF Rx Instructions: leave on most painful area for up to 12 hrs albuterol sulfate 90 mcg/actuation HFA aerosol inhaler 2 puffs inhalation Q4H PRN (Reason: COPD) Qty: 1 0RF buspirone 5 mg tablet 5 mg PO QAM PRN (Reason: Anxiety) Discontinued cephalexin 500 mg capsule 500 mg PO BID 3 Days Qty: 6 0RF gabapentin 800 mg tablet 800 mg PO TID Qty: 90 1RF hydrocodone-acetaminophen 10-325 mg tablet 1 tab PO Q6H PRN (Reason: pain) Qty: 90 0RF amitriptyline 25 mg tablet 25 mg PO HS Qty: 30 2RF duloxetine 30 mg capsule,delayed release(DR/EC) 30 mg PO DAILY Discharge Orders: Discharge Order (Routine); Ordered 06/22/22 Ordered By: Gisele Nelson Admission Data Admit Date/Time: 06/20/22 13:48 Attending Provider: Josh Singer Admit Provider: Jairo Lake Primary Care Provider: Candie Francis Other Providers: Jairo Lake ; Srinivas Terrell ; Robert Rouse Other Interventions: Discharge Summary Assessment (RN) Last Done: 06/22/22 14:30 Coding Level of Care Code 03355 INP/OBS DISCH >30 MIN Diagnoses Post herpetic neuralgia B02.29 Ambulatory dysfunction R26.2 Malignant neoplasm of upper-outer quadrant of left breast in female, estrogen receptor positive C50.412; Z17.0 Sleep apnea G47.30 HTN (hypertension) I10 COPD (chronic obstructive pulmonary disease) J44.9 Anxiety and depression F41.9; F32.9 Acid reflux K21.9 Shingles B02.9 Time Spent (min) 40
[2022-06-22 15:19] VITALS: BP 100/64; PULSE 81; O2SAT 95
== END 2022-06-22 16:00 | disposition home or self-care (01) | DRG 74 ==
LOC: 3E 10:23 → ED 10:23 → SUATTDRO 14:39 → 3E 15:46 → SUATTDRO 06-20 13:48

== ENCOUNTER 2022-07-15 09:26 | Inpatient (IN) ==
[2022-07-15] MEDS ORDERED: MoRPHine SULFATE 10 MG/ML CARP/VIAL IV STA (10:16)
[2022-07-15] MEDS ORDERED: KETOROLAC TROMETHAMINE 15 MG/ML VIAL IV ONE (10:16)
--- NOTE | 2022-07-15 10:20 | Emergency Department Note ---
Impression & Plan Post herpetic neuralgia, Leg weakness ED Provider Note NAME: SALOMÓN ARIAS AGE: 66 SEX: F : 1955 ARRIVES VIA: Walk-In INFORMANT: Patient ED PROVIDER(S): Sherwin Mahoney DO CHIEF COMPLAINT: leg pain HPI: Patient is a 66-year-old female who presents to the ER for right hip pain/leg pain. She notes this has been present since early April. Shortly after this started she was found to have shingles. She notes since then she has been having gradual progression of weakness on the right lower extremity. Patient denies any headache or change in vision. No chest pain or shortness of breath. No nausea, vomiting, or diarrhea. She notes that she can no longer get around secondary to the pain. PAST MEDICAL HISTORY:See Below PAST SURGICAL HISTORY:See Below FAMILY HISTORY:See Below SOCIAL HISTORY:See Below HOME MEDICATIONS:See Below ALLERGIES:See Below VITALS:See Below PHYSICAL EXAMINATION: GENERAL: Sitting up in bed, alert, well appearing, well nourished, no distress, non-toxic EYE EXAM: normal conjunctiva. PERRL and EOM's grossly intact. OROPHARYNX: no exudate, no erythema, lips, buccal mucosa, and tongue normal and mucous membranes are moist NECK: supple, no nuchal rigidity, no adenopathy, non-tender LUNGS: Clear to auscultation. Normal chest wall mechanics HEART: no murmurs, S1 normal and S2 normal ABDOMEN: abdomen soft, non-tender, normo-active bowel sounds, no masses, no rebound or guarding. BACK: Back is symmetrical on inspection and there is no deformity, no midline tenderness, no CVA tenderness. SKIN: no rashes and no bruising UPPER EXTREMITIES: upper extremities are grossly normal. LOWER EXTREMITIES: Flexion-extension left hip knee ankle and EHL 5-5. Flexion extension left right hip and the 4 out of 5. Unable to keep leg off bed. Oxycet to the ankle and EHL on the right 5 out of 5. DP and PT 2 out of 4. Gross station intact. NEURO EXAM: Normal sensorium, cranial nerves II-XII grossly intact, normal speech, no gross weakness of arms. MEDICAL DECISION MAKING: Patient is a 66-year-old female who presents ER for above-stated complaint. IV was established blood work was obtained. External records were reviewed. Labs show no significant leukocytosis or anemia. BMP along with LFTs bilirubin was unremarkable. COVID was negative. CT of the lumbar spine showed no acute pathology. Patient was given IV morphine. She did drop her pulse ox and was placed on nasal cannula secondary to this. She was given IV fluids. She was updated bedside. She was discussed with the hospitalist as she did have some weakness in her right leg although I do favor that this is likely pain related. Did have a previous MRI in April which was unremarkable. Discussed with the hospitalist for further work-up. Triage Nursing notes reviewed. Limited review of prior medical records performed Vital Signs: reviewed and remarkable for HTN and tachy Differential diagnosis: Infection, dehydration, metabolic abnormality, hypo/hyperglycemia, electrolyte disturbance, anemia, hypoxia, cardiac sources, intracerebral event, toxicologic, neurologic, as well as other pathologies. ER treatment provided: See below Diagnostics interpreted by me include EKG and cardiac monitoring as listed below: -Cardiac Monitoring: An order was placed for continuous cardiac monitoring. The monitor shows a rate of 90 with sinus rhythm. -ECG: none -Laboratory studies:Interpreted by me as stated above in MDM and shown below. Imaging studies: Xrays: As interpreted by me:none CTs show: CT of the lumbar spine shows no obvious fracture per my read CT lumbar spine per radiology was unremarkable Consultation(s): As described in MDM Procedures:none Critical Care: None Past Med/Surg History Medical History Acid reflux Allergic rhinitis Ambulatory dysfunction Anxiety and depression Asbestos exposure COPD (chronic obstructive pulmonary disease) DJD (degenerative joint disease) HTN (hypertension) Invasive lobular carcinoma of breast in female (12/21/19) Lumbar spinal stenosis MRSA (methicillin resistant staph aureus) culture positive Osteoporosis with fracture Paroxysmal atrial fibrillation Polyneuropathy Sleep apnea Surgical History H/O hernia repair (2002) History of breast surgery (~03/25/20) History of breast surgery (09/25/20) History of cataract surgery (~01/2020) History of colonoscopy (2019) History of esophagogastroduodenoscopy (EGD) (~2004) History of total hip replacement (2009) S/P breast reconstruction, bilateral (02/26/20) S/P decompression of ulnar nerve (2005) S/P epidural steroid injection (1997) S/P mastectomy, bilateral (02/26/20) S/P total hysterectomy and bilateral salpingo-oophorectomy (1994) Status post placement of implantable loop recorder (2017) Family History Mother Liver cancer Diabetes Heart disease Hypertension Stroke Father Emphysema lung Uncle Prostate cancer Aunt No problems noted. Aunt Lung cancer Sister No problems noted. Sister No problems noted. Sister No problems noted. Son No problems noted. Son No problems noted. Other No family history of adverse response to anesthesia Denies family history of Ovarian cancer Myocardial infarction Breast cancer Colorectal cancer Social History Smoking Status: Current every day smoker Tobacco Type: Cigarettes packs per day: 2; Second Hand Exposure: Yes; Do You Dip or Chew Tobacco: No; Hx Alcohol Use: Yes Alcohol type: hard liquor Alcohol Intake Frequency: Monthly or Less Hx Substance Use: No Preferred Language: [place]araguan Communication Ability: Effective Visual Impairment: Limited Hearing Ability: Normal Steamer Tender Required: No Beliefs That Will Affect Care: None marital status: Life Partner Current Living Situation: Significant Other Current Living Situation Comment: Boyfriend lives with patient 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 Other Information That Helps Us Care for You: No Feels Safe at Home: Yes Childhood Exposure to Second-Hand Smoke: Yes Diet: regular Diet Comment: regular caffeine: Yes (2 cups of coffee/day ) during the past year weight has: remained stable Dental Care, Regularly: Yes Physical Activity Frequency: Daily Physical Activity Frequency Comment: walking Seatbelt Use: always Sunscreen Use: No Assistive Devices: Cane, CPAP and Walker Allergies Allergies Allergy/AdvReac Type Severity Reaction Status Date / Time ether Allergy Severe Anaphylaxis Verified 07/02/22 09:03 Home Meds Home Medications Medication Instructions Recorded Confirmed calcium carbonate 600 mg calcium 600 mg PO BID 11/01/18 07/15/22 (1,500 mg) tablet zoledronic acid 5 mg/100 mL in 1 ea IV YEARLY 11/14/20 07/15/22 mannitol 5 %-water intravenous piggybck (Reclast) buspirone 5 mg tablet 5 mg PO QAM PRN Anxiety 02/24/21 07/15/22 Previous Rx's Medication Instructions Recorded albuterol sulfate 90 mcg/actuation 2 puffs inhalation Q4H PRN COPD #1 12/05/18 aerosol inhaler g atorvastatin 20 mg tablet 20 mg PO QAM #90 tabs 04/14/22 lidocaine 5 % topical patch 2 patch topical DAILY PRN pain 05/19/22 (scale score 7-10) #30 ea valacyclovir 500 mg tablet 500 mg PO DAILY #30 tabs 06/18/22 tamoxifen 10 mg tablet 20 mg PO QAM #1 tab 06/22/22 amitriptyline 50 mg tablet 50 mg PO HS #90 tabs 07/02/22 gabapentin 800 mg tablet 800 mg PO TID #90 tabs 07/02/22 hydrocodone 10 mg-acetaminophen 1 tab PO Q6H PRN pain #90 tabs 07/02/22 325 mg tablet morphine 15 mg tablet,extended 15 mg PO Q12H #60 tabs 07/02/22 release (MS Contin) ondansetron 4 mg disintegrating 4 mg PO Q8H PRN nausea and 07/02/22 tablet vomiting #20 tabs Results & Data (ED) Vital Signs Vital Signs - 24 hr 07/15/22 09:38 07/15/22 10:39 07/15/22 10:12 Pulse Rate 99 H Pulse Rate [Right Finger] Pulse Rhythm [Right Finger] Pulse Strength [Right Finger] Respiratory Rate 18 Respiratory Effort / Characteristics Respiratory Depth Respiratory Pattern Blood Pressure 178/120 H Blood Pressure [Right Arm] Blood Pressure Mean 139 Blood Pressure Mean [Right Arm] Blood Pressure Position [Right Arm] Pulse Oximetry 97 77 L Oxygen Delivery Method Room Air Nasal Cannula Nasal Cannula Oxygen Flow Rate 0 5 Sepsis Recent Fever Within 48 Hours No Sepsis New/Unexplained Change in Mental Status No Sepsis Action Taken by Nursing No Action Required Oxygen Flow Rate - Titration 5 Pulse Oximetry Post Tiitration 94 07/15/22 12:20 07/15/22 12:00 Pulse Rate 87 Pulse Rate [Right Finger] 81 Pulse Rhythm [Right Finger] Regular Pulse Strength [Right Finger] Normal Respiratory Rate 18 Respiratory Effort / Characteristics Non-Labored Respiratory Depth Normal Respiratory Pattern Regular Blood Pressure Blood Pressure [Right Arm] 152/85 H Blood Pressure Mean Blood Pressure Mean [Right Arm] 107 Blood Pressure Position [Right Arm] Lying Pulse Oximetry 94 Oxygen Delivery Method Nasal Cannula Oxygen Flow Rate 4 Sepsis Recent Fever Within 48 Hours Sepsis New/Unexplained Change in Mental Status Sepsis Action Taken by Nursing Oxygen Flow Rate - Titration Pulse Oximetry Post Tiitration Laboratory Data 07/15/22 10:18 07/15/22 10:18 Lab Results 07/15/22 07/15/22 07/15/22 Range/Units 10:18 10:18 10:36 WBC 5.05 (4.8-10.8) K/ul RBC 4.23 (4.20-5.40) M/uL Hgb 14.7 (12.0-16.0) g/dl Hct 41.9 (37.0-47.0) % MCV 99.1 (80.0-100.0) fL MCH 34.8 H (25.0-34.0) pg MCHC 35.1 (32.0-36.0) g/dL RDW Std Deviation 49.4 H (36.4-46.3) fL RDW Coeff of Gita 13.4 (11.5-14.5) % Plt Count 166 (130-400) K/uL MPV 9.4 (9.4-12.4) fL Immature Gran % (Auto) 0.4 % Neut % (Auto) 65.9 % Lymph % (Auto) 19.8 % Gosper % (Auto) 9.5 % Eos % (Auto) 3.4 % Baso % (Auto) 1.0 % Neut # (Auto) 3.33 (1.40-6.50) K/uL Lymph # (Auto) 1.00 L (1.2-3.4) K/uL Gosper # (Auto) 0.48 (0.11-0.59) K/uL Eos # (Auto) 0.17 (0-0.50) K/uL Baso # (Auto) 0.05 (0-0.2) K/uL Immature Gran # (Auto) 0.02 (0.01-0.20) K/uL Sodium 140 (136-145) mmol/L Potassium 3.8 (3.5-5.1) mmol/L Chloride 103 (98-107) mmol/L Carbon Dioxide 32 (21-32) mmol/L Anion Gap 5 (3-11) BUN 5 L (6-23) mg/dl Creatinine 0.48 L (0.6-1.2) mg/dl Est Cr Clr Drug Dosing Not Reportable Est GFR ( Amer) 116.8 ml/min Est GFR (Non-Af Amer) 100.8 ml/min BUN/Creatinine Ratio 10.4 (10-20) Glucose 97 (70-99(Fasting)) mg/dl Calcium 9.1 (8.6-10.3) mg/dl Total Bilirubin 0.5 (0.2-1.0) mg/dl AST 12 L (13-39) U/L ALT 7 (7-52) U/L Alkaline Phosphatase 60 (34-104) U/L Total Protein 6.2 (6.0-8.3) gm/dl Albumin 4.1 (3.4-5.0) gm/dl Globulin 2.1 L (2.5-4.0) gm/dl Albumin/Globulin Ratio 2.0 (0.9-2) SARS-CoV-2, RNA, NAAT NEGATIVE (NEGATIVE) Administered Medications Hydrocodone Bitart/Acetaminophen (Hydrocodone/Acetaminophen 10/325 Tab) 1 tab PO Q6H PRN PRN Reason: pain Stop: 07/29/22 14:23 Last Admin: 07/15/22 15:51 Dose: 1 tab Documented By: CASSY Gabapentin (Gabapentin 800 Mg Tab) 800 mg PO TID [facility] Stop: 08/14/22 14:23 Last Admin: 07/15/22 15:46 Dose: 800 mg Documented By: CASSY Lidocaine (Lidocaine 5% 1 Patch) 1 patch TD QAM [facility] Stop: 08/14/22 14:23 Last Admin: 07/15/22 15:47 Dose: 1 patch Documented By: CASSY Discontinued Medications Ketorolac Tromethamine (Ketorolac Tromethamine 15 Mg/Ml Vial) 10 mg IV NOW ONE Stop: 07/15/22 10:17 Last Admin: 07/15/22 10:28 Dose: 10 mg Documented By: TIP Morphine Sulfate (Morphine Sulfate 10 Mg/Ml Carp/Vial) 6 mg IV NOW STA Stop: 07/15/22 10:17 Last Admin: 07/15/22 10:29 Dose: Not Given Documented By: TIP Morphine Sulfate (Morphine Sulfate 4 Mg/Ml 1 Ml Carp\Vial) Confirm Administered Dose 4 mg .ROUTE .STK-MED ONE Stop: 07/15/22 10:24 Last Admin: 07/15/22 10:28 Dose: 4 mg Documented By: AP Morphine Sulfate (Morphine Sulfate 2 Mg/Ml Carp) Confirm Administered Dose 2 mg .ROUTE .STK-MED ONE Stop: 07/15/22 10:24 Last Admin: 07/15/22 10:29 Dose: 2 mg Documented By: AP Imaging Data Radiologist's Impression: Lumbar Spine CT 07/15/22 10:[address] DOSE: 439.05 mGy.cm HISTORY: Progressive right lower extremity weakness. TECHNIQUE: Multiaxial CT images of the lumbar spine were performed and reformatted in the sagittal and coronal plane without the use of contrast. A dose lowering technique was utilized adhering to the principles of ALARA. COMPARISON: Lumbar spine CT 04/21/2022. FINDINGS: No fracture or subluxation. The visualized sacrum is intact. Paravertebral soft tissues are unremarkable. No significant central canal narrowing by CT technique. Severe disc space narrowing at L4-L5 and mild disc space narrowing at L5-S1. This remains unchanged. There are mild facet degenerative changes within the lumbar spine. Small broad-based posterior disc bulges throughout the majority the bar spine. Calcified but normal caliber abdominal aorta. IMPRESSION: 1. No fracture or subluxation within the lumbar spine. 2. Degenerative changes as described above. This is similar to the prior study. ACT 112: Negative or not required by law. Electronically signed by: Caden Robertson M.D. 07/15/2022 11:26 AM Chest X-Ray 07/15/22 12:56 SINGLE VIEW CHEST CLINICAL HISTORY: Hypoxia. FINDINGS: An AP, portable, upright chest radiograph is compared to study dated 06/19/2022 and correlated with chest CT dated 08/15/2019. The heart is mildly enlarg ed noting atherosclerotic calcification of the thoracic aorta. The pulmonary vasculature is noncongested. Emphysema and chronic interstitial thickening is similar to previous. A large calcified pleural plaque is again seen on the right. There is a small right pleural effusion with right basilar opacities. No pneumothorax is seen. The skeletal structures are osteopenic. There are chronic/old left-sided rib fractures. Arthritic change is noted in the shoulders. IMPRESSION: 1. Cardiomegaly and mild emphysema. There is no radiographic evidence of congestive failure. 2. There is a small right pleural effusion with right basilar opacities. This could represent atelectasis versus pneumonia/aspiration pneumonitis. Clinical correlation required. 3. Additional chronic changes as above including a large right-sided calcified pleural plaque. ACT 112: Negative or not required by law. Electronically signed by: Yaw David M.D. 07/15/2022 2:10 PM Discharge Plan Visit Data Chief Complaint: Leg Injury/Pain Stated Complaint: LEG PAIN (R) ED Provider: Sherwin Mahoney Discharge Problem: Post herpetic neuralgia, Leg weakness Patient Disposition: Admitted As Inpatient Discharge Instructions Interventions: ED Discharge Assessment Last Done: 07/15/22 13:39
[2022-07-15] MEDS ORDERED: MoRPHine SULFATE 2 MG/ML CARP ONE (10:23)
[2022-07-15] MEDS ORDERED: MoRPHine SULFATE 4 MG/ML 1 ML CARP\\VIAL ONE (10:23)
[2022-07-15 10:36] LABS: Basophils # (auto) 0.05 K/uL (0-0.2); Eosinophils # (auto) 0.17 K/uL (0-0.50); Eosinophils % (auto) 3.4 %; Hematocrit (blood only) 41.9 % (37.0-47.0); Hemoglobin 14.7 g/dl (12.0-16.0); Immature Granulocytes # (auto) 0.02 K/uL (0.01-0.20); Immature Granulocytes % (auto) 0.4 %; Lymphocytes % (auto) 19.8 %; Mean Corpuscular Hemoglobin 34.8 pg (25.0-34.0); Mean Corpuscular Hgb Conc 35.1 g/dL (32.0-36.0); Mean Corpuscular Volume 99.1 fL (80.0-100.0); Mean Platelet Volume 9.4 fL (9.4-12.4); Monocytes # (auto) 0.48 K/uL (0.11-0.59); Monocytes % (auto) 9.5 %; Neutrophils # (auto) 3.33 K/uL (1.40-6.50); Neutrophils % (auto) 65.9 %; Platelet Count 166 K/uL (130-400); RDW Coefficient of Variation 13.4 % (11.5-14.5); RDW Standard Deviation 49.4 fL (36.4-46.3); Red Blood Count 4.23 M/uL (4.20-5.40); White Blood Count 5.05 K/ul (4.8-10.8)
[2022-07-15 10:50] LABS: Alanine Aminotransferase 7 U/L (7-52); Albumin Level 4.1 gm/dl (3.4-5.0); Alkaline Phosphatase 60 U/L (34-104); Anion Gap 5 (3-11); Aspartate Aminotransferase 12 U/L (13-39); BUN Creatinine Ratio 10.4 (10-20); Bilirubin,Total 0.5 mg/dl (0.2-1.0); Blood Urea Nitrogen 5 mg/dl (6-23); Calcium 9.1 mg/dl (8.6-10.3); Carbon Dioxide 32 mmol/L (21-32); Chloride 103 mmol/L (98-107); Est GFR (African American) 116.8 ml/min; Est GFR (Non-African American) 100.8 ml/min; Globulin 2.1 gm/dl (2.5-4.0); Glucose 97 mg/dl (70-99(Fasting)); Potassium 3.8 mmol/L (3.5-5.1); Sodium 140 mmol/L (136-145); Total Protein 6.2 gm/dl (6.0-8.3)
--- NOTE | 2022-07-15 11:28 | CT Scan Report ---
LUMBAR SPINE CT CT DOSE: 439.05 mGy.cm HISTORY: Progressive right lower extremity weakness. TECHNIQUE: Multiaxial CT images of the lumbar spine were performed and reformatted in the sagittal an d coronal plane without the use of contrast. A dose lowering technique was utilized adhering to the principles of ALARA. COMPARISON: Lumbar spine CT 04/21/2022. FINDINGS: No fracture or subluxation. The visualized sacrum is intact. Paravertebral soft tissues are unremarkable. No significant central canal narrowing by CT technique. Severe disc space narrowing at L4-L5 and mild disc space narrowing at L5-S1. This remains unchanged. There are mild facet degenerat lyn changes within the lumbar spine. Small broad-based posterior disc bulges throughout the majority the bar spine. Calcified but normal caliber abdominal aorta. IMPRESSION: 1. No fracture or subluxation within the lumbar spine. 2. Degenerative changes as described above. This is similar to the prior study. ACT 112: Negative or not required by law. Electronically signed by: Caden Robertson M.D. 07/15/2022 11:26 AM
--- NOTE | 2022-07-15 12:58 | History & Physical Report ---
Date of Service July 15, 2022 Assessment & Plan (1) Post herpetic neuralgia: Plan: Gabapentin, amitriptyline, Morphine ER 15mg PO BID, [place] PRN for breakthrough, lidocaine patch Consult pain management Given significant weakness that she reports is getting worse we will ask neurology to consult while here - I suspect just like last time this is mainly from disuse but maybe beneficial to set her up with outpatient nerve conduction studies. Continue daily Valtrex for prophylaxis PT/OT. Patient is considering inpatient physical rehabilitation (2) Sleep apnea: Plan: Uses 2LPM O2 overnight rather than CPAP (3) Anxiety and depression: Plan: Duloxetine discontinued last admission. Monitor for worsening anxiety. Continue amitriptyline. (4) COPD (chronic obstructive pulmonary disease): Plan: Aim O2 sats 88-92%. No prior PFTs. Does not take regular maintenance inhalers for this (5) Invasive lobular carcinoma of breast in female: Plan: History of this. Continues on tamoxifen Plan VTE Prophylaxis - Lovenox 30mg SQ daily Diet - regular Disposition - observation status to med/sug Admission and Anticipated Discharge Date Admission Date: July 15, 2022 History of Present Illness Chief Complaint: Right leg pain and weakness Primary Care Provider: DO Jeannie Epsteinfrancheska An is a 66 year old female who presents to the ER with right leg pain and weakness. She was recently admitted for the same symptoms from June 18- 2022 and diagnosed with post herpetic neuralgia. PT and OT assessments at that time suggested possible need for rehabilitation however she elected to be discharged home to follow up the next day with pain management for L4-5 transforaminal epidural steroid injection. She was also switched to Lyrica although this caused her nausea and fatigue therefore she was switched back to gabapentin by her primary care provider. She was also started on MS Contin. She reports she was initially doing better after previous discharge however after about a week her pain and weakness have progressively become much worse to the point she is now unable to function at home. She denies any new symptoms and feels this is a progression of her same symptoms. No change in speech, vision, hearing or other extremity weakness or change in sensation. Allergies Allergy/AdvReac Type Severity Reaction Status Date / Time ether Allergy Severe Anaphylaxis Verified 07/02/22 09:03 Home Medications Medication Instructions Recorded Confirmed Type calcium carbonate 600 mg calcium 600 mg PO BID 11/01/18 07/15/22 History (1,500 mg) tablet albuterol sulfate 90 mcg/actuation 2 puffs inhalation Q4H PRN COPD #1 12/05/18 07/15/22 Rx aerosol inhaler g zoledronic acid 5 mg/100 mL in 1 ea IV YEARLY 11/14/20 07/15/22 History mannitol 5 %-water intravenous piggybck (Reclast) buspirone 5 mg tablet 5 mg PO QAM PRN Anxiety 02/24/21 07/15/22 History atorvastatin 20 mg tablet 20 mg PO QAM #90 tabs 04/14/22 07/15/22 Rx lidocaine 5 % topical patch 2 patch topical DAILY PRN pain 05/19/22 07/15/22 Rx (scale score 7-10) #30 ea valacyclovir 500 mg tablet 500 mg PO DAILY #30 tabs 06/18/22 07/15/22 Rx tamoxifen 10 mg tablet 20 mg PO QAM #1 tab 06/22/22 07/15/22 Rx amitriptyline 50 mg tablet 50 mg PO HS #90 tabs 07/02/22 07/15/22 Rx gabapentin 800 mg tablet 800 mg PO TID #90 tabs 07/02/22 07/15/22 Rx hydrocodone 10 mg-acetaminophen 1 tab PO Q6H PRN pain #90 tabs 07/02/22 07/15/22 Rx 325 mg tablet morphine 15 mg tablet,extended 15 mg PO Q12H #60 tabs 07/02/22 07/15/22 Rx release (MS Contin) ondansetron 4 mg disintegrating 4 mg PO Q8H PRN nausea and 07/02/22 07/15/22 Rx tablet vomiting #20 tabs Past Med/Surg History Medical History Acid reflux Allergic rhinitis Ambulatory dysfunction Anxiety and depression Asbestos exposure COPD (chronic obstructive pulmonary disease) DJD (degenerative joint disease) HTN (hypertension) Per records- pt denies - "diet controlled" per PCP Invasive lobular carcinoma of breast in female (12/21/19) Left- dx'ed Jan 2020. S/p bilateral mastectomy with reconstruction - XRT completed 07/2020 Lumbar spinal stenosis MRSA (methicillin resistant staph aureus) culture positive 09/18/20 Left Breast Osteoporosis with fracture Paroxysmal atrial fibrillation Solitary event in May 2012- loop recorder placed in 2018- no recurrence of a fib noted. Pt currently on ASA . 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 Cronin) History of cataract surgery (~01/2020) bilateral History of colonoscopy (2019) History of esophagogastroduodenoscopy (EGD) (~2004) History of total hip replacement (2009) Right S/P breast reconstruction, bilateral (02/26/20) tissue expanders S/P decompression of ulnar nerve (2005) RUE s/p surgery x2 S/P epidural steroid injection (1997) lumbar S/P mastectomy, bilateral (02/26/20) Bilateral Breast Mastectomy with Left [place] Lymph Node Biopsies(Bilateral) - Иван Herzog DO s Removal of Loop Recorder(Left) - DO Dr. Иван Grant 02/26/2020 S/P total hysterectomy and bilateral salpingo-oophorectomy (1994) Status post placement of implantable loop recorder (2017) Removed during bilat mastectomies 02/26/2020 Family History Mother , Passed age 77 of kidney failure/liver cancer Liver cancer Diabetes Heart disease Hypertension Stroke Father , Passed in 50's of COPD / Black Lung Emphysema lung Uncle Prostate cancer Aunt , Passed in 50's of brain cancer No problems noted. Aunt Lung cancer Sister No problems noted. Sister No problems noted. Sister No problems noted. Son No problems noted. Son No problems noted. Other No family history of adverse response to anesthesia Denies family history of Ovarian cancer Myocardial infarction Breast cancer Colorectal cancer Social History Smoking Status: Current every day smoker Tobacco Type: Cigarettes packs per day: 2; Second Hand Exposure: Yes; Do You Dip or Chew Tobacco: No; Hx Alcohol Use: Yes Alcohol type: hard liquor Alcohol Intake Frequency: Monthly or Less Hx Substance Use: No Preferred Language: Niuean Communication Ability: Effective Visual Impairment: Limited Hearing Ability: Normal Line Repairer Required: No Beliefs That Will Affect Care: None marital status: Life Partner Current Living Situation: Significant Other Current Living Situation Comment: Boyfriend lives with patient 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 Other Information That Helps Us Care for You: No Feels Safe at Home: Yes Childhood Exposure to Second-Hand Smoke: Yes Diet: regular Diet Comment: regular caffeine: Yes (2 cups of coffee/day ) during the past year weight has: remained stable Dental Care, Regularly: Yes Physical Activity Frequency: Daily Physical Activity Frequency Comment: walking Seatbelt Use: always Sunscreen Use: No Assistive Devices: Cane, CPAP and Walker Review of Systems Review of Systems: All systems reviewed & are unremarkable except as noted in HPI & below Physical Exam Constitutional: well developed; + not well nourished and no acute distress Eyes: PERRL, conjunctivae normal, anicteric sclerae ENMT: external ear and nose normal, oropharynx normal Respiratory: normal respiratory effort, lungs clear to auscultation Cardiovascular: RRR, no murmur, no edema Gastrointestinal (Abdomen): normal bowel sounds, soft, nontender, no hepatosplenomegaly Skin: no rashes, warm and dry Neurologic: awake; not confused Left lower extremity strength 5/5 throughout. Right hip flex 2/5, knee flex 2/5, ext 4/5, ankle dorsiflex 4/5, plantarflex 2/5. When distracted she is able to hip and knee flex against gravity Psychiatric: A+Ox3, euthymic affect Results & Data Results & Data Vital Signs (Past 12 Hours) Vital Signs Pulse Pulse Resp BP BP Pulse Ox O2 Del Method 07/15/22 12:00 81 18 152/85 H 94 Nasal Cannula 07/15/22 12:20 87 07/15/22 10:12 Nasal Cannula 07/15/22 10:39 77 L Nasal Cannula 07/15/22 09:38 99 H 18 178/120 H 97 Room Air O2 Flow Rate 07/15/22 12:00 4 07/15/22 12:20 07/15/22 10:12 5 07/15/22 10:39 0 05/03/23 09:38 Laboratory Results Abnormal lab results 07/15/22 07/15/22 Range/Units 10:18 10:18 MCH 34.8 H (25.0-34.0) pg RDW Std Deviation 49.4 H (36.4-46.3) fL Lymph # (Auto) 1.00 L (1.2-3.4) K/uL BUN 5 L (6-23) mg/dl Creatinine 0.48 L (0.6-1.2) mg/dl AST 12 L (13-39) U/L Globulin 2.1 L (2.5-4.0) gm/dl Diagnostic Findings LUMBAR SPINE CT CT DOSE: 439.05 mGy.cm HISTORY: Progressive right lower extremity weakness. TECHNIQUE: Multiaxial CT images of the lumbar spine were performed and reformatted in the sagittal and coronal plane without the use of contrast. A dose lowering technique was utilized adhering to the principles of ALARA. COMPARISON: Lumbar spine CT 04/21/2022. FINDINGS: No fracture or subluxation. The visualized sacrum is intact. Paravertebral soft tissues are unremarkable. No significant central canal narrowing by CT technique. Severe disc space narrowing at L4-L5 and mild disc space narrowing at L5-S1. This remains unchanged. There are mild facet degenerative changes within the lumbar spine. Small broad-based posterior disc bulges throughout the majority the bar spine. Calcified but normal caliber abdominal aorta. IMPRESSION: 1. No fracture or subluxation within the lumbar spine. 2. Degenerative changes as described above. This is similar to the prior study. Medications Administered ER Medications Given: Toradol 10mg IV Morphine 6mg IV Code Status & VTE Plan Code Status Full VTE Prophylaxis Plan VTE Prophylaxis will be ordered: Yes PG Care Time/CCT Total # of Minutes Spent Total Time Spent with Patient: Total time spent is greater than 50% in coordination of care (as documented) at patient's floor/unit and/or counseling patient: Coding Level of Care Code 73063 INT INP/OBS CARE 2MIN Diagnoses Post herpetic neuralgia B02.29 Sleep apnea G47.30 Anxiety and depression F41.9; F32.9 COPD (chronic obstructive pulmonary disease) J44.9 Invasive lobular carcinoma of breast in female C50.919
--- NOTE | 2022-07-15 14:11 | XRay Report ---
SINGLE VIEW CHEST CLINICAL HISTORY: Hypoxia. FINDINGS: An AP, portable, upright chest radiograph is compared to study dated 06/19/2022 and correlate d with chest CT dated 08/15/2019. The heart is mildly enlarged noting atherosclerotic calcification of the thoracic aorta. The pulmonary vasculature is noncongested. Emphysema and chronic interstitial thi ckening is similar to previous. A large calcified pleural plaque is again seen on the right. There is a small right pleural effusion with right basilar opacities. No pneumothorax is seen. The skeletal s tructures are osteopenic. There are chronic/old left-sided rib fractures. Arthritic change is noted i n the shoulders. IMPRESSION: 1. Cardiomegaly and mild emphysema. There is no radiographic evidence of congestive failure. 2. There is a small right pleural effusion with right basilar opacities. This could represent atelect asis versus pneumonia/aspiration pneumonitis. Clinical correlation required. 3. Additional chronic changes as above including a large right-sided calcified pleural plaque. ACT 112: Negative or not required by law. Electronically signed by: Yaw David M.D. 07/15/2022 2:10 PM
[2022-07-15] MEDS: GABAPENTIN 800 MG TAB PO SCH ×2 (15:46→20:07)
[2022-07-15] MEDS: LIDOCAINE 5% 1 PATCH TD SCH (15:47)
[2022-07-15] MEDS: HYDROcodone/ACETAMINOPHEN 10/325 TAB PO PRN (15:51)
[2022-07-15] MEDS ORDERED: MoRPHine SULFATE 4 MG/ML 1 ML CARP\\VIAL IV PRN (18:26)
[2022-07-15] MEDS: MoRPHine SULFATE 2 MG/ML CARP IV PRN (18:42)
[2022-07-15] MEDS: CALCIUM CARBONATE 1250MG TAB PO SCH (20:06)
[2022-07-15] MEDS: AMITRIPTYLINE HCL 50 MG TAB PO SCH (20:07)
[2022-07-15] MEDS: MoRPHine SULFATE CR 15 MG TABCR PO SCH (20:07)
[2022-07-15] MEDS ORDERED: ONDANSETRON INJ 2 MG/ML 2 ML VIAL IV PRN (21:04)
[2022-07-16] MEDS: HYDROcodone/ACETAMINOPHEN 10/325 TAB PO PRN ×2 (04:20→08:40)
[2022-07-16] MEDS: MoRPHine SULFATE 2 MG/ML CARP IV PRN ×4 (06:00→23:04)
[2022-07-16] MEDS: ATORVASTATIN 20 MG TAB PO SCH (08:36)
[2022-07-16] MEDS: GABAPENTIN 800 MG TAB PO SCH ×3 (08:36→20:39)
[2022-07-16] MEDS: CALCIUM CARBONATE 1250MG TAB PO SCH ×2 (08:36→20:38)
[2022-07-16] MEDS: valACYclovir HCL 500 MG TABLET PO SCH (08:37)
[2022-07-16] MEDS: TAMOXIFEN CITRATE 10 MG TABLET PO SCH (08:38)
[2022-07-16] MEDS ORDERED: methylPREDNISolone 4 MG TAB PO SCH (09:30)
--- NOTE | 2022-07-16 09:35 | Pain Management Consultation ---
Date of Consultation July 16, 2022 Assessment & Plan (1) Leg weakness: (2) Post herpetic neuralgia: (3) Lumbar spinal stenosis: (4) Ambulatory dysfunction: Plan 1. Continue current medication regimen. * Added 18-day Medrol taper - 24 mg x 3 days, 20 mg x 3 days, 16 mg x 3 days, 12 mg x 3 days, 8 mg x 3 days, 4 mg x 3 days * Can at least begin as inpatient and continue as outpatient. 2. PT/OT for ambulatory conditioning and right lower extremity strengthening. 3. Ordered updated lumbar spine MRI. * Will consider future lumbar OSCAR pending results and review. Thank you for this consultation. History of Present Illness Reason for Consultation: RLE pain/weakness Attending Physician: Rudy Arita MD History of Present Illness Patient is a 66-year-old female known to the pain clinic for this same ongoing issue of right lower extremity pain and weakness. She was again admitted to the hospital for this recurrent problem. She was admitted on 2 previous occasions, 04/20 - 05/01/2022 and 06/18-06/22/2022. She has been unable to work for greater than 3 months due to the pain. Orthopedics has found no etiology for her current symptoms related to her right total hip arthroplasty. She does have a history of shingles to the right low back and flank region, and she was previously diagnosed with postherpetic neuralgia as causing her pain/symptoms. She eventually underwent an L4-5 right transforaminal epidural steroid injection on 06/23/2022. Unfortunately, she reports no relief at all with that injection, "not even a little bit". Patient now is localizing her pain in the right buttocks and traveling to the lateral hip, then the anterior hip and down the anterior thigh, to the knee, and to the anterior lower leg to the level of the ankle. She is not noting any pain/paresthesias to the right foot/toes. She has been walking at home, but has to use a walker. She denies any back pain. She continues to take outpatient medication regimen of gabapentin 800 mg TID, amitriptyline 25 mg HS, and hydrocodone 10/325 mg q6h as needed for pain,, and she is still without relief. Previous visits to the ED, she has received IV dexamethasone, IV morphine, and Tylenol and without significant relief. She has previously had prednisone. PCP office 05/05/22 oral steroids, continue Gabapentin, lidocaine, and Hydrocodone. PCP Office 05/19/22 IM Methylprednisolone, IM Toradol, Prednisone taper, Amitriptyline. PCP office 05/25/22 Toradol IM. PCP office 06/18/22 increased leg weakness and pain in leg - using nonmotorized wheelchair. Case discussed with Dr. Kanwal Salazar. Pain Assessment Full Body Front + Back: 1. 2. Allergies Allergy/AdvReac Type Severity Reaction Status Date / Time ether Allergy Severe Anaphylaxis Verified 07/02/22 09:03 Home Medications Medication Instructions Recorded Confirmed Type calcium carbonate 600 mg calcium 600 mg PO BID 11/01/18 07/15/22 History (1,500 mg) tablet albuterol sulfate 90 mcg/actuation 2 puffs inhalation Q4H PRN COPD #1 12/05/18 07/15/22 Rx aerosol inhaler g zoledronic acid 5 mg/100 mL in 1 ea IV YEARLY 11/14/20 07/15/22 History mannitol 5 %-water intravenous piggybck (Reclast) buspirone 5 mg tablet 5 mg PO QAM PRN Anxiety 02/24/21 07/15/22 History atorvastatin 20 mg tablet 20 mg PO QAM #90 tabs 04/14/22 07/15/22 Rx lidocaine 5 % topical patch 2 patch topical DAILY PRN pain 05/19/22 07/15/22 Rx (scale score 7-10) #30 ea valacyclovir 500 mg tablet 500 mg PO DAILY #30 tabs 06/18/22 07/15/22 Rx tamoxifen 10 mg tablet 20 mg PO QAM #1 tab 06/22/22 07/15/22 Rx amitriptyline 50 mg tablet 50 mg PO HS #90 tabs 07/02/22 07/15/22 Rx gabapentin 800 mg tablet 800 mg PO TID #90 tabs 07/02/22 07/15/22 Rx hydrocodone 10 mg-acetaminophen 1 tab PO Q6H PRN pain #90 tabs 07/02/22 07/15/22 Rx 325 mg tablet morphine 15 mg tablet,extended 15 mg PO Q12H #60 tabs 07/02/22 07/15/22 Rx release (MS Contin) ondansetron 4 mg disintegrating 4 mg PO Q8H PRN nausea and 07/02/22 07/15/22 Rx tablet vomiting #20 tabs Pain History Chief Complaint Chief Complaint: Right hip and leg pain Right leg weakness Patient History Medical History (Updated 07/16/22 @ 09:57 by Sherwin Torre PA-C) Acid reflux Allergic rhinitis Ambulatory dysfunction Anxiety and depression Asbestos exposure COPD (chronic obstructive pulmonary disease) DJD (degenerative joint disease) HTN (hypertension) Per records- pt denies - "diet controlled" per PCP Invasive lobular carcinoma of breast in female (12/21/19) Left- dx'ed Jan 2020. S/p bilateral mastectomy with reconstruction - XRT completed 07/2020 Lumbar spinal stenosis MRSA (methicillin resistant staph aureus) culture positive 09/18/20 Left Breast Osteoporosis with fracture Paroxysmal atrial fibrillation Solitary event in May 2012- loop recorder placed in 2017- no recurrence of a fib noted. Pt currently on ASA . 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 Cronin) History of cataract surgery (~01/2020) bilateral History of colonoscopy (2019) History of esophagogastroduodenoscopy (EGD) (~2004) History of total hip replacement (2009) Right S/P breast reconstruction, bilateral (02/26/20) tissue expanders S/P decompression of ulnar nerve (2005) RUE s/p surgery x2 S/P epidural steroid injection (1997) lumbar S/P mastectomy, bilateral (02/26/20) Bilateral Breast Mastectomy with Left [place] Lymph Node Biopsies(Bilateral) - Иван Herzog DO s Removal of Loop Recorder(Left) - DO Dr. Иван Grant 02/26/2020 S/P total hysterectomy and bilateral salpingo-oophorectomy (1994) Status post placement of implantable loop recorder (2017) Removed during bilat mastectomies 02/26/2020 Family History Mother , Passed age 77 of kidney failure/liver cancer Liver cancer Diabetes Heart disease Hypertension Stroke Father , Passed in 50's of COPD / Black Lung Emphysema lung Uncle Prostate cancer Aunt , Passed in 50's of brain cancer No problems noted. Aunt Lung cancer Sister No problems noted. Sister No problems noted. Sister No problems noted. Son No problems noted. Son No problems noted. Other No family history of adverse response to anesthesia Denies family history of Ovarian cancer Myocardial infarction Breast cancer Colorectal cancer Social History Smoking Status: Current every day smoker Tobacco Type: Cigarettes packs per day: 2; Second Hand Exposure: Yes; Do You Dip or Chew Tobacco: No; Hx Alcohol Use: Yes Alcohol type: hard liquor Alcohol Intake Frequency: Monthly or Less Hx Substance Use: No Preferred Language: Welsh Communication Ability: Effective Visual Impairment: Limited Hearing Ability: Normal Renewable Energy Division Manager Required: No Beliefs That Will Affect Care: None marital status: Life Partner Current Living Situation: Significant Other Current Living Situation Comment: Boyfriend lives with patient 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 Mood and affect is appropriate. Does not appear in acute distress. HEAD: Normocephalic; atraumatic. NECK: Full ROM; trachea is midline. CHEST: Regular chest respiration and excursion. EXTREMITIES: Reduced ROM. Positive TTP over the anterior thigh. Distal sensation and pulses intact bilaterally. BACK: Diminished ROM.There is no midline, SI joint, or facet joint tenderness. Pain is unchanged with flexion or extension. No lumbosacral tenderness. Significant nontender right side thoracolumbar paraspinal spasm is noted. Inspection/palpation demonstrates some loss of normal lumbar lordotic curvature. NEURO: CN II-XII grossly intact with no focal deficits noted. Normal gait. Awake, alert, and oriented x 3. Distal sensation of lower legs intact and equal bilaterally. Patellar Reflex R 0L 2+ SKIN: No lesions, erythema, or rashes noted. LOWER EXTREMITIES: Unable to raise the right leg off of the bed, unable to extend at the right knee R Hip flexion 2+/5; hip extension 3-/5; knee extension 2+/5; knee flexion 3-/5; ankle dorsiflexion 3-/5; ankle plantar flexion 3-/5; EHL 3-/5 L Hip flexion 5/5; hip extension 5/5; knee extension 5/5; knee flexion 5/5; ankle dorsiflexion 5/5; ankle plantar flexion 5/5; EHL 5/5 Right hip PROM: Flexion 120, ER 60, IR 40, abduction 50, adduction 30 Negative logroll Unable to do Stinchfield test Skin: no rashes, warm and dry No zoster lesions or scarring from the shingles Results (Pain Clinic) Diagnostic Review MRI Findings: MRI OF THE LUMBAR SPINE WITHOUT CONTRAST CLINICAL HISTORY: Right-sided radiculopathy. COMPARISON STUDY: Lumbar spine CT April 21, 2022. TECHNIQUE: Utilizing a 1.5 Tasha magnet and dedicated coil, multiplanar, multiecho imaging of the lumbar spine was performed without IV contrast. FINDINGS: For purposes of numbering on this exam, the L5-S1 disc space is assigned to axial image 29 of 32. There is minimal rightward curvature of the lumbar spine. Vertebral body heights are maintained. No suspicious marrow replacement is prese nt. The conus terminates at the L1-L2 level. Paravertebral soft tissues are unremarkable. There is no lumbar spine fracture. L1-2: The central canal and neural foramen are patent. L2-3: The central canal and neural foramen are patent. L3-4: There is mild facet arthrosis. The central canal and neural foramen are patent. There is minimal disc bulge. L4-5: Moderate disc space narrowing is noted with mild disc bulge. There is facet arthrosis. There is mild during of the central canal and lateral recesses. The neural foramen are patent. L5-S1: There is mild disc space narrowing with disc bulge and facet arthrosis. The central canal is patent. There is mild narrowing of the lateral recesses and the right neural foramen. The left neural foramen is patent. IMPRESSION: 1. Mild multilevel degenerative changes within the lumbar spine. No significant central canal stenosis. Mild multilevel neural foraminal narrowing. 2. No large disc herniations. ACT 112: Negative or not required by law. Electronically signed by: Ramirez Jang M.D. 04/22/2022 1:53 PM Dictated:04/22/22 1336 Transcribed: 04/22/[address] Findings: LUMBAR SPINE CT CT DOSE: 439.05 mGy.cm HISTORY: Progressive right lower extremity weakness. TECHNIQUE: Multiaxial CT images of the lumbar spine were performed and reformatted in the sagittal and coronal plane without the use of contrast. A dose lowering technique was utilized adhering to the principles of ALARA. COMPARISON: Lumbar spine CT 04/21/2022. FINDINGS: No fracture or subluxation. The visualized sacrum is intact. Paravertebral soft tissues are unremarkable. No significant central canal narrowing by CT technique. Severe disc space narrowing at L4-L5 and mild disc space narrowing at L5-S1. This remains unchanged. There are mild facet degenerative changes within the lumbar spine. Small broad-based posterior disc bulges throughout the majority the bar spine. Calcified but normal caliber abdominal aorta. IMPRESSION: 1. No fracture or subluxation within the lumbar spine. 2. Degenerative changes as described above. This is similar to the prior study. ACT 112: Negative or not required by law. Electronically signed by: Caden Robertson M.D. 07/15/2022 11:26 AM Dictated:07/15/22 1124 Transcribed: 07/15/22 1124
[2022-07-16] MEDS: MoRPHine SULFATE CR 15 MG TABCR PO SCH ×2 (09:47→20:38)
[2022-07-16] MEDS: LIDOCAINE 5% 1 PATCH TD SCH (09:49)
[2022-07-16] MEDS: ENOXAPARIN INJ 30 MG/0.3 ML SYR SQ SCH (09:49)
--- NOTE | 2022-07-16 11:52 | Neurology Consultation ---
Date of Consultation July 16, 2022 Assessment & Plan (1) Leg weakness: (2) Right lumbar radiculitis: Plan 66-year-old female with a history of recurrent right lumbar shingles eruptions, now presenting with the same, but with associated radicular pain radiating down the right leg and associated neuropathic pain/hypersensitivity along the anterior right thigh, knee, and proximal carty. Patient also has significant associated right lower extremity weakness, primarily proximal musculature, hip flexion, knee extension (quadriceps), right hip abduction, and extension. Patient's symptoms and examination suggestive of possibly a polyradiculitis or lumbosacral radiculitis with associated amyotrophy/weakness. Consider shingles related, versus autoimmune versus metastatic versus structural. Signs and symptoms not very suggestive of TEASEL SETTER injury or disease process. Would recommend gadolinium-enhanced MRI of the lumbar spine and sacrum/pelvis. Continue with gabapentin 800 mg 3 times per day. May increase the amitriptyline to 75 mg at bedtime. Can try adding baclofen 10 mg 3 times per day as an adjunctive medication for control of neuropathic pain. Could also try Lidoderm patches. Consider adding Valtrex 1000 mg/day as suppressive therapy, potentially helpful for suppression of postherpetic neuralgia, relapses, patient seems to be predisposed. Would also recommend checking some up-to-date inflammatory/autoimmune labs such as up-to-date ESR, CRP, CARMITA screen with titer, ANCA, Lyme screening History of Present Illness Reason for Consultation: Right lower extremity weakness Requesting Physician: Dr. Lake Attending Physician: Rudy Arita MD History of Present Illness Patient is a 66-year-old female with a reported history of recurrent shingles affecting perhaps an right L3/L4 dermatome over the past few years, she reports having multiple shingles vaccinations. She had one of her characteristic shingles flareups a few months ago. However, this particular flareup occurred with associated pain and hypersensitivity radiating down the right leg, primarily the anterior aspect of the right quadricep, over the knee, and into the anterior right carty. She describes some associated hypersensitivity to touch, no sensory loss. She has also noted significant difficulty with gait, ambulatory dysfunction, due to weakness of the right quadriceps and proximal thigh musculature. This weakness seems to be independent of the associated pain. She denies significant low back pain. She denies experiencing any difficulty with bladder control. No distal weakness of the lower limbs such as foot drop. No specific shingles eruptions along the leg. No symptoms involving the upper limbs. No headache, dizziness, vision symptoms. She has been prescribed gabapentin and amitriptyline for management of her neuropathic pain, she has been following with the [facility] pain clinic as well and underwent right L4-5 transforaminal epidural injection on June 23 which provided at best only temporary relief according to the patient. Patient is afebrile. She was hypertensive at the time of presentation, blood pressure 178/120. CBC unremarkable. Metabolic panel unremarkable. Glucose 97. I note that she had normal inflammatory markers, ESR and CRP last month., SARS-CoV-2 testing negative. Patient had negative Lyme screening on June 19 of this year. MRI of the lumbar spine without contrast, completed April 22, 2022 revealed mild multilevel degenerative changes without significant central canal or neuroforaminal stenosis. I independently reviewed these images. A CT of the lumbar spine completed yesterday was unrevealing. No fracture or subluxation. Disc base narrowing noted at several levels. Allergies Allergy/AdvReac Type Severity Reaction Status Date / Time ether Allergy Severe Anaphylaxis Verified 07/02/22 09:03 Home Medications Medication Instructions Recorded Confirmed Type calcium carbonate 600 mg calcium 600 mg PO BID 11/01/18 07/15/22 History (1,500 mg) tablet albuterol sulfate 90 mcg/actuation 2 puffs inhalation Q4H PRN COPD #1 12/05/18 07/15/22 Rx aerosol inhaler g zoledronic acid 5 mg/100 mL in 1 ea IV YEARLY 11/14/20 07/15/22 History mannitol 5 %-water intravenous piggybck (Reclast) buspirone 5 mg tablet 5 mg PO QAM PRN Anxiety 02/24/21 07/15/22 History atorvastatin 20 mg tablet 20 mg PO QAM #90 tabs 04/14/22 07/15/22 Rx lidocaine 5 % topical patch 2 patch topical DAILY PRN pain 05/19/22 07/15/22 Rx (scale score 7-10) #30 ea valacyclovir 500 mg tablet 500 mg PO DAILY #30 tabs 06/18/22 07/15/22 Rx tamoxifen 10 mg tablet 20 mg PO QAM #1 tab 06/22/22 07/15/22 Rx amitriptyline 50 mg tablet 50 mg PO HS #90 tabs 07/02/22 07/15/22 Rx gabapentin 800 mg tablet 800 mg PO TID #90 tabs 07/02/22 07/15/22 Rx hydrocodone 10 mg-acetaminophen 1 tab PO Q6H PRN pain #90 tabs 07/02/22 07/15/22 Rx 325 mg tablet morphine 15 mg tablet,extended 15 mg PO Q12H #60 tabs 07/02/22 07/15/22 Rx release (MS Contin) ondansetron 4 mg disintegrating 4 mg PO Q8H PRN nausea and 07/02/22 07/15/22 Rx tablet vomiting #20 tabs Patient History Medical History Acid reflux Allergic rhinitis Ambulatory dysfunction Anxiety and depression Asbestos exposure COPD (chronic obstructive pulmonary disease) DJD (degenerative joint disease) HTN (hypertension) Per records- pt denies - "diet controlled" per PCP Invasive lobular carcinoma of breast in female (12/21/19) Left- dx'ed Jan 2020. S/p bilateral mastectomy with reconstruction - XRT completed 07/2020 Lumbar spinal stenosis MRSA (methicillin resistant staph aureus) culture positive 09/18/20 Left Breast Osteoporosis with fracture Paroxysmal atrial fibrillation Solitary event in May 2012- loop recorder placed in 2017- no recurrence of a fib noted. Pt currently on ASA . Loop recorder has since been removed in Feb 2020 Polyneuropathy Sleep apnea occasionally wears CPAP Surgical History H/O hernia repair (2002) umbilical History of breast surgery (~03/25/20) excision/closure of bilateral masectomy scar revision History of breast surgery (09/25/20) Left Breast Tissue Jewel Hole Driller Removal with Capsulectomy (Dr. Cronin) History of cataract surgery (~01/2020) bilateral History of colonoscopy (2019) History of esophagogastroduodenoscopy (EGD) (~2004) History of total hip replacement (2009) Right S/P breast reconstruction, bilateral (02/26/20) tissue expanders S/P decompression of ulnar nerve (2005) RUE s/p surgery x2 S/P epidural steroid injection (1997) lumbar S/P mastectomy, bilateral (02/26/20) Bilateral Breast Mastectomy with Left [place] Lymph Node Biopsies(Bilateral) - Иван Herzog DO s Removal of Loop Recorder(Left) - DO Dr. Иван Grant 02/26/2020 S/P total hysterectomy and bilateral salpingo-oophorectomy (1994) Status post placement of implantable loop recorder (2018) Removed during bilat mastectomies 02/26/2020 Family History Mother , Passed age 77 of kidney failure/liver cancer Liver cancer Diabetes Heart disease Hypertension Stroke Father , Passed in 50's of COPD / Black Lung Emphysema lung Uncle Prostate cancer Aunt , Passed in 50's of brain cancer No problems noted. Aunt Lung cancer Sister No problems noted. Sister No problems noted. Sister No problems noted. Son No problems noted. Son No problems noted. Other No family history of adverse response to anesthesia Denies family history of Ovarian cancer Myocardial infarction Breast cancer Colorectal cancer Social History Smoking Status: Current every day smoker Tobacco Type: Cigarettes packs per day: 2; Second Hand Exposure: Yes; Do You Dip or Chew Tobacco: No; Hx Alcohol Use: Yes Alcohol type: hard liquor Alcohol Intake Frequency: Monthly or Less Hx Substance Use: No Preferred Language: Welsh Communication Ability: Effective Visual Impairment: Limited Hearing Ability: Normal Key Account Executive Required: No Beliefs That Will Affect Care: None marital status: Life Partner Current Living Situation: Significant Other Current Living Situation Comment: Boyfriend lives with patient 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 Other Information That Helps Us Care for You: No Feels Safe at Home: Yes Childhood Exposure to Second-Hand Smoke: Yes Diet: regular Diet Comment: regular caffeine: Yes (2 cups of coffee/day ) during the past year weight has: remained stable Dental Care, Regularly: Yes Physical Activity Frequency: Daily Physical Activity Frequency Comment: walking Seatbelt Use: always Sunscreen Use: No Assistive Devices: Cane, CPAP and Walker Review of Systems Constitutional: no fever and no chills Eyes: no blind spots and no diplopia Ear, Nose, Mouth, Throat: no tinnitus and no hearing loss Respiratory: no cough and no dyspnea Cardiovascular: no chest pain and no palpitations Gastrointestinal: no nausea and no vomiting Genitourinary: no dysuria and no urinary incontinence Musculoskeletal: no neck pain and no myalgia Integumentary: as per Subjective / HPI Neurologic: as per Subjective / HPI, + localized weakness and + paresthesia; no headache(s) and no confusion Psychiatric: no depression and no anxiety Hematologic / Lymphatic: no easy bleeding and no easy bruising Exam (Neuro) Constitutional: well developed, well nourished and + thin Eyes: normal visual reilly by confrontation, PERRL and EOM intact bilaterally Cardiovascular: Vessels: no carotid bruit Neurologic: Oriented to:: Person, Place and Time Memory: Short Term Intact and Remote Intact Attention: Span Intact and Concentration Intact Speech Fluency: negative Dysarthria or Dysfluency Speech Aphasia: negative Aphasia Fund of Knowledge: Current Events, Past History and Vocabulary Cranial Nerves: Normal II, III, IV, , V, VII, VIII, IX, X, XI and XII Motor Strength: Normal Upper Extremities; negative Normal Lower Extremities (right leg weakness, as below) Motor Tone: Normal Lower Extremities and Normal Upper Extremities Muscle Bulk/Involuntary Movements: No Involuntary Movements and Muscle Atrophy (right quad atrophy) Sensation: Light Touch Intact, Pain/Temperature Intact, Vibration Intact, Proprioception Intact and Hyperesthesia (right thigh, knee, carty) Coordination: Normal and Heel-Carty Abnormal Laterality: Right; negative Finger-Nose Abnormal Deep Tendon Reflexes: Rt Triceps: 2+, Lt Triceps: 2+, Rt Biceps: 2+, Lt Biceps: 2+, Rt Brachioradialis: 2+, Lt Brachioradialis: 2+, Rt Patellar: 0, Lt Patellar: 2+, Rt Ankle: 1+ and Lt Ankle: 1+ Special Tests: negative Babinski Present D etails: Patient has significant weakness of right hip flexion, quadriceps strength, right hip abduction, and right hip extension. Strength grades about 2/5 for these muscle groups. No foot drop or weakness of ankle dorsiflexion or plantarflexion. Gait could not be tested Results & Data Vital Signs (Past 12 Hours) Vital Signs Temp Pulse Resp BP Pulse Ox O2 Del Method O2 Flow Rate 07/16/22 08:06 Nasal Cannula 2 07/16/22 07:24 95 Nasal Cannula 3 07/16/22 07:24 36.7 C 86 18 138/74 81 L Room Air Laboratory Results WBC 5.05, hemoglobin 14.7, hematocrit 41.9, platelet count 166, sodium 140, potassium 3.8, BUN 5, creatinine 0.48, glucose 97, calcium 9.1, AST 12, ALT 7, SARS-CoV-2 negative. Labs from July 02, 2022 reviewed. ESR 4, CRP less than 0.50. Lyme IgG and IgM antibodies - June 19, 2022. Diagnostic Findings MRI of the lumbar spine and lumbar spine CT are as described in the HPI, I independently reviewed these images. I note that a head CT was completed June 18, 2022 as well in the context of patient's right lower extremity weakness, the study was negative, no evidence of hemorrhage, evolving infarct, hydrocephalus, or other significant process. I independently reviewed these images as well. PG Care Time/CCT Total # of Minutes Spent Total Time Spent with Patient: 85 minutes spent in chart review, direct review of imaging, labs, medical tests, direct interview and examination of patient, and medical documentation. Coding Level of Care Code 99383 INT INP/OBS CARE 3/75MIN Diagnoses Leg weakness R29.898 Right lumbar radiculitis M54.16
--- NOTE | 2022-07-16 14:28 | Hospitalist Progress Note ---
Date of Service July 16, 2022 Assessment & Plan (1) Post herpetic neuralgia: Plan: I think her current symptoms are more along the lines of right lumbar radiculopathy/sciatica and will be treated with intravenous steroid therapy. Appreciate neurology consultation and recommendations. Lumbar MRI scan is pending. Pain management consultation will can proceed. She is already on a plethora of pain control measures including gabapentin, amitriptyline, Morphine ER 15mg PO BID, [place] PRN for breakthrough, lidocaine patch (2) Sleep apnea: Plan: Uses 2LPM O2 overnight rather than CPAP (3) Anxiety and depression: Plan: Duloxetine discontinued last admission. Continue amitriptyline. (4) COPD (chronic obstructive pulmonary disease): Plan: Aim O2 sats 88-92%. No prior PFTs. Does not take regular maintenance inhalers (5) Invasive lobular carcinoma of breast in female: Plan: Continue tamoxifen Plan VTE Prophylaxis - Lovenox 30mg SQ daily Diet - regular Disposition -anticipate eventual discharge to home Admission and Anticipated Discharge Date Admission Date: July 15, 2022 Subjective Alert and oriented. Her current symptoms appear to be more along the lines of lumbar radiculopathy than postherpetic neuralgia. She has been seen by neurology. Appreciate consultation and recommendations. Pain management has also been consulted but she is already on gabapentin, amitriptyline, morphine ER, Lidoderm, and as needed [place]hen[place]. Lumbar MRI has been ordered and pending. We will treat with parenteral steroids for now. Continue other medications. The chest x-ray findings regarding right base scarring are chronic and will not be pursued further. Review of Systems Review of Systems: Constitutional-no fever or chills ENT-no blurred vision, no double vision, no epistaxis, no sore throat Respiratory-no cough, no wheezing, no shortness of breath Cardiac-no palpitations, no chest pain, no syncope GI-no nausea, vomiting, diarrhea, melena, hematochezia -no urinary retention, no urinary incontinence, no dysuria, no hematuria Musculoskeletal-right lower extremity sciatica Skin-no bruising, no rashes, no pruritus Neuro-mild right lower extremity weakness Psych-no depression, no anxiety Physical Exam Physical Exam: General-alert and oriented x3, no fevers, no chills HEENT-head atraumatic and normocephalic, pupils equal and reactive to light, extraocular muscles intact Neck-no lymphadenopathy or thyromegaly, trachea midline Chest-diminished breath sounds bilaterally. Rhonchi at the right base. No wheezes Cardiac-regular rate and rhythm, normal S1 and S2 Abdomen-normal bowel sounds, nontender, no hepatosplenomegaly Extremities-no cyanosis, clubbing, or edema Neuro-cranial nerves II through XII intact, right lower extremity ankle dorsiflexion is slightly less than the left , no focal deficits Psych-normal affect, normal mood Results & Data Results & Data Vital Signs (Past 12 Hours) Vital Signs Temp Pulse Resp BP Pulse Ox O2 Del Method O2 Flow Rate 07/16/22 08:06 Nasal Cannula 2 07/16/22 07:24 95 Nasal Cannula 3 07/16/22 07:24 36.7 C 86 18 138/74 81 L Room Air Laboratory Results 07/15/22 10:18 07/15/22 10:18 PG Care Time/CCT Total # of Minutes Spent Total Time Spent with Patient: Total time spent is greater than 50% in coordination of care (as documented) at patient's floor/unit and/or counseling patient: Coding Level of Care Code 25997 SUB INP/OBS CARE 3/50MIN Diagnoses Post herpetic neuralgia B02.29 Sleep apnea G47.30 Anxiety and depression F41.9; F32.9 COPD (chronic obstructive pulmonary disease) J44.9 Invasive lobular carcinoma of breast in female C50.919
[2022-07-16] MEDS: methylPREDNISolone 60 MG in SYRINGE 0 ML IV SCH ×2 (14:37→20:39)
--- NOTE | 2022-07-16 16:10 | Magnetic Resonance Report ---
MRI OF THE LUMBAR SPINE WITHOUT CONTRAST CLINICAL HISTORY: Right lower extremity pain/weakness, ambulatory dysfunction COMPARISON STUDY: Lumbar spine MRI April 22, [address] July 15, 2022. TECHNIQUE: Utilizing a 1.5 Tasha magnet and dedicated coil, [facility]planar[facility] without IV contrast. FINDINGS: For purposes of numbering on this exam, the L5-S1 disc space is assigned to axial image 27 of 30. Ali gnment of the lumbar spine is anatomic. Vertebral body heights are maintained. There is no marrow whitley ma or marrow replacement. An old mild compression deformity of the superior endplate of T11 is noted. No intracanalicular mass or fluid collection is present. Paravertebral soft tissues are unremarkable . This exam is mildly compromised by motion artifact. L1-2: The central canal and neural foramen are patent. L2-3: The central canal and neural foramen are patent. L3-4: The central canal and neural foramen are patent. There is mild facet arthrosis. L4-5: There is moderate disc space narrowing. The central canal is patent. Left neural foramen is pat ent. There is mild right neural foraminal stenosis. L5-S1: There is mild disc space narrowing with mild disc bulge. The central canal is patent. There is mild bilateral neural foraminal stenosis. IMPRESSION: 1. No acute process within the lumbar spine by MRI. Exam mildly compromised by motion artifact. 2. No significant change in appearance of the lumbar spine since MRI April 2022. Mild degenerative changes. No central canal stenosis. Mild multilevel neural foraminal narrowing. ACT 112: Negative or not required by law. Electronically signed by: Ramirez Jang M.D. 07/16/2022 4:09 PM
[2022-07-16] MEDS: AMITRIPTYLINE HCL 50 MG TAB PO SCH (20:38)
[2022-07-17] MEDS: methylPREDNISolone 60 MG in SYRINGE 0 ML IV SCH ×2 (00:37→06:26)
[2022-07-17 07:48] VITALS: BP 127/66; TEMP 98.2; O2SAT 93
[2022-07-17] MEDS: CALCIUM CARBONATE 1250MG TAB PO SCH (08:01)
[2022-07-17] MEDS: ATORVASTATIN 20 MG TAB PO SCH (08:01)
[2022-07-17] MEDS: valACYclovir HCL 500 MG TABLET PO SCH (08:01)
[2022-07-17] MEDS: MoRPHine SULFATE CR 15 MG TABCR PO SCH (08:01)
[2022-07-17] MEDS: TAMOXIFEN CITRATE 10 MG TABLET PO SCH (08:01)
[2022-07-17] MEDS: GABAPENTIN 800 MG TAB PO SCH ×2 (08:02→13:30)
[2022-07-17] MEDS: LIDOCAINE 5% 1 PATCH TD SCH (08:02)
[2022-07-17] MEDS: ENOXAPARIN INJ 30 MG/0.3 ML SYR SQ SCH (08:02)
[2022-07-17] MEDS ORDERED: methylPREDNISolone 40 MG in SYRINGE 0 ML IV SCH (14:00)
--- NOTE | 2022-07-17 14:48 | Hospitalist Progress Note ---
Date of Service July 17, 2022 Assessment & Plan (1) Post herpetic neuralgia: Plan: current symptoms are more along the lines of right lumbar radiculopathy/sciatica and being treated with intravenous steroid therapy. She has improved. Parenteral steroid dosage taper down today, July 17. Appreciate neurology consultation and recommendations. Lumbar MRI scan report noted. No need for surgical intervention at this time. She is already on a plethora of pain control measures including gabapentin, amitriptyline, Morphine ER 15mg PO BID, [place] PRN for breakthrough, lidocaine patch (2) Sleep apnea: Plan: Uses 2LPM O2 overnight rather than CPAP (3) Anxiety and depression: Plan: Duloxetine discontinued last admission. Continue amitriptyline. (4) COPD (chronic obstructive pulmonary disease): Plan: Aim O2 sats 88-92%. No prior PFTs. Does not take regular maintenance inhalers (5) Invasive lobular carcinoma of breast in female: Plan: Continue tamoxifen Plan VTE Prophylaxis - Lovenox 30mg SQ daily Diet - regular Disposition -anticipate eventual discharge to home on prednisone tapering dose. Hopefully tomorrow, July 18 Admission and Anticipated Discharge Date Admission Date: July 17, 2022 Subjective Alert and oriented. Right leg discomfort has lessened with parenteral steroid therapy. Lumbar MRI scan results noted. No indication for surgery at this time. She has some mild flushing from the prednisone therapy which has been tapered down. Hopefully she can go home tomorrow, July 18, on a oral prednisone t apering dose Review of Systems Review of Systems: Constitutional-no fever or chills ENT-no blurred vision, no double vision, no epistaxis, no sore throat Respiratory-no cough, no wheezing, no shortness of breath Cardiac-no palpitations, no chest pain, no syncope GI-no nausea, vomiting, diarrhea, melena, hematochezia -no urinary retention, no urinary incontinence, no dysuria, no hematuria Musculoskeletal-right lower extremity sciatica Skin-no bruising, no rashes, no pruritus Neuro-mild right lower extremity weakness Psych-no depression, no anxiety Physical Exam Physical Exam: General-alert and oriented x3, no fevers, no chills HEENT-head atraumatic and normocephalic, pupils equal and reactive to light, extraocular muscles intact Neck-no lymphadenopathy or thyromegaly, trachea midline Chest-diminished breath sounds bilaterally. Rhonchi at the right base. No wheezes Cardiac-regular rate and rhythm, normal S1 and S2 Abdomen-normal bowel sounds, nontender, no hepatosplenomegaly Extremities-no cyanosis, clubbing, or edema Neuro-cranial nerves II through XII intact, right lower extremity ankle do rsiflexion is slightly less than the left , no focal deficits Psych-normal affect, normal mood Results & Data Results & Data Vital Signs (Past 12 Hours) Vital Signs Temp Pulse Resp BP Pulse Ox O2 Del Method O2 Flow Rate 07/17/22 07:45 Nasal Cannula 2 07/17/22 07:45 36.8 C 82 16 127/66 93 Nasal Cannula 2 Laboratory Results 07/15/22 10:18 07/15/22 10:18 PG Care Time/CCT Total # of Minutes Spent Total Time Spent with Patient: Total time spent is greater than 50% in coordination of care (as documented) at patient's floor/unit and/or counseling patient: Coding Level of Care Code 76498 SUB INP/OBS CARE 3/50MIN Diagnoses Post herpetic neuralgia B02.29 Sleep apnea G47.30 Anxiety and depression F41.9; F32.9 COPD (chronic obstructive pulmonary disease) J44.9 Invasive lobular carcinoma of breast in female C50.919
--- NOTE | 2022-07-17 15:16 | Discharge Summary ---
Date of Service July 17, 2022 Admission HPI Per Admitting Provider Justina An is a 66 year old female who presents to the ER with right leg pain and weakness. She was recently admitted for the same symptoms from June 18- 2022 and diagnosed with post herpetic neuralgia. PT and OT assessments at that time suggested possible need for rehabilitation however she elected to be discharged home to follow up the next day with pain management for L4-5 transforaminal epidural steroid injection. She was also switched to Lyrica although this caused her nausea and fatigue therefore she was switched back to gabapentin by her primary care provider. She was also started on MS Contin. She reports she was initially doing better after previous discharge however after about a week her pain and weakness have progressively become much worse to the point she is now unable to function at home. She denies any new symptoms and feels this is a progression of her same symptoms. No change in speech, vision, hearing or other extremity weakness or change in sensation. Principal Diagnosis Right lower extremity lumbar radiculopathy Discharge Exam General-alert and oriented x3, no fevers, no chills HEENT-head atraumatic and normocephalic, pupils equal and reactive to light, extraocular muscles intact Neck-no lymphadenopathy or thyromegaly, trachea midline Chest-diminished breath sounds bilaterally. Rhonchi at the right base. No wheezes Cardiac-regular rate and rhythm, normal S1 and S2 Abdomen-normal bowel sounds, nontender, no hepatosplenomegaly Extremities-no cyanosis, clubbing, or edema Neuro-cranial nerves II through XII intact, right lower extremity ankle dorsiflexion is slightly less than the left , no focal deficits Psych-normal affect, normal mood Discharge Data Allergies Allergy/AdvReac Type Severity Reaction Status Date / Time ether Allergy Severe Anaphylaxis Verified 07/02/22 09:03 Consultations 07/15/22 12:16 ED Decision to Admit Stat 07/15/22 14:24 Consult Pain Management Routine 07/15/22 23:48 Consult Neurology Routine Ordered Studies 07/15/22 10:20 CT lumbar spine wo con Stat 07/16/22 09:26 MR lumbar spine wo con Routine Hospital Course (1) Post herpetic neuralgia: current symptoms are more along the lines of right lumbar radiculopathy/sciatica and being treated with intravenous steroid therapy. She has improved. Parenteral steroid dosage tapered down today, July 17. Appreciate neurology consultation and recommendations. Lumbar MRI scan report noted. No need for surgical intervention at this time. She is already on a plethora of pain control measures including gabapentin, amitriptyline, Morphine ER 15mg PO BID, [place] PRN for breakthrough, lidocaine patch (2) Sleep apnea: Uses 2LPM O2 overnight rather than CPAP (3) Anxiety and depression: Duloxetine discontinued last admission. Continue amitriptyline. (4) COPD (chronic obstructive pulmonary disease): Aim O2 sats 88-92%. No prior PFTs. Does not take regular maintenance inhalers (5) Invasive lobular carcinoma of breast in female: Continue tamoxifen Plan VTE Prophylaxis - Lovenox 30mg SQ daily Diet - regular Disposition -the patient now states that she wants to go home today, July 17. Prednisone tapering dose ordered. Total Time Total Time Spent Total Time Spent (In Minutes): 40 minutes Discharge Plan Discharge Items Patient Disposition: Home - Home Health Services Reason For Visit: POST HERPETIC NEURALGIA, AMBULATORY DYSFUNCTION Discharge Diagnosis: Right lower extremity weakness due to lumbar radiculopathy Activity: Resume your previous activity Non-emergency contact: Primary Care Provider Call non-emergency contact if: you have any medication questions and your symptoms worsen Follow-up/Referrals: Candie Francis DO [Primary Care Provider] - Diet: Regular and Heart Healthy Addtl Attending Provider Instructions: Take prednisone in a tapering dose fashion as directed. Home physical therapy ordered Pending Studies at Discharge: No Stand-Alone Forms: My [employer], Smoking Cessation Medications and DC Order Prescriptions: New prednisone 20 mg tablet See Rx Instructions .ROUTE .COMPLEX Qty: 18 0RF Rx Instructions: 20 mg orally 3 times a day for 3 days, then 20 mg twice a day for 3 days, then 20 mg once a day for 3 days, then stop Continued atorvastatin 20 mg tablet 20 mg PO QAM Qty: 90 1RF calcium carbonate 600 mg calcium (1,500 mg) tablet 600 mg PO BID zoledronic [id number] [Reclast] 5 mg/100 mL piggyback 1 ea IV YEARLY Rx Instructions: Patient stated she received either Nov or December 2021 valacyclovir 500 mg tablet 500 mg PO DAILY Qty: 30 2RF lidocaine 5 % adhesive patch,medicated 2 patch topical DAILY PRN (Reason: pain (scale score 7-10)) Qty: 30 5RF Rx Instructions: leave on most painful area for up to 12 hrs albuterol sulfate 90 mcg/actuation HFA aerosol inhaler 2 puffs inhalation Q4H PRN (Reason: COPD) Qty: 1 0RF amitriptyline 50 mg tablet 50 mg PO HS Qty: 90 0RF hydrocodone-acetaminophen 10-325 mg tablet 1 tab PO Q6H PRN (Reason: pain) Qty: 90 0RF morphine [MS Contin] 15 mg tablet extended release 15 mg PO Q12H Qty: 60 0RF ondansetron 4 mg tablet,disintegrating 4 mg PO Q8H PRN (Reason: nausea and vomiting) Qty: 20 0RF gabapentin 800 mg tablet 800 mg PO TID Qty: 90 1RF buspirone 5 mg tablet 5 mg PO QAM PRN (Reason: Anxiety) tamoxifen 10 mg Tablet 20 mg PO QAM Qty: 1 0RF Discharge Orders: Discharge Order (Routine); Ordered 07/17/22 Ordered By: Rudy Arita Admission Data Admit Date/Time: 07/17/22 12:51 Attending Provider: Rudy Arita Admit Provider: Jairo Lake Primary Care Provider: Candie Francis Other Providers: Jairo Lake ; Kanwal Salazar ; Og Lozano Coding Level of Care Code 09576 INP/OBS DISCH >30 MIN Diagnoses Post herpetic neuralgia B02.29 Sleep apnea G47.30 Anxiety and depression F41.9; F32.9 COPD (chronic obstructive pulmonary disease) J44.9 Invasive lobular carcinoma of breast in female C50.919
[2022-07-17 15:22] VITALS: PULSE 81
== END 2022-07-17 16:13 | disposition home or self-care (01) | DRG 74 ==
LOC: 3N 09:26 → ED 09:26 → SUATTDRO 13:03 → 3N 13:39

== ENCOUNTER 2023-07-19 13:35 | Inpatient (IN) ==
[2023-07-19] MEDS: MoRPHine SULFATE 2 MG/ML CARP IV PRN (14:44)
[2023-07-19 14:55] LABS: Basophils # (auto) 0.02 K/uL (0.00-0.20); Basophils % (auto) 0.3 %; Eosinophils # (auto) 0.12 K/uL (0.00-0.50); Hematocrit (blood only) 38.9 % (37.0-47.0); Hemoglobin 13.6 g/dl (12.0-16.0); Immature Granulocytes # (auto) 0.04 K/uL (0.01-0.20); Immature Granulocytes % (auto) 0.7 %; Lymphocytes # (auto) 0.38 K/uL (1.20-3.40); Lymphocytes % (auto) 6.3 %; Mean Corpuscular Hemoglobin 33.6 pg (25.0-34.0); Mean Platelet Volume 9.1 fL (9.4-12.4); Monocytes # (auto) 0.45 K/uL (0.11-0.59); Monocytes % (auto) 7.4 %; Neutrophils # (auto) 5.05 K/uL (1.40-6.50); Neutrophils % (auto) 83.3 %; Platelet Count 135 K/uL (130-400); RDW Coefficient of Variation 12.7 % (11.5-14.5); RDW Standard Deviation 45.3 fL (36.4-46.3); Red Blood Count 4.05 M/uL (4.20-5.40); White Blood Count 6.06 K/ul (4.8-10.8)
--- NOTE | 2023-07-19 14:56 | XRay Report ---
AP LUMBAR SPINE RADIOGRAPH CLINICAL HISTORY: Lower back pain following fall. COMPARISON STUDY: Lumbar spine CT July 15, 2022. Lumbar spine MRI July 16, 2022. TECHNIQUE: AP radiograph of the lumbar spine was obtained. Due to severe right hip pain, lateral view s could not be obtained. FINDINGS: No definite fractures within the lumbar spine are identified although sensitivity is dimini shed given lack of lateral projection. Degenerative disc disease and facet arthrosis within the lumba r spine is better depicted on prior MRI. IMPRESSION: No lumbar spine fractures identified although sensitivity diminished given inability to obtain lateral projection. ACT 112: Negative or not required by law. Electronically signed by: Ramirez Jang M.D. 07/19/2023 2:54 PM
[2023-07-19 14:57] LABS: Albumin Globulin Ratio 1.8 (0.9-2); Bilirubin,Total 0.9 mg/dl (0.2-1.0); Calcium 8.5 mg/dl (8.6-10.3); Creatinine Clr Calc Pharmacy 99.7 ml/min; Est GFR (African American) 117.6 ml/min; Est GFR (Non-African American) 101.5 ml/min; Globulin 2.2 gm/dl (2.5-4.0); Potassium 3.8 mmol/L (3.5-5.1); Total Protein 6.2 gm/dl (6.0-8.3)
--- NOTE | 2023-07-19 15:10 | History & Physical Report ---
Date of Service July 19, 2023 Assessment & Plan (1) Pubic bone fracture: Plan: Patient sustained a ground-level fall when she tripped over her dog's toy on the morning of 07/18 Hip and pelvis x-ray revealed acute mildly displaced fracture within the right medial pubic bone Lumbar spine x-ray without fractures CT pelvis with contrast ordered, pending Hgb 13.6 on arrival; hold anticoagulation for now, and repeat morning H&H Fall precautions Daily lidocaine patch Acetaminophen as needed for pain 1-3 Dilaudid IV q2h as needed for breakthrough pain Orthopedics consulted Will defer PT/OT until assessed by orthopedics for weightbearing status A.m. CBC, BMP (2) Complex regional pain syndrome of right lower extremity: Plan: Patient reports that her right lower extremity is always numb, and that she is unable to move her foot Hx of right hip replacement in 2009 Patient normally takes hydrocodoneacetaminophen tablets as needed for pain; recently, she has been taking 1 tablet at night Pain management (as above) (3) Paroxysmal atrial fibrillation: Plan: Not currently on anticoagulation Rate controlled at present EKG ordered, pending (4) Breast cancer: Plan: Continue tamoxifen (5) Sleep apnea: Plan: Patient denies CPAP use (6) COPD (chronic obstructive pulmonary disease): Plan: Patient is on continuous supplemental oxygen (2.5L NC) at baseline (7) Right foot drop: (8) Fall: Plan Disposition: Admit to [facility] telemetry Full code Keep n.p.o. for now VTE PPx: Will hold off on chemical DVT PPx while trending H&H; defer to mechanical DVT PPx History of Present Illness Chief Complaint: Fall Primary Care Provider: DO Gypsy Epstein is a 67-year-old female with PMH of invasive ductal carcinoma of left breast, osteoporosis, polyneuropathy, ambulatory dysfunction, lumbar radiculitis, postherpetic neuralgia, complex regional pain syndrome, anxiety and depression, COPD, and HTN. She presented for a ground-level fall around 6 AM on 07/18 after she tripped over her dog's toy in the dark. No head strike. No LOC. Patient endorses 10/10 bilateral hip pain with radiation to the lower back. Patient reports that she has had numbness in her right leg for an extended period of time due to CRPS. Patient took 1 tablet of hydrocodoneacetaminophen for the pain prior to arrival, and received 2 doses of fentanyl en route. She uses supplemental oxygen at home (2.5L NC) at baseline. Patient did not take any of her regular morning medications; no recent change in medications. She does take hydrocodone as needed for her CRPS, foot drop, cancer; reportedly takes 1 tablet at night. She does have a history of right hip replacement in 2009. She is a current tobacco cigarette smoker; 5 cigarettes/day. Patient denies using CPAP at night. Patient is hypertensive at 154/88 at time of admission; SpO2 94% on 4L NC. ED Course: Morphine 2 mg IV ROS: Patient endorses bilateral hip pain, dry cough (ongoing), abdominal pain x 2 weeks, and right leg numbness (ongoing). Patient denies fever, chills, nightsweats, body aches, dizziness or lightheadedness prior to fall, [place], changes in vision, chest pain, chest palpitations, pleuritic CP, SOB, N/V/D, changes in urinary/bowel habits, or saddle anesthesia. Allergies Allergy/AdvReac Type Severity Reaction Status Date / Time ether Allergy Severe Anaphylaxis Verified 07/19/23 15:01 Home Medications Medication Instructions Recorded Confirmed Type zoledronic acid 5 mg/100 mL in 1 ea IV YEARLY 11/14/20 07/19/23 History mannitol 5 %-water intravenous piggybck (Reclast) melatonin 10 mg capsule 10 mg PO HS PRN Sleep 12/11/22 07/19/23 History multivitamin 1 tab PO QDD 12/11/22 07/19/23 History lidocaine 5 % topical patch 2 patch topical DAILY PRN pain 12/17/22 07/19/23 Rx (scale score 7-10) #30 ea tamoxifen 20 mg tablet 20 mg PO BID #180 tabs 12/17/22 07/19/23 Rx calcium carbonate 600 mg PO Q2D 01/25/23 07/19/23 History cholecalciferol (vitamin D3) 50 50 mcg PO QDD 03/22/23 07/19/23 History mcg (2,000 unit) capsule hydrocodone 10 mg-acetaminophen 1 tab PO Q6H PRN pain #60 tabs 05/20/23 07/19/23 Rx 325 mg tablet atorvastatin 20 mg tablet 20 mg PO QDD 07/19/23 07/19/23 History Past Med/Surg History Medical History (Updated 07/20/23 @ 10:20 by Jairo Lake MD) Depression Opiate dependence Complex regional pain syndrome of right lower extremity Paresthesia of right lower extremity Ambulatory dysfunction Post herpetic neuralgia MRSA (methicillin resistant staph aureus) culture positive 09/18/20 Left Breast Sleep apnea occasionally wears CPAP Invasive lobular carcinoma of breast in female (12/21/19) Left- dx'ed Jan 2020. S/p bilateral mastectomy with reconstruction - XRT completed 07/2020 Asbestos exposure Acid reflux Allergic rhinitis COPD (chronic obstructive pulmonary disease) DJD (degenerative joint disease) Anxiety and depression Lumbar spinal stenosis Osteoporosis with fracture Paroxysmal atrial fibrillation Solitary event in May 2012- loop recorder placed in 2017- no recurrence of a fib noted. Pt currently on ASA . Loop recorder has since been removed in Feb 2020 Polyneuropathy HTN (hypertension) Per records- pt denies - "diet controlled" per PCP Surgical History History of breast surgery (09/25/20) Left Breast Tissue Maxillofacial Pathology Removal with Capsulectomy (Dr. Cronin) History of breast surgery (~03/25/20) excision/closure of bilateral masectomy scar revision History of esophagogastroduodenoscopy (EGD) (~2004) History of colonoscopy (2019) S/P epidural steroid injection (1997) lumbar S/P breast reconstruction, bilateral (02/26/20) tissue expanders S/P mastectomy, bilateral (02/26/20) Bilateral Breast Mastectomy with Left [place] Lymph Node Biopsies(Bilateral) - Иван Herzog DO s Removal of Loop Recorder(Left) - DO Dr. Иван Grant 02/26/2020 History of cataract surgery (~01/2020) bilateral S/P decompression of ulnar nerve (2005) RUE s/p surgery x2 S/P total hysterectomy and bilateral salpingo-oophorectomy (1994) Status post placement of implantable loop recorder (2017) Removed during bilat mastectomies 02/26/2020 History of total hip replacement (2009) Right H/O hernia repair (2002) umbilical Family History Mother Liver cancer Diabetes Heart disease Hypertension Stroke Father Emphysema lung Uncle Prostate cancer Aunt No problems noted. Aunt Lung cancer Sister No problems noted. Sister No problems noted. Sister No problems noted. Son No problems noted. Son No problems noted. Other No family history of adverse response to anesthesia Denies family history of Ovarian cancer Myocardial infarction Breast cancer Colorectal cancer Social History Smoking Status: Current every day smoker Tobacco Type: Cigarettes packs per day: 2; Cigarettes Per Day: 4-5; Second Hand Exposure: Yes; Do You Dip or Chew Tobacco: No; Hx Alcohol Use: Yes Alcohol type: hard liquor Alcohol Intake Frequency: 4 or More x per/Week Alcohol Intake Frequency Comment: glass of run and pineapple before bed Hx Substance Use: No Preferred Language: Turkish Communication Ability: Effective Visual Impairment: Limited Hearing Ability: Normal Doll Surgeon Required: No Beliefs That Will Affect Care: None marital status: Life Partner Current Living Situation: Significant Other Current Living Situation Comment: Boyfriend lives with patient 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 How many Children do You have: 2 Feels Safe at Home: Yes Safety Concerns: Feels Safe At This Time Childhood Exposure to Second-Hand Smoke: Yes Diet: regular Diet Comment: regular caffeine: Yes (2 cups of coffee/day ) during the past year weight has: remained stable Dental Care, Regularly: Yes Physical Activity Frequency: Does not Exercise Seatbelt Use: always Sunscreen Use: No Assistive Devices: Cane and Walker Assistive Devices Comment: now using cane to walk Review of Systems Review of Systems: See HPI above Physical Exam Physical Exam: General: Acute distress secondary to bilateral hip pain; non-toxic appearing; cooperative; SpO2 94% on 4 LNC HEENT: normocephalic, atraumatic; no scleral icterus; PERRLA; moist mucus membrane; vision and hearing intact Neck: supple; no lymphadenopathy; trachea midline; patient demonstrates ability to shrug shoulders and rotate neck bilaterally against resistance Skin: warm, dry without signs of tenting; no cyanosis; no rashes, bruising, lesions, or erythema noted; no signs of active bleeding at the hips CV: chest wall NTP; RRR; S1/S2 normal; no murmurs/rubs/gallops; pulses intact and symmetric at radial, DP, and PT Lungs: no acute respiratory distress; symmetrical chest wall expansion; clear breath sounds across all lung reilly w/o adventitious sounds; no wheezing ABD: Soft, NTP; BS present; no rebound/guarding; no distention MSK: Both the right and left hip are TTP; no tics or fasciculations; patient demonstrates ability to wiggle toes, bend ankle, and bend knee in her left leg, but not her right; Neuro: A&Ox3; normal mood and affect; fluent speech; no focal deficits; minimal to no sensation in the RLE Results & Data Results & Data Vital Signs (Past 12 Hours) Vital Signs Temp Pulse Resp BP Pulse Ox O2 Del Method O2 Flow Rate 07/19/23 13:46 36.5 C 85 24 154/88 H 94 Nasal Cannula 4 Laboratory Results Abnormal lab results 07/19/23 Range/Units 14:17 RBC 4.05 L (4.20-5.40) M/uL MPV 9.1 L (9.4-12.4) fL Lymph # (Auto) 0.38 L (1.20-3.40) K/uL Creatinine 0.46 L (0.6-1.2) mg/dl Glucose 104 H (70-99(Fasting)) mg/dl Calcium 8.5 L (8.6-10.3) mg/dl Globulin 2.2 L (2.5-4.0) gm/dl Diagnostic Findings Lumbar Spine X-Ray 07/19/23 14:03 AP LUMBAR SPINE RADIOGRAPH CLINICAL HISTORY: Lower back pain following fall. COMPARISON STUDY: Lumbar spine CT July 15, 2022. Lumbar spine MRI July 16, 2022. TECHNIQUE: AP radiograph of the lumbar spine was obtained. Due to severe right hip pain, lateral views could not be obtained. FINDINGS: No definite fractures within the lumbar spine are identified although sensitivity is diminished given lack of lateral projection. Degenerative disc disease and facet arthrosis within the lumbar spine is better depicted on prior MRI. IMPRESSION: No lumbar spine fractures identified although sensitivity diminished given inability to obtain lateral projection. ACT 112: Negative or not required by law. Electronically signed by: Ramirez Jang M.D. 07/19/2023 2:54 PM Code Status & VTE Plan Code Status Full code VTE Prophylaxis Plan VTE Prophylaxis will be ordered: No Supervising Physician Co-Signing Physician Notes I personally saw and examined the patient. I independently reviewed the labs, EKG, imaging, problem list, medication list, past medical history and family history. I verified all hernandez points and agree with Caden Gonzalez PA-C with the following exceptions and/or additions: 67-year-old female under treatment for osteoporosis presents to the ER with ground-level fall. pain in right hip / pelvis following the fall. No other injuries as a result of the fall. She denies hitting her head or loss of consciousness. O/E A&Ox3, HS RRR , no murmurs, frequent cough (she reports this is chronic), Chest mild rhonchi b/l, no basal crackles or wheezing, Abdo SNT, pain on any movement of right leg, DP/PT pulses intact A/P Pelvis fracture - CT pelvis, consult ortho for weight bearing status, PT/OT Right foot drop - this is chronic, consider foot drop brace although unclear how much this really contributed towards the fall Chronic hypoxic respiratory failure - on baseline O2 PG Care Time/CCT Total # of Minutes Spent Total Time Spent with Patient: Total time spent is greater than 50% in coordination of care (as documented) at patient's floor/unit and/or counseling patient: Coding [place] [address] INT INP/OBS CARE 2/MIN Patient Type Established Medical Decision Making Moderate Complexity Diagnoses Pubic bone fracture S32.509A Complex regional pain syndrome of right lower extremity G90.521 Paroxysmal atrial fibrillation I48.0 Breast cancer C50.919 Sleep apnea G47.30 COPD (chronic obstructive pulmonary disease) J44.9 Right foot drop M21.371 Fall W19.XXXA Encounter type: initial encounter (8) Fall Encounter type: initial encounter Qualified Code(s): W19.XXXA - Unspecified fall, initial encounter
--- NOTE | 2023-07-19 15:13 | XRay Report ---
XR hip URSULA 2v w pelvis CLINICAL HISTORY: fall bl hip pain worse on right COMPARISON STUDY: Right hip CT 06/19/2022. FINDINGS: There is a right total arthroplasty. The hardware is intact. No acute fracture or dislocati on within the right or left femur. There is a mildly displaced fracture within the right medial pubic bone. The visualized sacrum is intact. IMPRESSION: There is an acute mildly displaced fracture within the right medial pubic bone. ACT 112: Negative or not required by law. Electronically signed by: Caden Robertson M.D. 07/19/2023 3:12 PM
--- NOTE | 2023-07-19 15:53 | Emergency Department Note ---
Impression & Plan Closed pelvic fracture, Ambulatory dysfunction, Fall ED Provider Note NAME: SALOMÓN ARIAS AGE: 67 SEX: F : 1955 ARRIVES VIA: Ambulance INFORMANT: Patient ED PROVIDER(S): Sherwin Mahoney DO CHIEF COMPLAINT: fall HPI: Patient is a 67-year-old female with a past medical history of complex regional pain syndrome, opiate dependence, depression, paroxysmal A-fib who presents the ER following a fall last night around 8 PM. She notes that she tripped over a dog toy and fell onto her hip. She is complaining of both left and right hip pain. She denies hitting her head. No head pain or neck pain. No chest pain or belly pain. No other complaints at this time. Her friend helped her get up and since then she has been unable to move. ADDITIONAL HISTORY OBTAINED: Per HPI Chronic Medical/Social Conditions Affecting Care: Per HPI PAST MEDICAL HISTORY:See Below PAST SURGICAL HISTORY:See Below FAMILY HISTORY:See Below SOCIAL HISTORY:See Below HOME MEDICATIONS:See Below ALLERGIES:See Below VITALS:See Below PHYSICAL EXAMINATION: GENERAL: alert, well appearing, well nourished, no distress, non-toxic HEAD: normal cephalic, atraumatic EYE EXAM: normal conjunctiva, PERRL and EOM's grossly intact OROPHARYNX: no exudate, no erythema, lips, buccal mucosa, and tongue normal and mucous membranes are moist NECK: supple, no nuchal rigidity, no adenopathy, non-tender CHEST: stable to compression anteriorly and posteriorly LUNGS: clear to auscultation. Normal chest wall mechanics HEART: no murmurs, S1 normal and S2 normal ABDOMEN: abdomen soft, non-tender, normo-active bowel sounds, no masses, no rebound or guarding. PELVIS: stable to compression anteriorly and posteriorly BACK: Back is symmetrical on inspection and there is no deformity, with subtle midline tenderness in the lower lumbar region UPPER EXTREMITIES: full active and passive range of motion of all joints without tenderness to palpation LOWER EXTREMITIES: Flexion-extension left hip knee ankle and EHL intact. No tenderness on palpation of the left leg with the exception of the left proximal hip. Unable to move right lower extremity. Significant pain over the right hip. No tenderness throughout the mid or distal femur, knee, de la garza ankle or foot. DPs are 2 out of 4 bilaterally. Gross sensation intact NEURO EXAM: Normal sensorium, cranial nerves II-XII grossly intact, normal speech, no gross weakness of arms, no gross weakness of legs. GCS: 15. MEDICAL DECISION MAKING: Patient is a 67-year-old female who presents the ER following a fall which was mechanical. IV was established blood work was obtained. Labs show no significant leukocytosis or anemia. BMP along with LFTs bilirubin was unremarkable. X-rays of the lumbar spine as well as the hip and pelvis bilaterally shows right sacral fracture. Patient was given IV morphine. She is updated bedside. Her case was discussed with Dr. Jairo Lake for further evaluation management and treatment. Also discussed with orthopedics Dr. Nathaniel Rudolph and he was agreeable to evaluate the patient as well. Consults/Care Managements Discussions: Per MDM Triage Nursing notes reviewed. Limited review of prior medical records performed Vital Signs: reviewed and remarkable for HTN Differential diagnosis: Differential diagnoses include major intracranial, cervical, spinal, thoracic, abdominal, pelvic and neurologic injury. Fracture, contusion, sprain, strain, laceration, abrasions included as well. ER treatment provided: See below Diagnostics interpreted by me include EKG and cardiac monitoring as listed below: -Cardiac Monitoring: An order was placed for continuous cardiac monitoring. The monitor shows a rate of 85 with sinus rhythm. -ECG: none -Laboratory studies:Interpreted by me as stated above in MDM and shown below. Imaging studies: Xrays: As interpreted by me: X-rays of the bilateral hips and pelvis show a right pubic ring fracture CTs show: none Procedures:none Critical Care: None Past Med/Surg History Medical History (Updated 07/19/23 @ 15:53 by Sherwin Mahoney DO) Depression Opiate dependence Complex regional pain syndrome of right lower extremity Paresthesia of right lower extremity Ambulatory dysfunction Post herpetic neuralgia MRSA (methicillin resistant staph aureus) culture positive 09/18/20 Left Breast Sleep apnea occasionally wears CPAP Invasive lobular carcinoma of breast in female (12/21/19) Left- dx'ed Jan 2020. S/p bilateral mastectomy with reconstruction - XRT completed 07/2020 Asbestos exposure Acid reflux Allergic rhinitis COPD (chronic obstructive pulmonary disease) DJD (degenerative joint disease) Anxiety and depression Lumbar spinal stenosis Osteoporosis with fracture Paroxysmal atrial fibrillation Solitary event in May 2012- loop recorder placed in 2017- no recurrence of a fib noted. Pt currently on ASA . 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 Cronin) History of breast surgery (~03/25/20) excision/closure of bilateral masectomy scar revision History of esophagogastroduodenoscopy (EGD) (~2004) History of colonoscopy (2019) S/P epidural steroid injection (1997) lumbar S/P breast reconstruction, bilateral (02/26/20) tissue expanders S/P mastectomy, bilateral (02/26/20) Bilateral Breast Mastectomy with Left [place] Lymph Node Biopsies(Bilateral) - Иван Herzog DO s Removal of Loop Recorder(Left) - DO Dr. Иван Grant 02/26/2020 History of cataract surgery (~01/2020) bilateral S/P decompression of ulnar nerve (2005) RUE s/p surgery x2 S/P total hysterectomy and bilateral salpingo-oophorectomy (1994) Status post placement of implantable loop recorder (2017) Removed during bilat mastectomies 02/26/2020 History of total hip replacement (2009) Right H/O hernia repair (2002) umbilical Family History Mother Liver cancer Diabetes Heart disease Hypertension Stroke Father Emphysema lung Uncle Prostate cancer Aunt No problems noted. Aunt Lung cancer Sister No problems noted. Sister No problems noted. Sister No problems noted. Son No problems noted. Son No problems noted. Other No family history of adverse response to anesthesia Denies family history of Ovarian cancer Myocardial infarction Breast cancer Colorectal cancer Social History Smoking Status: Current every day smoker Tobacco Type: Cigarettes packs per day: 2; Second Hand Exposure: Yes; Do You Dip or Chew Tobacco: No; Hx Alcohol Use: Yes Alcohol type: hard liquor Alcohol Intake Frequency: 4 or More x per/Week Alcohol Intake Frequency Comment: glass of run and pineapple before bed Hx Substance Use: No Preferred Language: Slovenian Communication Ability: Effective Visual Impairment: Limited Hearing Ability: Normal Network Security Consultant Required: No Beliefs That Will Affect Care: None marital status: Life Partner Current Living Situation: Significant Other Current Living Situation Comment: Boyfriend lives with patient 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 How many Children do You have: 2 Feels Safe at Home: Yes Childhood Exposure to Second-Hand Smoke: Yes Diet: regular Diet Comment: regular caffeine: Yes (2 cups of coffee/day ) during the past year weight has: remained stable Dental Care, Regularly: Yes Physical Activity Frequency: Does not Exercise Seatbelt Use: always Sunscreen Use: No Assistive Devices: Cane and Walker Allergies Allergies Allergy/AdvReac Type Severity Reaction Status Date / Time ether Allergy Severe Anaphylaxis Verified 07/19/23 15:01 Home Meds Home Medications Medication Instructions Recorded Confirmed zoledronic acid 5 mg/100 mL in 1 ea IV YEARLY 11/14/20 07/19/23 mannitol 5 %-water intravenous piggybck (Reclast) melatonin 10 mg capsule 10 mg PO HS PRN Sleep 12/11/22 07/19/23 multivitamin 1 tab PO QDD 12/11/22 07/19/23 calcium carbonate 600 mg PO Q2D 01/25/23 07/19/23 cholecalciferol (vitamin D3) 50 50 mcg PO QDD 03/22/23 07/19/23 mcg (2,000 unit) capsule atorvastatin 20 mg tablet 20 mg PO QDD 07/19/23 07/19/23 Previous Rx's Medication Instructions Recorded lidocaine 5 % topical patch 2 patch topical DAILY PRN pain 12/17/22 (scale score 7-10) #30 ea tamoxifen 20 mg tablet 20 mg PO BID #180 tabs 12/17/22 hydrocodone 10 mg-acetaminophen 1 tab PO Q6H PRN pain #60 tabs 05/20/23 325 mg tablet Results & Data (ED) Vital Signs Vital Signs - 24 hr 07/19/23 13:46 Temperature 36.5 C Temperature Source Oral Pulse Rate 85 Respiratory Rate 24 Blood Pressure 154/88 H Blood Pressure Mean 110 Blood Pressure Position Lying Pulse Oximetry 94 Oxygen Delivery Method Nasal Cannula Oxygen Flow Rate 4 Sepsis Recent Fever Within 48 Hours No Sepsis New/Unexplained Change in Mental Status No Sepsis Action Taken by Nursing No Action Required Laboratory Data 07/19/23 14:17 07/19/23 14:17 Lab Results 07/19/23 Range/Units 14:17 WBC 6.06 (4.8-10.8) K/ul RBC 4.05 L (4.20-5.40) M/uL Hgb 13.6 (12.0-16.0) g/dl Hct 38.9 (37.0-47.0) % MCV 96.0 (80.0-100.0) fL MCH 33.6 (25.0-34.0) pg MCHC 35.0 (32.0-36.0) g/dL RDW Std Deviation 45.3 (36.4-46.3) fL RDW Coeff of Gita 12.7 (11.5-14.5) % Plt Count 135 (130-400) K/uL MPV 9.1 L (9.4-12.4) fL Immature Gran % (Auto) 0.7 % Neut % (Auto) 83.3 % Lymph % (Auto) 6.3 % Anderson % (Auto) 7.4 % Eos % (Auto) 2.0 % Baso % (Auto) 0.3 % Neut # (Auto) 5.05 (1.40-6.50) K/uL Lymph # (Auto) 0.38 L (1.20-3.40) K/uL Anderson # (Auto) 0.45 (0.11-0.59) K/uL Eos # (Auto) 0.12 (0.00-0.50) K/uL Baso # (Auto) 0.02 (0.00-0.20) K/uL Immature Gran # (Auto) 0.04 (0.01-0.20) K/uL Sodium 136 (136-145) mmol/L Potassium 3.8 (3.5-5.1) mmol/L Chloride 101 (98-107) mmol/L Carbon Dioxide 29 (21-32) mmol/L Anion Gap 6 (3-11) BUN 6 (6-23) mg/dl Creatinine 0.46 L (0.6-1.2) mg/dl Est Cr Clr Drug Dosing 99.7 ml/min Est GFR ( Amer) 117.6 ml/min Est GFR (Non-Af Amer) 101.5 ml/min BUN/Creatinine Ratio 13.0 (10-20) Glucose 104 H (70-99(Fasting)) mg/dl Calcium 8.5 L (8.6-10.3) mg/dl Total Bilirubin 0.9 (0.2-1.0) mg/dl AST 21 (13-39) U/L ALT 13 (7-52) U/L Alkaline Phosphatase 69 (34-104) U/L Total Protein 6.2 (6.0-8.3) gm/dl Albumin 4.0 (3.4-5.0) gm/dl Globulin 2.2 L (2.5-4.0) gm/dl Albumin/Globulin Ratio 1.8 (0.9-2) Administered Medications Morphine Sulfate (Morphine Sulfate 2 Mg/Ml Carp) 2 mg IV Q1H PRN PRN Reason: Moderate Pain (Rating 3,4,5,6) Stop: 08/02/23 14:04 Last Admin: 07/19/23 14:44 Dose: 2 mg Documented By: KV Imaging Data Radiologist's Impression: Hip/Pelvis X-Ray 07/19/23 14:03 XR hip URSULA 2v w pelvis CLINICAL HISTORY: fall bl hip pain worse on right COMPARISON STUDY: Right hip CT 06/19/2022. FINDINGS: There is a right total arthroplasty. The hardware is intact. No acute fracture or dislocation within the right or left femur. There is a mildly displaced fracture within the right medial pubic bone. The visualized sacrum is intact. IMPRESSION: There is an acute mildly displaced fracture within the right medial pubic bone. ACT 112: Negative or not required by law. Electronically signed by: Caden Robertson M.D. 07/19/2023 3:12 PM Lumbar Spine X-Ray 07/19/23 14:03 AP LUMBAR SPINE RADIOGRAPH CLINICAL HISTORY: Lower back pain following fall. COMPARISON STUDY: Lumbar spine CT July 15, 2022. Lumbar spine MRI July 16, 2022. TECHNIQUE: AP radiograph of the lumbar spine was obtained. Due to severe right hip pain, lateral views could not be obtained. FINDINGS: No definite fractures within the lumbar spine are identified although sensitivity is diminished given lack of lateral projection. Degenerative disc disease and facet arthrosis within the lumbar spine is better depicted on prior MRI. IMPRESSION: No lumbar spine fractures identified although sensitivity diminished given inability to obtain lateral projection. ACT 112: Negative or not required by law. Electronically signed by: Ramirez Jang M.D. 07/19/2023 2:54 PM Discharge Plan Visit Data Chief Complaint: Fall Stated Complaint: Fall ED Provider: Sherwin Mahoney Discharge Problem: Closed pelvic fracture, Ambulatory dysfunction, Fall Forms Stand Alone Forms: My [facility] Prescriptions Prescriptions: No Action melatonin 10 mg capsule 10 mg PO HS PRN (Reason: Sleep) multivitamin Tablet 1 tab PO QDD hydrocodone-acetaminophen 10-325 mg tablet 1 tab PO Q6H PRN (Reason: pain) Qty: 60 0RF calcium carbonate 600 mg calcium (1,500 mg) tablet 600 mg PO Q2D zoledronic [id number] [Reclast] 5 mg/100 mL piggyback 1 ea IV YEARLY Rx Instructions: DUE 2023. cholecalciferol (vitamin D3) 50 mcg (2,000 unit) capsule 50 mcg PO QDD tamoxifen 20 mg tablet 20 mg PO BID Qty: 180 3RF lidocaine 5 % adhesive patch,medicated 2 patch topical DAILY PRN (Reason: pain (scale score 7-10)) Qty: 30 5RF Rx Instructions: leave on most painful area for up to 12 hrs atorvastatin 20 mg tablet 20 mg PO QDD Referrals Referrals: Candie Francis DO [Primary Care Provider] - Discharge Problem: Closed pelvic fracture Qualifiers: Encounter type: initial encounter Pelvic bone location: unspecified part of pelvis Fracture alignment: displaced Qualified Code(s): S32.9XXA - Fracture of unspecified parts of lumbosacral spine and pelvis, initial encounter for closed fracture Fall Qualifiers: Encounter type: initial encounter Qualified Code(s): W19.XXXA - Unspecified fall, initial encounter
--- NOTE | 2023-07-19 16:02 | XRay Report ---
XR chest 1V portable HISTORY: Cough COMPARISON: Chest 07/15/2022. FINDINGS: No pneumothorax. The cardiac silhouette is borderline enlarged. This remains unchanged. Chr onic interstitial thickening and mild emphysema again noted. Small right pleural effusion and right b asilar densities remain unchanged. No left pleural effusion. There are old, healed bilateral rib frac tures. A right-sided calcified pleural plaque is again noted. No new focal lung consolidations. No ev idence for pulmonary edema. Calcifications within the aortic knob. Degenerative changes within the sh oulders. IMPRESSION: 1. No significant change compared to the prior study. 2. Emphysema and a right calcified pleural plaque again noted. 3. Small right pleural effusion right basilar densities persist. ACT 112: Negative or not required by law. Electronically signed by: Caden Robertson M.D. 07/19/2023 4:01 PM
[2023-07-19] MEDS: MoRPHine SULFATE 4 MG/ML 1 ML CARP\\VIAL IV PRN (16:09)
[2023-07-19] MEDS: HYDROmorphone INJ 1 MG/ML SYRINGE IV PRN (18:47)
[2023-07-19] MEDS: OPTIRAY 320 100ml IV ONE (19:15)
[2023-07-19] MEDS: ATORVASTATIN 20 MG TAB PO SCH (19:36)
--- NOTE | 2023-07-19 20:48 | CT Scan Report ---
Exam(s): CT PELVIS With Contrast IV Amt: 94 ml optiray 320 EXAM: CT Pelvis With Intravenous Contrast CLINICAL HISTORY: Reason for exam: Displaced right medial pubic fracture. TECHNIQUE: Axial computed tomography images of the pelvis with intravenous contrast. CTDI is 11.62 mGy and DLP is 450.58 mGy-cm. Automated exposure control was utilized for the study. A dose lowering technique was utilized adhering to the principles of ALARA. CONTRAST: Patient received 94 ml optiray 320 of IV contrast COMPARISON: 06/19/2022. FINDINGS: Bowel: Unremarkable. No obstruction. No mucosal thickening. Appendix: No findings to suggest acute appendicitis. Intraperitoneal space: Unremarkable. No free air. No significant fluid collection. Bladder: Unremarkable. No mass. Reproductive: Unremarkable as visualized. Bones/joints: There is a comminuted fracture involving the anterior aspect of the right superior and inferior pubic rami. Degenerative disease of the lower lumbar spine and bilateral SI joints. Allergies he disease of the left hip. The left superior and if you pubic ramus are intact. The visualized bilateral proximal femurs reveal no lucency or cortical disruption to suggest acute fracture. No dislocation. Soft tissues: Unremarkable. Vasculature: Atherosclerotic disease of aorta and bilateral iliac arteries. No lower abdominal aortic aneurysm. Lymph nodes: Unremarkable. No enlarged lymph nodes. IMPRESSION: 1. Fracture involving the anterior aspect of the right superior and inferior pubic rami as described. 2. Right-sided hip prosthesis in place. No acute fracture visualized. 3. No joint dislocation seen. Electronically signed by: Shanna Johnson MD 07/19/23 20:47 PM
[2023-07-19] MEDS: TAMOXIFEN CITRATE 10 MG TABLET PO SCH (21:26)
[2023-07-20] MEDS: ACETAMINOPHEN 325 MG TAB PO PRN (00:58)
[2023-07-20] MEDS: KETOROLAC TROMETHAMINE 15 MG/ML VIAL IV ONE ×2 (01:24→17:00)
[2023-07-20 05:55] LABS: Basophils # (auto) 0.02 K/uL (0.00-0.20); Basophils % (auto) 0.3 %; Eosinophils # (auto) 0.17 K/uL (0.00-0.50); Eosinophils % (auto) 2.6 %; Hematocrit (blood only) 41.9 % (37.0-47.0); Hemoglobin 14.4 g/dl (12.0-16.0); Immature Granulocytes # (auto) 0.03 K/uL (0.01-0.20); Immature Granulocytes % (auto) 0.5 %; Lymphocytes # (auto) 0.53 K/uL (1.20-3.40); Lymphocytes % (auto) 8.1 %; Mean Corpuscular Hemoglobin 33.2 pg (25.0-34.0); Mean Corpuscular Hgb Conc 34.4 g/dL (32.0-36.0); Mean Corpuscular Volume 96.5 fL (80.0-100.0); Mean Platelet Volume 9.1 fL (9.4-12.4); Monocytes # (auto) 0.48 K/uL (0.11-0.59); Monocytes % (auto) 7.4 %; Neutrophils % (auto) 81.1 %; Platelet Count 123 K/uL (130-400); RDW Coefficient of Variation 12.6 % (11.5-14.5); RDW Standard Deviation 45.3 fL (36.4-46.3); Red Blood Count 4.34 M/uL (4.20-5.40); White Blood Count 6.53 K/ul (4.8-10.8)
[2023-07-20 06:09] LABS: BUN Creatinine Ratio 14.7 (10-20); Calcium 8.6 mg/dl (8.6-10.3); Creatinine Clr Calc Pharmacy 134.8 ml/min; Est GFR (African American) 129.9 ml/min; Est GFR (Non-African American) 112.1 ml/min; Potassium 3.7 mmol/L (3.5-5.1)
--- NOTE | 2023-07-20 06:24 | Electrocardiogram Report ---
Test Reason : Blood Pressure : / mmHG Vent. Rate : 090 BPM Atrial Rate : 090 BPM P-R Int : 184 ms QRS Dur : 074 ms QT Int : 348 ms P-R-T Axes : 000 142 146 degrees QTc Int : 425 ms Normal sinus rhythm Low voltage QRS Septal infarct , age undetermined Limb lead reversal Abnormal ECG When compared with ECG of 21-FEB-2020 10:43, Septal infarct is now Present Limb lead reversal is now Present T wave amplitude has decreased in Inferior leads Confirmed by Suhail Mendez ([id number]) on 07/20/2023 6:23:55 AM Referred By: REFERRED SELF Confirmed By:Suhail Mendez
[2023-07-20] MEDS: LIDOCAINE 5% 1 PATCH TD SCH (09:42)
--- NOTE | 2023-07-20 16:55 | Hospitalist Progress Note ---
Date of Service July 20, 2023 Assessment & Plan (1) Pubic bone fracture: Plan: Patient sustained a ground-level fall when she tripped over her dog's toy on the morning of 07/18 CT pelvis with fractures involving the anterior aspect of the right superior and inferior pubic rami Appreciate ortho consultation WBAT pain management will be challenging due to long-standing narcotic usage at high doses and tolerance cont IV dilaudid; adjust as needed toradol 15mg IV x 1 now lidoderm patches PT, OT evals she may need a course of steroids for her COPD - this may help pelvic pain 25-OH vit D level noted (2) Complex regional pain syndrome of right lower extremity: Plan: Patient reports that her right lower extremity is always numb, and that she is unable to move her foot Hx of right hip replacement in 2009; hardware on imaging intact Patient normally takes hydrocodoneacetaminophen tablets as needed for pain (3) Paroxysmal atrial fibrillation: Plan: Not currently on anticoagulation Remains in NSR Is not on AV tony agents (4) Breast cancer: Plan: History of Continue tamoxifen (5) Sleep apnea: Plan: Patient denies use of CPAP (6) COPD (chronic obstructive pulmonary disease): Plan: Patient is on continuous supplemental oxygen (2.5L NC) at baseline Add Anoro Ellipta 1 puff daily Has modestly increase O2 requirements but she denies any worsening of typical COPD symptoms [id number] checked COVID/flu/RSV - negative Consider steroids systemic (7) Right foot drop: Plan: chronic (8) Fall: Plan: multifactorial risk factors #2, #7, etc PT, OT (9) Thrombocytopenia: Plan: etiology? viral suppression? due to mild pelvic bleeding from fractures and thus consumptive? other? repeat CBC w/ diff in am B12 and folate in 2022 were both wnl (10) Abdominal pain: Plan: x 1 month etiology? constipation? diverticular? other? consider dedicated CT a/p with contrast for more information if pain persists Plan place perdomo at her request Admission and Anticipated Discharge Date Admission Date: July 19, 2023 Subjective patient reports ongoing severe pelvic pain any movement leads to pain she requests a perdomo catheter she takes chronic narcotics for complex regional pain syndrome of RLE even light touch of the right foot causes excruciating pain was previously on morphine BID but recently taken off such and is now over to norco 10's prn she has cough but no worse than baseline has been told she has COPD but doesn't use inhalers is on NC O2 at home continuously Review of Systems Review of Systems: cv - no chest pain, no orthopnea pulm - mild dyspnea even at rest GI - no abd pain Physical Exam Physical Exam: gen - thin, very uncomfortable, breaths rapidly at times when in pain neck - no JVD mouth - MMM heart - RRR, s1 s2 lungs - end-exp wheezes b/l abd - soft; mildly tender LLQ region; ND BS+ ext - no edema, thin, pulses 2+ b/l Results & Data Results & Data Vital Signs (Past 12 Hours) Vital Signs Temp Pulse Pulse Pulse Resp BP BP 07/20/23 16:12 36.8 C 82 17 149/83 H 07/20/23 16:11 07/20/23 10:54 76 18 165/100 H 07/20/23 10:00 07/20/23 07:20 86 07/20/23 06:00 77 22 132/76 Pulse Ox O2 Del Method O2 Flow Rate 07/20/23 16:12 89 L Nasal Cannula 4 07/20/23 16:11 Nasal Cannula 4 07/20/23 10:54 93 Nasal Cannula 4.5 07/20/23 10:00 Nasal Cannula 4.5 07/20/23 07:20 07/20/23 06:00 92 Nasal Cannula 4.5 Laboratory Results Laboratory Results - last 48 hr 07/19/23 07/20/23 07/20/23 14:17 05:23 Unknown WBC 6.06 6.53 RBC 4.05 L 4.34 Hgb 13.6 14.4 Hct 38.9 41.9 MCV 96.0 96.5 MCH 33.6 33.2 MCHC 35.0 34.4 RDW Std Deviation 45.3 45.3 RDW Coeff of Gita 12.7 12.6 Plt Count 135 123 L MPV 9.1 L 9.1 L Immature Gran % (Auto) 0.7 0.5 Neut % (Auto) 83.3 81.1 Lymph % (Auto) 6.3 8.1 [place] % (Auto) 7.4 7.4 Eos % (Auto) 2.0 2.6 Baso % (Auto) 0.3 0.3 Neut # (Auto) 5.05 5.30 Lymph # (Auto) 0.38 L 0.53 L [place] # (Auto) 0.45 0.48 Eos # (Auto) 0.12 0.17 Baso # (Auto) 0.02 0.02 Immature Gran # (Auto) 0.04 0.03 Sodium 136 135 L Potassium 3.8 3.7 Chloride 101 99 Carbon Dioxide 29 31 Anion Gap 6 5 BUN 6 5 L Creatinine 0.46 L 0.34 L Est Cr Clr Drug Dosing 99.7 134.8 Est GFR ( Amer) 117.6 129.9 Est GFR (Non-Af Amer) 101.5 112.1 BUN/Creatinine Ratio 13.0 14.7 Glucose 104 H 111 H Calcium 8.5 L 8.6 Total Bilirubin 0.9 AST 21 ALT 13 Alkaline Phosphatase 69 Total Protein 6.2 Albumin 4.0 Globulin 2.2 L Albumin/Globulin Ratio 1.8 25-OH Vitamin D Total 46.6 SARS-CoV-2 (PCR) NEGATIVE Influenza Type A (PCR) Negative Influenza Type B (PCR) Negative RSV (RT-PCR) Negative Diagnostic Findings Hip/Pelvis X-Ray 07/19/23 14:03 XR hip URSULA 2v w pelvis CLINICAL HISTORY: fall bl hip pain worse on right COMPARISON STUDY: Right hip CT 06/19/2022. FINDINGS: There is a right total arthroplasty. The hardware is intact. No acute fracture or dislocation within the right or left femur. There is a mildly disp laced fracture within the right medial pubic bone. The visualized sacrum is intact. IMPRESSION: There is an acute mildly displaced fracture within the right medial pubic bone. ACT 112: Negative or not required by law. Electronically signed by: Caden Robertson M.D. 07/19/2023 3:12 PM Lumbar Spine X-Ray 07/19/23 14:03 AP LUMBAR SPINE RADIOGRAPH CLINICAL HISTORY: Lower back pain following fall. COMPARISON STUDY: Lumbar spine CT July 15, 2022. Lumbar spine MRI July 16, 2022. TECHNIQUE: AP radiograph of the lumbar spine was obtained. Due to severe right hip pain, lateral views could not be obtained. FINDINGS: No definite fractures within the lumbar spine are identified although sensitivity is diminished given lack of lateral projection. Degenerative disc disease and facet arthrosis within the lumbar spine is better depicted on prior MRI. IMPRESSION: No lumbar spine fractures identified although sensitivity diminished given inability to obtain lateral projection. ACT 112: Negative or not required by law. Electronically signed by: Ramirez Jang M.D. 07/19/2023 2:54 PM Chest X-Ray 07/19/23 15:31 XR chest 1V portable HISTORY: Cough COMPARISON: Chest 07/15/2022. FINDINGS: No pneumothorax. The cardiac silhouette is borderline enlarged. This remains unchanged. Chronic interstitial thickening and mild emphysema again noted. Small right pleural effusion and right basilar densities remain unchanged. No left pleural effusion. There are old, healed bilateral rib fractures. A right-sided calcified pleural plaque is again noted. No new focal lung consolidations. No evidence for pulmonary edema. Calcifications within the aortic knob. Degenerative changes within the shoulders. IMPRESSION: 1. No significant change compared to the prior study. 2. Emphysema and a right calcified pleural plaque again noted. 3. Small right pleural effusion right basilar densities persist. ACT 112: Negative or not required by law. Electronically signed by: Caden Robertson M.D. 07/19/2023 4:[address] 07/19/23 17:59 Exam(s): CT PELVIS With Contrast IV Amt: 94 ml optiray 320 EXAM: CT Pelvis With Intravenous Contrast CLINICAL HISTORY: Reason for exam: Displaced right medial pubic fracture. TECHNIQUE: Axial computed tomography images of the pelvis with intravenous contrast. CTDI is 11.62 mGy and DLP is 450.58 mGy-cm. Automated exposure control was utilized for the study. A dose lowering technique was utilized adhering to the principles of ALARA. CONTRAST: Patient received 94 ml optiray 320 of IV contrast COMPARISON: 06/19/2022. FINDINGS: Bowel: Unremarkable. No obstruction. No mucosal thickening. Appendix: No findings to suggest acute appendicitis. Intraperitoneal space: Unremarkable. No free air. No significant fluid collection. Bladder: Unremarkable. No mass. Reproductive: Unremarkable as visualized. Bones/joints: There is a comminuted fracture involving the anterior aspect of the right superior and inferior pubic rami. Degenerative disease of the lower lumbar spine and bilateral SI joints. Allergies he disease of the left hip. The left superior and if you pubic ramus are intact. The visualized bilateral proximal femurs reveal no lucency or cortical disruption to suggest acute fracture. No dislocation. Soft tissues: Unremarkable. Vasculature: Atherosclerotic disease of aorta and bilateral iliac arteries. No lower abdominal aortic aneurysm. Lymph nodes: Unremarkable. No enlarged lymph nodes. IMPRESSION: 1. Fracture involving the anterior aspect of the right superior and inferior pubic rami as described. 2. Right-sided hip prosthesis in place. No acute fracture visualized. 3. No joint dislocation seen. Electronically signed by: Shanna Johnson MD 07/19/23 20:47 PM PG Care Time/CCT Total # of Minutes Spent Total Time Spent with Patient: Total time spent is greater than 50% in coordination of care (as documented) at patient's floor/unit and/or counseling patient: Coding Level of Care Code 73685 SUB INP/OBS CARE 3/50MIN Diagnoses Pubic bone fracture S32.509A Complex regional pain syndrome of right lower extremity G90.521 Paroxysmal atrial fibrillation I48.0 Breast cancer C50.919 Sleep apnea G47.30 COPD (chronic obstructive pulmonary disease) J44.9 Right foot drop M21.371 Fall W19.XXXA Encounter type: initial encounter Thrombocytopenia D69.6 Abdominal pain R10.9 (8) Fall Encounter type: initial encounter Qualified Code(s): W19.XXXA - Unspecified fall, initial encounter
[2023-07-20] MEDS: UMECLIDINIUM/VILANTEROL 62.5/25MCG 7 PUFFS/INHALER INH SCH (17:40)
[2023-07-20 17:41] LABS: Influenza A virus by PCR Negative (Neg); Influenza B virus by PCR Negative (Neg); RSV by PCR Negative (Neg); SARS CoV2 RNA(COVID-19) Ceph NEGATIVE (Negative)
[2023-07-20] MEDS: MELATONIN 3 MG TAB PO PRN (20:05)
--- NOTE | 2023-07-20 22:12 | Orthopedic Consultation ---
Date of Consultation July 20, 2023 Assessment & Plan (1) Pubic bone fracture: 67-year-old female with right superior/inferior rami fracture -Weight-bear as tolerated right lower extremity -PT/OT -DVT prophylaxis -Medical management -Upon reviewing the patient's plain radiographs as well as CT scan her total hip arthroplasty is in satisfactory position without fracture subsidence or loosening. She does have minimal displaced right superior and inferior pubic rami fracture there is no fracture involving the posterior sacral ala and no significant tenderness of the posterior SI joint.Would recommend conservative treatment she can be weightbearing as tolerated and work with physical therapy and Occupational Therapy. No further orthopedic intervention at this time. Patient may follow-up as an outpatient upon discharge will sign off at this time History of Present Illness Reason for Consultation: Right pubic rami fracture Attending Physician: Jairo Martines MD History of Present Illness 67-year-old female presenting after sustaining a ground-level fall yesterday. She noted pain in her right groin and inability to ambulate. She was taken to emergency department where radiographs demonstrated a right superior and inferior pubic rami fracture. Does have a history of total hip arthroplasty. Patient was admitted for ambulatory dysfunction and orthopedics consulted. Allergies Allergy/AdvReac Type Severity Reaction Status Date / Time ether Allergy Severe Anaphylaxis Verified 07/19/23 15:01 Home Medications Medication Instructions Recorded Confirmed Type zoledronic acid 5 mg/100 mL in 1 ea IV YEARLY 11/14/20 07/19/23 History mannitol 5 %-water intravenous piggybck (Reclast) melatonin 10 mg capsule 10 mg PO HS PRN Sleep 12/11/22 07/19/23 History multivitamin 1 tab PO QDD 12/11/22 07/19/23 History lidocaine 5 % topical patch 2 patch topical DAILY PRN pain 12/17/22 07/19/23 Rx (scale score 7-10) #30 ea tamoxifen 20 mg tablet 20 mg PO BID #180 tabs 12/17/22 07/19/23 Rx calcium carbonate 600 mg PO Q2D 01/25/23 07/19/23 History cholecalciferol (vitamin D3) 50 50 mcg PO QDD 03/22/23 07/19/23 History mcg (2,000 unit) capsule hydrocodone 10 mg-acetaminophen 1 tab PO Q6H PRN pain #60 tabs 05/20/23 07/19/23 Rx 325 mg tablet atorvastatin 20 mg tablet 20 mg PO QDD 07/19/23 07/19/23 History Patient History Medical History (Updated 07/20/23 @ 10:20 by Jairo Lake MD) Depression Opiate dependence Complex regional pain syndrome of right lower extremity Paresthesia of right lower extremity Ambulatory dysfunction Post herpetic neuralgia MRSA (methicillin resistant staph aureus) culture positive 09/18/20 Left Breast Sleep apnea occasionally wears CPAP Invasive lobular carcinoma of breast in female (12/21/19) Left- dx'ed Jan 2020. S/p bilateral mastectomy with reconstruction - XRT completed 07/2020 Asbestos exposure Acid reflux Allergic rhinitis COPD (chronic obstructive pulmonary disease) DJD (degenerative joint disease) Anxiety and depression Lumbar spinal stenosis Osteoporosis with fracture Paroxysmal atrial fibrillation Solitary event in May 2012- loop recorder placed in 2017- no recurrence of a fib noted. Pt currently on ASA . 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 Cronin) History of breast surgery (~03/25/20) excision/closure of bilateral masectomy scar revision History of esophagogastroduodenoscopy (EGD) (~2004) History of colonoscopy (2019) S/P epidural steroid injection (1997) lumbar S/P breast reconstruction, bilateral (02/26/20) tissue expanders S/P mastectomy, bilateral (02/26/20) Bilateral Breast Mastectomy with Left [place] Lymph Node Biopsies(Bilateral) - Иван Herzog DO s Removal of Loop Recorder(Left) - DO Dr. Иван Grant 02/26/2020 History of cataract surgery (~01/2020) bilateral S/P decompression of ulnar nerve (2005) RUE s/p surgery x2 S/P total hysterectomy and bilateral salpingo-oophorectomy (1994) Status post placement of implantable loop recorder (2017) Removed during bilat mastectomies 02/26/2020 History of total hip replacement (2009) Right H/O hernia repair (2002) umbilical Family History Mother Liver cancer Diabetes Heart disease Hypertension Stroke Father Emphysema lung Uncle Prostate cancer Aunt No problems noted. Aunt Lung cancer Sister No problems noted. Sister No problems noted. Sister No problems noted. Son No problems noted. Son No problems noted. Other No family history of adverse response to anesthesia Denies family history of Ovarian cancer Myocardial infarction Breast cancer Colorectal cancer Social History Smoking Status: Current every day smoker Tobacco Type: Cigarettes packs per day: 2; Cigarettes Per Day: 4-5; Second Hand Exposure: Yes; Do You Dip or Chew Tobacco: No; Hx Alcohol Use: Yes Alcohol type: hard liquor Alcohol Intake Frequency: 4 or M ore x per/Week Alcohol Intake Frequency Comment: glass of run and pineapple before bed Hx Substance Use: No Preferred Language: Bengali Communication Ability: Effective Visual Impairment: Limited Hearing Ability: Normal Filing Writer Required: No Beliefs That Will Affect Care: None marital status: Life Partner Current Living Situation: Significant Other Current Living Situation Comment: Boyfriend lives with patient 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 How many Children do You have: 2 Feels Safe at Home: Yes Safety Concerns: Feels Safe At This Time Childhood Exposure to Second-Hand Smoke: Yes Diet: regular Diet Comment: regular caffeine: Yes (2 cups of coffee/day ) during the past year weight has: remained stable Dental Care, Regularly: Yes Physical Activity Frequency: Does not Exercise Seatbelt Use: always Sunscreen Use: No Assistive Devices: Cane, Oxygen - Continuous, Walker and Wheelchair Assistive Devices Comment: now using cane to walk Physical Exam Constitutional: NAD, resting in bed Musculoskeletal: RLE - No significant tenderness over the pos terior SI joint, there are some tenderness to palpation over the pubis -Well-healed surgical scar - silt s/spn/dpn/t/s -Right foot drop is present with minimal firing of the gastrocsoleus complex + Palpable dorsalis pedis and posterior tibial pulses Results & Data Vital Signs (Past 12 Hours) Vital Signs Temp Pulse Pulse Pulse Resp BP Pulse Ox 07/20/23 19:56 37.2 C 89 20 125/75 92 07/20/23 16:12 36.8 C 82 17 149/83 H 89 L 07/20/23 16:11 07/20/23 16:07 83 07/20/23 10:54 76 18 165/100 H 93 O2 Del Method O2 Flow Rate 07/20/23 19:56 Nasal Cannula 4 07/20/23 16:12 Nasal Cannula 4 07/20/23 16:11 Nasal Cannula 4 07/20/23 16:07 07/20/23 10:54 Nasal Cannula 4.5
[2023-07-21 06:48] LABS: Basophils # (auto) 0.03 K/uL (0.00-0.20); Basophils % (auto) 0.4 %; Eosinophils # (auto) 0.27 K/uL (0.00-0.50); Eosinophils % (auto) 3.7 %; Hematocrit (blood only) 38.8 % (37.0-47.0); Hemoglobin 13.1 g/dl (12.0-16.0); Immature Granulocytes # (auto) 0.04 K/uL (0.01-0.20); Immature Granulocytes % (auto) 0.5 %; Lymphocytes # (auto) 0.46 K/uL (1.20-3.40); Lymphocytes % (auto) 6.3 %; Mean Corpuscular Hemoglobin 33.2 pg (25.0-34.0); Mean Corpuscular Hgb Conc 33.8 g/dL (32.0-36.0); Mean Corpuscular Volume 98.2 fL (80.0-100.0); Mean Platelet Volume 9.3 fL (9.4-12.4); Monocytes % (auto) 6.9 %; Neutrophils # (auto) 5.98 K/uL (1.40-6.50); Neutrophils % (auto) 82.2 %; Platelet Count 111 K/uL (130-400); RDW Coefficient of Variation 12.3 % (11.5-14.5); RDW Standard Deviation 44.8 fL (36.4-46.3); Red Blood Count 3.95 M/uL (4.20-5.40); White Blood Count 7.28 K/ul (4.8-10.8)
[2023-07-21 07:06] LABS: BUN Creatinine Ratio 18.4 (10-20); Calcium 8.5 mg/dl (8.6-10.3); Creatinine Clr Calc Pharmacy 118.9 ml/min; Est GFR (African American) 125.3 ml/min; Est GFR (Non-African American) 108.1 ml/min; Potassium 3.7 mmol/L (3.5-5.1)
[2023-07-21] MEDS: OPTIRAY 320 100ml IV ONE (15:10)
--- NOTE | 2023-07-21 16:03 | CT Scan Report ---
CT abd pelvis IV con only CLINICAL HISTORY: LLQ pain; ?diverticulitis? TECHNIQUE: Helical axial images of the abdomen and pelvis were obtained and displayed. Automated dose lowering techniques and/or adjustment according to patient size were utilized for this exam. This e xam was performed with intravenous contrast. CT DOSE: 559.99 mGy.cm COMPARISON: Comparison is made to PET/CT of 01/17/[address] abdomen pelvis 08/22/2017 FINDINGS: Lower chest: Bibasilar atelectasis versus scarring is seen. Calcified plaque is seen in the right th orax. Liver: 14 mm hypodensity in the liver seen. Gallbladder and biliary tree: No calcified gallstones. Normal caliber wall. No intra- or extrahepatic biliary ductal dilation. Pancreas: Unremarkable, no focal lesions. Spleen: Unremarkable. Adrenals: Unremarkable. Kidneys and ureters: Unremarkable. Bladder: Hurd catheter is seen. Reproductive organs: Unremarkable. Bowel: Diverticulosis is seen without evidence of diverticulitis. The appendix is normal. Lymph nodes Retroperitoneal: Unremarkable. Pelvic: Unremarkable. Mesenteric: Unremarkable. Peritoneum: Normal. Vessels: Atherosclerotic calcifications are seen. Abdominal wall: Right fat-containing inguinal hernia. Bones: Right hip total arthroplasty is seen. IMPRESSION: 1. No acute abnormalities. In particular, no evidence of diverticulitis despite presence of colonic diverticula. 2. Hepatic hypodensity is unchanged from multiple prior exams and likely benign. ACT 112: Negative or not required by law. Electronically signed by: Kb Krueger M.D. 07/21/2023 4:02 PM
[2023-07-21] MEDS: dexAMETHasone 6 MG in SYRINGE 0 ML IV ONE (18:01)
[2023-07-22 07:07] LABS: Basophils # (auto) 0.01 K/uL (0.00-0.20); Basophils % (auto) 0.2 %; Hematocrit (blood only) 39.7 % (37.0-47.0); Hemoglobin 13.8 g/dl (12.0-16.0); Immature Granulocytes # (auto) 0.03 K/uL (0.01-0.20); Immature Granulocytes % (auto) 0.6 %; Lymphocytes # (auto) 0.22 K/uL (1.20-3.40); Lymphocytes % (auto) 4.2 %; Mean Corpuscular Hemoglobin 33.4 pg (25.0-34.0); Mean Corpuscular Hgb Conc 34.8 g/dL (32.0-36.0); Mean Corpuscular Volume 96.1 fL (80.0-100.0); Mean Platelet Volume 9.9 fL (9.4-12.4); Monocytes # (auto) 0.28 K/uL (0.11-0.59); Monocytes % (auto) 5.3 %; Neutrophils # (auto) 4.76 K/uL (1.40-6.50); Neutrophils % (auto) 89.7 %; Platelet Count 146 K/uL (130-400); RDW Standard Deviation 41.9 fL (36.4-46.3); Red Blood Count 4.13 M/uL (4.20-5.40)
[2023-07-22 07:35] LABS: BUN Creatinine Ratio 19.5 (10-20); Calcium 8.9 mg/dl (8.6-10.3); Creatinine Clr Calc Pharmacy 108.1 ml/min; Est GFR (African American) 122.2 ml/min; Est GFR (Non-African American) 105.4 ml/min
--- NOTE | 2023-07-22 07:52 | Hospitalist Progress Note ---
Date of Service July 21, 2023 Assessment & Plan (1) Pubic bone fracture: Plan: Patient sustained a ground-level fall when she tripped over her dog's toy on the morning of 07/18 CT pelvis with fractures involving the anterior aspect of the right superior and inferior pubic rami Appreciate ortho consultation WBAT pain management will be challenging due to long-standing narcotic usage at high doses and tolerance cont IV dilaudid q2h prn - I suspect she may need a long-acting pain med to help with weaning off the IV dilaudid the norco 10's she was taking at home will likely be insufficient lidoderm patches PT, OT evals appreciated - needs rehab 25-OH vit D level noted steroids for COPD may help pain as well (2) Complex regional pain syndrome of right lower extremity: Plan: Patient reports that her right lower extremity is always numb, and that she is unable to move her foot Hx of right hip replacement in 2009; hardware on imaging intact Patient normally takes hydrocodoneacetaminophen 10mg tablets as needed for pain (3) Paroxysmal atrial fibrillation: Plan: Not currently on anticoagulation Remains in NSR Is not on AV tony agents No issues (4) Breast cancer: Plan: History of Continue tamoxifen (5) Sleep apnea: Plan: Patient denies use of CPAP (6) COPD (chronic obstructive pulmonary disease): Plan: Patient is on continuous supplemental oxygen (2.5L NC) at baseline Add edAnoro Ellipta 1 puff daily Has modestly increased O2 requirements but she denies any worsening of typical COPD symptoms Puwp-hry-yanh checked COVID/flu/RSV - negative Still coughing/wheezing - will add dexamethasone 6mg IV dailiy this may help her pelvic pain as well (7) Right foot drop: Plan: chronic (8) Fall: Plan: multifactorial risk factors #2, #7, etc cont PT, OT (9) Thrombocytopenia: Plan: etiology? viral suppression? due to mild pelvic bleeding from fractures and thus consumptive? other? repeat CBC w/ diff in am B12 and folate in 2022 were both wnl (10) Abdominal pain: Plan: x 1 month etiology? constipation? diverticular? other? continues to c/o this pain will obtain CT a/p with contrast to r/o diverticulitis etc (she has had such in the past) Plan DVT proph - add heparin 5000 BID significant other updated at bedside today Admission and Anticipated Discharge Date Admission Date: July 19, 2023 Subjective tele stable overnight continues to have severe pain in right groin/right pelvic region from her pelvic fractures any movement brings on pain she also continues to have mild pain of left side of abdomen - present for about 1 month needing dilaudid nearly every 2 hours for the pain the dilaudid is effective - she gets good pain relief - and the current dosing lasts for the full 2 hours or so she continues with cough - no change no dyspnea at rest Review of Systems Review of Systems: CV - no orthopnea, no PND, no chest pain pulm - no change in chronic cough or chronic wheezing GI - no N/V Physical Exam Physical Exam: gen - thin, looks more comfortable today, awake, alert neck - no JVD mouth - MMM heart - RRR, s1 s2, no murmur lungs - end-exp wheezes b/l - unchanged; no distress abd - soft; again mildly tender LLQ region; ND BS+ ext - no edema, thin legs, pulses 2+ b/l Results & Data Results & Data Vital Signs (Past 12 Hours) Vital Signs Temp Pulse Pulse Resp BP Pulse Ox O2 Del Method 07/21/23 15:26 36.9 C 82 20 137/69 92 Room Air 07/21/23 14:05 Nasal Cannula 07/21/23 11:12 36.9 C 65 20 120/70 92 Nasal Cannula 07/21/23 09:45 81 07/21/23 08:23 36.8 C 74 20 126/71 92 Nasal Cannula Laboratory Results Laboratory Results 07/20/23 07/21/23 Unknown 05:46 WBC 7.28 RBC 3.95 L Hgb 13.1 Hct 38.8 MCV 98.2 MCH 33.2 MCHC 33.8 RDW Std Deviation 44.8 RDW Coeff of Gita 12.3 Plt Count 111 L MPV 9.3 L Immature Gran % (Auto) 0.5 Neut % (Auto) 82.2 Lymph % (Auto) 6.3 Mcdonough % (Auto) 6.9 Eos % (Auto) 3.7 Baso % (Auto) 0.4 Neut # (Auto) 5.98 Lymph # (Auto) 0.46 L Mcdonough # (Auto) 0.50 Eos # (Auto) 0.27 Baso # (Auto) 0.03 Immature Gran # (Auto) 0.04 Sodium 135 L Potassium 3.7 Chloride 97 L Carbon Dioxide 29 Anion Gap 9 BUN 7 Creatinine 0.38 L Est Cr Clr Drug Dosing 118.9 Est GFR ( Amer) 125.3 Est GFR (Non-Af Amer) 108.1 BUN/Creatinine Ratio 18.4 Glucose 98 Calcium 8.5 L SARS-CoV-2 (PCR) NEGATIVE Influenza Type A (PCR) Negative Influenza Type B (PCR) Negative RSV (RT-PCR) Negative Diagnostic Findings Abdomen/Pelvis CT 07/21/23 14:06 CT abd pelvis IV con only CLINICAL HISTORY: LLQ pain; ?diverticulitis? TECHNIQUE: Helical axial images of the abdomen and pelvis were obtained and displayed. Automated dose lowering techniques and/or adjustment according to patient size were utilized for this exam. This exam was performed with intravenous contrast. CT DOSE: 559.99 mGy.cm COMPARISON: Comparison is made to PET/CT of 01/17/[address] abdomen pelvis 08/22/2017 FINDINGS: Lower chest: Bibasilar atelectasis versus scarring is seen. Calcified plaque is seen in the right thorax. Liver: 14 mm hypodensity in the liver seen. Gallbladder and biliary tree: No calcified gallstones. Normal caliber wall. No intra- or extrahepatic biliary ductal dilation. Pancreas: Unremarkable, no focal lesions. Spleen: Unremarkable. Adrenals: Unremarkable. Kidneys and ureters: Unremarkable. Bladder: Hurd catheter is seen. Reproductive organs: Unremarkable. Bowel: Diverticulosis is seen without evidence of diverticulitis. The appendix is normal. Lymph nodes Retroperitoneal: Unremarkable. Pelvic: Unremarkable. Mesenteric: Unremarkable. Peritoneum: Normal. Vessels: Atherosclerotic calcifications are seen. Abdominal wall: Right fat-containing inguinal hernia. Bones: Right hip total arthroplasty is seen. IMPRESSION: 1. No acute abnormalities. In particular, no evidence of diverticulitis despite presence of colonic diverticula. 2. Hepatic hypodensity is unchanged from multiple prior exams and likely benign. ACT 112: Negative or not required by law. Electronically signed by: Kb Krueger M.D. 07/21/2023 4:02 PM PG Care Time/CCT Total # of Minutes Spent Total Time Spent with Patient: Total time spent is greater than 50% in coordination of care (as documented) at patient's floor/unit and/or counseling patient: Coding Level of Care Code 39104 SUB INP/OBS CARE 3/50MIN Diagnoses Pubic bone fracture S32.509A Complex regional pain syndrome of right lower extremity G90.521 Paroxysmal atrial fibrillation I48.0 Breast cancer C50.919 Sleep apnea G47.30 COPD (chronic obstructive pulmonary disease) J44.9 Right foot drop M21.371 Fall W19.XXXA Encounter type: initial encounter Thrombocytopenia D69.6 Abdominal pain R10.9 (8) Fall Encounter type: initial encounter Qualified Code(s): W19.XXXA - Unspecified fall, initial encounter
[2023-07-22] MEDS: dexAMETHasone 6 MG in SYRINGE 0 ML IV SCH (09:03)
[2023-07-22] MEDS: SENNA 8.6 MG TAB PO SCH (09:04)
[2023-07-22] MEDS: POLYETHYLENE (MIRALAX) 17 GM PACK PO SCH (09:04)
[2023-07-22] MEDS: HEPARIN SOD 5,000 UNIT/0.5 ML VIAL SQ SCH (09:04)
[2023-07-22] MEDS: TAPENTADOL HCL ER 50 MG TABCR PO SCH (10:58)
--- NOTE | 2023-07-22 20:21 | Hospitalist Progress Note ---
Date of Service July 22, 2023 Assessment & Plan (1) Pubic bone fracture: Plan: Patient sustained a ground-level fall when she tripped over her dog's toy on the morning of 07/18 CT pelvis with fractures involving the anterior aspect of the right superior and inferior pubic rami Appreciate ortho consultation can WBAT pain management will be challenging due to long-standing narcotic usage at high doses and tolerance she remains on IV dilaudid q2h prn but she is requesting such every 2 hours promptly to help weaning her off the IV dilaudid - and I suspect norco 10's will be insufficient for pain relief alone - I added nucynta ER 50mg BID she is tolerating such w/o difficulty lidoderm patches PT, OT evals appreciated - needs rehab; [facility] referral made 25-OH vit D level noted steroids for COPD seem to be helping pain as well (2) Complex regional pain syndrome of right lower extremity: Plan: Patient reports that her right lower extremity is always numb, and that she is unable to move her foot due to pre-existing foot drop used AFO device for latter in the past but she feels it made things worse Hx of right hip replacement in 2009; hardware on imaging intact Patient normally takes hydrocodoneacetaminophen 10mg tablets as needed for pain (3) Paroxysmal atrial fibrillation: Plan: Not currently on anticoagulation Remains in NSR Is not on AV tony agents No issues (4) Breast cancer: Plan: History of Continue tamoxifen (5) Sleep apnea: Plan: Patient denies use of CPAP (6) COPD (chronic obstructive pulmonary disease): Plan: Patient is on continuous supplemental oxygen (2.5L NC) at baseline Added Anoro Ellipta 1 puff daily Has modestly increased O2 requirements but she denies any worsening of typical COPD symptoms Mjaz-xnb-mmnh checked COVID/flu/RSV - negative Still coughing/wheezing - added dexamethasone 6mg IV daily- lungs sound much better today but she has rales in the bases Plan to get 2-view CXR in am due to these rales (7) Right foot drop: Plan: chronic (8) Fall: Plan: multifactorial risk factors #2, #7, etc cont PT, OT (9) Thrombocytopenia: Plan: improved to 146 today etiology? viral suppression? due to mild pelvic bleeding from fractures and thus consumptive? other? either way it is better B12 and folate in 2023 were both wnl (10) Abdominal pain: Plan: x 1 month etiology? constipation? diverticular? other? continues to c/o this pain obtained CT a/p with contrast to r/o diverticulitis etc --- CT was benign, nothing acute constipation then?? has not had BM entire admission (11) Chronic hypoxic respiratory failure: Plan: 2nd COPD stable Plan DVT proph - heparin 5000 BID progressing albeit slowly but steadily Admission and Anticipated Discharge Date Admission Date: July 19, 2023 Subjective tele overnight wnl pt reports improved R pelvic pain but "still can't get my right leg to move very well" (Due to pelvic fracture and pre-existing RLE complex regional pain syndrome & foot drop) despite improvement in pain she cont to request the IV dilaudid nearly every 2 hours on the ximena cough/breathing is improved s/p steroids overnight eating well is ambulating to bathroom with use of walker she is agreeable to [facility] Referral Review of Systems Review of Systems: cv - no chest pain pulm - cough with some sputum production but improved overnight; baseline GARBER GI - no abd pain; still no bowel movement - voiding ok Physical Exam Physical Exam: gen - thin, looks much more comfortable today, awake, alert; she stood for me with use of walker neck - no JVD mouth - MMM heart - RRR, s1 s2, no murmur lungs - end-exp wheezes MUCH improved today; mild rales b/l bases worse on left abd - soft; NT; ND BS+; ?small reducible hernia left abdomen ext - no edema, thin legs, pulses 2+ b/l neuro - right foot drop Results & Data Results & Data Vital Signs (Past 12 Hours) Vital Signs Temp Pulse Pulse Resp BP Pulse Ox O2 Del Method 07/22/23 19:47 36.7 C 82 18 152/66 H 95 Nasal Cannula 07/22/23 16:00 80 07/22/23 15:26 37.0 C 71 18 137/75 97 Room Air 07/22/23 11:19 36.5 C 72 18 147/70 H 95 Room Air O2 Flow Rate 07/22/23 19:47 4 07/22/23 16:00 07/22/23 15:26 07/22/23 11:19 Laboratory Results Laboratory Results - last 24 hr 07/22/23 05:36 WBC 5.30 RBC 4.13 L Hgb 13.8 Hct 39.7 MCV 96.1 MCH 33.4 MCHC 34.8 RDW Std Deviation 41.9 RDW Coeff of Gita 12.0 Plt Count 146 MPV 9.9 Immature Gran % (Auto) 0.6 Neut % (Auto) 89.7 Lymph % (Auto) 4.2 [place] % (Auto) 5.3 Eos % (Auto) 0.0 Baso % (Auto) 0.2 Neut # (Auto) 4.76 Lymph # (Auto) 0.22 L [place] # (Auto) 0.28 Eos # (Auto) 0.00 Baso # (Auto) 0.01 Immature Gran # (Auto) 0.03 Sodium 134 L Potassium 4.0 Chloride 95 L Carbon Dioxide 30 Anion Gap 9 BUN 8 Creatinine 0.41 L Est Cr Clr Drug Dosing 108.1 Est GFR ( Amer) 122.2 Est GFR (Non-Af Amer) 105.4 BUN/Creatinine Ratio 19.5 Glucose 180 H Calcium 8.9 PG Care Time/CCT Total # of Minutes Spent Total Time Spent with Patient: Total time spent is greater than 50% in coordination of care (as documented) at patient's floor/unit and/or counseling patient: Coding Level of Care Code 71798 SUB INP/OBS CARE MIN Diagnoses Pubic bone fracture S32.509A Complex regional pain syndrome of right lower extremity G90.521 Paroxysmal atrial fibrillation I48.0 Breast cancer C50.919 Sleep apnea G47.30 COPD (chronic obstructive pulmonary disease) J44.9 Right foot drop M21.371 Fall W19.XXXA Encounter type: initial encounter Thrombocytopenia D69.6 Abdominal pain R10.9 Chronic hypoxic respiratory failure J96.11 (8) Fall Encounter type: initial encounter Qualified Code(s): W19.XXXA - Unspecified fall, initial encounter
[2023-07-23 07:31] LABS: Estimated Average Glucose 100 mg/dl; Hemoglobin A1C 5.1 % (4.5-5.6)
--- NOTE | 2023-07-23 09:35 | XRay Report ---
XR chest 2V PA/lateral CLINICAL HISTORY: b/l basilar rales TECHNIQUE: 2 views of the chest were obtained. Comparison: Comparison is made to chest radiograph 07/29/2023 FINDINGS: No lines and tubes are seen. The cardiomediastinal silhouette is normal. Airspace opacities are seen in the right lower and mid lungs. Small right pleural effusion. IMPRESSION: 1. Airspace opacity in the right lower midlung may represent atelectasis, pneumonia, and/or aspirati on. 2. Small right pleural effusion. ACT 112: Negative or not required by law. Electronically signed by: Kb Krueger M.D. 07/23/2023 9:34 AM
[2023-07-23] MEDS: HYDROmorphone INJ 0.5 MG/0.5 ML SYR IV PRN (10:32)
[2023-07-23] MEDS: HYDROmorphone INJ 1 MG/ML SYRINGE IV PRN (19:00)
--- NOTE | 2023-07-23 20:18 | Hospitalist Progress Note ---
Date of Service July 23, 2023 Assessment & Plan (1) Pubic bone fracture: Plan: Patient sustained a ground-level fall when she tripped over her dog's toy on the morning of 07/18 CT pelvis with fractures involving the anterior aspect of the right superior and inferior pubic rami Appreciate ortho consultation can WBAT pain management will be challenging due to long-standing narcotic usage at high doses and tolerance she remains on IV dilaudid q2h prn to help weaning her off the IV dilaudid - and I suspect norco 10's will be insufficient for pain relief alone - I added nucynta ER 50mg BID starting 07/22/23 in the AM can titrate such in 3 days; suspect we will need to she is tolerating the nucynta w/o difficulty lidoderm patches PT, OT evals appreciated - needs rehab; [facility] referral made 25-OH vit D level noted steroids for COPD seem to be helping pain to some degree (2) Complex regional pain syndrome of right lower extremity: Plan: Patient reports that her right lower extremity is always numb, and that she is unable to move her foot due to pre-existing foot drop used AFO device for latter in the past but she feels it made things worse Hx of right hip replacement in 2009; hardware on imaging intact Patient normally takes hydrocodoneacetaminophen 10mg tablets as needed for pain Will add gabapentin low-dose - start 100mg TID (3) Paroxysmal atrial fibrillation: Plan: Not currently on anticoagulation Remains in NSR Is not on AV tony agents No issues (4) Breast cancer: Plan: History of Continue tamoxifen (5) Sleep apnea: Plan: Patient denies use of CPAP (6) COPD (chronic obstructive pulmonary disease): Plan: Patient is on continuous supplemental oxygen (2.5L NC) at baseline Added Anoro Ellipta 1 puff daily Has modestly increased O2 requirements but she denies any worsening of typical COPD symptoms Givb-slt-tfgu checked COVID/flu/RSV - negative Still coughing/wheezing - added dexamethasone 6mg IV daily - no wean today (7) Right foot drop: Plan: chronic (8) Fall: Plan: multifactorial risk factors #2, #7, etc cont PT, OT (9) Thrombocytopenia: Plan: improved to 146 yesterday etiology? viral suppression? due to mild pelvic bleeding from fractures and thus consumptive? other? either way it is better B12 and folate in 2022 were both wnl (10) Abdominal pain: Plan: x 1 month etiology? constipation? diverticular? other? continues to c/o this pain obtained CT a/p with contrast to r/o diverticulitis etc --- CT was benign, nothing acute constipation then?? has not had BM entire admission cont senna cont miralax likely to need titration of these (11) Chronic hypoxic respiratory failure: Plan: 2nd COPD stable (12) Pneumonia: Plan: suspected based on exam and cxr findings from today given lack of appetite, simply feeling unwell, coughing, etc -- start rocephin/doxy IV now Plan DVT proph - heparin 5000 BID progressing albeit very very slowly Admission and Anticipated Discharge Date Admission Date: July 19, 2023 Subjective pt complaining of severe pain in right pelvis today still cannot weight bear that well on RLE denies left leg pain still requiring copious amounts of IV dilaudid still with cough - clear sputum production mild dyspnea and ongoing wheezing appetite is not robust today still willing to go to rehab tele overnight wnl Review of Systems Review of Systems: cv - no chest pains pulm - no orthopnea, remains on chronic O2 GI - no abd pain ; no BM ; no N/V Physical Exam Physical Exam: gen - thin, looks worse than yesterday, shaky/tremulous neck - no JVD mouth - MMM heart - RRR, s1 s2, no murmur lungs - end-exp wheezes - mild; still with rales b/l bases; no increased work of breathing abd - soft; NT; ND BS+; ?small reducible hernia left abdomen ext - no edema, thin legs, pulses 2+ b/l neuro - right foot drop unchanged Results & Data Results & Data Vital Signs (Past 12 Hours) Vital Signs Temp Pulse Pulse Resp BP Pulse Ox O2 Del Method 07/23/23 19:27 36.9 C 68 18 155/76 H 92 Nasal Cannula 07/23/23 15:59 36.7 C 75 20 134/69 95 Nasal Cannula 07/23/23 15:50 78 07/23/23 11:40 36.8 C 79 21 161/77 H 97 Nasal Cannula 07/23/23 09:43 63 O2 Flow Rate 07/23/23 19:27 2 07/23/23 15:59 4 07/23/23 15:50 07/23/23 11:40 4 07/23/23 09:43 Laboratory Results Laboratory Results - last 24 hr 07/23/23 05:58 Estimat Average Glucose 100 Hemoglobin A1c 5.1 PG Care Time/CCT Total # of Minutes Spent Total Time Spent with Patient: Total time spent is greater than 50% in coordination of care (as documented) at patient's floor/unit and/or counseling patient: Coding Level of Care Code 97666 SUB INP/OBS CARE 2/35MIN Diagnoses Pubic bone fracture S32.509A Complex regional pain syndrome of right lower extremity G90.521 Paroxysmal atrial fibrillation I48.0 Breast cancer C50.919 Sleep apnea G47.30 COPD (chronic obstructive pulmonary disease) J44.9 Right foot drop M21.371 Fall W19.XXXA Encounter type: initial encounter Thrombocytopenia D69.6 Abdominal pain R10.9 Chronic hypoxic respiratory failure J96.11 Pneumonia J18.9 (8) Fall Encounter type: initial encounter Qualified Code(s): W19.XXXA - Unspecified fall, initial encounter
[2023-07-23] MEDS: guaiFENesin 600 MG TABCR PO SCH (20:56)
[2023-07-23] MEDS: cefTRIAXone SODIUM 1,000 MG/50 ML BAG IV SCH (20:58)
[2023-07-23] MEDS: DOXYCYCLINE HYCLATE 100 MG in DEXTROSE 5% MINI-B 100 ML IV SCH (20:58)
[2023-07-24] MEDS: bisacodyL 5 MG TABEC PO ONE (08:48)
[2023-07-24] MEDS: GABAPENTIN 100 MG CAP PO SCH (08:51)
--- NOTE | 2023-07-24 19:32 | Hospitalist Progress Note ---
Date of Service July 24, 2023 Assessment & Plan (1) Pubic bone fracture: Plan: Patient sustained a ground-level fall when she tripped over her dog's toy on the morning of 07/18 CT pelvis with fractures involving the anterior aspect of the right superior and inferior pubic rami Appreciate ortho consultation can WBAT pain management will be challenging due to long-standing narcotic usage at high doses and tolerance she remains on IV dilaudid q2h prn to help weaning her off the IV dilaudid - and I suspect norco 10's will be insufficient for pain relief alone - I added nucynta ER 50mg BID starting 07/22/23 in the AM can titrate such in 3 days; suspect we will need to; thus plan to increase the nucynta starting 07/25/23 she is tolerating the nucynta w/o difficulty lidoderm patches PT, OT evals appreciated - needs rehab; [facility] referral made 25-OH vit D level noted steroids for COPD seem to be helping pain to some degree (2) Complex regional pain syndrome of right lower extremity: Plan: Patient reports that her right lower extremity is always numb, and that she is unable to move her foot due to pre-existing foot drop used AFO device for latter in the past but she feels it made things worse Hx of right hip replacement in 2009; hardware on imaging intact Patient normally takes hydrocodoneacetaminophen 10mg tablets as needed for pain added gabapentin 100mg TID starting today (3) Paroxysmal atrial fibrillation: Plan: Not currently on anticoagulation Remains in NSR Is not on AV tony agents No issues (4) Breast cancer: Plan: History of Continue tamoxifen (5) Sleep apnea: Plan: Patient denies use of CPAP (6) COPD (chronic obstructive pulmonary disease): Plan: Patient is on continuous supplemental oxygen (2.5L NC) at baseline Added Anoro Ellipta 1 puff daily Has modestly increased O2 requirements but she denies any worsening of typical COPD symptoms Icap-zol-vxdy checked COVID/flu/RSV - negative Still coughing/wheezing - added dexamethasone 6mg IV daily - no wean today perhaps wean tomorrow (7) Right foot drop: Plan: chronic (8) Fall: Plan: multifactorial risk factors #2, #7, etc cont PT, OT (9) Thrombocytopenia: Plan: improved to 146 yesterday etiology? viral suppression? due to mild pelvic bleeding from fractures and thus consumptive? other? either way it is better B12 and folate in 2022 were both wnl check cbc in 1-2 days for stability (10) Abdominal pain: Plan: x 1 month etiology? constipation? diverticular? other? continues to c/o this pain obtained CT a/p with contrast to r/o diverticulitis etc --- CT was benign, nothing acute constipation then?? only 1 tiny BM today cont senna cont miralax will give dulcolax x 1 by mouth today (11) Chronic hypoxic respiratory failure: Plan: 2nd COPD stable (12) Pneumonia: Plan: suspected based on exam and cxr findings stable day #2 of rocephin/doxy IV no changes today Plan DVT proph - heparin 5000 BID progressing albeit very very slowly dispo - [facility]? home with home PT/OT? Admission and Anticipated Discharge Date Admission Date: July 19, 2023 Subjective tele overnight wnl pt states today has been better pain-ureña psyz-vkj-gcfc still requesting the IV dilaudid every 2-3 hours nearly robotu-leb-jsyrz breathing is better today cough is better ambulation was more comfortable than yesterday starting to be able to place more weight on right leg eating is better today only tiny BM since admission Review of Systems Review of Systems: CV - no chest pain pulm - no dyspnea at rest; mild baseline GARBER - no change GI - didn't mention any abdominal pain today; no N/V Physical Exam Physical Exam: gen - thin, looks better today, comfortable, awake/alert neck - no JVD mouth - MMM heart - RRR, s1 s2, no murmur lungs - end-exp wheezes - mild; rales b/l bases; no increased work of breathing; adventitious sounds modestly better today abd - soft; NT; ND BS+ ext - no edema, pulses 2+ b/l neuro - right foot drop unchanged psych - a/o x 3 Results & Data Results & Data Vital Signs (Past 12 Hours) Vital Signs Temp Pulse Pulse Resp BP Pulse Ox O2 Del Method 07/24/23 16:00 67 07/24/23 15:22 36.7 C 66 20 136/73 91 Nasal Cannula 07/24/23 12:32 36.6 C 61 20 161/82 H 95 Nasal Cannula 07/24/23 09:00 57 L 07/24/23 08:18 36.6 C 61 20 146/71 H 96 Nasal Cannula O2 Flow Rate 07/24/23 16:00 07/24/23 15:22 2 07/24/23 12:32 2 07/24/23 09:00 07/24/23 08:18 2 PG Care Time/CCT Total # of Minutes Spent Total Time Spent with Patient: Total time spent is greater than 50% in coordination of care (as documented) at patient's floor/unit and/or counseling patient: Coding Level of Care Code 23233 SUB INP/OBS CARE 2/35MIN Diagnoses Pubic bone fracture S32.509A Complex regional pain syndrome of right lower extremity G90.521 Paroxysmal atrial fibrillation I48.0 Breast cancer C50.919 Sleep apnea G47.30 COPD (chronic obstructive pulmonary disease) J44.9 Right foot drop M21.371 Fall W19.XXXA Encounter type: initial encounter Thrombocytopenia D69.6 Abdominal pain R10.9 Chronic hypoxic respiratory failure J96.11 Pneumonia J18.9 (8) Fall Encounter type: initial encounter Qualified Code(s): W19.XXXA - Unspecified fall, initial encounter
[2023-07-25] MEDS: TAPENTADOL HCL ER 50 MG TABCR PO SCH (09:21)
[2023-07-25] MEDS: MAGNESIUM HYDROXIDE SUSP 30 ML UDC ONE (13:20)
[2023-07-25] MEDS: MAGNESIUM HYDROXIDE SUSP 30 ML UDC PO ONE (13:20)
--- NOTE | 2023-07-25 17:58 | Hospitalist Progress Note ---
Date of Service July 25, 2023 Assessment & Plan (1) Pubic bone fracture: Plan: Patient sustained a ground-level fall when she tripped over her dog's toy on the morning of 07/18 CT pelvis with fractures involving the anterior aspect of the right superior and inferior pubic rami Appreciate ortho consultation can WBAT pain management will be challenging due to long-standing narcotic usage at high doses and tolerance she remains on IV dilaudid 1mg q2h prn - using it multiple times per day to help weaning her off the IV dilaudid - and I suspect norco 10's will be insufficient for pain relief alone - I added nucynta ER 50mg BID starting 07/22/23 in the AM will titrate to 100mg BID today, 07/24 she is tolerating the nucynta w/o issue cont lidoderm patches PT, OT chau appreciated - needs rehab; [facility] referral made ; but she really wants to return home 25-OH vit D level noted steroids for COPD seem to be helping pain to some degree consider pain management consultation (2) Complex regional pain syndrome of right lower extremity: Plan: Patient reports that her right lower extremity is always numb, and that she is unable to move her foot due to pre-existing foot drop used AFO device for latter in the past but she feels it made things worse Hx of right hip replacement in 2009; hardware on imaging intact Patient normally takes hydrocodoneacetaminophen 10mg tabs prn at home added gabapentin 100mg TID this admission she reports having taken it in the past but it "didn't really help" sounds like she was on high doses at some point in the past (3) Paroxysmal atrial fibrillation: Plan: Not currently on anticoagulation Remains in NSR Is not on AV tony agents No issues (4) Breast cancer: Plan: History of Continue tamoxifen (5) Sleep apnea: Plan: Patient denies use of CPAP (6) COPD (chronic obstructive pulmonary disease): Plan: Patient is on continuous supplemental oxygen (2.5L NC) at baseline Added Anoro Ellipta 1 puff daily Has modestly increased O2 requirements but she denied any worsening of typical COPD symptoms [id number] checked COVID/flu/RSV - negative Early in admission was having significant coughing/wheezing - added dexamethasone 6mg IV daily - completed 4 days of such wean to 4mg daily starting tomorrow COPD flare improving (7) Right foot drop: Plan: chronic (8) Fall: Plan: multifactorial risk factors #2, #7, etc cont PT, OT (9) Thrombocytopenia: Plan: improved to 146; lowest 111 repeat cbc am etiology? viral suppression? due to mild pelvic bleeding from fractures and thus consumptive? other? either way it is better B12 and folate in 2022 were both wnl (10) Abdominal pain: Plan: x 1 month etiology? constipation? diverticular? other? continues to c/o this pain obtained CT a/p with contrast to r/o diverticulitis etc --- CT was benign, nothing acute suspect constipation only 1 tiny BM since admission then finally had "good one" today cont senna cont miralax (11) Chronic hypoxic respiratory failure: Plan: 2nd COPD stable (12) Pneumonia: Plan: suspected based on exam and cxr findings stable and improving day #3 of rocephin/doxy IV no changes today can likely change to PO omnicef/doxy tomorrow complete days of Rx Plan DVT proph - heparin 5000 BID progressing albeit very very slowly dispo - [facility]? home with home PT/OT? Admission and Anticipated Discharge Date Admission Date: July 19, 2023 Subjective breathing doing MUCH better less cough less wheeze less dyspnea at times not needing to use her O2 right pelvic pain persists this am "things were bad" pain got a little better as day went on having difficult time ambulating and weight-bearing on right leg finally had BM today Review of Systems Review of Systems: gen - no fevers cv - no cp, no orthopnea GI - no abd pain or N/V Physical Exam Physical Exam: gen - thin, she looks comfortable today, awake/alert neck - no JVD mouth - MMM heart - RRR, s1 s2, no murmur lungs - end-exp wheezes - minimal; minimal rales b/l bases; no increased work of breathing abd - soft; NT; ND BS+ ext - no edema, pulses 2+ b/l neuro - right foot drop unchanged psych - a/o x 3 Results & Data Results & Data Vital Signs (Past 12 Hours) Vital Signs Temp Pulse Pulse Resp BP Pulse Ox O2 Del Method 07/25/23 16:32 36.8 C 66 16 139/77 92 Nasal Cannula 07/25/23 16:10 70 07/25/23 12:00 36.7 C 61 16 157/78 H 93 Room Air 07/25/23 09:36 Room Air 07/25/23 08:05 36.6 C 58 L 16 172/81 H 96 Nasal Cannula 07/25/23 08:00 58 L O2 Flow Rate 07/25/23 16:32 2 07/25/23 16:10 07/25/23 12:00 07/25/23 09:36 07/25/23 08:05 2 07/25/23 08:00 PG Care Time/CCT Total # of Minutes Spent Total Time Spent with Patient: Total time spent is greater than 50% in coordination of care (as documented) at patient's floor/unit and/or counseling patient: Coding Level of Care Code 68543 SUB INP/OBS CARE 3/50MIN Diagnoses Pubic bone fracture S32.509A Complex regional pain syndrome of right lower extremity G90.521 Paroxysmal atrial fibrillation I48.0 Breast cancer C50.919 Sleep apnea G47.30 COPD (chronic obstructive pulmonary disease) J44.9 Right foot drop M21.371 Fall W19.XXXA Encounter type: initial encounter Thrombocytopenia D69.6 Abdominal pain R10.9 Chronic hypoxic respiratory failure J96.11 Pneumonia J18.9 (8) Fall Encounter type: initial encounter Qualified Code(s): W19.XXXA - Unspecified fall, initial encounter
[2023-07-26] MEDS: dexAMETHasone 4 MG in SYRINGE 0 ML IV SCH (07:50)
[2023-07-26 08:10] LABS: Hematocrit (blood only) 41.6 % (37.0-47.0); Hemoglobin 14.6 g/dl (12.0-16.0); Mean Corpuscular Hemoglobin 33.1 pg (25.0-34.0); Mean Corpuscular Hgb Conc 35.1 g/dL (32.0-36.0); Mean Corpuscular Volume 94.3 fL (80.0-100.0); Mean Platelet Volume 9.1 fL (9.4-12.4); Platelet Count 241 K/uL (130-400); RDW Standard Deviation 42.6 fL (36.4-46.3); Red Blood Count 4.41 M/uL (4.20-5.40); White Blood Count 5.49 K/ul (4.8-10.8)
[2023-07-26 09:14] LABS: BUN Creatinine Ratio 31.3 (10-20); Calcium 9.3 mg/dl (8.6-10.3); Creatinine Clr Calc Pharmacy 90.6 ml/min; Est GFR (Non-African American) 100.1 ml/min
[2023-07-26] MEDS: HYDROmorphone INJ 1 MG/ML SYRINGE IV PRN (15:51)
--- NOTE | 2023-07-26 19:37 | Hospitalist Progress Note ---
Date of Service July 26, 2023 Assessment & Plan (1) Pubic bone fracture: Plan: Patient sustained a ground-level fall when she tripped over her dog's toy on the morning of 07/18 CT pelvis with fractures involving the anterior aspect of the right superior and inferior pubic rami Appreciate ortho consultation can WBAT pain management will be challenging due to long-standing narcotic usage at high doses and tolerance she remains on IV dilaudid 1mg q2h prn - using it multiple times per day -- try to start weaning -- change to q4h prn, and depending on how day goes, then change to q6h to help weaning her off the IV dilaudid - and I suspect norco 10's will be insufficient for pain relief alone - I added nucynta ER 50mg BID starting 07/22/23 in the AM titrated nucynta ER to 100mg BID on 07/24 she is tolerating the nucynta w/o issue cont lidoderm patches PT, OT evals appreciated - needs rehab; [facility] referral made ; but she really wants to return home 25-OH vit D level noted steroids for COPD seem to be helping pain to some degree as well consulted pain management for any additional recommendations for her pain (2) Complex regional pain syndrome of right lower extremity: Plan: Patient reports that her right lower extremity is always numb, and that she is unable to move her foot due to pre-existing foot drop used AFO device for latter in the past but she feels it made things worse and no longer uses such Hx of right hip replacement in 2009; hardware on imaging intact Patient normally takes hydrocodoneacetaminophen 10mg tabs prn at home added gabapentin 100mg TID this admission; titrate to 200mg TID in am tomorrow see #1 above re: narcotics she reports having taken gabapentin it in the past but it "didn't really help" sounds like she was on high doses at some point in the past would recommend continuing the gabapentin at discharge (3) Paroxysmal atrial fibrillation: Plan: Not currently on anticoagulation Remains in NSR Is not on AV tony agents No issues (4) Breast cancer: Plan: History of Continue tamoxifen (5) Sleep apnea: Plan: Patient denies use of CPAP (6) COPD (chronic obstructive pulmonary disease): Plan: with exacerbation - MUCH Improved/resolving Had modestly increased O2 requirements earlier in the stay with extensive wheezing/cough Checked COVID/flu/RSV - negative Patient is on continuous supplemental oxygen (2.5L NC) at baseline - had been up to as much 4 L early in admission Added Anoro Ellipta 1 puff daily while here - would d/c her home on such Early in admission was having significant coughing/wheezing - added dexamethasone 6mg IV daily - completed 4 days of such weaned to 4mg daily starting today (7) Right foot drop: Plan: chronic no Rx no longer using AFO device (8) Fall: Plan: multifactorial risk factors #2, #7, etc cont PT, OT (9) Thrombocytopenia: Plan: fully resolved lowest platelet level was 111 etiology? viral suppression? due to mild pelvic bleeding from fractures and thus consumptive? other? either way it is resolved B12 and folate in 2022 were both wnl (10) Abdominal pain: Plan: x 1 month etiology? constipation? diverticular? other? obtained CT a/p with contrast to r/o diverticulitis earlier in the admission --- CT was benign, nothing acute suspect constipation as cause had been passing tiny BMs only but FINALLY had large BM last 24 hours pain improved cont senna and miralax for maintenance (11) Chronic hypoxic respiratory failure: Plan: 2nd COPD stable on home O2 amount (12) Pneumonia: Plan: suspected based on exam and cxr findings improved/resolving s/p 3 days each of rocephin/doxy IV change to PO omnicef/doxy today - complete 4 more days of PO abx then stop all abx Plan DVT proph - heparin 5000 BID progressing dispo - [facility]? home with home PT/OT? Admission and Anticipated Discharge Date Admission Date: July 19, 2023 Subjective "better day today" less pain - despite such still using IV dilaudid however, has been able to walk much more today, and walked in hallway with PT earlier in the day able to tolerate more weight bearing on the RLE no new areas of pain eating well moving bowels she is wanting to go home at this point despite earlier discussions about going to [facility] tele overnight wnl pulmonary -- doing MUCH better; cough/wheezing improved; no dyspnea or GARBER today Review of Systems Review of Systems: gen - no fevers cv - no cp, no orthopnea pulm - no sputum GI - no abd pain or N/V Physical Exam Physical Exam: gen - thin, best she has looked over the last 7 days, NAD neck - no JVD mouth - MMM heart - RRR, s1 s2, no murmur lungs - CTA b/l except minimal rales b/l bases; no increased work of breathing; wheezes resolved abd - soft; NT; ND BS+ ext - no edema, pulses 2+ b/l neuro - right foot drop psych - a/o x 3 Results & Data Results & Data Vital Signs (Past 12 Hours) Vital Signs Temp Pulse Pulse Resp BP Pulse Ox O2 Del Method 07/26/23 16:25 36.7 C 60 16 129/66 91 Room Air 07/26/23 15:00 62 07/26/23 11:27 36.8 C 60 16 140/57 L 90 Room Air 07/26/23 08:00 36.4 C 58 L 16 130/64 92 Room Air Laboratory Results Laboratory Results - last 24 hr 07/26/23 07:46 WBC 5.49 RBC 4.41 Hgb 14.6 Hct 41.6 MCV 94.3 MCH 33.1 MCHC 35.1 RDW Std Deviation 42.6 RDW Coeff of Gita 12.0 Plt Count 241 MPV 9.1 L Sodium 136 Potassium 4.0 Chloride 98 Carbon Dioxide 30 Anion Gap 8 BUN 15 Creatinine 0.48 L Est Cr Clr Drug Dosing 90.6 Est GFR ( Amer) 116.0 Est GFR (Non-Af Amer) 100.1 BUN/Creatinine Ratio 31.3 H Glucose 102 H Calcium 9.3 PG Care Time/CCT Total # of Minutes Spent Total Time Spent with Patient: Total time spent is greater than 50% in coordination of care (as documented) at patient's floor/unit and/or counseling patient: Coding Level of Care Code 75521 SUB INP/OBS CARE 35MIN Diagnoses Pubic bone fracture S32.509A Complex regional pain syndrome of right lower extremity G90.521 Paroxysmal atrial fibrillation I48.0 Breast cancer C50.919 Sleep apnea G47.30 COPD (chronic obstructive pulmonary disease) J44.9 Right foot drop M21.371 Fall W19.XXXA Encounter type: initial encounter Thrombocytopenia D69.6 Abdominal pain R10.9 Chronic hypoxic respiratory failure J96.11 Pneumonia J18.9 (8) Fall Encounter type: initial encounter Qualified Code(s): W19.XXXA - Unspecified fall, initial encounter
[2023-07-26] MEDS: CEFDINIR 300 MG CAP PO SCH (19:59)
[2023-07-26] MEDS: DOXYCYCLINE HYCLATE 100 MG CAP PO SCH (20:00)
[2023-07-27] MEDS ORDERED: HYDROmorphone INJ 1 MG/ML SYRINGE IV PRN (05:55)
[2023-07-27 07:31] VITALS: RESP 18
[2023-07-27] MEDS: dexAMETHasone 4 MG TAB PO SCH (07:59)
[2023-07-27] MEDS: GABAPENTIN 100 MG CAP PO SCH (08:00)
--- NOTE | 2023-07-27 08:43 | Pain Management Consultation ---
Date of Consultation July 27, 2023 Assessment & Plan (1) Pubic bone fracture: Encounter type: initial encounter Sublocation of pubis: other portion of pubis Fracture type: closed Laterality: right Qualified Code(s): S32.591A - Other specified fracture of right pubis, initial encounter for closed fracture (2) Opiate dependence: Substance use status: uncomplicated Qualified Code(s): F11.20 - Opioid dependence, uncomplicated (3) Complex regional pain syndrome of right lower extremity: Complex regional pain syndrome type: type I Qualified Code(s): G90.521 - Complex regional pain syndrome I of right lower limb Plan Patient appears to be getting out of bed slowly but without any assistance. She questions the efficacy of Nucynta ER 100 mg BID but denies any side effects. I will add on Nucynta IR 50 mg x 6 hours if needed for breakthrough pain and lower Dilaudid dose to 0.5 mg to use if Nucynta is not effective. She does plan to be discharged to home rather than rehab facility. Patient is understanding of plan. Nothing to offer her interventionally. Will sign off on the patient. Please contact with any questions or concerns. Thank you. History of Present Illness Reason for Consultation: Chronic opioid dependence, Pelvic fractures Attending Physician: Elisha Still MD History of Present Illness This is a 67-year-old female that tripped over her dog's toy on 07/19/2023 and sustained fractures of the anterior aspect of the right superior and inferior pubic rami. She does also have a longstanding history of chronic narcotic usage as well as complex regional pain of the right lower extremity. She has been on chronic opioids most recently hydrocodone 10/325 mg. She states that her best pain relief was with MS Contin 30 mg twice daily. Inpatient she has been switched to Nucynta 50 mg ER which was not providing adequate pain relief so was then increased to 100 mg twice daily without any side effects. She denies any dizziness, drowsiness, constipation issues. She does continue to use IV Dilaudid as much as able to. Currently IV Dilaudid is ordered as 1 mg every 6 hours. Patient has been able to ambulate around the hospital room and does plan to discharge to home as she has refused rehab placement. Gabapentin at 200 mg 3 times daily is providing some relief of chronic right lower extremity numbness. Case discussed with Dr. Kanwal Salazar Allergies Allergy/AdvReac Type Severity Reaction Status Date / Time ether Allergy Severe Anaphylaxis Verified 07/19/23 15:01 Home Medications Medication Instructions Recorded Confirmed Type zoledronic acid 5 mg/100 mL in 1 ea IV YEARLY 11/14/20 07/19/23 History mannitol 5 %-water intravenous piggybck (Reclast) melatonin 10 mg capsule 10 mg PO HS PRN Sleep 12/11/22 07/19/23 History multivitamin 1 tab PO QDD 12/11/22 07/19/23 History lidocaine 5 % topical patch 2 patch topical DAILY PRN pain 12/17/22 07/19/23 Rx (scale score 7-10) #30 ea tamoxifen 20 mg tablet 20 mg PO BID #180 tabs 12/17/22 07/19/23 Rx calcium carbonate 600 mg PO Q2D 01/25/23 07/19/23 History cholecalciferol (vitamin D3) 50 50 mcg PO QDD 03/22/23 07/19/23 History mcg (2,000 unit) capsule hydrocodone 10 mg-acetaminophen 1 tab PO Q6H PRN pain #60 tabs 05/20/23 07/19/23 Rx 325 mg tablet atorvastatin 20 mg tablet 20 mg PO QDD 07/19/23 07/19/23 History Patient History Medical History Paresthesia of right lower extremity MRSA (methicillin resistant staph aureus) culture positive 09/18/20 Left Breast Invasive lobular carcinoma of breast in female (12/21/19) Left- dx'ed Jan 2020. 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 Cronin) History of breast surgery (~03/25/20) excision/closure of bilateral masectomy scar revision History of esophagogastroduodenoscopy (EGD) (~2004) History of colonoscopy (2019) S/P epidural steroid injection (1997) lumbar S/P breast reconstruction, bilateral (02/26/20) tissue expanders S/P mastectomy, bilateral (02/26/20) Bilateral Breast Mastectomy with Left Speer Lymph Node Biopsies(Bilateral) - DO elisabet Grant Removal of Loop Recorder(Left) - DO Dr. Иван Grant 02/26/2020 History of cataract surgery (~01/2020) bilateral S/P decompression of ulnar nerve (2005) RUE s/p surgery x2 S/P total hysterectomy and bilateral salpingo-oophorectomy (1994) Status post placement of implantable loop recorder (2017) Removed during bilat mastectomies 02/26/2020 History of total hip replacement (2009) Right H/O hernia repair (2002) umbilical Family History Mother , Passed age 77 of kidney failure/liver cancer Liver cancer Diabetes Heart disease Hypertension Stroke Father , Passed in 50's of COPD / Black Lung Emphysema lung Uncle Prostate cancer Aunt , Passed in 50's of brain cancer No problems noted. Aunt Lung cancer Sister No problems noted. Sister No problems noted. Sister No problems noted. Son No problems noted. Son No problems noted. Other No family history of adverse response to anesthesia Denies family history of Ovarian cancer Myocardial infarction Breast cancer Colorectal cancer Social History Smoking Status: Current every day smoker Tobacco Type: Cigarettes packs per day: 2; Cigarettes Per Day: 4-5; Second Hand Exposure: Yes; Do You Dip or Chew Tobacco: No; Hx Alcohol Use: Yes Alcohol type: hard liquor Alcohol Intake Frequency: 4 or More x per/Week Alcohol Intake Frequency Comment: glass of run and pineapple before bed Hx Substance Use: No Preferred Language: Lao Communication Ability: Effective Visual Impairment: Limited Hearing Ability: Normal 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 Beliefs That Will Affect Care: None marital status: Life Partner Current Living Situation: Significant Other Current Living Situation Comment: Boyfriend lives with patient 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 In no acute distress. HEAD/FACE: Normocephalic and atraumatic. EYES: No drainage or conjunctival injection. ENT: Nose without bleeding or discharge. Oral mucosa moist. RESPIRATORY: Patient with unlabored breathing. No signs of respiratory distress. CHEST/AXILLA: Chest movement symmetrical. No deformities noted. ABDOMEN/GI: No distension BACK: Moves without difficulty SKIN: [place], warm and dry. No rash noted. MS/EXTREMITY: No swelling, no deformities. Moving extremities appropriately. Able to get out of bed slowly without any assistance. NEURO: Alert and appears oriented. Speech is fluent. Cranial Nerves are grossly intact. PSYCH: Alert, pleasant, affect is calm
[2023-07-27] MEDS: TAPENTADOL HCL 50 MG TAB PO PRN (10:50)
[2023-07-27] MEDS: HYDROmorphone INJ 1 MG/ML SYRINGE IV PRN (11:14)
[2023-07-27 11:22] VITALS: BP 145/68; PULSE 65; TEMP 98.6; O2SAT 91
--- NOTE | 2023-07-27 20:30 | Discharge Summary ---
Date of Service July 27, 2023 Admission HPI Per Admitting Provider Gypsy is a 67-year-old female with PMH of invasive ductal carcinoma of left breast, osteoporosis, polyneuropathy, ambulatory dysfunction, lumbar radiculitis, postherpetic neuralgia, complex regional pain syndrome, anxiety and depression, COPD, and HTN. She presented for a ground-level fall around 6 AM on 07/18 after she tripped over her dog's toy in the dark. No head strike. No LOC. Patient endorses 10/10 bilateral hip pain with radiation to the lower back. Patient reports that she has had numbness in her right leg for an extended period of time due to CRPS. Patient took 1 tablet of hydrocodoneacetaminophen for the pain prior to arrival, and received 2 doses of fentanyl en route. She uses supplemental oxygen at home (2.5L NC) at baseline. Patient did not take any of her regular morning medications; no recent change in medications. She does take hydrocodone as needed for her CRPS, foot drop, cancer; reportedly takes 1 tablet at night. She does have a history of right hip replacement in 2009. She is a current tobacco cigarette smoker; 5 cigarettes/day. Patient denies using CPAP at night. Patient is hypertensive at 154/88 at time of admission; SpO2 94% on 4L NC. ED Course: Morphine 2 mg IV ROS: Patient endorses bilateral hip pain, dry cough (ongoing), abdominal pain x 2 weeks, and right leg numbness (ongoing). Patient denies fever, chills, nightsweats, body aches, dizziness or lightheadedness prior to fall, [place], changes in vision, chest pain, chest palpitations, pleuritic CP, SOB, N/V/D, changes in urinary/bowel habits, or saddle anesthesia. Principal Diagnosis pelvic fracture Discharge Exam AOx4 sitting up in bed appears comfortable Normal WOB lungs CTAB no rrw Heart reg no mrg Abd soft/ND LE wwp no edema Can wiggle R toes and very slightly dorsiflex Discharge Data Allergies Allergy/AdvReac Type Severity Reaction Status Date / Time ether Allergy Severe Anaphylaxis Verified 07/19/23 15:01 Consultations 07/19/23 14:54 ED Decision to Admit Stat 07/20/23 10:31 Consult Orthopedic Surgery Routine 07/26/23 10:09 Consult Pain Management Routine Ordered Studies 07/19/23 17:59 CT pelvis w/IV con only Urgent 07/21/23 14:06 CT Abd and Pelvis [CT abd pelvis IV con only] Routine Hip/Pelvis X-Ray 07/19/23 14:03 XR hip URSULA 2v w pelvis CLINICAL HISTORY: fall bl hip pain worse on right COMPARISON STUDY: Right hip CT 06/19/2022. FINDINGS: There is a right total arthroplasty. The hardware is intact. No acute fracture or dislocation within the right or left femur. There is a mildly displaced fracture within the right medial pubic bone. The visualized sacrum is intact. IMPRESSION: There is an acute mildly displaced fracture within the right medial pubic bone. ACT 112: Negative or not required by law. Electronically signed by: Caden Robertson M.D. 07/19/2023 3:12 PM Lumbar Spine X-Ray 07/19/23 14:03 AP LUMBAR SPINE RADIOGRAPH CLINICAL HISTORY: Lower back pain following fall. COMPARISON STUDY: Lumbar spine CT July 15, 2022. Lumbar spine MRI July 16, 2022. TECHNIQUE: AP radiograph of the lumbar spine was obtained. Due to severe right hip pain, lateral views could not be obtained. FINDINGS: No definite fractures within the lumbar spine are identified although sensitivity is diminished given lack of lateral projection. Degenerative disc disease and facet arthrosis within the lumbar spine is better depicted on prior MRI. IMPRESSION: No lumbar spine fractures identified although sensitivity diminished given inability to obtain lateral projection. ACT 112: Negative or not required by law. Electronically signed by: Ramirez Jang M.D. 07/19/2023 2:54 PM Chest X-Ray 07/19/23 15:31 XR chest 1V portable HISTORY: Cough COMPARISON: Chest 07/15/2022. FINDINGS: No pneumothorax. The cardiac silhouette is borderline enlarged. This remains unchanged. Chronic interstitial thickening and mild emphysema again noted. Small right pleural effusion and right basilar densities remain unchanged. No left pleural effusion. There are old, healed bilateral rib fractures. A right-sided calcified pleural plaque is again noted. No new focal lung consolidations. No evidence for pulmonary edema. Calcifications within the aortic knob. Degenerative changes within the shoulders. IMPRESSION: 1. No significant change compared to the prior study. 2. Emphysema and a right calcified pleural plaque again noted. 3. Small right pleural effusion right basilar densities persist. ACT 112: Negative or not required by law. Electronically signed by: Caden Robertson M.D. 07/19/2023 4:[address] 07/19/23 17:59 Exam(s): CT PELVIS With Contrast IV Amt: 94 ml optiray 320 EXAM: CT Pelvis With Intravenous Contrast CLINICAL HISTORY: Reason for exam: Displaced right medial pubic fracture. TECHNIQUE: Axial computed tomography images of the pelvis with intravenous contrast. CTDI is 11.62 mGy and DLP is 450.58 mGy-cm. Automated exposure control was utilized for the study. A dose lowering technique was utilized adhering to the principles of ALARA. CONTRAST: Patient received 94 ml optiray 320 of IV contrast COMPARISON: 06/19/2022. FINDINGS: Bowel: Unremarkable. No obstruction. No mucosal thickening. Appendix: No findings to suggest acute appendicitis. Intraperitoneal space: Unremarkable. No free air. No significant fluid collection. Bladder: Unremarkable. No mass. Reproductive: Unremarkable as visualized. Bones/joints: There is a comminuted fracture involving the anterior aspect of the right superior and inferior pubic rami. Degenerative disease of the lower lumbar spine and bilateral SI joints. Allergies he disease of the left hip. The left superior and if you pubic ramus are intact. The visualized bilateral proximal femurs reveal no lucency or cortical disruption to suggest acute fracture. No dislocation. Soft tissues: Unremarkable. Vasculature: Atherosclerotic disease of aorta and bilateral iliac arteries. No lower abdominal aortic aneurysm. Lymph nodes: Unremarkable. No enlarged lymph nodes. IMPRESSION: 1. Fracture involving the anterior aspect of the right superior and inferior pubic rami as described. 2. Right-sided hip prosthesis in place. No acute fracture visualized. 3. No joint dislocation seen. Electronically signed by: Shanna Johnson MD 07/19/23 20:47 PM Abdomen/Pelvis CT 07/21/23 14:06 CT abd pelvis IV con only CLINICAL HISTORY: LLQ pain; ?diverticulitis? TECHNIQUE: Helical axial images of the abdomen and pelvis were obtained and displayed. Automated dose lowering techniques and/or adjustment according to patient size were utilized for this exam. This exam was performed with intravenous contrast. CT DOSE: 559.99 mGy.cm COMPARISON: Comparison is made to PET/CT of 01/17/[address] abdomen pelvis 08/22/2017 FINDINGS: Lower chest: Bibasilar atelectasis versus scarring is seen. Calcified plaque is seen in the right thorax. Liver: 14 mm hypodensity in the liver seen. Gallbladder and biliary tree: No calcified gallstones. Normal caliber wall. No intra- or extrahepatic biliary ductal dilation. Pancreas: Unremarkable, no focal lesions. Spleen: Unremarkable. Adrenals: Unremarkable. Kidneys and ureters: Unremarkable. Bladder: Hurd catheter is seen. Reproductive organs: Unremarkable. Bowel: Diverticulosis is seen without evidence of diverticulitis. The appendix is normal. Lymph nodes Retroperitoneal: Unremarkable. Pelvic: Unremarkable. Mesenteric: Unremarkable. Peritoneum: Normal. Vessels: Atherosclerotic calcifications are seen. Abdominal wall: Right fat-containing inguinal hernia. Bones: Right hip total arthroplasty is seen. IMPRESSION: 1. No acute abnormalities. In particular, no evidence of diverticulitis despite presence of colonic diverticula. 2. Hepatic hypodensity is unchanged from multiple prior exams and likely benign. ACT 112: Negative or not required by law. Electronically signed by: Kb Krueger M.D. 07/21/2023 4:02 PM Chest X-Ray 07/23/23 07:00 XR chest 2V PA/lateral CLINICAL HISTORY: b/l basilar rales TECHNIQUE: 2 views of the chest were obtained. Comparison: Comparison is made to chest radiograph 07/29/2023 FINDINGS: No lines and tubes are seen. The cardiomediastinal silhouette is normal. Airspace opacities are seen in the right lower and mid lungs. Small right pleural effusion. IMPRESSION: 1. Airspace opacity in the right lower midlung may represent atelectasis, pneumonia, and/or aspiration. 2. Small right pleural effusion. ACT 112: Negative or not required by law. Electronically signed by: Kb Krueger M.D. 07/23/2023 9:34 AM 07/26/23 07:46 07/26/23 07:46 Hospital Course (1) Pubic bone fracture: Gypsy sustained a ground-level fall when she tripped over her dog's toy on the morning of 07/18 CT pelvis with fractures involving the anterior aspect of the right superior and inferior pubic rami Appreciate ortho consultation can WBAT pain management will be challenging due to long-standing opioid usage at high doses and tolerance nucynta ER started and increased to 100 mg bid. Pain service consulted and added nucynta IR IV hydromorphone significantly decreased dose/frequency last 48h, pain service decreased from 1 mg to 0.5 mg q6h PRN today cont lidoderm patches PT, OT evals appreciated - needs rehab 25-OH vit D level normal steroids for COPD seem to be helping pain to some degree as well (2) Complex regional pain syndrome of right lower extremity: Her right lower extremity is always numb, and that she is unable to move her foot due to pre-existing foot drop used AFO device for latter in the past but she feels it made things worse and no longer uses such Hx of right hip replacement in 2009; hardware on imaging intact normally takes hydrocodoneacetaminophen 10mg tabs prn at home added gabapentin 100mg TID this admission; increased to 200mg TID (3) Paroxysmal atrial fibrillation: Not currently on anticoagulation Remains in NSR Is not on AV tony agents No issues (4) Breast cancer: History of Continue tamoxifen (5) Sleep apnea: Patient denies use of CPAP (6) COPD (chronic obstructive pulmonary disease): with exacerbation this admission - MUCH Improved/resolving Had modestly increased O2 requirements earlier in the stay with extensive wheezing/cough Checked COVID/flu/RSV - negative Patient is on continuous supplemental oxygen (2.5L NC) at baseline - had been up to as much 4 L early in admission, now back at [facility] and no longer wheezig Added Anoro Ellipta 1 puff daily while here - would d/c her home on such Early in admission was having significant coughing/wheezing - added dexamethasone 6mg IV daily - completed 4 days of such weaned to 4mg daily starting 07/25 would continue for 1-3 more days (7) Right foot drop: chronic no Rx no longer using AFO device (8) Fall: multifactorial risk factors #2, #7, etc cont PT, OT (9) Thrombocytopenia: lowest platelet level was 111, resolved, may have been consumptive related to fracture B12 and folate in 2022 were both wnl (10) Abdominal pain: x 1 month etiology? constipation? diverticular? other? obtained CT a/p with contrast to r/o diverticulitis earlier in the admission --- CT was benign, nothing acute suspect constipation as cause had been passing tiny BMs but FINALLY had large BM 07/24- pain resolved cont senna and miralax for maintenance (11) Chronic hypoxic respiratory failure: 2nd COPD stable on home O2 amount (12) Pneumonia: suspected based on exam and cxr findings improved/resolving s/p 3 days each of rocephin/doxy IV changed to PO omnicef/doxy 07/25 - complete total 7d course Plan DVT proph - heparin 5000 BID progressing dispo - [facility] for acute rehab Total Time Total Time Spent Total Time Spent (In Minutes): 35 minutes spent coordinating care for discharge - reviewing vital signs, packaging sales consultant recommendations, discussion with home care attendant, examining and counseling patient, discharge orders and documentation Discharge Plan Discharge Items Patient Disposition: Transfer Inpatient Rehab Fac Reason For Visit: Fall Discharge Diagnosis: pelvic fractures, COPD exacerbation, possible pneumonia Activity: Resume your previous activity Weightbearing: Full weightbearing Non-emergency contact: Primary Care Provider Call non-emergency contact if: you have any medication questions and your symptoms worsen Follow-up/Referrals: Candie Francis DO [Primary Care Provider] - [facility] [Non-Staff] - Diet: Regular Addtl Attending Provider Instructions: PT and OT evaluate and treat WBAT has home O2 at baseline - usual is 2.5L pnc Follow up with pain management at [facility] (already established patient) Already has outpatient referral to Rheumatology Follow up with orthopedics Pending Studies at Discharge: No Stand-Alone Forms: My [facility] Skilled Items Patient informed of condition?: Yes DNR: No Discharge Level of Care: Acute rehab Communicable Disease: No Discharge Prognosis: Improving Lines: Peripheral IV Urinary Catheter: No Medications and DC Order Prescriptions: New cefdinir 300 mg Capsule 300 mg PO BID 3 Days Qty: 0 0RF Anoro Ellipta 62.5-25 mcg/actuation Blister With Device 1 inh inhalation DAILY Qty: 0 0RF acetaminophen 325 mg Tablet 650 mg PO Q4H PRNQty: 0 0RF heparin, porcine (PF) 5,000 unit/0.5 mL Syringe 5,000 unit subcut Q12 Qty: 0 0RF gabapentin 100 mg Capsule 200 mg PO TID Qty: 0 0RF hydromorphone 1 mg/mL Syringe 0.5 mg IV Q6H PRNQty: 0 0RF Nucynta 50 mg Tablet 50 mg PO Q6 PRNQty: 0 0RF Nucynta ER 50 mg Tablet Extended Release 12 Hr 100 mg PO Q12 Qty: 0 0RF polyethylene glycol 3350 [Miralax] 17 gram Powder In Packet 17 g PO DAILY Qty: 0 0RF sennosides [Senokot] 8.6 mg Tablet 17.2 mg PO QAM Qty: 0 0RF dexamethasone 4 mg Tablet 4 mg PO QAM 2 Days Qty: 2 0RF guaifenesin [Mucinex] 600 mg Tablet Extended Release 12hr 600 mg PO Q12 Qty: 0 0RF Continued melatonin 10 mg capsule 10 mg PO HS PRN (Reason: Sleep) multivitamin Tablet 1 tab PO QDD calcium carbonate 600 mg calcium (1,500 mg) tablet 600 mg PO Q2D zoledronic neyg-fchwqlmc-yotap [Reclast] 5 mg/100 mL piggyback 1 ea IV YEARLY Rx Instructions: DUE 2023. cholecalciferol (vitamin D3) 50 mcg (2,000 unit) capsule 50 mcg PO QDD tamoxifen 20 mg tablet 20 mg PO BID Qty: 180 3RF lidocaine 5 % adhesive patch,medicated 2 patch topical DAILY PRN (Reason: pain (scale score 7-10)) Qty: 30 5RF Rx Instructions: leave on most painful area for up to 12 hrs atorvastatin 20 mg tablet 20 mg PO QDD Discontinued hydrocodone-acetaminophen 10-325 mg tablet 1 tab PO Q6H PRN (Reason: pain) Qty: 60 0RF Discharge Orders: Discharge Order (Routine); Ordered 07/27/23 Ordered By: Elisha Still Admission Data Admit Date/Time: 07/19/23 15:43 Attending Provider: Elisha Still Admit Provider: Jairo Lake Primary Care Provider: Candie Francis Other Providers: Jairo [place]; Wero Rudolph; [facility]; [facility]; [facility] Coding Level of Care Code 81661 INP/OBS DISCH >30 MIN Diagnoses Other closed fracture of right pubis, initial encounter S32.591A Encounter type: initial encounter Sublocation of pubis: other portion of pubis Fracture type: closed Laterality: right Complex regional pain syndrome type 1 of right lower extremity G90.521 Complex regional pain syndrome type: type I Paroxysmal atrial fibrillation I48.0 Breast cancer C50.919 Sleep apnea G47.30 COPD (chronic obstructive pulmonary disease) J44.9 Right foot drop M21.371 Fall W19.XXXA Encounter type: initial encounter Thrombocytopenia D69.6 Abdominal pain R10.9 Chronic hypoxic respiratory failure J96.11 Pneumonia J18.9
== END 2023-07-27 16:56 | DRG 535 ==
LOC: ED 13:35 → SUATTDRO 15:43 → EDINP 15:43 → 2N 07-20 15:42